=== PATIENT | male | born 1950 | race Caucasian/White ===

== ENCOUNTER 2020-05-24 22:20 | Emergency (ER) | payer MEDICARE, SELFPAY ==
[2020-05-24] VITALS (9 sets, daily range): BP systolic 105–135; BP diastolic 50–65; PULSE 64–72; RESP 15–22; TEMP 36.8; O2SAT 97–100
--- NOTE | ~2020-05-24 | XR_ITS ---
EXAMINATION: XR chest 2V DATE: 05/25/2020 00:08 INDICATION: Shortness of breath TECHNIQUE: frontal and lateral views of the chest were obtained. COMPARISON: Chest radiograph dated 02/18/19 FINDINGS: Mild dependent atelectasis at the posterior sulci on the lateral projection. Remainder of the lungs a re clear. No pulmonary edema or pneumothorax. The cardiomediastinal silhouette is normal. There are b ridging osteophytes at multiple levels in the spine, consistent with diffuse idiopathic skeletal hype rostosis (DISH). IMPRESSION: 1. Mild bibasilar atelectasis. Reviewed, dictated and finalized at location A.
[2020-05-24 23:59] LABS: Basophils Absolute Auto 0.1 K/mm3 (0.0-0.1); Basophils Percent Auto 0.5 % (0.2-1.2); Eosinophils Absolute Auto 0.6 K/mm3 (0-0.3); Eosinophils Percent Auto 6.5 % (0-4.4); Hematocrit 33.3 % (42.0-52.0); Hemoglobin 10.2 g/dL (14.0-18.0); Immature Granulocyte Absolute 0.04 K/mm3 (0.00-0.031); Immature Granulocyte Percent A 0.4 % (0-0.5); Lymphocytes Absolute Auto 1.52 K/mm3 (0.9-3.2); Lymphocytes Percent Auto 16.4 % (18.3-44.2); Mean Corpuscular HGB Conc 30.6 g/dl (32-36); Mean Corpuscular Hemoglobin 30.3 pg (26-34); Mean Corpuscular Volume 98.8 fl (80-100); Mean Platelet Volume 10.4 fl (7.4-10.4); Monocytes Absolute Auto 0.9 K/mm3 (0.1-0.6); Neutrophils Absolute Auto 6.1 K/mm3 (1.3-6.7); Neutrophils Percent Auto 66.2 % (45.5-73.1); Platelet Count Result 244 k/mm3 (150-375); Red Blood Count 3.37 M/mm3 (4.6-6.20); White Blood Count 9.3 K/mm3 (4.5-10.0)
[2020-05-25] VITALS (7 sets, daily range): PULSE 62–70; RESP 12–18; O2SAT 93
[2020-05-25 00:14] LABS: Blood Urea Nitrogen 69 mg/dL (9-20); Calcium 8.8 mg/dL (8.4-10.2); Carbon Dioxide 28 mmol/L (22-30); Chloride 102 mmol/L (98-107); Estimated Glomerular Filt Rate 27; Glucose 187 mg/dL (75-110); Potassium 4.3 mmol/L (3.4-5.0); Sodium 137 mmol/L (137-145)
[2020-05-25 00:23] LABS: NT Pro B Type Natriuretic Pept 3210 PG/ML (5-100)
--- NOTE | 2020-05-25 01:46 | ED.EXTPRO ---
HPI - Extremity Problem General Chief complaint: Extremity Problem,Nontraumatic Stated complaint: full of fluid Time Seen by Provider: 05/24/20 23:32 History of Present Illness HPI Narrative: Patient is a 69-year-old male with multiple chronic medical issues who presents the ER with lower extremity swelling. Patient has history of chronic lower edema and has been hospitalized at [facility] and other hospitals for diuresis. Most recently couple weeks ago. Reports despite taking Lasix to continue weep. He also reports that he has chronic pain to his left hip over the last year. Patient reports dyspnea is also chronic as well. Related Data Home Medications Medication Instructions Recorded Confirmed allopurinol 200 mg PO DAILY 05/24/20 amiodarone 200 mg PO DAILY 05/24/20 apixaban [Eliquis] 5 mg PO BID 05/24/20 baclofen 10 mg PO TID PRN 05/24/20 calcitriol 0.25 mcg PO DAILY 05/24/20 ergocalciferol (vitamin D2) 50,000 unit PO WEEKLY 05/24/20 folic acid 1 mg PO DAILY 05/24/20 furosemide [Lasix] 80 mg PO BID 05/24/20 gabapentin 300 mg PO TID 05/24/20 hydrocodone-acetaminophen 1 tablet PO TID PRN 05/24/20 insulin detemir U-100 [Levemir 22 unit SUBCUT HS 05/24/20 FlexTouch U-100 Insuln] insulin lispro [Humalog KwikPen 10 unit SUBCUT TID 05/24/20 Insulin] levothyroxine 100 mcg PO QAM 05/24/20 lisinopril 5 mg PO DAILY 05/24/20 metoprolol succinate 50 mg PO DAILY 05/24/20 pantoprazole 40 mg PO TID 05/24/20 ropinirole 0.75 mg PO HS 05/24/20 spironolactone 12.5 mg PO DAILY 05/24/20 Allergies Allergy/AdvReac Type Severity Reaction Status Date / Time No Known Allergies Allergy Unverified 02/18/19 18:55 Review of Systems Review of Systems: All systems reviewed & are unremarkable except as noted in HPI and below Constitutional: Constitutional: Denies fatigue, Denies fever(s) and Denies weakness ENT: Denies nasal congestion and Denies sore throat Cardiovascular: Cardiovascular: Denies chest pain, Denies rapid heart rate and Denies radiating jaw, neck or arm pain Respiratory: Respiratory: Denies cough, Reports dyspnea and Denies wheezing Gastrointestinal: Gastrointestinal: Denies abdominal pain, Denies nausea and Denies vomiting Musculoskeletal: Comments: lower extremity edema Integumentary/Breasts: Comments: redness to BLE with weeping. [facility] Past Medical History Medical History (Updated 05/25/20 @ 02:52 by Damian Lechuga MD) Asbestosis Atrial fibrillation Carpal tunnel syndrome Chronic kidney disease COPD (chronic obstructive pulmonary disease) Surgical History Surgical History (Updated 05/25/20 @ 02:23 by Damian Lechuga MD) History of carpal tunnel release Social History Social History (Updated 05/25/20 @ 02:23 by Damian Lechuga MD) Smoking status: Never smoker Gender identity (if verbalized by the patient): Male Exam Narrative: Exam Narrative: GENERAL: Chronically ill-appearing and morbidly obese, and in no acute distress. HEAD: Normocephalic, atraumatic. ENT: Mucous membranes moist. CHEST: Clear to auscultation. No respiratory distress. HEART: Irregular regular rate and rhythm. Normal peripheral pulses. ABDOMEN: Soft, nontender, nondistended. EXTREMITIES: 4+ edema bilateral lower extremities with weeping. Patient able to ambulate with walker. SKIN: Warm, dry. Chronic skin changes bilateral lower extremities include redness with weeping blisters due to edema. NEURO:No focal deficits. Alert and oriented x3. PSYCH: Normal mood and affect. Course Course Emergency Course: Patient is up and ambulatory with a walker. Pain in the extremities as well as his edema all appear to be chronic. Renal issues also chronic. Previous chart reviewed. Patient wants referral to wound clinic. Discussed he should speak to his PCP about referral. Vital Signs Vital signs: Vital Signs Temperature 98.3 F 05/24/20 22:23 Pulse Rate 72 05/24/20 22:23 Respiratory Rate 19 0
--- NOTE | 2020-05-25 01:54 | PC.NURSE ---
Patient ambulated with walker, ambulated well with no assistance from staff. notified.
--- NOTE | 2020-05-25 02:41 | PC.NURSE ---
Patient frequently yelling out, nurse! and stating I need a pain pill, they haven't done anything for me, my legs are still weeping and I still hurt! this nurse informed patient that I understand your concerns, but this is an ER and we have one physician right now and he is seeing another patient right now. Patient then states well I have been here for so long, I cant just keep like this. This nurse informs patient that the physician is aware of his concerns but, you will need to follow up with your PCP, unfortunately the issues or concerns you came with today are chronic issues and aren't able to be resolved overnight. Patient then states I need a pain pill, I'm in pain! . This nurse informs patient that as soon as the physician is out of the other patient's room, I will let him know. Patient then states I'm about to walk out of here, hurry up! This nurse informs patient again that this is an ER and we only have one physician and he is busy at the moment but ensures patient that I will let the physician know of your pain as soon as I can.
== END 2020-05-25 03:05 | disposition home or self-care (01) ==
PROVIDERS: Emergency Provider Emergency Medicine; PCP Physician Assistant
DX: R60.0 Localized edema (principal); N18.9 Chronic kidney disease, unspecified; I48.91 Unspecified atrial fibrillation; J61 Pneumoconiosis due to asbestos and other mineral fibers; J44.9 Chronic obstructive pulmonary disease, unspecified; Z79.01 Long term (current) use of anticoagulants; Z79.4 Long term (current) use of insulin; R06.00 Dyspnea, unspecified
CPT/HCPCS: 36415; 71046; 80048; 83880; 85025; 99283

== ENCOUNTER 2025-10-16 23:02 | Inpatient (IN) | payer MEDICARE, SELFPAY ==
[2025-10-16] VITALS (9 sets, daily range): BP systolic 71–98; BP diastolic 35–73; PULSE 82–93; RESP 12–982; TEMP 36.8; O2SAT 89–100
--- NOTE | ~2025-10-16 | US_ITS ---
EXAMINATION: US arterial ankle brachial ind DATE: 10/18/2025 08:49 INDICATION: Cold toes with discoloration. Diabetes. TECHNIQUE: Segmental pressures and plethysmographic and Doppler waveforms of the brachial and lower extremity arteries were obtained. COMPARISON: None. FINDINGS: Right and left brachial artery pressures of 121 mm Hg and 119 mm Hg, respectively, are concordant (normal difference <= 30 mmHg). The right ankle-brachial index (ARNALDO) is at least 1.54 (normal >= 0.9-1.0) based solely upon pressures in the right posterior tibial artery with the right dorsalis pedis artery unable to be occluded which is likely related to arterial vessel wall calcification which can be seen in the arteries of both calves on prior CT dated 10/17/2025. The right great toe-brachial index (TBI) is 0.64 (normal >= 0.65). Arterial Doppler waveforms demonstrate brisk systolic upstrokes at both right posterior tibial and dorsalis pedis arteries. The left ARNALDO is unable to be obtained due to inability to occlude the vessels at the left ankle. The left TBI is 0.71. Arterial Doppler waveforms demonstrate brisk systolic upstrokes at both left posterior tibial and dorsalis pedis arteries. IMPRESSION: 1. Mild arterial occlusive disease to the right lower limb with minimally decreased right TBI. 2. No significant arterial occlusive disease in the left lower limb with normal left TBI. Reviewed, dictated and finalized at location A. PENDENT CONTRACTOR IMPRESSION: 1. Mild arterial occlusive disease to the right lower limb with minimally decre ased right TBI. 2. No significant arterial occlusive disease in the left lower limb with normal left TBI.
--- NOTE | ~2025-10-16 | XR_ITS ---
EXAMINATION: XR chest 1V portable DATE: 10/17/2025 00:12 INDICATION: Weakness TECHNIQUE: A single frontal view of the chest was obtained. COMPARISON: May 25, 2020 FINDINGS: The lungs are marginally inflated and exam somewhat limited by portable technique and patient body habitus. No large consolidative process, fabrice pulmonary edema or large effusion. Heart shadow appears borderline enlarged. Interstitial bronchovascular markings somewhat prominent. IMPRESSION: 1. Portable chest x-ray with no focal acute process; heart shadow is borderline enlarged and mild vascular congestion may be present. Reviewed, dictated and finalized at location A. ING DIRECTOR
--- NOTE | ~2025-10-16 | CT_ITS ---
EXAM/PROCEDURE: CT chest abdomen pelvis wo con HISTORY: sepsis COMPARISON: None available. TECHNIQUE: Noncontrast CT of the chest abdomen and pelvis performed FINDINGS: CHEST: Scattered fibrotic and atelectatic changes but the lungs are otherwise clear. Borderline cardiomegaly. No significant pericardial effusion or bulky lymphadenopathy. No suspicious lung nodules or masses. In the abdomen and pelvis, the bowel gas pattern is nonobstructive with no free air free fluid or pneumatosis seen. No gross inflamed appendix or AAA. No hydroureteronephrosis. A 3.3 cm mid pole right renal cysts and cholelithiasis. No gross CT evidence of acute cholecystitis or pancreatitis. Possible mild urinary bladder wall thickening. No bulky lymphadenopathy or masses seen. Diffuse degenerative changes throughout the bones. IMPRESSION: Directed noncontrast exam demonstratin. No gross acute intrathoracic process. Borderline cardiomegaly and coronary artery calcifications. 2. Cholelithiasis with no gross CT evidence of acute cholecystitis. Possible mild urinary bladder wall thickening which could be associated with developing cystitis or UTI. NOTE: Preliminary radiologist report provided by [facility] radiologist/physician. Reviewed, dictated and finalized at location A. L CLERK IMPRESSION: Directed noncontrast exam demonstratin. No gross acute intrathoracic process. Borderline cardiomegaly and coronary a rtery calcifications. 2. Cholelithiasis with no gross CT evidence of acute cholecystitis. Possible mi ld urinary bladder wall thickening which could be associated with developing cy stitis or UTI. NOTE: Preliminary radiologist report provided by [facility] radiologist/physician.
--- NOTE | ~2025-10-16 | US_ITS ---
EXAMINATION: US venous doppler [facility] DATE: 10/17/2025 12:31 INDICATION: Lower limb cellulitis with discoloration and coolness to the toes. TECHNIQUE: Grayscale ultrasound images without and with compression and Doppler ultrasound images of the bilateral lower extremity veins were obtained. COMPARISON: None. FINDINGS: The visualized portions of right common femoral vein, profunda (deep) femoral vein, femoral vein, popliteal vein, posterior tibial veins, peroneal veins, gastrocnemius vein and greater saphenous vein outflow are patent. Venous catheter is seen in the right common femoral vein. The visualized portions of left common femoral vein, profunda femoral vein, femoral vein, popliteal vein, posterior tibial veins, peroneal veins, gastrocnemius vein and greater saphenous vein outflow are patent. IMPRESSION: 1. No deep venous thrombosis in either lower limb. Reviewed, dictated and finalized at location A. ENT INTAKE REPRESENTATIVE
--- NOTE | ~2025-10-16 | CT_ITS ---
EXAM/PROCEDURE: CT LE LT wo con HISTORY: Cellulitis, rule out necrotizing fasciitis COMPARISON: None available. TECHNIQUE: CT of the left leg foot and ankle with the upper portion of the field of view just above the level of the knee performed with no contrast. FINDINGS: Moderately severe edematous/infiltrative changes present circumferentially in the subcutaneous soft tissues at the superior margin of the field of view, and extending caudally and increasing in consolidation through the calf/leg region and into the foot. No discretely defined drainable fluid collection. The deep compartments appear uninvolved with no evidence of compartment syndrome or deep infection. No gaseous accumulation within the field of view. Extensive vascular calcification. The bones appear intact with no clear evidence of osteomyelitis. IMPRESSION: 1. Extensive edematous/infiltrative changes in the subcutaneous soft tissues throughout the field of view of the left lower extremity with no clearly defined abscess or gross evidence of necrotizing fasciitis, or osteomyelitis. If osteomyelitis is a clinical concern, correlation with MRI suggested; if there concern for abscess, repeat examination with CT or MRI with contrast suggested. 2. Other findings as above. Reviewed, dictated and finalized at location A. YING MACHINE OPERATOR IMPRESSION: 1. Extensive edematous/infiltrative changes in the subcutaneous soft tissues th roughout the field of view of the left lower extremity with no clearly defined abscess or gross evidence of necrotizing fasciitis, or osteomyelitis. If osteom yelitis is a clinical concern, correlation with MRI suggested; if there concern for abscess, repeat examination with CT or MRI with contrast suggested. 2. Other findings as above.
--- NOTE | 2025-10-16 23:13 | ECG_ITS ---
Test Date: 2025-10-16 23:32:30 Measurements Intervals [place] Rate: 90 P: 0 MO: 0 QRS: 201 QRSD: 130 T: 60 QT: 353 QTc: 432 Interpretive Statements ATRIAL FIBRILLATION LOW VOLTAGE ANTEROLATERAL MYOCARDIAL INFARCTION , OF INDETERMINATE AGE [40+ ms Q WAVE IN I/aVL/V3-V6] ABNORMAL ECG No previous ECG available for comparison Electronically Signed On 10-17-2025 09:02:30 PARTS DATA WRITER by Benji Moeller M.D.
[2025-10-16] MEDS: DEXTROSE 50% 25 GM/50 ML SYRINGE ×2 (23:14→23:20)
[2025-10-16] MEDS: SODIUM CHLORIDE 0.9% IV 1,000 ML 999 ML IV CONT (23:36)
[2025-10-16 23:40] LABS: Hematocrit 39.1 % (42.0-52.0); Hemoglobin 12.4 g/dL (14.0-18.0); Immature Granulocyte Percent A 1.5 % (0-0.5); Lymphocytes Absolute Auto 1.38 K/mm3 (0.9-3.2); Mean Corpuscular HGB Conc 31.7 g/dl (32-36); Mean Corpuscular Hemoglobin 30.8 pg (26-34); Mean Corpuscular Volume 97.0 fl (80-100); Nucleated Red Blood Cells Absolute Auto 0.000 K/mm3 (0.0-0.012); Nucleated Red Blood Cells Perc 0.0 % (0.0-0.2); Platelet Count Result 227 k/mm3 (150-375); Red Blood Count 4.03 M/mm3 (4.6-6.20); White Blood Count 18.2 K/mm3 (4.5-10.0)
[2025-10-16 23:54] LABS: INR 1.4; Prothrombin Time 16.9 Seconds (11.1-14.7)
[2025-10-17] VITALS (98 sets, daily range): BP systolic 61–177; BP diastolic 30–122; PULSE 66–100; RESP 13–30; TEMP 37.2–38.6; O2SAT 84–100; BMI 54.0
--- NOTE | 2025-10-17 | ECHO_ITS ---
Patient Info Name: Chaz Caballero Age: 75 years : 1950 Gender: Male Ht: 63 in Wt: 305 lbs BSA: 2.57 m2 HR: 76 bpm BP: 113 / 92 mmHg Heart Rhythm: Atrial Fibrillation Technical Quality: Fair Exam Date: 10/17/2025 1:50 PM Patient Status: I Admit Date: 10/17/2025 Exam Type: CA echo dop color flow w con Complete two-dimensional, color flow and Doppler transthoracic echocardiogram is performed with contrast to opacify the left ventricle and to improve the deliniation of the left ventricle endocardial borders. Staff Referring Physician: Tatum Rose MD Belt And Link Assembly Supervisor: Bhargav Soler III Attending Provider: Salma Bowling Contrast/Agitated Saline Contrast/Ag. Saline: Definity Amount: 2.00 ml Administered By: Bhargav Soler III Existing IV Access: Yes IV Access Condition: patent with no signs of infiltration Summary 1. Left ventricular chamber dimension is mildly enlarged. 2. Left ventricular systolic function is severely reduced, estimated at 30-35. 3. There is mildly increased left ventricular wall thickness. 4. The left ventricular diastolic function is abnormal. 5. Right ventricular chamber dimension is severely enlarged. 6. Right ventricular systolic function is reduced. 7. There is mild mitral valve regurgitation. 8. There is moderate to severe tricuspid valve regurgitation. 9. Severe pulmonary hypertension, estimated pulmonary arterial systolic pressure is 62 mmHg. 10. There is mild pulmonic regurgitation. Left Ventricle Left ventricular chamber dimension is mildly enlarged. Left ventricular systolic function is severely reduced, estimated at 30-35. There is mildly increased left ventricular wall thickness. The left ventricular diastolic function is abnormal. Right Ventricle Right ventricular chamber dimension is severely enlarged. Right ventricular systolic function is reduced. Left Atria Left atrial chamber dimension is moderately enlarged. Right Atria Right atrial chamber dimension is moderately enlarged. Atrial Septum Intact interatrial septum visualized by color flow imaging. Aortic Valve The aortic valve is trileaflet. There is mild aortic valve sclerosis. There is no aortic valve stenosis. There is trace aortic valve regurgitation. Pulmonic Valve The pulmonic valve is normal. There is no pulmonic valve stenosis. There is mild pulmonic regurgitation. Mitral Valve The mitral valve has a calcified annulus. There is no mitral valve stenosis. There is mild mitral valve regurgitation. Tricuspid Valve The tricuspid valve leaflets are normal. There is no significant tricuspid valve stenosis. There is moderate to severe tricuspid valve regurgitation. Severe pulmonary hypertension, estimated pulmonary arterial systolic pressure is 62 mmHg. Pericardium/Pleural The pericardium appears normal. There is trivial pericardial effusion. Inferior Vena Cava Normal inferior vena cava with <50% collapse upon inspiration consistent with elevated right atrial pressure, 10 mmHg. Aorta The aortic root size at the sinus of Valsalva is normal. Left Ventricular Outflow Tract Name Value Normal LVOT 2D LVOT Diameter 2.6 cm LVOT Doppler LVOT Peak Velocity 96 cm/s LVOT Peak Gradient 4 mmHg LVOT Mean Gradient 2 mmHg LVOT VTI 17 cm LVOT VTI/AV VTI Ratio 0.8 LVOT Stroke Volume 92 ml LVOT CO 6.4 l/min LVOT CI 2.5 l/min/m2 Pulmonic Valve Name Value Normal PV Doppler PV Peak Velocity 121 cm/s PV Peak Gradient 6 mmHg PV Mean Gradient 2 mmHg Mitral Valve Name Value Normal MV Doppler MV Peak Gradient 6 mmHg MV Mean Gradient 2 mmHg MV Area (Cont Eq VTI) 3.1 cm2 MV Diastolic Function MV E Peak Velocity 103 cm/s MV A Peak Velocity 1 cm/s MV E/A 158.7 MV Decel Time (PW) 211 ms MV Annular TDI MV E/e' (Septal) 14.8 MV E/e' (Lateral) 16.4 MV E/e' (Average) 15.6 Tricuspid Valve Name Value Normal TV Regurgitation Doppler TR Peak Velocity 361 cm/s TR Peak Gradient 52 mmHg Estimated PAP/RSVP RA Pressure 10 mmHg <=5 PA Systolic Pressure 62 mmHg <36 RV Systolic Pressure 62 mmHg <36 TV Annular TDI TV Lateral Elvira s' Velocity 6.8 cm/s >=9.5 Aortic Valve Name Value Normal AV Doppler AV Peak Velocity 151 cm/s AV Peak Gradient 9 mmHg AV Mean Gradient 4 mmHg AV VTI 23 cm AV Area (Cont Eq VTI) 4.0 cm2 >=3.0 AV Area (Cont Eq Jevon) 3.4 cm2 AV DI (Jevon) 0.64 AV Regurgitation 2D LVOT Area 5.3 cm2 Ventricles Name Value Normal LV Dimensions 2D/MM IVS Diastolic Thickness (2D) 0.9 cm 0.6-1.0 LVID Diastole (2D) 5.6 cm 4.2-5.8 LVIW Diastolic Thickness (2D) 0.8 cm 0.6-1.0 LVID Systole (2D) 4.7 cm 2.5-4.0 LVOT Diameter 2.6 cm LV Mass (2D Cubed) 172.43 g 88.00-224.00 LV Mass Index (2D Cubed) 67 g/m2 49-115 Relative Wall Thickness (2D) 0.27 <=0.42 LV Fractional Shortening/Ejection Fraction 2D/MM LV Fractional Shortening (2D) 16 % 25-43 LV EF (2D Teichholz) 34 % LV Diastolic Volume (4C MOD) 109 ml LV EF (4C MOD) 36 % LV Diastolic Volume (2C MOD) 101 ml LV EF (2C MOD) 35 % LV Diastolic Volume (BP MOD) 110 ml 62-150 LV Diastolic Volume Index (BP MOD) 43 ml/m2 34-74 LV Systolic Volume (BP MOD) 69 ml 21-61 LV Systolic Volume Index (BP MOD) 27 ml/m2 11-31 LV EF (BP MOD) 38 % 52-72 LV Diastolic Length (4C) 7.3 cm LV Systolic Length (4C) 6.1 cm LV Stroke Volume (4C MOD) 39 ml Atria Name Value Normal RA Dimensions RA Systolic Major [place] Length (4C) 6.7 cm 2.1-2.7 RA Area (4C) 30.0 cm2 <=18.0 Report Signatures
[2025-10-17 00:03] LABS: Partial Thromboplastin Time 33.3 Seconds (22.3-36.8)
[2025-10-17 00:12] LABS: Alanine Aminotransferase 27 U/L (6-50); Albumin Level 3.9 g/dL (3.5-5.1); Alkaline Phosphatase 94 U/L (38-126); Anion Gap 13 mmol/L (4-12); Aspartate Amino Transferase 32 U/L (17-59); Bilirubin,Total 1.2 mg/dL (0.2-1.3); Blood Urea Nitrogen 35 mg/dL (9-20); Calcium 9.2 mg/dL (8.4-10.2); Carbon Dioxide 23 mmol/L (22-30); Chloride 100 mmol/L (98-107); Estimated Glomerular Filt Rate 33; Glucose 45 mg/dL (65-110); Lipase 33 U/L (23-300); Magnesium 0.8 mg/dL (1.6-2.3); Potassium 4.0 mmol/L (3.4-5.0); Procalcitonin 18.4 ng/mL; Sodium 136 mmol/L (137-145); Total Protein 7.4 g/dL (6.3-8.2)
[2025-10-17 00:22] LABS: NT Pro B Type Natriuretic Pept 19400 pg/mL (19.9-100); Troponin I 0.064 ng/mL (0.000-0.034)
[2025-10-17] MEDS: DEXTROSE 5%/0.9% SOD CHL 1,000 ML 100 ML IV CONT ×2 (00:45→10:26)
[2025-10-17 00:52] LABS: Influenza A QL RT-PCR Negative (Negative); Influenza B QL RT-PCR Negative (Negative); RSV RNA, RT-PCR Negative (Negative); SARS-CoV-2 RNA PCR Negative (Negative)
[2025-10-17 01:43] LABS: Alveolar/Arterial O2 Gradient 133.8 mmHg; Fractional Inspired Oxygen 44 %; HCO3 ABG 19.1 mEq/l (22.0-26.0); Oxygen Content ABG 17.3 %vol (16.0-22.0); Oxygen Saturation ABG 98.6 % (95.0-100.0); PCO2 ABG 37.7 mmHg (35.0-45.0); PO2 ABG 136.9 mmHg (80.0-100.0); PO2 FiO2 Ratio Arterial Blood 3.11 %
[2025-10-17 01:51] LABS: Liters per Minute 6.0 LPM; Modified Allen's Test Pass; Site Drawn LEFT RADIAL
--- NOTE | 2025-10-17 01:54 | PCRCNOTE ---
Slow draw time due to unpalpable pulsation in extremities bilaterally; blue, cold fingers; consistently trending lower BP; Doppler used to target at Left radial artery
[2025-10-17] MEDS: NOREPINEPHRINE 8 MG/D5W 250 ML 8 MG/250 ML BAG 9.38 MG IV CONT (02:10)
[2025-10-17] MEDS: CEFEPIME 2 GM in SODIUM CHLORIDE 0.9% IV 50 ML 100 ML IVPB ×3 (02:11→23:35)
[2025-10-17 02:13] LABS: Add Urine Microscopic? YES; Appearance Urine Turbid (Clear); Glucose Urine UA Negative (Negative); Leukocyte Esterase Ur 1+ LEU/UL (Negative); Need Manual Microscopic Reviewed; Nitrate Urine Negative (Negative); Non Pathogenic Casts >20; Specific Grav Ur 1.018 (1.001-1.035)
--- NOTE | 2025-10-17 02:32 | ED.GENADULT ---
HPI - General Adult General Chief complaint: Weakness Stated complaint: HYPOGLYCEMIA, WEAKNESS, BLURRED VISION Time Seen by Provider: 10/16/25 23:16 History of Present Illness HPI narrative: patient 75-year-old gentleman presents emergency department with chief complaint of not feeling well patient has history of diabetes reports that throughout the day he has been feeling unwell reports he has history of chronic kidney disease atrial fibrillation COPD and today did not eat well but took his normal doses of insulin the patient was found to be hypoglycemic by EMS was given oral glucose and a dose of glucagon prior to arrival upon arrival the emergency department patient was still hypoglycemic and was given IV glucose upon arrival the patient was hypotensive Related Data Home Medications ?Medication ?Instructions ?Recorded ?Confirmed ?Last Taken ?Type allopurinol 100 mg tablet 200 mg PO DAILY 05/24/20 10/17/25 10/16/25 History amiodarone 200 mg tablet 200 mg PO DAILY 05/24/20 10/17/25 10/16/25 History apixaban 5 mg tablet (Eliquis) 5 mg PO BID 05/24/20 10/17/25 10/16/25 History baclofen 10 mg tablet 10 mg PO TID PRN other 05/24/20 10/17/25 10/16/25 History calcitriol 0.25 mcg capsule 0.25 mcg PO DAILY 05/24/20 10/17/25 10/16/25 History ergocalciferol (vitamin D2) 1,250 50,000 unit PO WEEKLY 05/24/20 10/17/25 10/16/25 History mcg (50,000 unit) capsule folic acid 1 mg tablet 1 mg PO DAILY 05/24/20 10/17/25 10/16/25 History furosemide 80 mg tablet (Lasix) 80 mg PO BID 05/24/20 10/17/25 10/16/25 History gabapentin 300 mg capsule 300 mg PO TID 05/24/20 10/17/25 10/16/25 History hydrocodone 5 mg-acetaminophen 325 1 tablet PO TID PRN Pain 05/24/20 10/17/25 10/16/25 History mg tablet insulin detemir U-100 100 unit/mL 22 unit subcut HS 05/24/20 10/17/25 10/16/25 History (3 mL) subcutaneous pen (Levemir FlexTouch U-100 Insulin) insulin lispro 100 unit/mL 10 unit subcut TID 05/24/20 10/17/25 10/16/25 History subcutaneous pen (Humalog KwikPen (U-100) Insulin) levothyroxine 100 mcg tablet 100 mcg PO QAM 05/24/20 10/17/25 10/16/25 History lisinopril 5 mg tablet 5 mg PO DAILY 05/24/20 10/17/25 10/16/25 History metoprolol succinate 50 mg 50 mg PO DAILY 05/24/20 10/17/25 10/16/25 History tablet,extended release 24 hr pantoprazole 40 mg tablet,delayed 40 mg PO TID 05/24/20 10/17/25 10/16/25 History release ropinirole 0.25 mg tablet 0.75 mg PO HS 05/24/20 10/17/25 10/16/25 History spironolactone 25 mg tablet 12.5 mg PO DAILY 05/24/20 10/17/25 10/16/25 History Allergies Allergy/AdvReac Type Severity Reaction Status Date / Time No Known Allergies Allergy Unverified 02/18/19 18:55 Review of Systems Review of Systems: A 10 system review of systems was completed on the patient and is negative except for what is stated in the HPI. Nursing and ancillary documentation was reviewed. [facility] Past Medical History Medical History Carpal tunnel syndrome Chronic kidney disease Asbestosis COPD (chronic obstructive pulmonary disease) Atrial fibrillation Surgical History Surgical History History of carpal tunnel release Social History Social History Smoking status: Never smoker Gender identity (if verbalized by the patient): Male Exam Narrative: GENERAL: illl-appearing, morbidly obese, and in no acute distress. HEAD: Normocephalic, atraumatic. EYES: PERRLA and EOMI. ENT: Nares clear, no rhinorrhea or epistaxis. Mucous membranes moist. NECK: Supple. CHEST: Clear to auscultation. No respiratory distress. HEART: Regular rate and rhythm. No murmur heard. Normal peripheral pulses. ABDOMEN: Soft, nontender, nondistended, normal active bowel sounds. there is erythema of the skin folds under the pannus there is open wound to the scrotum tissue was pink colored there is no necrotic tissue there is no crepitance there is no purulent drainage EXTREMITIES: Normal range of motion. No edema. SKIN: Warm, dry, no rash. NEURO: No focal deficits. Alert and oriented x3. PSYCH: Normal mood and affect. Course Vital Signs Vital signs: Vital Signs Temperature 36.8 C 10/16/25 22:57 Pulse Rate 93 10/16/25 22:57 Respiratory Rate 12 10/16/25 22:57 Blood Pressure 92/59 L 10/16/25 22:57 Pulse Oximetry 96 10/16/25 22:57 Oxygen Delivery Nasal Cannula 10/16/25 22:57 Oxygen Flow Rate 3 10/16/25 22:57 Temperature 37.2 C 10/17/25 03:58 Pulse Rate 66 10/17/25 04:00 Respiratory Rate 28 H 10/17/25 04:00 Blood Pressure 99/68 L 10/17/25 03:58 Pulse Oximetry 96 10/17/25 04:00 Oxygen Delivery Nasal Cannula 10/17/25 04:00 Oxygen Flow Rate 2 10/17/25 04:00 Fraction of Inspired Oxygen 50 10/17/25 03:00 Procedures Central Line Placement Right Femoral: Central Line Date: 10/17/25 Central Line Time: 02:33 Discussed w/ the patient/family/POA,the placement of a central venous catheter, including its clinical necessity/indication & associated potential risks, benifits and alternatives.: Yes The patient/family/POA understand(s) and acknowledge(s) the need to proceed with central venous catheter insertion as an important element of the patient's clinical management.: Yes Time Out Performed: Yes Patient Placed on Monitor/Pulse Ox: Yes Max. Sterile Barrier Technique: Caps, large sterile sheet and hand hygiene Central Line Prep: 2% chlorhexidine scrub and sterile drapes applied Technique: [email or web address] Local Anesthetic: lidocaine 1% Amount of anesthesia used (mL): 5 Ultrasound Used for Placement: Yes Central Line Lumen Inserted: triple Post Procedure: sutured in place, good blood return, all ports aspirated, flushed, capped and sterile dressing applied Patient Tolerated Procedure: well and no complications Medical Decision Making MDM Narrative Medical decision making narrative: differential diagnosis includes sepsis, hypoglycemia, noncompliance, pneumonia, cellulitis patient initially had a lactate of 5.3 white count was 18 initial blood sugars were extremely low at 45 the patient was treated with IV dextrose and also is on D5 drip creatinine was 1.97 this is actually improved from the patient's baseline troponin was slightly elevated at 0.085 CRP and procalcitonin [place] [address] urinalysis showed 1+ leukocyte esterase but no white blood cells and no bacteria and negative nitrate COVID flu RSV were negative blood cultures were obtained. The patient was empirically started on cefepime and vancomycin due to hypotension a central line was placed due to the patient being on Eliquis a right femoral central line was placed even though due to the patient's body habitus it was somewhat suboptimal and location the patient is currently on 10 mcg of Levophed patient was treated with less than 30 per kilos of normal saline boluses due to CHF concerns after fluid resuscitation the lactic acid did come down from 5.3 to 3.0 Vital Signs Vital Signs: Vital Signs Temperature 36.8 C 10/16/25 22:57 Pulse Rate 93 10/16/25 22:57 Respiratory Rate 12 10/16/25 22:57 Blood Pressure 92/59 L 10/16/25 22:57 Pulse Oximetry 96 10/16/25 22:57 Oxygen Delivery Nasal Cannula 10/16/25 22:57 Oxygen Flow Rate 3 10/16/25 22:57 Temperature 37.2 C 10/17/25 03:58 Pulse Rate 66 10/17/25 04:00 Respiratory Rate 28 H 10/17/25 04:00 Blood Pressure 99/68 L 10/17/25 03:58 Pulse Oximetry 96 10/17/25 04:00 Oxygen Delivery Nasal Cannula 10/17/25 04:00 Oxygen Flow Rate 2 10/17/25 04:00 Fraction of Inspired Oxygen 50 10/17/25 03:00 Lab Data 10/16/25 23:07 10/16/25 23:07 Labs: Lab Results 10/16/25 10/16/25 10/16/25 Range/Units 23:07 23:36 23:41 WBC 18.2 H (4.5-10.0) K/mm3 RBC 4.03 L (4.6-6.20) M/mm3 Hgb 12.4 L (14.0-18.0) g/dL Hct 39.1 L (42.0-52.0) % MCV 97.0 (80-100) fl MCH 30.8 (26-34) pg MCHC 31.7 L (32-36) g/dl RDW 14.4 (11.5-14.5) % Plt Count 227 (150-375) k/mm3 MPV 9.8 (7.4-10.4) fl Immature Gran % (Auto) 1.5 H (0-0.5) % Neut % (Auto) 86.0 H (45.5-73.1) % Lymph % (Auto) 7.6 L (18.3-44.2) % Potter % (Auto) 4.4 (2.6-8.5) % Eos % (Auto) 0.0 (0-4.4) % Baso % (Auto) 0.5 (0.2-1.2) % Lymph # (Auto) 1.38 (0.9-3.2) K/mm3 Potter # (Auto) 0.8 H (0.1-0.6) K/mm3 Eos # (Auto) 0.0 (0-0.3) K/mm3 Baso # (Auto) 0.1 (0.0-0.1) K/mm3 Abs Immat Gran (auto) 0.27 H (0.00-0.031) K/mm3 Absolute Neuts (auto) 15.7 H (1.3-6.7) K/mm3 Absolute Nucleated RBC 0.000 (0.0-0.012) K/mm3 Nucleated RBC % 0.0 (0.0-0.2) % PT 16.9 H (11.1-14.7) Seconds INR 1.4 APTT 33.3 (22.3-36.8) Seconds Sodium 136 L (137-145) mmol/L Potassium 4.0 (3.4-5.0) mmol/L Chloride 100 (98-107) mmol/L Carbon Dioxide 23 (22-30) mmol/L Anion Gap 13 H (4-12) mmol/L BUN 35 H D (9-20) mg/dL Creatinine 1.97 H (0.7-1.3) mg/dL Estim Creat Clear Calc Not Reportable Estimated GFR 33 L (59 - ) Glucose 45 L* (65-110) mg/dL POC Capillary Glucose 108 H (65-105) mg/dl Lactic Acid 5.3 H* (0.7-2.0) mmol/L Calcium 9.2 (8.4-10.2) mg/dL Magnesium 0.8 L (1.6-2.3) mg/dL Total Bilirubin 1.2 (0.2-1.3) mg/dL AST 32 (17-59) U/L ALT 27 (6-50) U/L Alkaline Phosphatase 94 (38-126) U/L Troponin I 0.064 H* (0.000-0.034) ng/mL C-Reactive Protein (<1.0) mg/dL NT-Pro-B Natriuret Pep 49157 H (19.9-100) pg/mL Total Protein 7.4 (6.3-8.2) g/dL Albumin 3.9 (3.5-5.1) g/dL Lipase 33 (23-300) U/L Procalcitonin 18.4 ng/mL Urine Color (Yellow) Urine Appearance (Clear) Urine pH (5.0-9.0) Ur Specific [place] (1.001-1.035) Urine Protein (Negative) mg/dL Urine Glucose (UA) (Negative) mg/dL Urine Ketones (Negative) mg/dL Ur Blood (Man) (Negative) Urine Nitrate (Negative) Urine Bilirubin (Negative) Urine Urobilinogen (<2.0) mg/dL Add Ur Microanalysis Leukocyte Esterase Rfl (Negative) KELIN/UL Urine RBC (0-2) /hpf Urine WBC (0-3) /hpf Ur Squamous Epith Cells (Few) /hpf Urine Bacteria /hpf Urine Casts Nasal MRSA (PCR) Influenza A (RT-PCR) (Negative) Influenza B (RT-PCR) (Negative) RSV (RT-PCR) (Negative) SARS-CoV-2 RNA (RT-PCR) (Negative) 10/16/25 10/17/25 10/17/25 Range/Units 23:56 00:02 00:14 WBC (4.5-10.0) K/mm3 RBC (4.6-6.20) M/mm3 Hgb (14.0-18.0) g/dL Hct (42.0-52.0) % MCV (80-100) fl MCH (26-34) pg MCHC (32-36) g/dl RDW (11.5-14.5) % Plt Count (150-375) k/mm3 MPV (7.4-10.4) fl Immature Gran % (Auto) (0-0.5) % Neut % (Auto) (45.5-73.1) % Lymph % (Auto) (18.3-44.2) % Potter % (Auto) (2.6-8.5) % Eos % (Auto) (0-4.4) % Baso % (Auto) (0.2-1.2) % Lymph # (Auto) (0.9-3.2) K/mm3 Potter # (Auto) (0.1-0.6) K/mm3 Eos # (Auto) (0-0.3) K/mm3 Baso # (Auto) (0.0-0.1) K/mm3 Abs Immat Gran (auto) (0.00-0.031) K/mm3 Absolute Neuts (auto) (1.3-6.7) K/mm3 Absolute Nucleated RBC (0.0-0.012) K/mm3 Nucleated RBC % (0.0-0.2) % PT (11.1-14.7) Seconds INR APTT (22.3-36.8) Seconds Sodium (137-145) mmol/L Potassium (3.4-5.0) mmol/L Chloride (98-107) mmol/L Carbon Dioxide (22-30) mmol/L Anion Gap (4-12) mmol/L BUN (9-20) mg/dL Creatinine (0.7-1.3) mg/dL Estim Creat Clear Calc Estimated GFR (59 - ) Glucose (65-110) mg/dL POC Capillary Glucose 98 (65-105) mg/dl Lactic Acid (0.7-2.0) mmol/L Calcium (8.4-10.2) mg/dL Magnesium (1.6-2.3) mg/dL Total Bilirubin (0.2-1.3) mg/dL AST (17-59) U/L ALT (6-50) U/L Alkaline Phosphatase (38-126) U/L Troponin I (0.000-0.034) ng/mL C-Reactive Protein (<1.0) mg/dL NT-Pro-B Natriuret Pep (19.9-100) pg/mL Total Protein (6.3-8.2) g/dL Albumin (3.5-5.1) g/dL Lipase (23-300) U/L Procalcitonin ng/mL Urine Color Dark yellow (Yellow) Urine Appearance Turbid H (Clear) Urine pH 5.0 (5.0-9.0) Ur Specific [place] 1.018 (1.001-1.035) Urine Protein 2+ H (Negative) mg/dL Urine Glucose (UA) Negative (Negative) mg/dL Urine Ketones Trace H (Negative) mg/dL Ur Blood (Man) 2+ H (Negative) Urine Nitrate Negative (Negative) Urine Bilirubin 1+ H (Negative) Urine Urobilinogen 1.0 (<2.0) mg/dL Add Ur Microanalysis Reviewed Leukocyte Esterase Rfl 1+ H (Negative) EKLIN/UL Urine RBC 3-5 H (0-2) /hpf Urine WBC 0-5 (0-3) /hpf Ur Squamous Epith Cells Many H (Few) /hpf Urine Bacteria None seen /hpf Urine Casts >20 Nasal MRSA (PCR) Influenza A (RT-PCR) Negative (Negative) Influenza B (RT-PCR) Negative (Negative) RSV (RT-PCR) Negative (Negative) SARS-CoV-2 RNA (RT-PCR) Negative (Negative) 10/17/25 10/17/25 10/17/25 Range/Units 01:34 02:39 03:59 WBC (4.5-10.0) K/mm3 RBC (4.6-6.20) M/mm3 Hgb (14.0-18.0) g/dL Hct (42.0-52.0) % MCV (80-100) fl MCH (26-34) pg MCHC (32-36) g/dl RDW (11.5-14.5) % Plt Count (150-375) k/mm3 MPV (7.4-10.4) fl Immature Gran % (Auto) (0-0.5) % Neut % (Auto) (45.5-73.1) % Lymph % (Auto) (18.3-44.2) % Potter % (Auto) (2.6-8.5) % Eos % (Auto) (0-4.4) % Baso % (Auto) (0.2-1.2) % Lymph # (Auto) (0.9-3.2) K/mm3 Potter # (Auto) (0.1-0.6) K/mm3 Eos # (Auto) (0-0.3) K/mm3 Baso # (Auto) (0.0-0.1) K/mm3 Abs Immat Gran (auto) (0.00-0.031) K/mm3 Absolute Neuts (auto) (1.3-6.7) K/mm3 Absolute Nucleated RBC (0.0-0.012) K/mm3 Nucleated RBC % (0.0-0.2) % PT (11.1-14.7) Seconds INR APTT (22.3-36.8) Seconds Sodium (137-145) mmol/L Potassium (3.4-5.0) mmol/L Chloride (98-107) mmol/L Carbon Dioxide (22-30) mmol/L Anion Gap (4-12) mmol/L BUN (9-20) mg/dL Creatinine (0.7-1.3) mg/dL Estim Creat Clear Calc Estimated GFR (59 - ) Glucose (65-110) mg/dL POC Capillary Glucose 100 (65-105) mg/dl Lactic Acid 3.0 H (0.7-2.0) mmol/L Calcium (8.4-10.2) mg/dL Magnesium (1.6-2.3) mg/dL Total Bilirubin (0.2-1.3) mg/dL AST (17-59) U/L ALT (6-50) U/L Alkaline Phosphatase (38-126) U/L Troponin I 0.085 H* D (0.000-0.034) ng/mL C-Reactive Protein 6.2 H (<1.0) mg/dL NT-Pro-B Natriuret Pep (19.9-100) pg/mL Total Protein (6.3-8.2) g/dL Albumin (3.5-5.1) g/dL Lipase (23-300) U/L Procalcitonin ng/mL Urine Color (Yellow) Urine Appearance (Clear) Urine pH (5.0-9.0) Ur Specific [place] (1.001-1.035) Urine Protein (Negative) mg/dL Urine Glucose (UA) (Negative) mg/dL Urine Ketones (Negative) mg/dL Ur Blood (Man) (Negative) Urine Nitrate (Negative) Urine Bilirubin (Negative) Urine Urobilinogen (<2.0) mg/dL Add Ur Microanalysis Leukocyte Esterase Rfl (Negative) KELIN/UL Urine RBC (0-2) /hpf Urine WBC (0-3) /hpf Ur Squamous Epith Cells (Few) /hpf Urine Bacteria /hpf Urine Casts Nasal MRSA (PCR) Pending Influenza A (RT-PCR) (Negative) Influenza B (RT-PCR) (Negative) RSV (RT-PCR) (Negative) SARS-CoV-2 RNA (RT-PCR) (Negative) ABG Data ABG results: 10/17/25 01:15 Puncture Site Left radial ABG pH 7.323 L ABG pCO2 37.7 ABG pO2 136.9 H ABG PO2/FiO2 Ratio 3.11 ABG HCO3 19.1 L ABG O2 Saturation 98.6 ABG O2 Content 17.3 ABG Base Excess -6.3 A-a Gradient 133.8 Oxyhemoglobin 97.6 Total Hemoglobin 12.4 O2 Delivery Device Nasal cannula O2 Liters/Min 6.0 FiO2 44 Critical Care Time Critical Care Time Critical Care Time: Yes Total Critical Care Time: 75 Discharge Plan Discharge Clinical Impression: Sepsis, Leukocytosis, Elevated troponin Patient Disposition: Still a Patient Condition: Stable Patient Language: Surinamese Prescriptions: No Action amiodarone 200 mg tablet 200 mg PO DAILY metoprolol succinate 50 mg tablet extended release 24 hr 50 mg PO DAILY hydrocodone-acetaminophen 5-325 mg tablet 1 tablet PO TID PRN (Reason: Pain) allopurinol 100 mg tablet 200 mg PO DAILY spironolactone 25 mg tablet 12.5 mg PO DAILY levothyroxine 100 mcg tablet 100 mcg PO QAM furosemide [Lasix] 80 mg tablet 80 mg PO BID ropinirole 0.25 mg tablet 0.75 mg PO HS baclofen 10 mg tablet 10 mg PO TID PRN (Reason: other) Patient Comments: mg pantoprazole 40 mg tablet,delayed release (DR/EC) 40 mg PO TID gabapentin 300 mg capsule 300 mg PO TID folic acid 1 mg tablet 1 mg PO DAILY lisinopril 5 mg tablet 5 mg PO DAILY ergocalciferol (vitamin D2) 1,250 mcg (50,000 unit) capsule 50,000 unit PO WEEKLY calcitriol 0.25 mcg capsule 0.25 mcg PO DAILY insulin lispro [Humalog KwikPen Insulin] 100 unit/mL insulin pen 10 unit SUBCUT TID Rx Instructions: before meals Levemir FlexTouch U100 Insulin 100 unit/mL (3 mL) insulin pen 22 unit SUBCUT HS Eliquis 5 mg tablet 5 mg PO BID Follow-up/Referrals: Rayray,ROSANA Hernandez [Primary Care Provider, Family Practice] Time of Disposition: 04:28
[2025-10-17] MEDS: MAGNESIUM SULF 2 GM/WATER 50ML 2 GM/50 ML BAG IVPB ×2 (02:57→10:42)
[2025-10-17 03:03] LABS: CRP 6.2 mg/dL (<1.0)
[2025-10-17 03:12] LABS: Troponin I 0.085 ng/mL (0.000-0.034)
[2025-10-17] MEDS: VANCOMYCIN 1,250 MG/NS 250 ML 1,250 MG/250 ML BAG 166.67 MG IVPB ×2 (03:53→06:27)
[2025-10-17] MEDS: ACETAMINOPHEN 500 MG TABLET 1000 MG PO (04:11)
[2025-10-17] MEDS: ASPIRIN 81 MG CHEWABLE TABLET 324 MG PO (04:49)
--- NOTE | 2025-10-17 05:04 | WPCEDHO ---
ED Hand Off Checklist All vitals saved:Y IV Site documented:Y All med administrations documented:Y Triage Note Triage Note Pt BIBDEEP from home, at 0900 pt 10/16/25 22:57 started feeling weak after having breakfast. Pt was unable to eat lunch or dinner. Pt was able to call his daughter and she called EMS. On arrival blood glucose was 43 1 oral glucose and 1 mg glucagon IM at 2250. Pt states he feels better. Second blood glucose was 40, EMS stated he probably didn't give the medication long enough before rechecking. Allergies No Known Allergies Allergy (Unverified 02/18/19 18:55) Active Medications including assessments/comments Dextrose/Sodium Chloride (Dextrose 5% Sodium Chloride 0.9%) 1,000 mls @ 100 mls/hr IV CONT .Q10H SANDRA Last Admin: 10/17/25 00:45 Dose: 100 mls/hr Documented By: [facility] Infusion/Titration Document 10/17/25 00:45 [facility] (Rec: 10/17/25 00:46 [facility] [id number]) Intake IV Site Peripheral Access Right Antecubital Container Volume 1,000 Waste Amount 0 Dosing Infusion Rate 100 Cumulative Dose Not Applicable Increase/Decrease Started Elapsed Time Elapsed Time ( 0m minutes) Norepinephrine Bitartrate (Levophed 8 Mg/D5w 250 Ml) 8 mg in 250 mls @ 18.75 mls/hr IV CONT .[id number] STA; Protocol Stop: 10/17/25 15:22 Last Titration: 10/17/25 03:05 Dose: 10 mcg/min, 18.75 mls/hr Documented By: [facility] Infusion/Titration Document 10/17/25 03:05 [facility] (Rec: 10/17/25 03:44 [facility] [id number]) Intake Intake 23 Cumulative Intake ( 24.2 bag) Cumulative Intake ( 24.2 Rx) Container Volume 225.8 Waste Amount 0 Dosing Dose Rate 10 Infusion Rate 18.75 Cumulative Dose 0.7744 Increase/Decrease Decreased Elapsed Time Elapsed Time ( 55m minutes) Norepinephrine Infusion Assess Document 10/17/25 03:05 [facility] (Rec: 10/17/25 03:44 [facility] [id number]) Infusion Action Norepinephrine Titrated/Rate Changed Infusion Action Pulse Pulse Rate (60-100) 76 Blood Pressure Blood Pressure (100/ 177/95 H 60-140/90) Blood Pressure Mean 122 Titration: 10/17/25 02:16 Dose: 15 mcg/min, 28.13 mls/hr Documented By: [facility] Infusion/Titration Document 10/17/25 02:16 [facility] (Rec: 10/17/25 02:16 [facility] [id number]) Intake Intake 0.6 Cumulative Intake ( 1.2 bag) Cumulative Intake ( 1.2 Rx) Container Volume 248.8 Waste Amount 0 Dosing Dose Rate 15 Infusion Rate 28.13 Cumulative Dose 0.0384 Increase/Decrease Increased Elapsed Time Elapsed Time ( 6m minutes) Norepinephrine Infusion Assess Document 10/17/25 02:16 [facility] (Rec: 10/17/25 02:16 [facility] [id number]) Infusion Action Norepinephrine Titrated/Rate Changed Infusion Action Pulse Pulse Rate (60-100) 82 Blood Pressure Blood Pressure (100/ 85/54 L 60-140/90) Blood Pressure Mean 64 Titration: 10/17/25 02:14 Dose: 10 mcg/min, 18.75 mls/hr Documented By: [facility] Infusion/Titration Document 10/17/25 02:14 [facility] (Rec: 10/17/25 02:15 [facility] [id number]) Intake Intake 0.6 Cumulative Intake ( 0.6 bag) Cumulative Intake ( 0.6 Rx) Container Volume 249.4 Waste Amount 0 Dosing Dose Rate 10 Infusion Rate 18.75 Cumulative Dose 0.0192 Increase/Decrease Increased Elapsed Time Elapsed Time ( 4m minutes) Norepinephrine Infusion Assess Document 10/17/25 02:14 [facility] (Rec: 10/17/25 02:15 [facility] [id number]) Infusion Action Norepinephrine Titrated/Rate Changed Infusion Action Pulse Pulse Rate (60-100) 82 Blood Pressure Blood Pressure (100/ 89/47 L 60-140/90) Blood Pressure Mean 61 Admin: 10/17/25 02:10 Dose: 5 mcg/min, 9.38 mls/hr Documented By: [facility] Infusion/Titration Document 10/17/25 02:10 [facility] (Rec: 10/17/25 02:11 [facility] [id number]) Intake IV Site Peripheral Access Right Antecubital Container Volume 250 Waste Amount 0 Dosing Dose Rate 5 Infusion Rate 9.38 Increase/Decrease Started Elapsed Time Elapsed Time ( 0m minutes) Norepinephrine Infusion Assess Document 10/17/25 02:10 [facility] (Rec: 10/17/25 02:11 [facility] [id number]) Infusion Action Norepinephrine Initiated Infusion Action Pulse Pulse Rate (60-100) 77 Blood Pressure Blood Pressure (100/ 77/49 L 60-140/90) Blood Pressure Mean 58 Vancomycin HCl (Vancomycin 1,250 Mg/Ns 250 Ml) 1,250 mg in 250 mls @ 166.667 mls/hr IVPB ONCE ONE Stop: 10/17/25 05:29 Last Admin: 10/17/25 03:53 Dose: 166.67 mls/hr Documented By: RANDOLPH Infusion/Titration Document 10/17/25 03:53 [facility] (Rec: 10/17/25 03:53 [facility] [id number]) Intake IV Site Central Catheter, Triple Lumen Right Femoral, Groin Container Volume 250 Waste Amount 0 Dosing Infusion Rate 166.67 Increase/Decrease Started Elapsed Time Elapsed Time ( 0m minutes) Administered/Completed Medications Discontinued Medications Acetaminophen (Acetaminophen 500 Mg Tablet) 1,000 mg PO ONCE STA Stop: 10/17/25 04:09 Last Admin: 10/17/25 04:11 Dose: 1,000 mg Documented By: RANDOLPH Aspirin (Aspirin 81 Mg Chewable Tablet) 324 mg PO ONCE STA Stop: 10/17/25 04:09 Last Admin: 10/17/25 04:49 Dose: 324 mg Documented By: RANDOLPH Dextrose (Dextrose 50% 25 Gm/50 Ml Syringe) Confirm Administered Dose 25 gm .ROUTE .STK-MED ONE Stop: 10/16/25 23:07 Last Admin: 10/16/25 23:14 Dose: 25 gm Documented By: RANDOLPH Dextrose (Dextrose 50% 25 Gm/50 Ml Syringe) Confirm Administered Dose 25 gm .ROUTE .STK-MED ONE Stop: 10/16/25 23:17 Last Admin: 10/16/25 23:20 Dose: 25 gm Documented By: RANDOLPH Dextrose (Dextrose 50% 25 Gm/50 Ml Syringe) 25 gm IV PUSH ONCE ONE Stop: 10/16/25 23:21 Last Admin: 10/16/25 23:22 Dose: Not Given Documented By: [facility] Non-Admin Reason: Duplicate Dose Dextrose (Dextrose 50% 25 Gm/50 Ml Syringe) 25 gm IV PUSH ONCE ONE Stop: 10/16/25 23:25 Last Admin: 10/16/25 23:24 Dose: Not Given Documented By: [facility] Non-Admin Reason: Duplicate Dose Glucagon (Glucagon For Inj 1 Mg Vial) Confirm Administered Dose 1 mg .ROUTE .STK-MED ONE Stop: 10/16/25 23:07 Last Admin: 10/17/25 00:07 Dose: Not Given Documented By: RANDOLPH Non-Admin Reason: Order Discontinued Sodium Chloride (Normal Saline Iv) 1,000 mls @ 999 mls/hr IV CONT .Q1H1M STA Stop: 10/17/25 00:31 Last Infusion: 10/17/25 00:07 Dose: Infused Documented By: Admin: 10/16/25 23:36 Dose: 999 mls/hr Documented By: RANDOLPH Magnesium Sulfate (Magnesium Sulf 2 Gm/Water 50ml) 2 gm in 50 mls @ 25 mls/hr IVPB ONCE ONE Stop: 10/17/25 02:10 Last Infusion: 10/17/25 04:47 Dose: Infused Documented By: Admin: 10/17/25 02:57 Dose: 25 mls/hr Documented By: RANDOLPH Co-signed By: ZACK Cefepime HCl 2 gm/ Sodium (Chloride) 50 mls @ 100 mls/hr IVPB ONCE STA Stop: 10/17/25 01:56 Last Infusion: 10/17/25 02:43 Dose: Infused Documented By: Admin: 10/17/25 02:11 Dose: 100 mls/hr Documented By: RANDOLPH Miscellaneous Information (Please Enter Patient Weight For Medication Dosing.) 1 each XX CLARIFY SANDRA Stop: 11/16/25 00:00 Last Admin: 10/17/25 01:52 Dose: 1 each Documented By: RANDOLPH Comments: Done Notes 10/17/25 01:54 Respiratory Therapy Note by Ed Adams Slow draw time due to unpalpable pulsation in extremities bilaterally; blue, cold fingers; consistently trending lower BP; Doppler used to target at Left radial artery Initialized on 10/17/25 01:54 - END OF NOTE Interventions/Assessments IV / Saline Lock, Insert Start: 10/16/25 22:51 Freq: Status: Active Protocol: Document 10/17/25 02:45 RANDOLPH (Rec: 10/17/25 02:46 RANDOLPH [id number]) IV Assessment Central Catheter, Triple Lumen Right Femoral, Groin IV Catheter Access Initiated IV Insertion Date 10/17/25 IV Insertion Time 02:30 IV Insertion 1 Attempts Ultrasound Used for Yes Placement IV Site Assessment WNL IV Care and WNL Maintenance PA: Cardiovascular Assessment Start: 10/16/25 22:51 Freq: Status: Active Protocol: Document 10/16/25 23:21 [facility] (Rec: 10/16/25 23:22 [facility] [id number]) Cardiovascular Assessment Cardiovascular None Symptoms Skin Description Cyanosis Heart Sounds Normal Jugular Vein None Distention Capillary Refill Bilateral Upper Extremity Capillary Refill Greater than or Equal to 2 Seconds PA: Neurological Assessment Start: 10/16/25 22:51 Freq: Status: Active Protocol: Document 10/16/25 23:21 [facility] (Rec: 10/16/25 23:22 [facility] [id number]) Neurological Assessment Level of Alert,Awake Consciousness Arousable to Verbal Orientation Oriented to Person,Oriented to Place,Oriented to Time Neurological None Symptoms Last Vital Signs Temperature 101.0 F H 10/17/25 04:56 Pulse Rate 81 10/17/25 04:56 Respiratory Rate 29 H 10/17/25 04:56 Pulse Oximetry 95 10/17/25 04:56 Blood Pressure 115/57 L 10/17/25 04:56 Blood Pressure Mean 73 10/17/25 04:56 Oxygen Delivery Nasal Cannula 10/17/25 04:00 Oxygen Flow Rate 2 10/17/25 04:00 Fraction of Inspired Oxygen 50 10/17/25 03:00 Weight 136.9 kg 10/17/25 01:52 Last Result - Abnormals Only WBC 18.2 K/mm3 (4.5-10.0) H 10/16/25 23:07 RBC 4.03 M/mm3 (4.6-6.20) L 10/16/25 23:07 Hgb 12.4 g/dL (14.0-18.0) L 10/16/25 23:07 Hct 39.1 % (42.0-52.0) L 10/16/25 23:07 MCHC 31.7 g/dl (32-36) L 10/16/25 23:07 Immature Gran % (Auto) 1.5 % (0-0.5) H 10/16/25 23:07 Neut % (Auto) 86.0 % (45.5-73.1) H 10/16/25 23:07 Lymph % (Auto) 7.6 % (18.3-44.2) L 10/16/25 23:07 [place] # (Auto) 0.8 K/mm3 (0.1-0.6) H 10/16/25 23:07 Abs Immat Gran (auto) 0.27 K/mm3 (0.00-0.031) H 10/16/25 23:07 Absolute Neuts (auto) 15.7 K/mm3 (1.3-6.7) H 10/16/25 23:07 PT 16.9 Seconds (11.1-14.7) H 10/16/25 23:07 ABG pH 7.323 (7.350-7.450) L 10/17/25 01:15 ABG pO2 136.9 mmHg (80.0-100.0) H 10/17/25 01:15 ABG HCO3 19.1 mEq/l (22.0-26.0) L 10/17/25 01:15 Sodium 136 mmol/L (137-145) L 10/16/25 23:07 Anion Gap 13 mmol/L (4-12) H 10/16/25 23:07 BUN 35 mg/dL (9-20) H D 10/16/25 23:07 Creatinine 1.97 mg/dL (0.7-1.3) H 10/16/25 23:07 Estimated GFR 33 (59-) L 10/16/25 23:07 Glucose 45 mg/dL (65-110) L* 10/16/25 23:07 POC Capillary Glucose 108 mg/dl (65-105) H 10/16/25 23:36 Lactic Acid 3.0 mmol/L (0.7-2.0) H 10/17/25 02:39 Magnesium 0.8 mg/dL (1.6-2.3) L 10/16/25 23:07 Troponin I 0.085 ng/mL (0.000-0.034) H* D 10/17/25 02:39 C-Reactive Protein 6.2 mg/dL (<1.0) H 10/17/25 02:39 NT-Pro-B Natriuret Pep 01658 pg/mL (19.9-100) H 10/16/25 23:07 Urine Appearance Turbid (Clear) H 10/17/25 00:02 Urine Protein 2+ mg/dL (Negative) H 10/17/25 00:02 Urine Ketones Trace mg/dL (Negative) H 10/17/25 00:02 Ur Blood (Man) 2+ (Negative) H 10/17/25 00:02 Urine Bilirubin 1+ (Negative) H 10/17/25 00:02 Leukocyte Esterase Rfl 1+ KELIN/UL (Negative) H 10/17/25 00:02 Urine RBC 3-5 /hpf (0-2) H 10/17/25 00:02 Ur Squamous Epith Cells Many /hpf (Few) H 10/17/25 00:02 Most Recent Suicide Severity Rating Suicide Severity Rating NO RISK INDICATED 10/16/25 22:57
[2025-10-17 06:26] LABS: MRSA (PCR) NOT DETECTED (NOT DETECTE)
[2025-10-17] MEDS: SODIUM CHLORIDE 0.9% IV 1,000 ML 125 ML IV CONT (06:27)
--- NOTE | 2025-10-17 06:27 | PM.IMHP ---
H&P: HPI History of Present Illness Date/Time: 10/17/25 06:27 Chief Complaint: Weakness Narrative: This is a 75-year-old male patient who is diabetic and has a history of falling. The patient also has asbestosis, chronic kidney disease, atrial fibrillation, and COPD. The patient stated that he did not eat well prior to coming to the emergency room any took his normal dose of insulin. The patient was found to be hypoglycemic per EMS. The patient was given oral glucose and a dose of glucagon prior to arrival to the emergency room. The patient remained hypotensive and hypoglycemic. The patient is a very poor historian. His white count was noted to be 18.2. His H&H is 12.4 in 39.1 which appears to be higher than his normal. However the patient appears to be dehydrated. Patient ABGs pH 7.3-3, PO2 136.9, bicarb 19.1. His blood sugars 136. BUN 35 creatinine 1.97 which is improved from previous levels. His estimated GFR 33. His blood sugars were noted to be 108, 98, and 100 respectively. Initial lactic acid 5.3 with a repeat lactic of 3.0. First troponin 0.64 and 2nd troponin was 0.085. C reactive protein 6.2. BNP 63712. Urine is turbid with trace ketones and 1+ leukocyte esterase. There is many squamous epithelial cells. The patient does have a Hubbard catheter in, unsure if placed in route to the hospital are in the emergency room.. MRSA of the nares was not detected. Viral serology was negative. CT of chest abdomen and pelvis was read per radiology as Cardiomegaly coronary artery disease with calcified plaque, gallstone, 3.5 cm right renal cyst, questionable mild cystitis. A central line was placed per ED provider to the right femoral vein. The patient was started on D5 normal saline, Levophed, vancomycin, normal saline, and cefepime. The child care associate teacher has been consulted and agreed to ICU admission. The patient is being admitted to ICU observation status. Review of Systems Review of Systems: The patient is a poor historian but is able to answer some questions. Constitutional: Constitutional: Reports as per HPI and Reports no additional constitutional complaints Eyes: Eyes: Reports as per HPI and Reports no additional eye complaints ENT: Reports system reviewed and no additional complaints, except as documented and Reports Normal hearing present Cardiovascular: Cardiovascular: Reports no additional cardiovascular complaints Respiratory: Respiratory: Reports as per HPI and Reports no additional respiratory complaints Gastrointestinal: Gastrointestinal: Reports as per HPI and Reports no additional gastrointestinal complaints Musculoskeletal: Musculoskeletal: Reports no additional musculoskeletal complaints Integumentary/Breasts: Skin/Breast: Reports system reviewed and no additional complaints, except as docu Neurologic: Reports system reviewed and no additional complaints, except as documented and Reports Normal hearing present Psychiatric: Psychiatric: Reports no additional psychiatric complaints and Reports as per HPI Hematologic/Lymphatic: Hematologic/Lymphatic: Reports no additional hematologic/lymphatic complaints Allergic/Immunologic: Allergic/Immunologic: Reports no additional allergic/immunologic complaints ON LICENSE OF [facility] Past Medical History Medical History Anemia, chronic disease Chronic pain Osteoarthritis Congestive heart failure Chronic back pain Gout DM2 (diabetes mellitus, type 2) Carpal tunnel syndrome Chronic kidney disease Asbestosis COPD (chronic obstructive pulmonary disease) Atrial fibrillation Surgical History Surgical History History of carpal tunnel release Family History Family History Father Colon cancer Mother Lung cancer Other Acute myocardial infarction History of blood clots Social History Social History Social History: The patient stated that he lives home alone. He stated that he had 2 sons and 2 daughters but 1 daughter has . He is . He is retired. We discussed code status in the patient stated that he does not want to be resuscitated. However at this time he is a poor historian and is difficult for me to determine if he is mentally at his baseline to make that decision. Code status: Full code Smoking status: Never smoker Alcohol intake: former Substance use: never Lack of Transportation: No Lack of Food: Never True Current Housing: I Have Housing Concerned About Future Housing: No Difficulty Paying Gas/Electric Bills: No Difficulty Paying for Meds: No Currently Unemployed: No Education: Grade School Difficulty w/ Childcare or Family Care: No Gender identity (if verbalized by the patient): Male Spiritual care concerns: No Meds Home Medications and Allergies Home Medications ?Medication ?Instructions ?Recorded ?Confirmed ?Type allopurinol 100 mg tablet 200 mg PO DAILY 05/24/20 10/17/25 History amiodarone 200 mg tablet 200 mg PO DAILY 05/24/20 10/17/25 History apixaban 5 mg tablet (Eliquis) 5 mg PO BID 05/24/20 10/17/25 History baclofen 10 mg tablet 10 mg PO TID PRN other 05/24/20 10/17/25 History calcitriol 0.25 mcg capsule 0.25 mcg PO DAILY 05/24/20 10/17/25 History ergocalciferol (vitamin D2) 1,250 50,000 unit PO WEEKLY 05/24/20 10/17/25 History mcg (50,000 unit) capsule folic acid 1 mg tablet 1 mg PO DAILY 05/24/20 10/17/25 History furosemide 80 mg tablet (Lasix) 80 mg PO BID 05/24/20 10/17/25 History gabapentin 300 mg capsule 300 mg PO TID 05/24/20 10/17/25 History hydrocodone 5 mg-acetaminophen 325 1 tablet PO TID PRN Pain 05/24/20 10/17/25 History mg tablet insulin detemir U-100 100 unit/mL 22 unit subcut HS 05/24/20 10/17/25 History (3 mL) subcutaneous pen (Levemir FlexTouch U-100 Insulin) insulin lispro 100 unit/mL 10 unit subcut TID 05/24/20 10/17/25 History subcutaneous pen (Humalog KwikPen (U-100) Insulin) levothyroxine 100 mcg tablet 100 mcg PO QAM 05/24/20 10/17/25 History lisinopril 5 mg tablet 5 mg PO DAILY 05/24/20 10/17/25 History metoprolol succinate 50 mg 50 mg PO DAILY 05/24/20 10/17/25 History tablet,extended release 24 hr pantoprazole 40 mg tablet,delayed 40 mg PO TID 05/24/20 10/17/25 History release ropinirole 0.25 mg tablet 0.75 mg PO HS 05/24/20 10/17/25 History spironolactone 25 mg tablet 12.5 mg PO DAILY 05/24/20 10/17/25 History Allergies Allergy/AdvReac Type Severity Reaction Status Date / Time No Known Allergies Allergy Verified 10/17/25 06:05 Vital Signs Vital Signs - 24 hr 10/16/25 22:57 10/16/25 23:12 10/16/25 23:15 Temperature 98.3 F Pulse Rate 93 86 86 Respiratory Rate 12 24 H 25 H Blood Pressure 92/59 L 92/59 L 88/69 L Pulse Oximetry 96 100 100 Oxygen Delivery Nasal Cannula Oxygen Flow Rate 3 Fraction of Inspired Oxygen 10/16/25 23:20 10/16/25 23:25 10/16/25 23:30 Temperature Pulse Rate 88 87 87 Respiratory Rate 27 H 21 H 26 H Blood Pressure 93/73 L 87/54 L 71/35 L Pulse Oximetry 100 99 91 Oxygen Delivery Oxygen Flow Rate Fraction of Inspired Oxygen 10/16/25 23:38 10/16/25 23:47 10/16/25 23:57 Temperature Pulse Rate 88 84 82 Respiratory Rate 28 H 26 H 982 H Blood Pressure 98/43 L 76/46 L 75/54 L Pulse Oximetry 89 L 99 98 Oxygen Delivery Oxygen Flow Rate Fraction of Inspired Oxygen 10/17/25 00:00 10/17/25 00:04 10/17/25 00:07 Temperature Pulse Rate 81 82 81 Respiratory Rate 19 26 H 26 H Blood Pressure 71/54 L 70/39 L 81/47 L Pulse Oximetry 99 99 100 Oxygen Delivery Oxygen Flow Rate Fraction of Inspired Oxygen 10/17/25 00:12 10/17/25 00:15 10/17/25 00:17 Temperature Pulse Rate 81 80 80 Respiratory Rate 22 H 28 H 24 H Blood Pressure 81/54 L 73/60 L 81/48 L Pulse Oximetry 100 95 94 Oxygen Delivery Oxygen Flow Rate Fraction of Inspired Oxygen 10/17/25 00:31 10/17/25 00:47 10/17/25 00:47 Temperature Pulse Rate 81 80 Respiratory Rate 24 H 27 H Blood Pressure 94/59 L Pulse Oximetry 88 L 86 L 86 L Oxygen Delivery Nasal Cannula Oxygen Flow Rate 6 Fraction of Inspired Oxygen 10/17/25 00:49 10/17/25 01:01 10/17/25 01:04 Temperature Pulse Rate 80 80 81 Respiratory Rate 29 H 25 H 24 H Blood Pressure 89/52 L 70/58 L 98/45 L Pulse Oximetry 89 L 89 L 89 L Oxygen Delivery Oxygen Flow Rate Fraction of Inspired Oxygen 10/17/25 01:15 10/17/25 01:29 10/17/25 01:31 Temperature Pulse Rate 79 79 Respiratory Rate 28 H 28 H Blood Pressure 74/30 L Pulse Oximetry 89 L 90 90 Oxygen Delivery Nasal Cannula Oxygen Flow Rate 6 Fraction of Inspired Oxygen 10/17/25 01:37 10/17/25 01:56 10/17/25 01:59 Temperature Pulse Rate 76 80 75 Respiratory Rate 25 H 26 H 24 H Blood Pressure 68/54 L 77/37 L 61/39 L Pulse Oximetry 91 90 91 Oxygen Delivery Oxygen Flow Rate Fraction of Inspired Oxygen 10/17/25 02:00 10/17/25 02:01 10/17/25 02:03 Temperature Pulse Rate 75 80 79 Respiratory Rate 21 H 27 H 26 H Blood Pressure 65/45 L 68/51 L Pulse Oximetry 91 91 90 Oxygen Delivery Oxygen Flow Rate Fraction of Inspired Oxygen 10/17/25 02:06 10/17/25 02:10 10/17/25 02:14 Temperature Pulse Rate 81 77 82 Respiratory Rate 24 H Blood Pressure 77/49 L 77/49 L 89/47 L Pulse Oximetry 90 Oxygen Delivery Oxygen Flow Rate Fraction of Inspired Oxygen 10/17/25 02:16 10/17/25 02:24 10/17/25 02:26 Temperature Pulse Rate 82 82 81 Respiratory Rate 23 H 25 H Blood Pressure 85/54 L 100/57 L 85/59 L Pulse Oximetry 85 L 84 L Oxygen Delivery Oxygen Flow Rate Fraction of Inspired Oxygen 10/17/25 02:30 10/17/25 02:31 10/17/25 02:36 Temperature Pulse Rate 78 74 Respiratory Rate 24 H 13 Blood Pressure 96/75 L 99/86 L Pulse Oximetry 90 88 L 87 L Oxygen Delivery Nasal Cannula Oxygen Flow Rate 6 Fraction of Inspired Oxygen 10/17/25 03:00 10/17/25 03:00 10/17/25 03:04 Temperature Pulse Rate 70 70 88 Respiratory Rate 23 H 23 H 17 Blood Pressure 170/122 H Pulse Oximetry 100 100 98 Oxygen Delivery BiPAP BiPAP Oxygen Flow Rate Fraction of Inspired Oxygen 50 10/17/25 03:05 10/17/25 03:05 10/17/25 03:06 Temperature Pulse Rate 76 83 86 Respiratory Rate 16 15 Blood Pressure 177/95 H 170/107 H 177/92 H Pulse Oximetry 98 98 Oxygen Delivery Oxygen Flow Rate Fraction of Inspired Oxygen 10/17/25 03:10 10/17/25 03:11 10/17/25 03:16 Temperature Pulse Rate 72 92 86 Respiratory Rate 23 H 24 H 24 H Blood Pressure 147/76 H 115/67 Pulse Oximetry 98 98 97 Oxygen Delivery BiPAP Oxygen Flow Rate Fraction of Inspired Oxygen 10/17/25 03:17 10/17/25 03:45 10/17/25 03:58 Temperature 98.9 F Pulse Rate 81 77 Respiratory Rate 24 H 24 H Blood Pressure 99/68 L Pulse Oximetry 98 98 99 Oxygen Delivery Nasal Cannula Oxygen Flow Rate 6 Fraction of Inspired Oxygen 10/17/25 03:59 10/17/25 04:00 10/17/25 04:01 Temperature 99.4 F Pulse Rate 66 78 Respiratory Rate 28 H 28 H Blood Pressure 102/65 Pulse Oximetry 96 96 96 Oxygen Delivery Nasal Cannula Nasal Cannula Oxygen Flow Rate 3 2 Fraction of Inspired Oxygen 10/17/25 04:06 10/17/25 04:11 10/17/25 04:16 Temperature 100.0 F H 100.4 F H 100.6 F H Pulse Rate 79 79 81 Respiratory Rate 28 H 28 H 26 H Blood Pressure 102/62 108/72 107/60 Pulse Oximetry 95 95 94 Oxygen Delivery Oxygen Flow Rate Fraction of Inspired Oxygen 10/17/25 04:26 10/17/25 04:31 10/17/25 04:36 Temperature 100.9 F H 101.0 F H 101.0 F H Pulse Rate 80 79 81 Respiratory Rate 27 H 30 H 25 H Blood Pressure 110/74 114/69 108/79 Pulse Oximetry 94 94 95 Oxygen Delivery Oxygen Flow Rate Fraction of Inspired Oxygen 10/17/25 04:41 10/17/25 04:46 10/17/25 04:51 Temperature 101.0 F H 101.0 F H 101.0 F H Pulse Rate 81 77 79 Respiratory Rate 28 H 27 H 25 H Blood Pressure 113/69 109/73 100/71 Pulse Oximetry 95 95 94 Oxygen Delivery Oxygen Flow Rate Fraction of Inspired Oxygen 10/17/25 04:56 10/17/25 06:23 10/17/25 06:23 Temperature 101.0 F H 101.0 F H Pulse Rate 81 69 69 Respiratory Rate 29 H 26 H Blood Pressure 115/57 L 77/55 L Pulse Oximetry 95 96 Oxygen Delivery Oxygen Flow Rate Fraction of Inspired Oxygen 11/18/25 06:25 Temperature 101.0 F H Pulse Rate 69 Respiratory Rate 26 H Blood Pressure 77/47 L Pulse Oximetry 96 Oxygen Delivery Oxygen Flow Rate Fraction of Inspired Oxygen Exam Const: General: cooperative, healthy appearing, comfortable, no acute distress, well developed, awake, Physically active, average body habitus and well nourished Nutritional Appearance: average body habitus and well nourished Orientation/consciousness: oriented to person, oriented to place, oriented to time and patient oriented x3 Limitations: no limitations HENMT: Head: normal to inspection, No palpable skull fracture present, normocephalic, atraumatic and abrasion Ears: hearing grossly normal bilaterally Eyes: General: appearance normal, both eyes and all related structures Alignment and Position: alignment normal Periorbital: periorbital findings normal Eyelids: eyelids normal EOM: EOMs intact bilaterally Neck: Neck: normal visual inspection, full ROM, no lymphadenopathy, trachea midline and supple Thyroid: thyroid normal Carotids: normal carotid upstroke Lymphatic: no lymphadenopathy noted Chest: Chest palpation & inspection: normal inspection of the chest Resp: Effort & Inspection: normal respiratory effort Auscultation: clear to auscultation bilaterally Cardio: Palpation: normal PMI Rhythm: abnormal rhythm irregularly irregular Heart sounds: S1 normal heart sound present and S2 normal heart sound present Peripheral pulses: Peripheral pulses 2+ throughout Other: EKG was read as AFib GI: Inspection: normal to inspection Percussion: Yes normal to percussion Auscultation: normal bowel sounds Rectal Exam: deferred Back/Spine/Pelvis: Pelvis: no pain with anterior-posterior compression Skin: General skin exam: normal color Lesions: no lesions Rashes: no rashes Trauma: no lacerations or abrasions Nails: normal Other: he has multiple scabbed areas to bilateral knees and lower extremities Neuro: General: oriented to person and oriented to place Cranial nerves: Yes Normal hearing present Motor exam (neuro): 5/5 motor strength present throughout Sensory Exam: normal sensation Extrem: General: normal to inspection Right upper extremity: normal to inspection and shoulder/upper arm Left upper extremity: normal to inspection and shoulder/upper arm Right lower extremity: normal to inspection Left lower extremity: normal to inspection Psych: Appearance: grossly normal Speech and movement: Normal speech and movement present Affect: normal affect Attitude: cooperative Thought process: Normal thought process present Thought content: Yes Normal thought content present H&P: Results Labs Labs: Short CBC 10/16/25 Range/Units 23:07 WBC 18.2 H (4.5-10.0) K/mm3 Hgb 12.4 L (14.0-18.0) g/dL Hct 39.1 L (42.0-52.0) % Plt Count 227 (150-375) k/mm3 BMP 10/16/25 23:07 Sodium 136 L Potassium 4.0 Chloride 100 Carbon Dioxide 23 BUN 35 H D Creatinine 1.97 H Glucose 45 L* Calcium 9.2 Cardiac Enzymes 10/16/25 10/17/25 Range/Units 23:07 02:39 Troponin I 0.064 H* 0.085 H* D (0.000-0.034) ng/mL Liver Function 10/16/25 Range/Units 23:07 Total Bilirubin 1.2 (0.2-1.3) mg/dL AST 32 (17-59) U/L ALT 27 (6-50) U/L Alkaline Phosphatase 94 (38-126) U/L Albumin 3.9 (3.5-5.1) g/dL Urine 10/17/25 Range/Units 00:02 Urine Color Dark yellow (Yellow) Urine Appearance Turbid H (Clear) Urine pH 5.0 (5.0-9.0) Ur Specific [place] 1.018 (1.001-1.035) Urine Protein 2+ H (Negative) mg/dL Urine Glucose (UA) Negative (Negative) mg/dL Assessment and Plan Assessment and plan (1) Sepsis: Code(s): A41.9 - Sepsis, unspecified organism Status: Acute Assessment and Plan: - source is unknown. -may consider mri of spine when stable related to -ct IMPRESSION: Directed noncontrast exam demonstratin. No gross acute intrathoracic process. Borderline cardiomegaly and coronary artery calcifications.2. Cholelithiasis with no gross CT evidence of acute cholecystitis. Possible mild urinary bladder wall thickening which could be associated with developing cystitis or UTI -wbc 18.5 -blood pressure supported with levophed. central line placed per ed provider in the er . please titrate to keep MAP greater than 60 -child care associate teacher was consulted and notified by er provider. Further recommendations would be greatly appreciated . - blood and urine cultures pending -The patient stated that he wanted to be a DNR however he is a poor historian at this point and he may not be providing adequate informtion at this time. He has hypoglycemia and hypotension . - continue to monitor lactic -empirically started on vanco and cefipime (please renally adjust per pharmacy ) -left lower extremity warm to touch. Possible cellulitis. (2) Chronic kidney disease: Code(s): N18.9 - Chronic kidney disease, unspecified Status: Acute Assessment and Plan: -appears to be chronic - monitor electrolytes and ekg changes -if worsens may consider renal ultrasound and Nephrology consult. -continue with maintenance IV fluids. -avoid nephrotoxic medication. -patient's creatinine is 1.97 with baseline around 2.4-2.9. GFR is 33 with a baseline of 22-27. BUN is 35 with a baseline somewhere between 66 and 69. -lisinopril is on hold. (3) DM2 (diabetes mellitus, type 2): Code(s): E11.9 - Type 2 diabetes mellitus without complications Status: Acute Assessment and Plan: - The patient ate poorly yesterday and took his long acting insulin .He now has hypoglycemia . He is on d5ns . He was also given glucagon in route to the hospital - insulin is on hold at this time monitor blood sugars every 1 hour until blood glucose level improves -check a1c -may consider giving steroids if blood sugar does not improve. (4) Atrial fibrillation: Code(s): I48.91 - Unspecified atrial fibrillation Status: Acute Assessment and Plan: - He is currently in afib on his ekg and is hypotensive - amiodorone is on hold -Eliquis has been continued - rate controlled -cardiology consulted. (5) Congestive heart failure: Code(s): I50.9 - Heart failure, unspecified Status: Acute Assessment and Plan: -lisinopril is currently on hold as well as lasix due to the hyptension (6) Elevated troponin: Code(s): R79.89 - Other specified abnormal findings of blood chemistry Status: Acute Assessment and Plan: -pTest Date: 2025-10-16 23:32:30 Measurements Intervals [place] Rate: 90 P: 0 MD: 0 QRS: 201 QRSD: 130 T: 60 QT: 353 QTc: 432 Interpretive Statements ATRIAL FIBRILLATION LOW VOLTAGE ANTEROLATERAL MYOCARDIAL INFARCTION , OF INDETERMINATE AGE [40+ ms Q WAVE IN I/aVL/V3-V6] ABNORMAL ECG No previous ECG available for comparison Electronically Signed On 10-17-2025 09:02:30 DELIVERY STOCK CLERK by Benji Moeller M.D.ossible demand ischemia from sepsis - troponin elevated -cardiology consult would be appreciated for further evaluation, recommendations, and or treatments (7) Hypoxia: Code(s): R09.02 - Hypoxemia Status: Acute Assessment and Plan: - he was initially on bipap and thentitrated down to 2 liters per nasal cannula - repeat abgs - may consider steroids for copd (8) Chronic pain: Code(s): G89.29 - Other chronic pain Status: Acute Assessment and Plan: - he statd that he has chronic back pain . - pain medication/ muscle relaxers on hold due to hypotension -continue with gabapentin (9) Anemia, chronic disease: Code(s): D63.8 - Anemia in other chronic diseases classified elsewhere Status: Acute Assessment and Plan: -chronic most likely due to chronic kidney disease Quality VTE Prophylaxis VTE prophylaxis: pharmacologic ordered
--- NOTE | 2025-10-17 06:45 | ADMIMU ---
This patient, Chaz Caballero, was admitted to IMU status, and placed in Intensive Care Unit-4. Patient/family oriented to hospital policies and general routines including ID bracelet, bed and alarms, visiting hours, pain management, procedures, bathroom and other care routines, personal items, smoking policy, room service/diet, and visiting hours. Valuables list has been completed. Information on how to activate the Rapid Response Team has been discussed. Patient/Family are encouraged to report perceived risks to care and to ask questions if they do not understand what they are told or what they should do.
[2025-10-17 07:21] LABS: Alveolar/Arterial O2 Gradient 70.3 mmHg; Fractional Inspired Oxygen 28 %; HCO3 ABG 20.8 mEq/l (22.0-26.0); Oxygen Content ABG 16.5 %vol (16.0-22.0); Oxygen Saturation ABG 95.4 % (95.0-100.0); PCO2 ABG 40.2 mmHg (35.0-45.0); PO2 ABG 81.9 mmHg (80.0-100.0); PO2 FiO2 Ratio Arterial Blood 2.92 %
[2025-10-17 07:22] LABS: Liters per Minute 2.0 LPM; Modified Allen's Test Pass; Site Drawn LEFT RADIAL
[2025-10-17 07:33] LABS: Hemoglobin A1C 6.0 % (<5.7)
[2025-10-17] MEDS: APIXABAN 5 MG TABLET PO ×2 (08:08→20:28)
[2025-10-17] MEDS: LEVOTHYROXINE SODIUM 100 MCG TABLET PO (08:08)
[2025-10-17] MEDS: GABAPENTIN 300 MG CAPSULE PO ×3 (08:08→16:02)
[2025-10-17 08:17] LABS: Hematocrit 37.1 % (42.0-52.0); Hemoglobin 11.8 g/dL (14.0-18.0); Mean Corpuscular HGB Conc 31.8 g/dl (32-36); Mean Corpuscular Hemoglobin 31.0 pg (26-34); Mean Corpuscular Volume 97.4 fl (80-100); Platelet Count Result 184 k/mm3 (150-375); Red Blood Count 3.81 M/mm3 (4.6-6.20); White Blood Count 18.5 K/mm3 (4.5-10.0)
[2025-10-17] MEDS: LACTATED RINGERS 500 ML IV CONT (08:18)
[2025-10-17 08:30] LABS: Alanine Aminotransferase 21 U/L (6-50); Albumin Level 3.5 g/dL (3.5-5.1); Alkaline Phosphatase 84 U/L (38-126); Anion Gap 7 mmol/L (4-12); Aspartate Amino Transferase 44 U/L (17-59); Bilirubin,Total 1.3 mg/dL (0.2-1.3); Blood Urea Nitrogen 38 mg/dL (9-20); Calcium 7.9 mg/dL (8.4-10.2); Carbon Dioxide 23 mmol/L (22-30); Chloride 104 mmol/L (98-107); Estimated CRCL calculation 36 ml/min; Estimated Glomerular Filt Rate 31; Glucose 136 mg/dL (65-110); Potassium 4.7 mmol/L (3.4-5.0); Sodium 134 mmol/L (137-145); Total Protein 6.8 g/dL (6.3-8.2)
[2025-10-17 08:31] LABS: Magnesium 1.3 mg/dL (1.6-2.3)
[2025-10-17 08:38] LABS: Band Neutrophils Percent 13 % (0-6); Lymphocytes Absolute Manual 0.74 K/mm3 (1.1-4.5); Lymphocytes Percent Manual 4 % (18-44); Monocytes Absolute Manual 1.11 K/mm3 (0.1-0.90); Monocytes Percent Manual 6 % (3-9); Neutrophils Absolute Manual 16.65 K/mm3 (1.3-6.7); Neutrophils Percent Manual 77 % (46-73); Schistocytes None Seen; Total Cells Counted 100
[2025-10-17 08:47] LABS: Troponin I 0.238 ng/mL (0.000-0.034)
--- NOTE | 2025-10-17 08:47 | ECG_ITS ---
Test Date: 2025-10-17 09:40:05 Measurements Intervals [place] Rate: 67 P: 0 NM: 0 QRS: 238 QRSD: 114 T: 74 QT: 375 QTc: 397 Interpretive Statements ATRIAL FIBRILLATION LOW QRS VOLTAGE [QRS DEFLECTION < 0.5/1.0 mV IN LIMB/CHEST LEADS] INFERIOR MYOCARDIAL INFARCTION [40+ ms Q WAVE AND/OR ST/T ABNORMALITY IN II/aVF], PROBABLY OLD ANTEROLATERAL MYOCARDIAL INFARCTION [40+ ms Q WAVE IN I/aVL/V3-V6], OF INDETERMINATE AGE ABNORMAL ECG Compared to ECG 10/16/2025 23:32:30 No significant changes Electronically Signed On 10-17-2025 15:51:36 FIELD HOCKEY COACH by Benji Moeller M.D.
--- NOTE | 2025-10-17 08:48 | WPDCNINT ---
Assessment and Plan Assessment and plan (1) Septic shock: Code(s): A41.9 - Sepsis, unspecified organism; R65.21 - Severe sepsis with septic shock Status: Acute Assessment and Plan: 10/17: Patient presented with generalized weakness, was found to be hypoglycemic, hypotensive -was given 1 L IV fluid bolus in the ER, his femoral central line was inserted and patient was started on Levophed -chest x-ray was clear, patient was given 500 cc IV fluid this morning in the ICU -remains on D5 normal saline at 75 mL/hour for hypoglycemia -likely source UTI, cellulitis of the left lower extremity -10/17: Blood cultures have been obtained -10/17: Urine cultures have been obtained -started on cefepime and vancomycin (10/17) -will order CT scan of the left lower extremity rule out necrotizing fasciitis (2) Cellulitis: Code(s): L03.90 - Cellulitis, unspecified Status: Acute Assessment and Plan: Treatment as above, if any signs of neck face, will have surgery evaluate the patient along with addition of clindamycin (3) UTI (urinary tract infection): Code(s): N39.0 - Urinary tract infection, site not specified Status: Acute Assessment and Plan: CT scan of the abdomen and pelvis reflective of possible cystitis, -continue antibiotics as above -urine cultures have been obtained (4) DM2 (diabetes mellitus, type 2): Code(s): E11.9 - Type 2 diabetes mellitus without complications Status: Acute Assessment and Plan: Patient has history of diabetes, has been having poor oral intake, has been taking his insulin regularly -he was found to be hypoglycemic when EMS arrived, -remains on D5 normal saline infusion -will continue Accu-Cheks (5) Chronic kidney disease: Code(s): N18.9 - Chronic kidney disease, unspecified Status: Acute Assessment and Plan: Patient has a history of chronic kidney disease (baseline creatinine 2.40 - 2.90) -presented with creatinine of 1.97 -received 1 L IV fluid bolus in the ER, given additional 500 mL IV LR bolus in the ICU since patient has a history of CHF and [place] [address] -remains on maintenance IV fluid -continue to monitor urine output, electrolytes, renal function (6) Elevated troponin: Code(s): R79.89 - Other specified abnormal findings of blood chemistry Status: Acute Assessment and Plan: Elevated Troponins 0.064, 0.085, 0.238 -EKG has been ordered -echocardiogram has been ordered -will consult Cardiology -could be related to type 2 infarct due to septic shock -patient denies any chest pain (7) Chronic back pain: Code(s): M54.9 - Dorsalgia, unspecified; G89.29 - Other chronic pain Status: Acute Assessment and Plan: Continue gabapentin (8) Congestive heart failure: Code(s): I50.9 - Heart failure, unspecified Status: Acute Assessment [place]: [place] [address] -history of CHF -no echocardiogram on chart -cardiology will be evaluating the pain -prior to arrival medications Lasix, lisinopril, metoprolol, spironolactone, currently on hold due to septic shock and vasopressor requirement (9) Discoloration of skin of foot: Code(s): L81.9 - Disorder of pigmentation, unspecified Status: Acute Assessment and Plan: Discoloration of feet bilaterally which are cold,. Pulses are intact -will obtain ankle brachial index (10) Atrial fibrillation: Code(s): I48.91 - Unspecified atrial fibrillation Status: Acute Assessment and Plan: History of atrial fibrillation, currently in his sinus rhythm, rate controlled -patient is on apixaban and amiodarone at home Plan DVT prophylaxis: Apixaban Stress ulcer prophylaxis: Protonix Nutrition: Diabetic diet Code Status: Full code Critical Care Time Spent: 54 minutes Due to a high probability of clinically significant, life threatening deterioration, the patient required my highest level of preparedness to intervene emergently and I personally spent this critical care time directly and personally managing the patient. This critical care time included obtaining a history; examining the patient; pulse oximetry; ordering and review of studies; arranging urgent treatment with development of a management plan; evaluation of patient's response to treatment; frequent reassessment; and discussions with other providers. It was exclusive of separately billable procedures and treating other patients and teaching time. Please see Assessment and Plan section and the rest of the note for further information on patient assessment and treatment This dictation may have been done utilizing a voice recognition system. Attempts have been made to correct errors. However, there may be uncorrected grammatical, spelling, and recognitions errors present. Director Inpatient Headache Program Consult Note Consult date: 10/18/25 Reason for consult: Septic shock, possible UTI, left lower extremity cellulitis, hypotension, hypoglycemia HPI: Chaz Caballero is a 75 year old male with past medical history of chronic kidney disease, asbestosis, COPD, atrial fibrillation on apixaban, diabetes with peripheral neuropathy presented the ED on 10/17/2025 with complains of generalized weakness since 10/16. He had decreased oral intake but did take his normal dose of insulin and was found to be hypoglycemic by EMS when they arrive. Patient was given oral glucose and glucagon and brought to the ED at [facility]. He was still hypoglycemic and also was found to be hypotensive with systolic in the 90s. Patient was given 1 L IV fluid bolus despite which his blood pressures remained low, central line was placed in the right femoral vein and patient was started on Levophed. Pertinent labs showed a WBC count of 18.2, hemoglobin 12.4, platelets 227. Sodium 136, potassium 4.0, chloride 100, CO2 23, BUN 35, creatinine 1.97, blood sugars 45. INR was 1.4. LFTs were within normal limits, total bilirubin was 1.2. Troponin was 0.064, 0.085, 0.238. ProBNP [place] [address]40, procalcitonin 18.4, lactic acid 5.3, repeat lactic acid was 3.0. UA was turbid with positive leukocyte esterase. RSV, influenza, SARS-CoV-[address] scan of the chest abdomen pelvis showed no gross acute intrathoracic process, borderline cardiomegaly and coronary artery calcifications. Colace lithiasis with no gross CT evidence of acute cholecystitis. Possible mild urinary bladder wall thickening which could be associated with developing cystitis or UTI. Patient was started on cefepime and vancomycin and transferred to the ICU for further management Patient seen and examined the ICU, is awake, alert, oriented x3, able to answer questions appropriately and follows simple commands. States he feels much better this morning as compared to when he came to the hospital. He remains on Levophed at 10 mcg/min. Denies any chest pain, shortness of breath, abdominal pain, nausea, vomiting at this time. His feet bilaterally and discolored and cold which he states his chronic due to his diabetes. Patient states he is hungry Review of Systems Review of Systems: All systems reviewed & are unremarkable except as noted in HPI and below PMFSH Past Medical History Medical History Anemia, chronic disease Chronic pain Osteoarthritis Congestive heart failure Chronic back pain Gout DM2 (diabetes mellitus, type 2) Carpal tunnel syndrome Chronic kidney disease Asbestosis COPD (chronic obstructive pulmonary disease) Atrial fibrillation Surgical History Surgical History History of carpal tunnel release Family History Family History Father Colon cancer Mother Lung cancer Other Acute myocardial infarction History of blood clots Social History Social History Social History: The patient stated that he lives home alone. He stated that he had 2 sons and 2 daughters but 1 daughter has . He is . He is retired. We discussed code status in the patient stated that he does not want to be resuscitated. However at this time he is a poor historian and is difficult for me to determine if he is mentally at his baseline to make that decision. Code status: Full code Smoking status: Never smoker Alcohol intake: former Substance use: never Lack of Transportation: No Lack of Food: Never True Current Housing: I Have Housing Concerned About Future Housing: No Difficulty Paying Gas/Electric Bills: No Difficulty Paying for Meds: No Currently Unemployed: No Education: Grade School Difficulty w/ Childcare or Family Care: No Gender identity (if verbalized by the patient): Male Spiritual care concerns: No Meds Home Medications and Allergies Home Medications ?Medication ?Instructions ?Recorded ?Confirmed ?Type allopurinol 100 mg tablet 200 mg PO DAILY 05/24/20 10/17/25 History amiodarone 200 mg tablet 200 mg PO DAILY 05/24/20 10/17/25 History apixaban 5 mg tablet (Eliquis) 5 mg PO BID 05/24/20 10/17/25 History baclofen 10 mg tablet 10 mg PO TID PRN other 05/24/20 10/17/25 History calcitriol 0.25 mcg capsule 0.25 mcg PO DAILY 05/24/20 10/17/25 History ergocalciferol (vitamin D2) 1,250 50,000 unit PO WEEKLY 05/24/20 10/17/25 History mcg (50,000 unit) capsule folic acid 1 mg tablet 1 mg PO DAILY 05/24/20 10/17/25 History furosemide 80 mg tablet (Lasix) 80 mg PO BID 05/24/20 10/17/25 History gabapentin 300 mg capsule 300 mg PO TID 05/24/20 10/17/25 History hydrocodone 5 mg-acetaminophen 325 1 tablet PO TID PRN Pain 05/24/20 10/17/25 History mg tablet insulin detemir U-100 100 unit/mL 22 unit subcut HS 05/24/20 10/17/25 History (3 mL) subcutaneous pen (Levemir FlexTouch U-100 Insulin) insulin lispro 100 unit/mL 10 unit subcut TID 05/24/20 10/17/25 History subcutaneous pen (Humalog KwikPen (U-100) Insulin) levothyroxine 100 mcg tablet 100 mcg PO QAM 05/24/20 10/17/25 History lisinopril 5 mg tablet 5 mg PO DAILY 05/24/20 10/17/25 History metoprolol succinate 50 mg 50 mg PO DAILY 05/24/20 10/17/25 History tablet,extended release 24 hr pantoprazole 40 mg tablet,delayed 40 mg PO TID 05/24/20 10/17/25 History release ropinirole 0.25 mg tablet 0.75 mg PO HS 05/24/20 10/17/25 History spironolactone 25 mg tablet 12.5 mg PO DAILY 05/24/20 10/17/25 History Allergies Allergy/AdvReac Type Severity Reaction Status Date / Time No Known Allergies Allergy Verified 10/17/25 06:05 Vital Signs Vital Signs - 24 hr 10/16/25 22:57 10/16/25 23:12 10/16/25 23:15 Temperature 98.3 F Pulse Rate 93 86 86 Respiratory Rate 12 24 H 25 H Blood Pressure 92/59 L 92/59 L 88/69 L Pulse Oximetry 96 100 100 Oxygen Delivery Nasal Cannula Oxygen Flow Rate 3 Fraction of Inspired Oxygen 10/16/25 23:20 10/16/25 23:25 10/16/25 23:30 Temperature Pulse Rate 88 87 87 Respiratory Rate 27 H 21 H 26 H Blood Pressure 93/73 L 87/54 L 71/35 L Pulse Oximetry 100 99 91 Oxygen Delivery Oxygen Flow Rate Fraction of Inspired Oxygen 10/16/25 23:38 10/16/25 23:47 10/16/25 23:57 Temperature Pulse Rate 88 84 82 Respiratory Rate 28 H 26 H 982 H Blood Pressure 98/43 L 76/46 L 75/54 L Pulse Oximetry 89 L 99 98 Oxygen Delivery Oxygen Flow Rate Fraction of Inspired Oxygen 10/17/25 00:00 10/17/25 00:04 10/17/25 00:07 Temperature Pulse Rate 81 82 81 Respiratory Rate 19 26 H 26 H Blood Pressure 71/54 L 70/39 L 81/47 L Pulse Oximetry 99 99 100 Oxygen Delivery Oxygen Flow Rate Fraction of Inspired Oxygen 10/17/25 00:12 10/17/25 00:15 10/17/25 00:17 Temperature Pulse Rate 81 80 80 Respiratory Rate 22 H 28 H 24 H Blood Pressure 81/54 L 73/60 L 81/48 L Pulse Oximetry 100 95 94 Oxygen Delivery Oxygen Flow Rate Fraction of Inspired Oxygen 10/17/25 00:31 10/17/25 00:47 10/17/25 00:47 Temperature Pulse Rate 81 80 Respiratory Rate 24 H 27 H Blood Pressure 94/59 L Pulse Oximetry 88 L 86 L 86 L Oxygen Delivery Nasal Cannula Oxygen Flow Rate 6 Fraction of Inspired Oxygen 10/17/25 00:49 10/17/25 01:01 10/17/25 01:04 Temperature Pulse Rate 80 80 81 Respiratory Rate 29 H 25 H 24 H Blood Pressure 89/52 L 70/58 L 98/45 L Pulse Oximetry 89 L 89 L 89 L Oxygen Delivery Oxygen Flow Rate Fraction of Inspired Oxygen 10/17/25 01:15 10/17/25 01:29 10/17/25 01:31 Temperature Pulse Rate 79 79 Respiratory Rate 28 H 28 H Blood Pressure 74/30 L Pulse Oximetry 89 L 90 90 Oxygen Delivery Nasal Cannula Oxygen Flow Rate 6 Fraction of Inspired Oxygen 10/17/25 01:37 10/17/25 01:56 10/17/25 01:59 Temperature Pulse Rate 76 80 75 Respiratory Rate 25 H 26 H 24 H Blood Pressure 68/54 L 77/37 L 61/39 L Pulse Oximetry 91 90 91 Oxygen Delivery Oxygen Flow Rate Fraction of Inspired Oxygen 10/17/25 02:00 10/17/25 02:01 10/17/25 02:03 Temperature Pulse Rate 75 80 79 Respiratory Rate 21 H 27 H 26 H Blood Pressure 65/45 L 68/51 L Pulse Oximetry 91 91 90 Oxygen Delivery Oxygen Flow Rate Fraction of Inspired Oxygen 10/17/25 02:06 10/17/25 02:10 10/17/25 02:14 Temperature Pulse Rate 81 77 82 Respiratory Rate 24 H Blood Pressure 77/49 L 77/49 L 89/47 L Pulse Oximetry 90 Oxygen Delivery Oxygen Flow Rate Fraction of Inspired Oxygen 10/17/25 02:16 10/17/25 02:24 10/17/25 02:26 Temperature Pulse Rate 82 82 81 Respiratory Rate 23 H 25 H Blood Pressure 85/54 L 100/57 L 85/59 L Pulse Oximetry 85 L 84 L Oxygen Delivery Oxygen Flow Rate Fraction of Inspired Oxygen 10/17/25 02:30 10/17/25 02:31 10/17/25 02:36 Temperature Pulse Rate 78 74 Respiratory Rate 24 H 13 Blood Pressure 96/75 L 99/86 L Pulse Oximetry 90 88 L 87 L Oxygen Delivery Nasal Cannula Oxygen Flow Rate 6 Fraction of Inspired Oxygen 10/17/25 03:00 10/17/25 03:00 10/17/25 03:04 Temperature Pulse Rate 70 70 88 Respiratory Rate 23 H 23 H 17 Blood Pressure 170/122 H Pulse Oximetry 100 100 98 Oxygen Delivery BiPAP BiPAP Oxygen Flow Rate Fraction of Inspired Oxygen 50 10/17/25 03:05 10/17/25 03:05 10/17/25 03:06 Temperature Pulse Rate 76 83 86 Respiratory Rate 16 15 Blood Pressure 177/95 H 170/107 H 177/92 H Pulse Oximetry 98 98 Oxygen Delivery Oxygen Flow Rate Fraction of Inspired Oxygen 10/17/25 03:10 10/17/25 03:11 10/17/25 03:16 Temperature Pulse Rate 72 92 86 Respiratory Rate 23 H 24 H 24 H Blood Pressure 147/76 H 115/67 Pulse Oximetry 98 98 97 Oxygen Delivery BiPAP Oxygen Flow Rate Fraction of Inspired Oxygen 10/17/25 03:17 10/17/25 03:45 10/17/25 03:58 Temperature 98.9 F Pulse Rate 81 77 Respiratory Rate 24 H 24 H Blood Pressure 99/68 L Pulse Oximetry 98 98 99 Oxygen Delivery Nasal Cannula Oxygen Flow Rate 6 Fraction of Inspired Oxygen 10/17/25 03:59 10/17/25 04:00 10/17/25 04:01 Temperature 99.4 F Pulse Rate 66 78 Respiratory Rate 28 H 28 H Blood Pressure 102/65 Pulse Oximetry 96 96 96 Oxygen Delivery Nasal Cannula Nasal Cannula Oxygen Flow Rate 3 2 Fraction of Inspired Oxygen 10/17/25 04:06 10/17/25 04:11 10/17/25 04:16 Temperature 100.0 F H 100.4 F H 100.6 F H Pulse Rate 79 79 81 Respiratory Rate 28 H 28 H 26 H Blood Pressure 102/62 108/72 107/60 Pulse Oximetry 95 95 94 Oxygen Delivery Oxygen Flow Rate Fraction of Inspired Oxygen 10/17/25 04:26 10/17/25 04:31 10/17/25 04:36 Temperature 100.9 F H 101.0 F H 101.0 F H Pulse Rate 80 79 81 Respiratory Rate 27 H 30 H 25 H Blood Pressure 110/74 114/69 108/79 Pulse Oximetry 94 94 95 Oxygen Delivery Oxygen Flow Rate Fraction of Inspired Oxygen 10/17/25 04:41 10/17/25 04:46 10/17/25 04:51 Temperature 101.0 F H 101.0 F H 101.0 F H Pulse Rate 81 77 79 Respiratory Rate 28 H 27 H 25 H Blood Pressure 113/69 109/73 100/71 Pulse Oximetry 95 95 94 Oxygen Delivery Oxygen Flow Rate Fraction of Inspired Oxygen 10/17/25 04:56 10/17/25 06:00 10/17/25 06:23 Temperature 101.0 F H Pulse Rate 81 76 69 Respiratory Rate 29 H Blood Pressure 115/57 L 77/47 L Pulse Oximetry 95 Oxygen Delivery Oxygen Flow Rate Fraction of Inspired Oxygen 10/17/25 06:23 10/17/25 06:25 10/17/25 07:00 Temperature 101.0 F H 101.0 F H 100.1 F H Pulse Rate 69 69 70 Respiratory Rate 26 H 26 H 20 Blood Pressure 77/55 L 77/47 L 114/57 L Pulse Oximetry 96 96 94 Oxygen Delivery Oxygen Flow Rate Fraction of Inspired Oxygen 10/17/25 07:26 10/17/25 08:00 10/17/25 08:00 Temperature 100.1 F H Pulse Rate 72 76 Respiratory Rate 20 26 H Blood Pressure 113/92 H Pulse Oximetry 92 96 95 Oxygen Delivery Nasal Cannula Nasal Cannula Oxygen Flow Rate 2 2 Fraction of Inspired Oxygen Exam Narrative: General: Pleasant gentleman currently in no acute distress HEENT:? Pupils equal and reactive, sclerae is clear, moist oral mucosa with thrush Neck:? Thick neck, supple Respiratory:? Coarse breath sounds at bases bilaterally, otherwise clear to auscultation, adequate air entry Cardiac:? S1-S2 is normal, regular rate and rhythm Abdomen:? Soft, nontender, obese, hypoactive bowel sounds Extremities:? Bilateral feet and discolored, cool to time, patient states that this is chronic due to his diabetes. Left lower extremity is erythematous on the medial aspect of the thigh and leg, warm, tender and swollen. Erythema on the left medial thigh is indurated Neuro:? Patient is awake, alert, oriented x3, nonfocal, answers to questions appropriately and follows simple commands in all extremities Skin:? Multiple excoriations and healing scab noted on the abdomen, and bilateral upper and lower extremities Psych:? Normal mentation and affect Results Labs 10/18/25 05:18 10/18/25 05:18 Labs: Short CBC 10/16/25 10/17/25 Range/Units 23:07 08:06 WBC 18.2 H 18.5 H (4.5-10.0) K/mm3 Hgb 12.4 L 11.8 L (14.0-18.0) g/dL Hct 39.1 L 37.1 L (42.0-52.0) % Plt Count 227 184 (150-375) k/mm3 BMP 10/16/25 10/17/25 23:07 08:06 Sodium 136 L 134 L Potassium 4.0 4.7 Chloride 100 104 Carbon Dioxide 23 23 BUN 35 H D 38 H Creatinine 1.97 H 2.08 H Glucose 45 L* 136 H Calcium 9.2 7.9 L Cardiac Enzymes 10/16/25 10/17/25 10/17/25 Range/Units 23:07 02:39 08:06 Troponin I 0.064 H* 0.085 H* D 0.238 H* D (0.000-0.034) ng/mL Liver Function 10/16/25 10/17/25 Range/Units 23:07 08:06 Total Bilirubin 1.2 1.3 (0.2-1.3) mg/dL AST 32 44 (17-59) U/L ALT 27 21 (6-50) U/L Alkaline Phosphatase 94 84 (38-126) U/L Albumin 3.9 3.5 (3.5-5.1) g/dL Urine 10/17/25 Range/Units 00:02 Urine Color Dark yellow (Yellow) Urine Appearance Turbid H (Clear) Urine pH 5.0 (5.0-9.0) Ur Specific [place] 1.018 (1.001-1.035) Urine Protein 2+ H (Negative) mg/dL Urine Glucose (UA) Negative (Negative) mg/dL Quality VTE Prophylaxis VTE prophylaxis: pharmacologic ordered Hospitalist MIPS Advance Care Plan I have confirmed that the patient's Advanced Care Plan is present, code status is documented, or surrogate decision maker is listed in patient medical record.: Yes Medication Reconciliation I have utilized all available resources to obtain, update and review the patients current medications (includes all prescriptions, OTC, herbals, cannabis, and nutritional supplements).: Yes
--- NOTE | 2025-10-17 08:56 | PM.CNCAR ---
Assessment and Plan Assessment and plan (1) Atrial fibrillation: Code(s): I48.91 - Unspecified atrial fibrillation Status: Acute Assessment and Plan: Rate controlled. Continue amiodarone and apixaban. (2) Elevated troponin: Code(s): R79.89 - Other specified abnormal findings of blood chemistry Status: Acute Assessment and Plan: Troponin levels are 0.064, 0.085, and 0.238. He denies chest pain. Doubt this troponin spill represents ACS, rather, it is secondary to sepsis, hypotension, TRACIE. Will check an echo - if he has LV dysfunction or RWMA, will consider ischemic evaluation when he has recovered from his acute illness. (3) Congestive heart failure: Code(s): I50.9 - Heart failure, unspecified Status: Acute Assessment and Plan: Hold off on diuretics, lisinopril, and spironolactone for now. Echo pending. (4) Chronic kidney disease: Code(s): N18.9 - Chronic kidney disease, unspecified Status: Acute Assessment and Plan: Baseline kidney function unknown. Avoid nephrotoxic agents. (5) Septic shock: Code(s): A41.9 - Sepsis, unspecified organism; R65.21 - Severe sepsis with septic shock Status: Acute Assessment and Plan: Management per primary team (6) Cellulitis: Code(s): L03.90 - Cellulitis, unspecified Status: Acute Assessment and Plan: Management per primary team History of Present Illness History of Present Illness Consult date/time: 10/17/25 08:56 Requesting physician: Tatum Rose MD Consult reason: Other (elevated troponin) Reason For Visit: HYPOGLYCEMIA, WEAKNESS, BLURRED VISION Narrative: Chaz Caballero is a 75 year old male with HFpEF, atrial fibrillation, CKD, and type 2 diabetes mellitus. He presented to the emergency department with a chief complaint of weakness. He has been admitted and being treated for septic shock perhaps related to cellulitis. He was also hypoglycemic at presentation. Cardiology is consulted because of elevated troponin. He denies having any chest pain or palpitations but does endorse shortness of breath. He states he is chronically short of breath because of asbestosis. He does state that he is feeling better this morning but remains short of breath. He has chronic lower extremity swelling which he tells me he takes lasix for whenever I need to. At the time of my evaluation he is resting comfortably in bed and has no specific complaints. [facility] Past Medical History Medical History Anemia, chronic disease Chronic pain Osteoarthritis Congestive heart failure Chronic back pain Gout DM2 (diabetes mellitus, type 2) Carpal tunnel syndrome Chronic kidney disease Asbestosis COPD (chronic obstructive pulmonary disease) Atrial fibrillation Surgical History Surgical History History of carpal tunnel release Family History Family History Father Colon cancer Mother Lung cancer Other Acute myocardial infarction History of blood clots Social History Social History Social History: The patient stated that he lives home alone. He stated that he had 2 sons and 2 daughters but 1 daughter has . He is . He is retired. We discussed code status in the patient stated that he does not want to be resuscitated. However at this time he is a poor historian and is difficult for me to determine if he is mentally at his baseline to make that decision. Code status: Full code Smoking status: Never smoker Alcohol intake: former Substance use: never Lack of Transportation: No Lack of Food: Never True Current Housing: I Have Housing Concerned About Future Housing: No Difficulty Paying Gas/Electric Bills: No Difficulty Paying for Meds: No Currently Unemployed: No Education: Grade School Difficulty w/ Childcare or Family Care: No Gender identity (if verbalized by the patient): Male Spiritual care concerns: No Meds Home Medications and Allergies Home Medications ?Medication ?Instructions ?Recorded ?Confirmed ?Type allopurinol 100 mg tablet 200 mg PO DAILY 05/24/20 10/17/25 History amiodarone 200 mg tablet 200 mg PO DAILY 05/24/20 10/17/25 History apixaban 5 mg tablet (Eliquis) 5 mg PO BID 05/24/20 10/17/25 History baclofen 10 mg tablet 10 mg PO TID PRN other 05/24/20 10/17/25 History calcitriol 0.25 mcg capsule 0.25 mcg PO DAILY 05/24/20 10/17/25 History ergocalciferol (vitamin D2) 1,250 50,000 unit PO WEEKLY 05/24/20 10/17/25 History mcg (50,000 unit) capsule folic acid 1 mg tablet 1 mg PO DAILY 05/24/20 10/17/25 History furosemide 80 mg tablet (Lasix) 80 mg PO BID 05/24/20 10/17/25 History gabapentin 300 mg capsule 300 mg PO TID 05/24/20 10/17/25 History hydrocodone 5 mg-acetaminophen 325 1 tablet PO TID PRN Pain 05/24/20 10/17/25 History mg tablet insulin detemir U-100 100 unit/mL 22 unit subcut HS 05/24/20 10/17/25 History (3 mL) subcutaneous pen (Levemir FlexTouch U-100 Insulin) insulin lispro 100 unit/mL 10 unit subcut TID 05/24/20 10/17/25 History subcutaneous pen (Humalog KwikPen (U-100) Insulin) levothyroxine 100 mcg tablet 100 mcg PO QAM 05/24/20 10/17/25 History lisinopril 5 mg tablet 5 mg PO DAILY 05/24/20 10/17/25 History metoprolol succinate 50 mg 50 mg PO DAILY 05/24/20 10/17/25 History tablet,extended release 24 hr pantoprazole 40 mg tablet,delayed 40 mg PO TID 05/24/20 10/17/25 History release ropinirole 0.25 mg tablet 0.75 mg PO HS 05/24/20 10/17/25 History spironolactone 25 mg tablet 12.5 mg PO DAILY 05/24/20 10/17/25 History Allergies Allergy/AdvReac Type Severity Reaction Status Date / Time No Known Allergies Allergy Verified 10/17/25 06:05 Vital Signs Vital Signs - 24 hr 10/16/25 22:57 10/16/25 23:12 10/16/25 23:15 Temperature 36.8 C Pulse Rate 93 86 86 Respiratory Rate 12 24 H 25 H Blood Pressure 92/59 L 92/59 L 88/69 L Pulse Oximetry 96 100 100 Oxygen Delivery Nasal Cannula Oxygen Flow Rate 3 Fraction of Inspired Oxygen 10/16/25 23:20 10/16/25 23:25 10/16/25 23:30 Temperature Pulse Rate 88 87 87 Respiratory Rate 27 H 21 H 26 H Blood Pressure 93/73 L 87/54 L 71/35 L Pulse Oximetry 100 99 91 Oxygen Delivery Oxygen Flow Rate Fraction of Inspired Oxygen 10/16/25 23:38 10/16/25 23:47 10/16/25 23:57 Temperature Pulse Rate 88 84 82 Respiratory Rate 28 H 26 H 982 H Blood Pressure 98/43 L 76/46 L 75/54 L Pulse Oximetry 89 L 99 98 Oxygen Delivery Oxygen Flow Rate Fraction of Inspired Oxygen 10/17/25 00:00 10/17/25 00:04 10/17/25 00:07 Temperature Pulse Rate 81 82 81 Respiratory Rate 19 26 H 26 H Blood Pressure 71/54 L 70/39 L 81/47 L Pulse Oximetry 99 99 100 Oxygen Delivery Oxygen Flow Rate Fraction of Inspired Oxygen 10/17/25 00:12 10/17/25 00:15 10/17/25 00:17 Temperature Pulse Rate 81 80 80 Respiratory Rate 22 H 28 H 24 H Blood Pressure 81/54 L 73/60 L 81/48 L Pulse Oximetry 100 95 94 Oxygen Delivery Oxygen Flow Rate Fraction of Inspired Oxygen 10/17/25 00:31 10/17/25 00:47 10/17/25 00:47 Temperature Pulse Rate 81 80 Respiratory Rate 24 H 27 H Blood Pressure 94/59 L Pulse Oximetry 88 L 86 L 86 L Oxygen Delivery Nasal Cannula Oxygen Flow Rate 6 Fraction of Inspired Oxygen 10/17/25 00:49 10/17/25 01:01 10/17/25 01:04 Temperature Pulse Rate 80 80 81 Respiratory Rate 29 H 25 H 24 H Blood Pressure 89/52 L 70/58 L 98/45 L Pulse Oximetry 89 L 89 L 89 L Oxygen Delivery Oxygen Flow Rate Fraction of Inspired Oxygen 10/17/25 01:15 10/17/25 01:29 10/17/25 01:31 Temperature Pulse Rate 79 79 Respiratory Rate 28 H 28 H Blood Pressure 74/30 L Pulse Oximetry 89 L 90 90 Oxygen Delivery Nasal Cannula Oxygen Flow Rate 6 Fraction of Inspired Oxygen 10/17/25 01:37 10/17/25 01:56 10/17/25 01:59 Temperature Pulse Rate 76 80 75 Respiratory Rate 25 H 26 H 24 H Blood Pressure 68/54 L 77/37 L 61/39 L Pulse Oximetry 91 90 91 Oxygen Delivery Oxygen Flow Rate Fraction of Inspired Oxygen 10/17/25 02:00 10/17/25 02:01 10/17/25 02:03 Temperature Pulse Rate 75 80 79 Respiratory Rate 21 H 27 H 26 H Blood Pressure 65/45 L 68/51 L Pulse Oximetry 91 91 90 Oxygen Delivery Oxygen Flow Rate Fraction of Inspired Oxygen 10/17/25 02:06 10/17/25 02:10 10/17/25 02:14 Temperature Pulse Rate 81 77 82 Respiratory Rate 24 H Blood Pressure 77/49 L 77/49 L 89/47 L Pulse Oximetry 90 Oxygen Delivery Oxygen Flow Rate Fraction of Inspired Oxygen 10/17/25 02:16 10/17/25 02:24 10/17/25 02:26 Temperature Pulse Rate 82 82 81 Respiratory Rate 23 H 25 H Blood Pressure 85/54 L 100/57 L 85/59 L Pulse Oximetry 85 L 84 L Oxygen Delivery Oxygen Flow Rate Fraction of Inspired Oxygen 10/17/25 02:30 10/17/25 02:31 10/17/25 02:36 Temperature Pulse Rate 78 74 Respiratory Rate 24 H 13 Blood Pressure 96/75 L 99/86 L Pulse Oximetry 90 88 L 87 L Oxygen Delivery Nasal Cannula Oxygen Flow Rate 6 Fraction of Inspired Oxygen 10/17/25 03:00 10/17/25 03:00 10/17/25 03:04 Temperature Pulse Rate 70 70 88 Respiratory Rate 23 H 23 H 17 Blood Pressure 170/122 H Pulse Oximetry 100 100 98 Oxygen Delivery BiPAP BiPAP Oxygen Flow Rate Fraction of Inspired Oxygen 50 10/17/25 03:05 10/17/25 03:05 10/17/25 03:06 Temperature Pulse Rate 76 83 86 Respiratory Rate 16 15 Blood Pressure 177/95 H 170/107 H 177/92 H Pulse Oximetry 98 98 Oxygen Delivery Oxygen Flow Rate Fraction of Inspired Oxygen 10/17/25 03:10 10/17/25 03:11 10/17/25 03:16 Temperature Pulse Rate 72 92 86 Respiratory Rate 23 H 24 H 24 H Blood Pressure 147/76 H 115/67 Pulse Oximetry 98 98 97 Oxygen Delivery BiPAP Oxygen Flow Rate Fraction of Inspired Oxygen 10/17/25 03:17 10/17/25 03:45 10/17/25 03:58 Temperature 37.2 C Pulse Rate 81 77 Respiratory Rate 24 H 24 H Blood Pressure 99/68 L Pulse Oximetry 98 98 99 Oxygen Delivery Nasal Cannula Oxygen Flow Rate 6 Fraction of Inspired Oxygen 10/17/25 03:59 10/17/25 04:00 10/17/25 04:01 Temperature 37.4 C Pulse Rate 66 78 Respiratory Rate 28 H 28 H Blood Pressure 102/65 Pulse Oximetry 96 96 96 Oxygen Delivery Nasal Cannula Nasal Cannula Oxygen Flow Rate 3 2 Fraction of Inspired Oxygen 10/17/25 04:06 10/17/25 04:11 10/17/25 04:16 Temperature 37.8 C H 38.0 C H 38.1 C H Pulse Rate 79 79 81 Respiratory Rate 28 H 28 H 26 H Blood Pressure 102/62 108/72 107/60 Pulse Oximetry 95 95 94 Oxygen Delivery Oxygen Flow Rate Fraction of Inspired Oxygen 10/17/25 04:26 10/17/25 04:31 10/17/25 04:36 Temperature 38.3 C H 38.3 C H 38.3 C H Pulse Rate 80 79 81 Respiratory Rate 27 H 30 H 25 H Blood Pressure 110/74 114/69 108/79 Pulse Oximetry 94 94 95 Oxygen Delivery Oxygen Flow Rate Fraction of Inspired Oxygen 10/17/25 04:41 10/17/25 04:46 10/17/25 04:51 Temperature 38.3 C H 38.3 C H 38.3 C H Pulse Rate 81 77 79 Respiratory Rate 28 H 27 H 25 H Blood Pressure 113/69 109/73 100/71 Pulse Oximetry 95 95 94 Oxygen Delivery Oxygen Flow Rate Fraction of Inspired Oxygen 10/17/25 04:56 10/17/25 06:00 10/17/25 06:23 Temperature 38.3 C H Pulse Rate 81 76 69 Respiratory Rate 29 H Blood Pressure 115/57 L 77/47 L Pulse Oximetry 95 Oxygen Delivery Oxygen Flow Rate Fraction of Inspired Oxygen 10/17/25 06:23 10/17/25 06:25 10/17/25 07:00 Temperature 38.3 C H 38.3 C H 37.8 C H Pulse Rate 69 69 70 Respiratory Rate 26 H 26 H 20 Blood Pressure 77/55 L 77/47 L 114/57 L Pulse Oximetry 96 96 94 Oxygen Delivery Oxygen Flow Rate Fraction of Inspired Oxygen 10/17/25 07:26 10/17/25 08:00 10/17/25 08:00 Temperature 37.8 C H Pulse Rate 72 76 Respiratory Rate 20 26 H Blood Pressure 113/92 H Pulse Oximetry 92 96 95 Oxygen Delivery Nasal Cannula Nasal Cannula Oxygen Flow Rate 2 2 Fraction of Inspired Oxygen Exam Const: General: comfortable, no acute distress, alert and awake Orientation/consciousness: patient oriented x3 Other: morbidly obese HENMT: Head: normal to inspection Eyes: General: appearance normal, both eyes and all related structures Pupils: Equal, round and reactive pupils present Neck: Neck: normal visual inspection and supple Carotids: normal carotid upstroke Resp: Effort & Inspection: normal respiratory effort Auscultation: rales Cardio: Rate: regular rate Rhythm: abnormal rhythm Heart sounds: S1 normal heart sound present, S2 normal heart sound present and no murmurs GI: Auscultation: normal bowel sounds Skin: General skin exam: erythema Other: pretibial erythema and wounds bilaterally. Lower extremity skin appearance consistent with PAD Neuro: General: patient oriented x3 Cranial nerves: Yes Equal, round and reactive pupils present Extrem: General: normal exam except as noted Psych: Appearance: grossly normal Mental Status: mental status grossly normal Results Labs and Meds 10/17/25 08:06 10/17/25 08:06 Lab results: Cardiac Enzymes 10/16/25 10/17/25 10/17/25 Range/Units 23:07 02:39 08:06 AST 32 44 (17-59) U/L Troponin I 0.064 H* 0.085 H* D 0.238 H* D (0.000-0.034) ng/mL Coagulation 10/16/25 Range/Units 23:07 PT 16.9 H (11.1-14.7) Seconds APTT 33.3 (22.3-36.8) Seconds CBC 10/16/25 10/17/25 Range/Units 23:07 08:06 WBC 18.2 H 18.5 H (4.5-10.0) K/mm3 RBC 4.03 L 3.81 L (4.6-6.20) M/mm3 Hgb 12.4 L 11.8 L (14.0-18.0) g/dL Hct 39.1 L 37.1 L (42.0-52.0) % Plt Count 227 184 (150-375) k/mm3 Lymph # (Auto) 1.38 Not Reportable (0.9-3.2) K/mm3 [place] # (Auto) 0.8 H Not Reportable (0.1-0.6) K/mm3 Eos # (Auto) 0.0 Not Reportable (0-0.3) K/mm3 Baso # (Auto) 0.1 Not Reportable (0.0-0.1) K/mm3 Comprehensive Metabolic Panel 10/16/25 10/17/25 Range/Units 23:07 08:06 Sodium 136 L 134 L (137-145) mmol/L Potassium 4.0 4.7 (3.4-5.0) mmol/L Chloride 100 104 (98-107) mmol/L Carbon Dioxide 23 23 (22-30) mmol/L BUN 35 H D 38 H (9-20) mg/dL Creatinine 1.97 H 2.08 H (0.7-1.3) mg/dL Glucose 45 L* 136 H (65-110) mg/dL Calcium 9.2 7.9 L (8.4-10.2) mg/dL AST 32 44 (17-59) U/L ALT 27 21 (6-50) U/L Alkaline Phosphatase 94 84 (38-126) U/L Total Protein 7.4 6.8 (6.3-8.2) g/dL Albumin 3.9 3.5 (3.5-5.1) g/dL Intake and Output 10/16/25 10/17/25 10/17/25 23:59 07:59 15:59 Intake Total 1428.9 Balance 1428.9 Intake: IV 1428.9 Norepinephrine 8 mg/D5w 250 ml 78.9 8 mg In 250 ml @ 5 MCG/MIN 9. 375 mls/hr IV CONT .Q24H STA Rx #:[id number] Sodium Chloride 0.9% IV 1,000 1000 ml @ 999 mls/hr IV CONT .Q1H1M STA Rx#:[id number] Cefepime 2 gm In Sodium 50 Chloride 0.9% IV 50 ml @ 100 mls/hr IVPB ONCE STA Rx#: [id number] Magnesium Sulf 2 gm/Water 50Ml 50 2 gm In 50 ml @ 25 mls/hr IVPB ONCE ONE Rx#:[id number] Vancomycin 1,250 mg/Ns 250 ml 1 250 ,250 mg In 250 ml @ 166.667 mls /hr IVPB ONCE ONE Rx#:[id number] Patient Weight 10/17/25 23:59 Weight 138.4 kg
[2025-10-17] MEDS: PANTOPRAZOLE SODIUM IV 40 MG VIAL IV PUSH ×2 (10:26→20:28)
--- NOTE | 2025-10-17 10:59 | PCFNICU ---
ICU Rounding Note: Pt current nutrition is [facility] Last recorded weight is 138.4 kg Labs Reviewed: Mg 1.3, HbA1c 6.0%, NA 134, Cr 2.08, BUN 38, Glu 136 Meds Noted: Vancomycin, Cefepime, Levophed, D5 Skin: WNL Additional Notes: MST for unsure of weight loss. Patient has advanced to [facility] diet for lunch. Will monitor intake and make further recommendations as needed. Following daily in ICU rounds.
[2025-10-17] MEDS: NOREPINEPHRINE 8 MG/D5W 250 ML 8 MG/250 ML BAG 7.5 MG IV CONT (13:49)
[2025-10-17] MEDS: PERFLUTREN LIPID MICROSPHERES 1.5 ML VIAL DILUTED TO 10 ML TOTAL VOLUME IV PUSH (15:41)
--- NOTE | 2025-10-17 15:41 | IVDEFINITY ---
Prior to administration of IV Definity the patient was educated on the risks and benefits of the imaging enhancing agent including potential adverse side effects. The patient verbalized understanding. Allergies were verified. No exclusion criteria were identified and at least one of the following inclusion criteria were met: 1) physician request, 2) patient technically difficult to image (per the [place] [employer] guidelines of two or more segments not discernable within the apical view), or 3) questionable left ventricular function. ?
[2025-10-17] MEDS: ACETAMINOPHEN 325 MG TABLET 650 MG PO (16:02)
[2025-10-17] MEDS: CENTRAL LINE FLUSH 10 ML IV PUSH (20:28)
[2025-10-17] MEDS: DEXTROSE 5%/0.9% SOD CHL 1,000 ML 75 ML IV CONT (20:32)
[2025-10-18] VITALS (33 sets, daily range): BP systolic 93–127; BP diastolic 49–99; PULSE 86–105; RESP 16–22; TEMP 36.6–37.6; O2SAT 96–100
[2025-10-18] MEDS: LEVOTHYROXINE SODIUM 100 MCG TABLET PO (05:13)
[2025-10-18] MEDS: CENTRAL LINE FLUSH 10 ML IV PUSH ×3 (05:13→20:20)
[2025-10-18 05:22] LABS: Hematocrit 33.9 % (42.0-52.0); Hemoglobin 10.9 g/dL (14.0-18.0); Mean Corpuscular HGB Conc 32.2 g/dl (32-36); Mean Corpuscular Hemoglobin 31.5 pg (26-34); Mean Corpuscular Volume 98.0 fl (80-100); Platelet Count Result 124 k/mm3 (150-375); Red Blood Count 3.46 M/mm3 (4.6-6.20); White Blood Count 10.1 K/mm3 (4.5-10.0)
[2025-10-18] MEDS: IPRATROPIUM 0.5 MG/ALBUTEROL SULFATE 2.5 MG (BASE) AMPUL.NEB 3 ML INHALATION ×4 (05:25→20:35)
[2025-10-18 05:49] LABS: Anion Gap 4 mmol/L (4-12); Blood Urea Nitrogen 35 mg/dL (9-20); Calcium 7.6 mg/dL (8.4-10.2); Carbon Dioxide 24 mmol/L (22-30); Chloride 107 mmol/L (98-107); Estimated CRCL calculation 46 ml/min; Estimated Glomerular Filt Rate 42; Glucose 184 mg/dL (65-110); Magnesium 1.8 mg/dL (1.6-2.3); Potassium 4.2 mmol/L (3.4-5.0); Sodium 135 mmol/L (137-145)
[2025-10-18 05:56] LABS: Band Neutrophils Percent 9 % (0-6); Lymphocytes Absolute Manual 0.80 K/mm3 (1.1-4.5); Lymphocytes Percent Manual 8 % (18-44); Monocytes Absolute Manual 0.40 K/mm3 (0.1-0.90); Monocytes Percent Manual 4 % (3-9); Neutrophils Absolute Manual 8.88 K/mm3 (1.3-6.7); Neutrophils Percent Manual 79 % (46-73); Total Cells Counted 100
[2025-10-18 05:57] LABS: Schistocytes None Seen
[2025-10-18] MEDS: APIXABAN 5 MG TABLET PO ×2 (08:06→20:20)
[2025-10-18] MEDS: GABAPENTIN 300 MG CAPSULE PO ×3 (08:06→18:18)
[2025-10-18] MEDS: PANTOPRAZOLE SODIUM IV 40 MG VIAL IV PUSH ×2 (08:07→20:20)
[2025-10-18] MEDS: VANCOMYCIN 1,500 MG/NS 500 ML 1,500 MG/500 ML BAG 250 MG IVPB (08:07)
[2025-10-18] MEDS: ACETAMINOPHEN 325 MG TABLET 650 MG PO (09:43)
--- NOTE | 2025-10-18 10:29 | P.PNCA_ITS ---
Progress Note: A&P Assessment and Plan (1) Atrial fibrillation: Code(s): I48.91 - Unspecified atrial fibrillation Status: Acute Assessment and Plan: * Rate controlled and regular this am-repeat EKG. Continue amiodarone and apixaban. * followed with [facility] in the past and has history of ablation in 2013 and multiple subsequent cardioversion * monitor electrolytes * tsh was elevated at 11.5, would check T4, management per primary team as on replacement therapy * goal is rate control at this time (2) Elevated troponin: Code(s): R79.89 - Other specified abnormal findings of blood chemistry Status: Acute Assessment and Plan: Troponin levels are 0.064, 0.085, and 0.238. He denies chest pain. Doubt this troponin spill represents ACS, rather, it is secondary to sepsis, hypotension, TRACIE. repeat echo demonstrates severe systolic dysfunction with EF of 30%, with mild MR, mild to severe TR and severe pulmonary HTN. Per discussion with his outside cardiology team patient has a history of cardiomyopathy with EF as low as 45% in the past, on stress test in 2019 however, EF had normalized. It is unclear if this reduction in EF represents ischemia vs demand ischemia in the setting of sepsis, hypotension and TRACIE . At this time would manage medically and can plan for OP evaluation with repeat echo and possible nuclear stress test. No aspirin as on Eliquis. Would resume his home BB if BP remains stable. (3) Congestive heart failure: Code(s): I50.9 - Heart failure, unspecified Status: Acute Assessment and Plan: * chronic combined systolic and diastolic heart failure * EF of 30% per echo this admission * diuretics and GDMT are on hold at this time in setting of TRACIE and sepsis * Will gradually resume meds as BP and renal function tolerate * he is off pressors this am (4) Chronic kidney disease: Code(s): N18.9 - Chronic kidney disease, unspecified Status: Acute Assessment and Plan: Baseline kidney function unknown. Avoid nephrotoxic agents. (5) Septic shock: Code(s): A41.9 - Sepsis, unspecified organism; R65.21 - Severe sepsis with septic shock Status: Acute Assessment and Plan: Management per primary team (6) Cellulitis: Code(s): L03.90 - Cellulitis, unspecified Status: Acute Assessment and Plan: Management per primary team Subjective Date/time seen: 10/18/25 10:29 Interval history: Date of Service 10/18/25: Patient is lying in bed, family at bedside. He reports he is feeling better this am. No chest pain or pressure. No palpitations. His breathing has improved. Review of Systems Review of Systems: All systems reviewed & are unremarkable except as noted in HPI and below Objective Data Vital Signs Vital Signs: Vital Signs - 24 hr 10/17/25 10:46 10/17/25 11:00 10/17/25 11:10 Temperature Pulse Rate 74 72 69 Respiratory Rate 26 H Blood Pressure 133/77 128/62 128/62 Pulse Oximetry 97 Oxygen Delivery Oxygen Flow Rate Fraction of Inspired Oxygen 10/17/25 11:15 10/17/25 11:18 10/17/25 11:31 Temperature Pulse Rate Respiratory Rate Blood Pressure 93/57 L 102/58 L Pulse Oximetry 97 Oxygen Delivery Nasal Cannula Oxygen Flow Rate 2 Fraction of Inspired Oxygen 10/17/25 12:00 10/17/25 12:00 10/17/25 12:00 Temperature 37.6 C Pulse Rate 69 68 73 Respiratory Rate 22 H Blood Pressure 103/52 L 103/52 L Pulse Oximetry 96 Oxygen Delivery Oxygen Flow Rate Fraction of Inspired Oxygen 10/17/25 12:40 10/17/25 13:00 10/17/25 13:43 Temperature 37.5 C Pulse Rate 69 69 Respiratory Rate 25 H Blood Pressure 101/53 L 96/50 L Pulse Oximetry 98 Oxygen Delivery Oxygen Flow Rate Fraction of Inspired Oxygen 10/17/25 13:49 10/17/25 13:50 10/17/25 13:50 Temperature 37.6 C Pulse Rate 73 68 73 Respiratory Rate 23 H Blood Pressure 78/67 L 95/52 L 78/67 L Pulse Oximetry 97 Oxygen Delivery Oxygen Flow Rate Fraction of Inspired Oxygen 10/17/25 14:00 10/17/25 14:05 10/17/25 15:00 Temperature 37.9 C H Pulse Rate 74 86 Respiratory Rate 27 H Blood Pressure 104/54 L 104/54 L 120/102 H Pulse Oximetry 96 Oxygen Delivery Oxygen Flow Rate Fraction of Inspired Oxygen 10/17/25 15:27 10/17/25 15:33 10/17/25 15:35 Temperature Pulse Rate 84 Respiratory Rate Blood Pressure 124/65 Pulse Oximetry 98 98 Oxygen Delivery Nasal Cannula Nasal Cannula Oxygen Flow Rate 2 1 Fraction of Inspired Oxygen 10/17/25 16:00 10/17/25 16:00 10/17/25 16:00 Temperature 38.4 C H Pulse Rate 88 90 Respiratory Rate 25 H Blood Pressure 99/67 L 99/67 L 103/60 Pulse Oximetry 97 Oxygen Delivery Oxygen Flow Rate Fraction of Inspired Oxygen 10/17/25 16:00 10/17/25 16:02 10/17/25 16:52 Temperature 38.4 C H Pulse Rate 88 100 Respiratory Rate Blood Pressure 113/73 Pulse Oximetry Oxygen Delivery Oxygen Flow Rate Fraction of Inspired Oxygen 10/17/25 16:53 10/17/25 16:54 10/17/25 17:00 Temperature 38.6 C H 38.6 C H Pulse Rate 99 Respiratory Rate 21 H Blood Pressure 125/94 H Pulse Oximetry 93 92 Oxygen Delivery Room Air Oxygen Flow Rate Fraction of Inspired Oxygen 10/17/25 17:02 10/17/25 17:51 10/17/25 18:00 Temperature 38.3 C H Pulse Rate 91 88 Respiratory Rate Blood Pressure 99/76 L Pulse Oximetry Oxygen Delivery Oxygen Flow Rate Fraction of Inspired Oxygen 10/17/25 18:00 10/17/25 18:19 10/17/25 19:00 Temperature 38.3 C H Pulse Rate 90 99 Respiratory Rate 23 H 24 H Blood Pressure 94/47 L 106/50 L 104/51 L Pulse Oximetry 90 92 Oxygen Delivery Oxygen Flow Rate Fraction of Inspired Oxygen 10/17/25 19:15 10/17/25 19:15 10/17/25 20:00 Temperature 38.2 C H Pulse Rate 92 94 92 Respiratory Rate 18 23 H Blood Pressure 111/46 L Pulse Oximetry 94 92 91 Oxygen Delivery Room Air Room Air Oxygen Flow Rate Fraction of Inspired Oxygen 21 10/17/25 20:00 10/17/25 20:00 10/17/25 20:00 Temperature Pulse Rate 92 92 99 Respiratory Rate 23 H Blood Pressure 111/46 L Pulse Oximetry 86 L Oxygen Delivery Nasal Cannula Oxygen Flow Rate 3 Fraction of Inspired Oxygen 10/17/25 20:30 10/17/25 20:30 10/17/25 20:50 Temperature 37.9 C H 38.1 C H Pulse Rate 94 92 74 Respiratory Rate 21 H 16 Blood Pressure 87/41 L 87/41 L 133/51 L Pulse Oximetry 98 98 Oxygen Delivery Oxygen Flow Rate Fraction of Inspired Oxygen 10/17/25 20:50 10/17/25 21:00 10/17/25 22:00 Temperature 38.2 C H Pulse Rate 87 100 95 Respiratory Rate 22 H Blood Pressure 133/51 L 139/56 L Pulse Oximetry 98 Oxygen Delivery Oxygen Flow Rate Fraction of Inspired Oxygen 10/17/25 22:00 10/17/25 22:00 10/17/25 23:00 Temperature 37.8 C H 37.7 C H Pulse Rate 91 98 97 Respiratory Rate 18 22 H Blood Pressure 108/49 L 108/49 L 110/49 L Pulse Oximetry 98 98 Oxygen Delivery Oxygen Flow Rate Fraction of Inspired Oxygen 10/17/25 23:38 10/18/25 00:00 10/18/25 00:00 Temperature 37.6 C H Pulse Rate 97 86 86 Respiratory Rate 20 16 Blood Pressure 118/99 H Pulse Oximetry 98 98 Oxygen Delivery Nasal Cannula Oxygen Flow Rate 3 Fraction of Inspired Oxygen 10/18/25 00:00 10/18/25 00:34 10/18/25 00:45 Temperature Pulse Rate 86 97 97 Respiratory Rate 21 H Blood Pressure 118/99 H 123/55 L 102/53 L Pulse Oximetry 98 Oxygen Delivery Oxygen Flow Rate Fraction of Inspired Oxygen 10/18/25 01:00 10/18/25 02:00 10/18/25 02:00 Temperature 37.4 C 37.6 C H Pulse Rate 98 96 96 Respiratory Rate 20 17 Blood Pressure 100/55 L 127/49 L Pulse Oximetry 98 98 Oxygen Delivery Oxygen Flow Rate Fraction of Inspired Oxygen 10/18/25 02:00 10/18/25 02:15 10/18/25 03:00 Temperature 37.6 C H 37.6 C Pulse Rate 99 97 94 Respiratory Rate 22 H 22 H Blood Pressure 127/49 L 122/62 103/54 L Pulse Oximetry 98 98 Oxygen Delivery Oxygen Flow Rate Fraction of Inspired Oxygen 10/18/25 03:53 10/18/25 04:00 10/18/25 04:00 Temperature 37.4 C Pulse Rate 97 105 H 98 Respiratory Rate 20 19 Blood Pressure 115/49 L 115/49 L Pulse Oximetry 98 98 Oxygen Delivery Nasal Cannula Oxygen Flow Rate 3 Fraction of Inspired Oxygen 10/18/25 04:00 10/18/25 05:00 10/18/25 05:25 Temperature 37.4 C Pulse Rate 95 98 94 Respiratory Rate 18 20 Blood Pressure 122/62 Pulse Oximetry 98 99 Oxygen Delivery BiPAP Oxygen Flow Rate Fraction of Inspired Oxygen 10/18/25 05:25 10/18/25 05:35 10/18/25 06:00 Temperature Pulse Rate 94 96 100 Respiratory Rate 20 20 Blood Pressure Pulse Oximetry Oxygen Delivery Oxygen Flow Rate Fraction of Inspired Oxygen 10/18/25 06:00 10/18/25 06:04 10/18/25 07:00 Temperature 37.3 C 37.1 C Pulse Rate 96 98 90 Respiratory Rate 20 20 Blood Pressure 125/63 117/57 L 124/58 L Pulse Oximetry 100 99 Oxygen Delivery Oxygen Flow Rate Fraction of Inspired Oxygen 10/18/25 07:52 10/18/25 08:00 10/18/25 08:06 Temperature 36.9 C Pulse Rate 100 95 95 Respiratory Rate 18 19 Blood Pressure 124/58 L 114/55 L Pulse Oximetry 99 Oxygen Delivery Oxygen Flow Rate Fraction of Inspired Oxygen 10/18/25 08:09 10/18/25 08:14 10/18/25 08:14 Temperature Pulse Rate 99 94 92 Respiratory Rate 21 H Blood Pressure Pulse Oximetry 96 99 Oxygen Delivery Nasal Cannula Nasal Cannula Oxygen Flow Rate 3 1 Fraction of Inspired Oxygen 32 24 10/18/25 09:00 10/18/25 09:59 10/18/25 10:00 Temperature 36.7 C 36.7 C Pulse Rate 96 98 98 Respiratory Rate 18 21 H Blood Pressure 120/61 111/58 L 111/58 L Pulse Oximetry 98 98 Oxygen Delivery Oxygen Flow Rate Fraction of Inspired Oxygen Intake/Output Intake/Output: Intake & Output 10/15/25 10/16/25 10/17/25 10/18/25 23:59 23:59 23:59 23:59 Intake Total 4107.0 1322.3 Output Total 1500 700 Balance 2607.0 622.3 Meds/Results Medications: Active Medications Generic Name Dose Route Start Last Admin Trade Name Freq PRN Reason Stop Dose Admin Acetaminophen 650 mg 10/17/25 04:38 10/18/25 09:43 Acetaminophen 325 Mg Tablet PO 650 mg Q4H PRN Administration Mild Pain (1-3) or Fever Albuterol/Ipratropium 3 ml 10/18/25 05:22 10/18/25 08:03 Ipratropium 0.5 Mg/Albuterol Sulfate 2.5 Mg (Base) Ampul.Neb 3 Ml INHALATION 3 ml Q6HRT SANDRA Administration Apixaban 5 mg 10/17/25 09:00 10/18/25 08:06 Apixaban 5 Mg Tablet PO 5 mg Q12HR SANDRA Administration Calcitriol 0.25 mcg 10/17/25 09:00 10/18/25 08:06 Calcitriol 0.25 Mcg Capsule PO 0.25 mcg DAILY SANDRA Administration Dextrose 12.5 gm 10/17/25 04:38 Dextrose 50% 25 Gm/50 Ml Syringe IV PUSH PRN PRN Hypoglycemia Protocol Gabapentin 300 mg 10/17/25 09:00 10/18/25 08:06 Gabapentin 300 Mg Capsule PO 300 mg TID SANDRA Administration Glucagon 1 mg 10/17/25 04:38 Glucagon For Inj 1 Mg Vial IM PRN PRN Hypoglycemia Protocol Glucose 15 gm 10/17/25 04:38 Glucose Oral Gel 15 Gm Of Glucse In 37.5 Gm Tube PO PRN PRN Hypoglycemia Protocol Cefepime HCl 2 gm/ Sodium 50 mls @ 100 mls/hr 10/17/25 12:00 10/18/25 00:05 Chloride IVPB Infused Q12H SANDRA Infusion Dextrose 1,000 mls @ 100 mls/hr 10/17/25 04:38 Dextrose 5% 1,000 Ml IVPB PRN PRN Hypoglycemia Protocol Norepinephrine Bitartrate 8 mg in 250 mls @ 0 mls/hr 10/17/25 13:40 10/18/25 10:00 Levophed 8 Mg/D5w 250 Ml IV CONT 0 mcg/min .Q0M SANDRA 0 mls/hr Protocol Titration Vancomycin HCl 1,500 mg in 500 mls @ 250 mls/hr 10/18/25 09:00 10/18/25 08:07 Vancomycin 1,500 Mg/Ns 500 Ml IVPB 250 mls/hr Q24H SANDRA Administration Levothyroxine Sodium 100 mcg 10/17/25 06:30 10/18/25 05:13 Levothyroxine Sodium 100 Mcg Tablet PO 100 mcg DAILY@0630 SANDRA Administration Ondansetron HCl 4 mg 10/17/25 04:38 Ondansetron Inj 4 Mg/2 Ml Vial IV PUSH Q4H PRN Nausea Pantoprazole Sodium 40 mg 10/17/25 09:10 10/18/25 08:07 Pantoprazole Sodium Iv 40 Mg Vial IV PUSH 40 mg Q12HR SANDRA Administration Sodium Chloride 10 ml 10/17/25 14:00 10/18/25 05:13 Central Line Flush IV PUSH 10 ml Q8HR SANDRA Administration Sodium Chloride 20 ml 10/17/25 06:28 Central Line Flush IV PUSH PRN PRN after blood draws Radiology Results: ITS Impressions Chest X-Ray 10/17/25 07:59 IMPRESSION: 1. Portable chest x-ray with no focal acute process; heart shadow is borderline enlarged and mild vascular congestion may be present. Chest/Abdomen/Pelvis CT 10/17/25 08:08 IMPRESSION: Directed noncontrast exam demonstratin. No gross acute intrathoracic process. Borderline cardiomegaly and coronary artery calcifications. 2. Cholelithiasis with no gross CT evidence of acute cholecystitis. Possible mild urinary bladder wall thickening which could be associated with developing cystitis or UTI. NOTE: Preliminary radiologist report provided by [facility] radiologist/physician. Lower Extremity CT 10/17/25 09:31 IMPRESSION: 1. Extensive edematous/infiltrative changes in the subcutaneous soft tissues throughout the field of view of the left lower extremity with no clearly defined abscess or gross evidence of necrotizing fasciitis, or osteomyelitis. If osteomyelitis is a clinical concern, correlation with MRI suggested; if there concern for abscess, repeat examination with CT or MRI with contrast suggested. 2. Other findings as above. Venous Doppler Study 10/17/25 12:32 IMPRESSION: 1. No deep venous thrombosis in either lower limb. Ankle Brachial Index 10/18/25 08:55 IMPRESSION: 1. Mild arterial occlusive disease to the right lower limb with minimally decreased right TBI. 2. No significant arterial occlusive disease in the left lower limb with normal left TBI. Labs Labs: Laboratory Results - last 24 hr 10/17/25 10/17/25 10/17/25 11:08 12:04 12:59 WBC RBC Hgb Hct MCV MCH MCHC RDW Plt Count MPV Immature Gran % (Auto) Neut % (Auto) Lymph % (Auto) [place] % (Auto) Eos % (Auto) Baso % (Auto) Lymph # (Auto) [place] # (Auto) Eos # (Auto) Baso # (Auto) Abs Immat Gran (auto) Absolute Neuts (auto) Absolute Nucleated RBC Total Counted Neutrophils % (Manual) Band Neutrophils % Lymphocytes % (Manual) Monocytes % (Manual) Nucleated RBC % Abs Neuts (Manual) Abs Lymphs (Manual) Abs Monocytes (Manual) Platelet Estimate Schistocytes Sodium Potassium Chloride Carbon Dioxide Anion Gap BUN Creatinine Estim Creat Clear Calc Estimated GFR Glucose POC Capillary Glucose 122 H 121 H 124 H Lactic Acid Calcium Phosphorus Magnesium 10/17/25 10/17/25 10/17/25 16:24 20:28 23:43 WBC RBC Hgb Hct MCV MCH MCHC RDW Plt Count MPV Immature Gran % (Auto) Neut % (Auto) Lymph % (Auto) [place] % (Auto) Eos % (Auto) Baso % (Auto) Lymph # (Auto) [place] # (Auto) Eos # (Auto) Baso # (Auto) Abs Immat Gran (auto) Absolute Neuts (auto) Absolute Nucleated RBC Total Counted Neutrophils % (Manual) Band Neutrophils % Lymphocytes % (Manual) Monocytes % (Manual) Nucleated RBC % Abs Neuts (Manual) Abs Lymphs (Manual) Abs Monocytes (Manual) Platelet Estimate Schistocytes Sodium Potassium Chloride Carbon Dioxide Anion Gap BUN Creatinine Estim Creat Clear Calc Estimated GFR Glucose POC Capillary Glucose 140 H 210 H 180 H Lactic Acid Calcium Phosphorus Magnesium 10/18/25 10/18/25 10/18/25 05:17 05:18 07:25 WBC 10.1 H RBC 3.46 L Hgb 10.9 L Hct 33.9 L MCV 98.0 MCH 31.5 MCHC 32.2 RDW 14.7 H Plt Count 124 L MPV 9.1 Immature Gran % (Auto) Not Reportable Neut % (Auto) Not Reportable Lymph % (Auto) Not Reportable [place] % (Auto) Not Reportable Eos % (Auto) Not Reportable Baso % (Auto) Not Reportable Lymph # (Auto) Not Reportable [place] # (Auto) Not Reportable Eos # (Auto) Not Reportable Baso # (Auto) Not Reportable Abs Immat Gran (auto) Not Reportable Absolute Neuts (auto) Not Reportable Absolute Nucleated RBC Not Reportable Total Counted 100 Neutrophils % (Manual) 79 H Band Neutrophils % 9 H Lymphocytes % (Manual) 8 L Monocytes % (Manual) 4 Nucleated RBC % Not Reportable Abs Neuts (Manual) 8.88 H Abs Lymphs (Manual) 0.80 L Abs Monocytes (Manual) 0.40 Platelet Estimate Slightly decreased Schistocytes None seen Sodium 135 L Potassium 4.2 Chloride 107 Carbon Dioxide 24 Anion Gap 4 BUN 35 H Creatinine 1.63 H Estim Creat Clear Calc 46 Estimated GFR 42 L Glucose 184 H POC Capillary Glucose 181 H Lactic Acid 1.3 Calcium 7.6 L Phosphorus 2.9 Magnesium 1.8
--- NOTE | 2025-10-18 10:44 | PCFNICU ---
ICU Rounding Note: Pt current nutrition is DBCC diet with Glucerna shakes BID. Last recorded weight is 136.8 kg, down from 138.4 kg on admit. Bowel Motility: No BM reported. Labs Reviewed: Cr 1.63, BUN 35, Na 135, Hct 33.9, Hgb 10.9 Meds Noted: Cefepime, Vancomycin Skin:WNL Additional Notes: Patient has advanced to a DBCC diet. Tolerating 50-100% of meals. Diet supplements added BID for additional 240 kcal and 10 gm protein. Agree with diet orders. Following daily in ICU rounds and assessing for LOS weekly.
--- NOTE | 2025-10-18 12:30 | WPDINTPN ---
Progress Note: A&P Assessment and Plan (1) Septic shock: Code(s): A41.9 - Sepsis, unspecified organism; R65.21 - Severe sepsis with septic shock Status: Acute Assessment and Plan: 10/17: Patient presented with generalized weakness, was found to be hypoglycemic, hypotensive -was given 1 L IV fluid bolus in the ER, his femoral central line was inserted and patient was started on Levophed -chest x-ray was clear, patient was given 500 cc IV fluid this morning in the ICU -will discontinue D5 normal saline at 75 mL/hour, blood sugars are much improved -likely source UTI, cellulitis of the left lower extremity -10/17: Blood cultures pending -10/17: Urine cultures pending -continue cefepime and vancomycin (10/17) -OFF LEVOPHED 10/17: CT SCAN OF THE LEFT LOWER EXTREMITY 1. Extensive edematous/infiltrative changes in the subcutaneous soft tissues throughout the field of view of the left lower extremity with no clearly defined abscess or gross evidence of necrotizing fasciitis, or osteomyelitis. If osteomyelitis is a clinical concern, correlation with MRI suggested; if there concern for abscess, repeat examination with CT or MRI with contrast suggested. (2) Cellulitis: Code(s): L03.90 - Cellulitis, unspecified Status: Acute Assessment and Plan: Treatment as above, no signs of necrotizing fasciitis on CT scan of the lower extremities above -continue antibiotics (3) UTI (urinary tract infection): Code(s): N39.0 - Urinary tract infection, site not specified Status: Acute Assessment and Plan: CT scan of the abdomen and pelvis reflective of possible cystitis, -continue antibiotics as above -urine cultures have been obtained (4) DM2 (diabetes mellitus, type 2): Code(s): E11.9 - Type 2 diabetes mellitus without complications Status: Acute Assessment and Plan: Patient has history of diabetes, has been having poor oral intake, has been taking his insulin regularly -he was found to be hypoglycemic when EMS arrived, -will discontinue D5 normal saline infusion as blood sugars have been adequate and patient tolerating p.o. diet -will continue Accu-Cheks (5) Chronic kidney disease: Code(s): N18.9 - Chronic kidney disease, unspecified Status: Acute Assessment and Plan: Patient has a history of chronic kidney disease (baseline creatinine 2.40 - 2.90) -presented with creatinine of 1.97 -received 1 L IV fluid bolus in the ER, given additional 500 mL IV LR bolus in the ICU since patient has a history of CHF [place] [address] -remains on maintenance IV fluid -continue to monitor urine output, electrolytes, renal function -urine output has been adequate, creatinine improving (6) Elevated troponin: Code(s): R79.89 - Other specified abnormal findings of blood chemistry Status: Acute Assessment and Plan: Elevated Troponins 0.064, 0.085, 0.238 -EKG has been ordered -could be related to type 2 infarct due to septic shock -patient denies any chest pain -appreciate Cardiology evaluation recommendation 10/17/2025: Echocardiogram: Summary 1. Left ventricular chamber dimension is mildly enlarged. 2. Left ventricular systolic function is severely reduced, estimated at 30-35. 3. There is mildly increased left ventricular wall thickness. 4. The left ventricular diastolic function is abnormal. 5. Right ventricular chamber dimension is severely enlarged. 6. Right ventricular systolic function is reduced. 7. There is mild mitral valve regurgitation. 8. There is moderate to severe tricuspid valve regurgitation. 9. Severe pulmonary hypertension, estimated pulmonary arterial systolic pressure is 62 mmHg. 10. There is mild pulmonic regurgitation. (7) Chronic back pain: Code(s): M54.9 - Dorsalgia, unspecified; G89.29 - Other chronic pain Status: Acute Assessment and Plan: Continue gabapentin (8) Congestive heart failure: Code(s): I50.9 - Heart failure, unspecified Status: Acute Assessment [place]: [place] [address] -history of CHF -no echocardiogram on chart -cardiology will be evaluating the pain -prior to arrival medications Lasix, lisinopril, metoprolol, spironolactone, currently on hold due to septic shock and vasopressor requirement -will defer management to Cardiology (9) Discoloration of skin of foot: Code(s): L81.9 - Disorder of pigmentation, unspecified Status: Acute Assessment and Plan: Discoloration of feet bilaterally which are cold,. Pulses are intact -ankle brachial index: Showed mild arterial occlusive disease of the right lower limb, no significant arterial occlusive disease in the left lower limb (10) Atrial fibrillation: Code(s): I48.91 - Unspecified atrial fibrillation Status: Acute Assessment and Plan: History of atrial fibrillation, currently in his sinus rhythm, rate controlled -restarted apixaban and amiodarone Plan DVT prophylaxis: Apixaban Stress ulcer prophylaxis: Protonix Nutrition: Diabetic diet Code Status: Full code Critical Care Time Spent: 31 minutes Patient may transfer out of the ICU Due to a high probability of clinically significant, life threatening deterioration, the patient required my highest level of preparedness to intervene emergently and I personally spent this critical care time directly and personally managing the patient. This critical care time included obtaining a history; examining the patient; pulse oximetry; ordering and review of studies; arranging urgent treatment with development of a management plan; evaluation of patient's response to treatment; frequent reassessment; and discussions with other providers. It was exclusive of separately billable procedures and treating other patients and teaching time. Please see Assessment and Plan section and the rest of the note for further information on patient assessment and treatment This dictation may have been done utilizing a voice recognition system. Attempts have been made to correct errors. However, there may be uncorrected grammatical, spelling, and recognitions errors present. Subjective Date/time seen: 10/18/25 12:30 Interval history: Reason for consult: Septic shock, probable UTI, left lower extremity cellulitis, hypotension, hypoglycemia 10/18/2025: Patient seen examined the ICU, is awake, alert, oriented, denies any shortness of breath, chest pain, abdominal pain, nausea vomiting at this time. Hemodynamically stable, afebrile, adequate urine output, creatinine improving. Patient is off Levophed, Review of Systems Review of Systems: All systems reviewed & are unremarkable except as noted in HPI and below Exam Narrative: General: Pleasant gentleman currently in no acute distress HEENT:? Pupils equal and reactive, sclerae is clear, moist oral mucosa with thrush Neck:? Thick neck, supple Respiratory:? Coarse breath sounds at bases bilaterally, otherwise clear to auscultation, adequate air entry Cardiac:? S1-S2 is normal, regular rate and rhythm Abdomen:? Soft, nontender, obese, hypoactive bowel sounds Extremities:? Bilateral feet are more pink in color warm to touch with much improvement since yesterday. Left lower extremity is erythematous on the medial aspect of the thigh and leg, warm, tender and swollen. Erythema on the left medial thigh is indurated Neuro:? Patient is awake, alert, oriented x3, nonfocal, answers to questions appropriately and follows simple commands in all extremities Skin:? Multiple excoriations and healing scab noted on the abdomen, and bilateral upper and lower extremities Psych:? Normal mentation and affect Objective Data Vital Signs Vital Signs: Vital Signs - 24 hr 10/17/25 12:40 10/17/25 13:00 10/17/25 13:43 Temperature 99.5 F Pulse Rate 69 69 Respiratory Rate 25 H Blood Pressure 101/53 L 96/50 L Pulse Oximetry 98 Oxygen Delivery Oxygen Flow Rate Fraction of Inspired Oxygen 10/17/25 13:49 10/17/25 13:50 10/17/25 13:50 Temperature 99.6 F Pulse Rate 73 68 73 Respiratory Rate 23 H Blood Pressure 78/67 L 95/52 L 78/67 L Pulse Oximetry 97 Oxygen Delivery Oxygen Flow Rate Fraction of Inspired Oxygen 10/17/25 14:00 10/17/25 14:05 10/17/25 15:00 Temperature 100.2 F H Pulse Rate 74 86 Respiratory Rate 27 H Blood Pressure 104/54 L 104/54 L 120/102 H Pulse Oximetry 96 Oxygen Delivery Oxygen Flow Rate Fraction of Inspired Oxygen 10/17/25 15:27 10/17/25 15:33 10/17/25 15:35 Temperature Pulse Rate 84 Respiratory Rate Blood Pressure 124/65 Pulse Oximetry 98 98 Oxygen Delivery Nasal Cannula Nasal Cannula Oxygen Flow Rate 2 1 Fraction of Inspired Oxygen 10/17/25 16:00 10/17/25 16:00 10/17/25 16:00 Temperature 101.1 F H Pulse Rate 88 90 Respiratory Rate 25 H Blood Pressure 99/67 L 99/67 L 103/60 Pulse Oximetry 97 Oxygen Delivery Oxygen Flow Rate Fraction of Inspired Oxygen 10/17/25 16:00 10/17/25 16:02 10/17/25 16:52 Temperature 101.1 F H Pulse Rate 88 100 Respiratory Rate Blood Pressure 113/73 Pulse Oximetry Oxygen Delivery Oxygen Flow Rate Fraction of Inspired Oxygen 10/17/25 16:53 10/17/25 16:54 10/17/25 17:00 Temperature 101.4 F H 101.4 F H Pulse Rate 99 Respiratory Rate 21 H Blood Pressure 125/94 H Pulse Oximetry 93 92 Oxygen Delivery Room Air Oxygen Flow Rate Fraction of Inspired Oxygen 10/17/25 17:02 10/17/25 17:51 10/17/25 18:00 Temperature 101 F H Pulse Rate 91 88 Respiratory Rate Blood Pressure 99/76 L Pulse Oximetry Oxygen Delivery Oxygen Flow Rate Fraction of Inspired Oxygen 10/17/25 18:00 10/17/25 18:19 10/17/25 19:00 Temperature 100.9 F H Pulse Rate 90 99 Respiratory Rate 23 H 24 H Blood Pressure 94/47 L 106/50 L 104/51 L Pulse Oximetry 90 92 Oxygen Delivery Oxygen Flow Rate Fraction of Inspired Oxygen 10/17/25 19:15 10/17/25 19:15 10/17/25 20:00 Temperature 100.7 F H Pulse Rate 92 94 92 Respiratory Rate 18 23 H Blood Pressure 111/46 L Pulse Oximetry 94 92 91 Oxygen Delivery Room Air Room Air Oxygen Flow Rate Fraction of Inspired Oxygen 21 10/17/25 20:00 10/17/25 20:00 10/17/25 20:00 Temperature Pulse Rate 92 92 99 Respiratory Rate 23 H Blood Pressure 111/46 L Pulse Oximetry 86 L Oxygen Delivery Nasal Cannula Oxygen Flow Rate 3 Fraction of Inspired Oxygen 10/17/25 20:30 10/17/25 20:30 10/17/25 20:50 Temperature 100.2 F H 100.6 F H Pulse Rate 94 92 74 Respiratory Rate 21 H 16 Blood Pressure 87/41 L 87/41 L 133/51 L Pulse Oximetry 98 98 Oxygen Delivery Oxygen Flow Rate Fraction of Inspired Oxygen 10/17/25 20:50 10/17/25 21:00 10/17/25 22:00 Temperature 100.7 F H Pulse Rate 87 100 95 Respiratory Rate 22 H Blood Pressure 133/51 L 139/56 L Pulse Oximetry 98 Oxygen Delivery Oxygen Flow Rate Fraction of Inspired Oxygen 10/17/25 22:00 10/17/25 22:00 10/17/25 23:00 Temperature 100.1 F H 99.9 F H Pulse Rate 91 98 97 Respiratory Rate 18 22 H Blood Pressure 108/49 L 108/49 L 110/49 L Pulse Oximetry 98 98 Oxygen Delivery Oxygen Flow Rate Fraction of Inspired Oxygen 10/17/25 23:38 10/18/25 00:00 10/18/25 00:00 Temperature 99.7 F H Pulse Rate 97 86 86 Respiratory Rate 20 16 Blood Pressure 118/99 H Pulse Oximetry 98 98 Oxygen Delivery Nasal Cannula Oxygen Flow Rate 3 Fraction of Inspired Oxygen 10/18/25 00:00 10/18/25 00:34 10/18/25 00:45 Temperature Pulse Rate 86 97 97 Respiratory Rate 21 H Blood Pressure 118/99 H 123/55 L 102/53 L Pulse Oximetry 98 Oxygen Delivery Oxygen Flow Rate Fraction of Inspired Oxygen 10/18/25 01:00 10/18/25 02:00 10/18/25 02:00 Temperature 99.4 F 99.7 F H Pulse Rate 98 96 96 Respiratory Rate 20 17 Blood Pressure 100/55 L 127/49 L Pulse Oximetry 98 98 Oxygen Delivery Oxygen Flow Rate Fraction of Inspired Oxygen 10/18/25 02:00 10/18/25 02:15 10/18/25 03:00 Temperature 99.7 F H 99.6 F Pulse Rate 99 97 94 Respiratory Rate 22 H 22 H Blood Pressure 127/49 L 122/62 103/54 L Pulse Oximetry 98 98 Oxygen Delivery Oxygen Flow Rate Fraction of Inspired Oxygen 10/18/25 03:53 10/18/25 04:00 10/18/25 04:00 Temperature 99.4 F Pulse Rate 97 105 H 98 Respiratory Rate 20 19 Blood Pressure 115/49 L 115/49 L Pulse Oximetry 98 98 Oxygen Delivery Nasal Cannula Oxygen Flow Rate 3 Fraction of Inspired Oxygen 10/18/25 04:00 10/18/25 05:00 10/18/25 05:25 Temperature 99.3 F Pulse Rate 95 98 94 Respiratory Rate 18 20 Blood Pressure 122/62 Pulse Oximetry 98 99 Oxygen Delivery BiPAP Oxygen Flow Rate Fraction of Inspired Oxygen 10/18/25 05:25 10/18/25 05:35 10/18/25 06:00 Temperature Pulse Rate 94 96 100 Respiratory Rate 20 20 Blood Pressure Pulse Oximetry Oxygen Delivery Oxygen Flow Rate Fraction of Inspired Oxygen 10/18/25 06:00 10/18/25 06:04 10/18/25 07:00 Temperature 99.1 F 98.7 F Pulse Rate 96 98 90 Respiratory Rate 20 20 Blood Pressure 125/63 117/57 L 124/58 L Pulse Oximetry 100 99 Oxygen Delivery Oxygen Flow Rate Fraction of Inspired Oxygen 10/18/25 07:52 10/18/25 08:00 10/18/25 08:00 Temperature 98.4 F Pulse Rate 100 95 95 Respiratory Rate 18 Blood Pressure 124/58 L 114/55 L Pulse Oximetry 99 Oxygen Delivery Oxygen Flow Rate Fraction of Inspired Oxygen 10/18/25 08:06 10/18/25 08:09 10/18/25 08:14 Temperature Pulse Rate 95 99 94 Respiratory Rate 19 21 H Blood Pressure Pulse Oximetry 96 Oxygen Delivery Nasal Cannula Oxygen Flow Rate 3 Fraction of Inspired Oxygen 32 10/18/25 08:14 10/18/25 09:00 10/18/25 09:59 Temperature 98.0 F 98.0 F Pulse Rate 92 96 98 Respiratory Rate 18 21 H Blood Pressure 120/61 111/58 L Pulse Oximetry 99 98 98 Oxygen Delivery Nasal Cannula Oxygen Flow Rate 1 Fraction of Inspired Oxygen 24 10/18/25 10:00 10/18/25 10:00 10/18/25 11:00 Temperature 98.0 F Pulse Rate 98 98 99 Respiratory Rate 19 Blood Pressure 111/58 L 93/80 L Pulse Oximetry 96 Oxygen Delivery Oxygen Flow Rate Fraction of Inspired Oxygen Intake/Output Intake/Output: Intake & Output 10/15/25 10/16/25 10/17/25 10/18/25 23:59 23:59 23:59 23:59 Intake Total 4107.0 1842.3 Output Total 1500 700 Balance 2607.0 1142.3 Meds/Results Medications: Active Medications Generic Name Dose Route Start Last Admin Trade Name Freq PRN Reason Stop Dose Admin Acetaminophen 650 mg 10/17/25 04:38 10/18/25 09:43 Acetaminophen 325 Mg Tablet PO 650 mg Q4H PRN Administration Mild Pain (1-3) or Fever Albuterol/Ipratropium 3 ml 10/18/25 05:22 10/18/25 08:03 Ipratropium 0.5 Mg/Albuterol Sulfate 2.5 Mg (Base) Ampul.Neb 3 Ml INHALATION 3 ml Q6HRT SANDRA Administration Apixaban 5 mg 10/17/25 09:00 10/18/25 08:06 Apixaban 5 Mg Tablet PO 5 mg Q12HR SANDRA Administration Calcitriol 0.25 mcg 10/17/25 09:00 10/18/25 08:06 Calcitriol 0.25 Mcg Capsule PO 0.25 mcg DAILY SANDRA Administration Dextrose 12.5 gm 10/17/25 04:38 Dextrose 50% 25 Gm/50 Ml Syringe IV PUSH PRN PRN Hypoglycemia Protocol Gabapentin 300 mg 10/17/25 09:00 10/18/25 08:06 Gabapentin 300 Mg Capsule PO 300 mg TID SANDRA Administration Glucagon 1 mg 10/17/25 04:38 Glucagon For Inj 1 Mg Vial IM PRN PRN Hypoglycemia Protocol Glucose 15 gm 10/17/25 04:38 Glucose Oral Gel 15 Gm Of Glucse In 37.5 Gm Tube PO PRN PRN Hypoglycemia Protocol Cefepime HCl 2 gm/ Sodium 50 mls @ 100 mls/hr 10/17/25 12:00 10/18/25 00:05 Chloride IVPB Infused Q12H SANDRA Infusion Dextrose 1,000 mls @ 100 mls/hr 10/17/25 04:38 Dextrose 5% 1,000 Ml IVPB PRN PRN Hypoglycemia Protocol Vancomycin HCl 1,500 mg in 500 mls @ 250 mls/hr 10/18/25 09:00 10/18/25 10:15 Vancomycin 1,500 Mg/Ns 500 Ml IVPB Infused Q24H SANDRA Infusion Levothyroxine Sodium 100 mcg 10/17/25 06:30 10/18/25 05:13 Levothyroxine Sodium 100 Mcg Tablet PO 100 mcg DAILY@0630 SANDRA Administration Ondansetron HCl 4 mg 10/17/25 04:38 Ondansetron Inj 4 Mg/2 Ml Vial IV PUSH Q4H PRN Nausea Pantoprazole Sodium 40 mg 10/17/25 09:10 10/18/25 08:07 Pantoprazole Sodium Iv 40 Mg Vial IV PUSH 40 mg Q12HR SANDRA Administration Sodium Chloride 10 ml 10/17/25 14:00 10/18/25 05:13 Central Line Flush IV PUSH 10 ml Q8HR SANDRA Administration Sodium Chloride 20 ml 10/17/25 06:28 Central Line Flush IV PUSH PRN PRN after blood draws Radiology Results: ITS Impressions Chest X-Ray 10/17/25 07:59 IMPRESSION: 1. Portable chest x-ray with no focal acute process; heart shadow is borderline enlarged and mild vascular congestion may be present. Chest/Abdomen/Pelvis CT 10/17/25 08:08 IMPRESSION: Directed noncontrast exam demonstratin. No gross acute intrathoracic process. Borderline cardiomegaly and coronary artery calcifications. 2. Cholelithiasis with no gross CT evidence of acute cholecystitis. Possible mild urinary bladder wall thickening which could be associated with developing cystitis or UTI. NOTE: Preliminary radiologist report provided by [facility] radiologist/physician. Lower Extremity CT 10/17/25 09:31 IMPRESSION: 1. Extensive edematous/infiltrative changes in the subcutaneous soft tissues throughout the field of view of the left lower extremity with no clearly defined abscess or gross evidence of necrotizing fasciitis, or osteomyelitis. If osteomyelitis is a clinical concern, correlation with MRI suggested; if there concern for abscess, repeat examination with CT or MRI with contrast suggested. 2. Other findings as above. Venous Doppler Study 10/17/25 12:32 IMPRESSION: 1. No deep venous thrombosis in either lower limb. Ankle Brachial Index 10/18/25 08:55 IMPRESSION: 1. Mild arterial occlusive disease to the right lower limb with minimally decreased right TBI. 2. No significant arterial occlusive disease in the left lower limb with normal left TBI. Labs Labs: Laboratory Results - last 24 hr 10/17/25 10/17/25 10/17/25 12:59 16:24 20:28 WBC RBC Hgb Hct MCV MCH MCHC RDW Plt Count MPV Immature Gran % (Auto) Neut % (Auto) Lymph % (Auto) [place] % (Auto) Eos % (Auto) Baso % (Auto) Lymph # (Auto) [place] # (Auto) Eos # (Auto) Baso # (Auto) Abs Immat Gran (auto) Absolute Neuts (auto) Absolute Nucleated RBC Total Counted Neutrophils % (Manual) Band Neutrophils % Lymphocytes % (Manual) Monocytes % (Manual) Nucleated RBC % Abs Neuts (Manual) Abs Lymphs (Manual) Abs Monocytes (Manual) Platelet Estimate Schistocytes Sodium Potassium Chloride Carbon Dioxide Anion Gap BUN Creatinine Estim Creat Clear Calc Estimated GFR Glucose POC Capillary Glucose 124 H 140 H 210 H Lactic Acid Calcium Phosphorus Magnesium 10/17/25 10/18/25 10/18/25 23:43 05:17 05:18 WBC 10.1 H RBC 3.46 L Hgb 10.9 L Hct 33.9 L MCV 98.0 MCH 31.5 MCHC 32.2 RDW 14.7 H Plt Count 124 L MPV 9.1 Immature Gran % (Auto) Not Reportable Neut % (Auto) Not Reportable Lymph % (Auto) Not Reportable [place] % (Auto) Not Reportable Eos % (Auto) Not Reportable Baso % (Auto) Not Reportable Lymph # (Auto) Not Reportable [place] # (Auto) Not Reportable Eos # (Auto) Not Reportable Baso # (Auto) Not Reportable Abs Immat Gran (auto) Not Reportable Absolute Neuts (auto) Not Reportable Absolute Nucleated RBC Not Reportable Total Counted 100 Neutrophils % (Manual) 79 H Band Neutrophils % 9 H Lymphocytes % (Manual) 8 L Monocytes % (Manual) 4 Nucleated RBC % Not Reportable Abs Neuts (Manual) 8.88 H Abs Lymphs (Manual) 0.80 L Abs Monocytes (Manual) 0.40 Platelet Estimate Slightly decreased Schistocytes None seen Sodium 135 L Potassium 4.2 Chloride 107 Carbon Dioxide 24 Anion Gap 4 BUN 35 H Creatinine 1.63 H Estim Creat Clear Calc 46 Estimated GFR 42 L Glucose 184 H POC Capillary Glucose 180 H Lactic Acid 1.3 Calcium 7.6 L Phosphorus 2.9 Magnesium 1.8 10/18/25 10/18/25 07:25 11:19 WBC RBC Hgb Hct MCV MCH MCHC RDW Plt Count MPV Immature Gran % (Auto) Neut % (Auto) Lymph % (Auto) [place] % (Auto) Eos % (Auto) Baso % (Auto) Lymph # (Auto) [place] # (Auto) Eos # (Auto) Baso # (Auto) Abs Immat Gran (auto) Absolute Neuts (auto) Absolute Nucleated RBC Total Counted Neutrophils % (Manual) Band Neutrophils % Lymphocytes % (Manual) Monocytes % (Manual) Nucleated RBC % Abs Neuts (Manual) Abs Lymphs (Manual) Abs Monocytes (Manual) Platelet Estimate Schistocytes Sodium Potassium Chloride Carbon Dioxide Anion Gap BUN Creatinine Estim Creat Clear Calc Estimated GFR Glucose POC Capillary Glucose 181 H 203 H Lactic Acid Calcium Phosphorus Magnesium Quality VTE Prophylaxis VTE prophylaxis: pharmacologic ordered
[2025-10-18] MEDS: AMIODARONE HCL 200 MG TABLET PO (12:53)
[2025-10-18] MEDS: CEFEPIME 2 GM in SODIUM CHLORIDE 0.9% IV 50 ML 100 ML IVPB ×2 (12:53→23:38)
[2025-10-18 17:08] LABS: Free T4 Free Thyroxine 1.15 ng/dL (0.78-2.19)
--- NOTE | 2025-10-18 21:18 | PC.NURSE ---
Report given to LILIANA Gerber on med/surg. Pt transported to 310, with no difficulties noted.
--- NOTE | 2025-10-18 21:19 | PC.NURSE ---
This patient, Chaz Caballero, was transferred to [ 310] on 10/18/25 at 2119. Personal belongings sent with patient. Report given to [ February]. Appropriate documentation sent with patient.
--- NOTE | 2025-10-18 21:21 | PC.NURSE ---
This patient, Chaz Caballero, was received from IMU on 10/18/25 at 2110. Patient/family oriented to unit policies and routines
[2025-10-19] VITALS (13 sets, daily range): BP systolic 104–109; BP diastolic 67–68; PULSE 53–103; RESP 15–22; TEMP 36.6; O2SAT 96–100
[2025-10-19] MEDS: IPRATROPIUM 0.5 MG/ALBUTEROL SULFATE 2.5 MG (BASE) AMPUL.NEB 3 ML INHALATION ×4 (02:54→20:23)
[2025-10-19] MEDS: CENTRAL LINE FLUSH 20 ML IV PUSH (05:51)
[2025-10-19] MEDS: CENTRAL LINE FLUSH 10 ML IV PUSH ×2 (05:51→12:41)
[2025-10-19] MEDS: LEVOTHYROXINE SODIUM 100 MCG TABLET PO (05:52)
[2025-10-19 06:14] LABS: Hematocrit 32.4 % (42.0-52.0); Hemoglobin 10.3 g/dL (14.0-18.0); Immature Granulocyte Percent A 0.5 % (0-0.5); Immature Platelet Fraction Pct 3.5 % (0.9-11.2); Lymphocytes Absolute Auto 0.89 K/mm3 (0.9-3.2); Mean Corpuscular HGB Conc 31.8 g/dl (32-36); Mean Corpuscular Hemoglobin 30.7 pg (26-34); Mean Corpuscular Volume 96.7 fl (80-100); Nucleated Red Blood Cells Absolute Auto 0.000 K/mm3 (0.0-0.012); Nucleated Red Blood Cells Perc 0.0 % (0.0-0.2); Platelet Count Result 130 k/mm3 (150-375); Red Blood Count 3.35 M/mm3 (4.6-6.20); White Blood Count 7.3 K/mm3 (4.5-10.0)
[2025-10-19 06:24] LABS: Alanine Aminotransferase 20 U/L (6-50); Albumin Level 2.9 g/dL (3.5-5.1); Alkaline Phosphatase 122 U/L (38-126); Anion Gap 5 mmol/L (4-12); Aspartate Amino Transferase 34 U/L (17-59); Bilirubin,Total 1.2 mg/dL (0.2-1.3); Blood Urea Nitrogen 27 mg/dL (9-20); Calcium 8.4 mg/dL (8.4-10.2); Carbon Dioxide 24 mmol/L (22-30); Chloride 106 mmol/L (98-107); Estimated CRCL calculation 66 ml/min; Estimated Glomerular Filt Rate > 60; Glucose 179 mg/dL (65-110); Magnesium 1.6 mg/dL (1.6-2.3); Potassium 4.0 mmol/L (3.4-5.0); Sodium 135 mmol/L (137-145); Total Protein 6.3 g/dL (6.3-8.2)
[2025-10-19] MEDS: APIXABAN 5 MG TABLET PO ×2 (10:17→21:00)
[2025-10-19] MEDS: AMIODARONE HCL 200 MG TABLET PO (10:17)
[2025-10-19] MEDS: GABAPENTIN 300 MG CAPSULE PO ×2 (10:17→12:40)
[2025-10-19] MEDS: VANCOMYCIN 1,500 MG/NS 500 ML 1,500 MG/500 ML BAG 250 MG IVPB (10:18)
[2025-10-19] MEDS: PANTOPRAZOLE SODIUM IV 40 MG VIAL IV PUSH ×2 (10:18→21:00)
--- NOTE | 2025-10-19 11:14 | P.PNCA_ITS ---
Progress Note: A&P Assessment and Plan (1) Atrial fibrillation: Code(s): I48.91 - Unspecified atrial fibrillation Status: Acute Assessment and Plan: * Rate controlled and regular this am-repeat EKG. Continue amiodarone and apixaban. * followed with [facility] in the past and has history of ablation in 2013 and multiple subsequent cardioversion * monitor electrolytes * tsh was elevated at 11.5, would check T4, management per primary team as on replacement therapy * goal is rate control at this time (2) Elevated troponin: Code(s): R79.89 - Other specified abnormal findings of blood chemistry Status: Acute Assessment and Plan: Troponin levels are 0.064, 0.085, and 0.238. He denies chest pain. Doubt this troponin spill represents ACS, rather, it is secondary to sepsis, hypotension, TRACIE. repeat echo demonstrates severe systolic dysfunction with EF of 30%, with mild MR, mild to severe TR and severe pulmonary HTN. Patient has a history of cardiomyopathy with EF as low as 45% in the past, on stress test in 2019 however, EF had normalized. It is unclear if this reduction in EF represents ischemia vs demand ischemia in the setting of sepsis, hypotension and TRACIE . At this time would manage medically and can plan for OP evaluation with repeat echo and possible nuclear stress test. No aspirin as on Eliquis. (3) Congestive heart failure: Code(s): I50.9 - Heart failure, unspecified Status: Acute Assessment and Plan: * chronic combined systolic and diastolic heart failure * EF of 30% per echo this admission * Resume home furosemide dose * BP stable and renal function improved. Instead of restarting lisinopril will initiate Entresto 24-26mg b.i.d. * Addition of GDMT as BP allows (4) Chronic kidney disease: Code(s): N18.9 - Chronic kidney disease, unspecified Status: Acute Assessment and Plan: Baseline kidney function unknown. Avoid nephrotoxic agents. (5) Septic shock: Code(s): A41.9 - Sepsis, unspecified organism; R65.21 - Severe sepsis with septic shock Status: Acute Assessment and Plan: Management per primary team (6) Cellulitis: Code(s): L03.90 - Cellulitis, unspecified Status: Acute Assessment and Plan: Management per primary team Subjective Date/time seen: 10/19/25 11:14 Interval history: Cardiology follow-up for elevated troponin, cardiomyopathy, atrial fibrillation Date of Service 10/18/25: Patient is lying in bed, family at bedside. He reports he is feeling better this am. No chest pain or pressure. No palpitations. His breathing has improved. Date of service 10/19/2025: Feels good today. No complaints. Review of Systems Review of Systems: All systems reviewed & are unremarkable except as noted in HPI and below Exam Const: General: comfortable, no acute distress, alert and awake Orientation/consciousness: patient oriented x3 Other: morbidly obese HENMT: Head: normal to inspection Eyes: General: appearance normal, both eyes and all related structures Pupils: Equal, round and reactive pupils present Neck: Neck: normal visual inspection and supple Carotids: normal carotid upstroke Resp: Effort & Inspection: normal respiratory effort Auscultation: rales Cardio: Rate: regular rate Rhythm: abnormal rhythm Heart sounds: S1 normal heart sound present, S2 normal heart sound present and no murmurs GI: Auscultation: normal bowel sounds Skin: General skin exam: erythema Other: pretibial erythema and wounds bilaterally. Lower extremity skin appearance consistent with PAD Neuro: General: patient oriented x3 Cranial nerves: Yes Equal, round and reactive pupils present Extrem: General: normal exam except as noted Psych: Appearance: grossly normal Mental Status: mental status grossly normal Objective Data Vital Signs Vital Signs: Vital Signs - 24 hr 10/18/25 12:00 10/18/25 12:53 10/18/25 13:34 Temperature Pulse Rate 99 93 Respiratory Rate 19 Blood Pressure Pulse Oximetry 97 Oxygen Delivery Room Air Fraction of Inspired Oxygen 10/18/25 13:41 10/18/25 16:00 10/18/25 20:00 Temperature 36.8 C Pulse Rate 90 96 102 H Respiratory Rate 19 20 20 Blood Pressure 113/62 Pulse Oximetry 97 97 Oxygen Delivery Room Air Fraction of Inspired Oxygen 24 10/18/25 20:37 10/18/25 20:37 10/18/25 20:42 Temperature Pulse Rate 102 H 103 H Respiratory Rate 20 20 Blood Pressure Pulse Oximetry 97 Oxygen Delivery Room Air Fraction of Inspired Oxygen 10/18/25 23:16 10/19/25 02:05 10/19/25 02:10 Temperature 36.6 C Pulse Rate 96 99 100 Respiratory Rate 20 18 18 Blood Pressure 127/69 Pulse Oximetry 100 Oxygen Delivery Fraction of Inspired Oxygen 10/19/25 05:21 10/19/25 08:08 10/19/25 08:16 Temperature 36.6 C Pulse Rate 99 53 L 90 Respiratory Rate 22 H 19 18 Blood Pressure 109/67 Pulse Oximetry 100 Oxygen Delivery Fraction of Inspired Oxygen 10/19/25 10:17 Temperature Pulse Rate 97 Respiratory Rate Blood Pressure Pulse Oximetry Oxygen Delivery Fraction of Inspired Oxygen Intake/Output Intake/Output: Intake & Output 10/16/25 10/17/25 10/18/25 10/19/25 23:59 23:59 23:59 23:59 Intake Total 4107.0 2726.3 687 Output Total 1500 1950 1000 Balance 2607.0 776.3 -313 Meds/Results Medications: Active Medications Generic Name Dose Route Start Last Admin Trade Name Freq PRN Reason Stop Dose Admin Acetaminophen 650 mg 10/17/25 04:38 10/18/25 09:43 Acetaminophen 325 Mg Tablet PO 650 mg Q4H PRN Administration Mild Pain (1-3) or Fever Albuterol/Ipratropium 3 ml 10/18/25 05:22 10/19/25 02:54 Ipratropium 0.5 Mg/Albuterol Sulfate 2.5 Mg (Base) Ampul.Neb 3 Ml INHALATION 3 ml Q6HRT SANDRA Administration Amiodarone HCl 200 mg 10/18/25 13:00 10/19/25 10:17 Amiodarone Hcl 200 Mg Tablet PO 200 mg DAILY SANDRA Administration Apixaban 5 mg 10/17/25 09:00 10/19/25 10:17 Apixaban 5 Mg Tablet PO 5 mg Q12HR SANDRA Administration Calcitriol 0.25 mcg 10/17/25 09:00 10/19/25 10:17 Calcitriol 0.25 Mcg Capsule PO 0.25 mcg DAILY SANDRA Administration Dextrose 12.5 gm 10/17/25 04:38 Dextrose 50% 25 Gm/50 Ml Syringe IV PUSH PRN PRN Hypoglycemia Protocol Gabapentin 300 mg 10/17/25 09:00 10/19/25 10:17 Gabapentin 300 Mg Capsule PO 300 mg TID SANDRA Administration Glucagon 1 mg 10/17/25 04:38 Glucagon For Inj 1 Mg Vial IM PRN PRN Hypoglycemia Protocol Glucose 15 gm 10/17/25 04:38 Glucose Oral Gel 15 Gm Of Glucse In 37.5 Gm Tube PO PRN PRN Hypoglycemia Protocol Cefepime HCl 2 gm/ Sodium 50 mls @ 100 mls/hr 10/17/25 12:00 10/19/25 00:08 Chloride IVPB Infused Q12H SANDRA Infusion Dextrose 1,000 mls @ 100 mls/hr 10/17/25 04:38 Dextrose 5% 1,000 Ml IVPB PRN PRN Hypoglycemia Protocol Vancomycin HCl 1,500 mg in 500 mls @ 250 mls/hr 10/19/25 09:00 10/19/25 10:18 Vancomycin 1,500 Mg/Ns 500 Ml IVPB 250 mls/hr Q18H SANDRA Administration Levothyroxine Sodium 100 mcg 10/17/25 06:30 10/19/25 05:52 Levothyroxine Sodium 100 Mcg Tablet PO 100 mcg DAILY@0630 SANDRA Administration Ondansetron HCl 4 mg 10/17/25 04:38 Ondansetron Inj 4 Mg/2 Ml Vial IV PUSH Q4H PRN Nausea Pantoprazole Sodium 40 mg 10/17/25 09:10 10/19/25 10:18 Pantoprazole Sodium Iv 40 Mg Vial IV PUSH 40 mg Q12HR SANDRA Administration Sodium Chloride 10 ml 10/17/25 14:00 10/19/25 05:51 Central Line Flush IV PUSH 10 ml Q8HR SANDRA Administration Sodium Chloride 20 ml 10/17/25 06:28 10/19/25 05:51 Central Line Flush IV PUSH 20 ml PRN PRN Administration after blood draws Radiology Results: ITS Impressions Chest X-Ray 10/17/25 07:59 IMPRESSION: 1. Portable chest x-ray with no focal acute process; heart shadow is borderline enlarged and mild vascular congestion may be present. Chest/Abdomen/Pelvis CT 10/17/25 08:08 IMPRESSION: Directed noncontrast exam demonstratin. No gross acute intrathoracic process. Borderline cardiomegaly and coronary artery calcifications. 2. Cholelithiasis with no gross CT evidence of acute cholecystitis. Possible mild urinary bladder wall thickening which could be associated with developing cystitis or UTI. NOTE: Preliminary radiologist report provided by [facility] radiologist/physician. Lower Extremity CT 10/17/25 09:31 IMPRESSION: 1. Extensive edematous/infiltrative changes in the subcutaneous soft tissues throughout the field of view of the left lower extremity with no clearly defined abscess or gross evidence of necrotizing fasciitis, or osteomyelitis. If osteomyelitis is a clinical concern, correlation with MRI suggested; if there concern for abscess, repeat examination with CT or MRI with contrast suggested. 2. Other findings as above. Venous Doppler Study 10/17/25 12:32 IMPRESSION: 1. No deep venous thrombosis in either lower limb. Ankle Brachial Index 10/18/25 08:55 IMPRESSION: 1. Mild arterial occlusive disease to the right lower limb with minimally dec reased right TBI. 2. No significant arterial occlusive disease in the left lower limb with normal left TBI. Labs Labs: Laboratory Results - last 24 hr 10/18/25 10/18/25 10/18/25 11:19 14:08 16:39 WBC RBC Hgb Hct MCV MCH MCHC RDW Plt Count MPV Immature Gran % (Auto) Neut % (Auto) Lymph % (Auto) [place] % (Auto) Eos % (Auto) Baso % (Auto) Lymph # (Auto) [place] # (Auto) Eos # (Auto) Baso # (Auto) Abs Immat Gran (auto) Absolute Neuts (auto) Absolute Nucleated RBC Nucleated RBC % % Immature Plt Fraction Sodium Potassium Chloride Carbon Dioxide Anion Gap BUN Creatinine Estim Creat Clear Calc Estimated GFR Glucose POC Capillary Glucose 203 H 176 H Lactic Acid Calcium Phosphorus Magnesium Total Bilirubin AST ALT Alkaline Phosphatase Total Protein Albumin Free T4 1.15 Vancomycin Trough 10/18/25 10/19/25 10/19/25 23:25 05:52 07:52 WBC 7.3 RBC 3.35 L Hgb 10.3 L Hct 32.4 L MCV 96.7 MCH 30.7 MCHC 31.8 L RDW 14.9 H Plt Count 130 L MPV 9.9 Immature Gran % (Auto) 0.5 Neut % (Auto) 78.1 H Lymph % (Auto) 12.2 L [place] % (Auto) 6.6 Eos % (Auto) 2.2 Baso % (Auto) 0.4 Lymph # (Auto) 0.89 L [place] # (Auto) 0.5 Eos # (Auto) 0.2 Baso # (Auto) 0.0 Abs Immat Gran (auto) 0.04 H Absolute Neuts (auto) 5.7 Absolute Nucleated RBC 0.000 Nucleated RBC % 0.0 % Immature Plt Fraction 3.5 Sodium 135 L Potassium 4.0 Chloride 106 Carbon Dioxide 24 Anion Gap 5 BUN 27 H Creatinine 1.16 Estim Creat Clear Calc 66 Estimated GFR > 60 Glucose 179 H POC Capillary Glucose 236 H 193 H Lactic Acid 1.5 Calcium 8.4 Phosphorus 2.9 Magnesium 1.6 Total Bilirubin 1.2 AST 34 ALT 20 Alkaline Phosphatase 122 Total Protein 6.3 Albumin 2.9 L Free T4 Vancomycin Trough 12.0 Quality VTE Prophylaxis VTE prophylaxis: pharmacologic ordered
--- NOTE | 2025-10-19 11:35 | PCPTNOTE ---
HOLD PT evaluation due to femoral line still in place. Discussed pt with LILIANA Menendez.
[2025-10-19] MEDS: CEFEPIME 2 GM in SODIUM CHLORIDE 0.9% IV 50 ML 100 ML IVPB ×2 (12:40→23:37)
--- NOTE | 2025-10-19 14:46 | PM.IMPN ---
Progress Note: A&P Assessment and Plan (1) Septic shock: Code(s): A41.9 - Sepsis, unspecified organism; R65.21 - Severe sepsis with septic shock Status: Acute Assessment and Plan: Patient presented with generalized weakness and was found to be hypoglycemic and hypotensive. He was given 1 L IV fluid bolus in the ER and a femoral central line was inserted. Levophed started CXR was clear. CT LLE showing extensive edematous/infiltrative changes in the subcutaneous soft tissues throughout the field of view of the left lower extremity with no clearly defined abscess or gross evidence of necrotizing fasciitis, or osteomyelitis. Started on cefepime and vancomycin (10/17) UCx negative. BCx positive for Group G Strept in both sets. Source of septic shock is cellulitis of the left lower extremity with bacteremia. Weaned off Levophed 10/18 Continue IV abx. Remove central line (2) Cellulitis: Code(s): L03.90 - Cellulitis, unspecified Status: Acute Assessment and Plan: No signs of necrotizing fasciitis on CT scan of the lower extremities Treatment as above Continue antibiotics (3) DM2 (diabetes mellitus, type 2): Code(s): E11.9 - Type 2 diabetes mellitus without complications Status: Acute Assessment and Plan: Patient has history of diabetes and was found to be hypoglycemic when EMS arrived A1c 6.0%. The patient's blood glucose was reviewed on 10/19 Glucose remains mild elevated Start AccuCheks covering with sliding scale. Hypoglycemia protocol available as needed. Continue to follow (4) Chronic kidney disease: Code(s): N18.9 - Chronic kidney disease, unspecified Status: Acute Assessment and Plan: Patient has a history of chronic kidney disease (baseline creatinine 2.40 - 2.90) -presented with creatinine of 1.97 -received 1 L IV fluid bolus in the ER, given additional 500 mL IV LR bolus in the ICU since patient has a history of CHF and [place] [address]88 -remains on maintenance IV fluid; Cr normal at 1.16 Probably becoming fluid resuscitated. -continue to monitor urine output, electrolytes, renal function -urine output has been adequate, creatinine improving (5) Elevated troponin: Code(s): R79.89 - Other specified abnormal findings of blood chemistry Status: Acute Assessment and Plan: Elevated Troponins 0.064, 0.085, 0.238 -EKG showing AFin with anterolateral SC of indterminate age. No old EKGs to compare -could be related to type 2 infarct due to septic shock -patient denies any chest pain Echo showin. Left ventricular chamber dimension is mildly enlarged. 2. Left ventricular systolic function is severely reduced, estimated at 30-35. 3. There is mildly increased left ventricular wall thickness. 4. The left ventricular diastolic function is abnormal. 5. Right ventricular chamber dimension is severely enlarged. 6. Right ventricular systolic function is reduced. 7. There is mild mitral valve regurgitation. 8. There is moderate to severe tricuspid valve regurgitation. 9. Severe pulmonary hypertension, estimated pulmonary arterial systolic pressure is 62 mmHg. 10. There is mild pulmonic regurgitation. Cardiology consulted and appreciate their evaluation and recommendation (6) Congestive heart failure: Code(s): I50.9 - Heart failure, unspecified Status: Acute Assessment [place]: [place] [address]. Echo as above. Hx of CHF Cardiology following Prior to arrival medications: Lasix, lisinopril, metoprolol, spironolactone (held due to septic shock) Resume meds as toelrated (7) Discoloration of skin of foot: Code(s): L81.9 - Disorder of pigmentation, unspecified Status: Acute Assessment and Plan: Discoloration of feet bilaterally which are cold,. Pulses are intact -ankle brachial index: Showed mild arterial occlusive disease of the right lower limb, no significant arterial occlusive disease in the left lower limb Follow (8) Atrial fibrillation: Code(s): I48.91 - Unspecified atrial fibrillation Status: Acute Assessment and Plan: History of atrial fibrillation. EKG showing AFib Rate controlled Restarted apixaban and amiodarone (9) Chronic back pain: Code(s): M54.9 - Dorsalgia, unspecified; G89.29 - Other chronic pain Status: Acute Assessment and Plan: Continue gabapentin. Increase activity PT/OT (10) UTI (urinary tract infection): Code(s): N39.0 - Urinary tract infection, site not specified Status: Acute Assessment and Plan: CT scan of the abdomen and pelvis reflective of possible cystitis, UCx negative UTI ruled out Plan DVT prophylaxis: Apixaban Code Status: Full code Subjective Date/time seen: 10/19/25 14:46 Interval history: 75yo male with DM, CKD, COPD, CHF and AFib here for falls. Patient moved out of ICU yesterday. He has LBP but this is chronic and related to the bed. Slept off and on last night. Hx of SAROJ. Not on O2 or bipap at home. He did not wear the bipap last night. No SOB or CP but does have MEZA. Exam Narrative: AF 97.8 109/67 101 18 99% ra Gen - NARD Chest - scattered wheezes. CV - RRR S1/S2 Abd - soft, obese, NT - Hubbard secured draining clear yellow urine Ext - right femoral TLC in place. trace edema. 2+ DP Neuro - alert and appropriate Pscyh - pleasant and cooperative Skin - multiple dried excoriations RLE. Left forearm dresing clean and dry. LLE erythema that tracks medially. RLE chronic venous stasis skin changes. Objective Data Vital Signs Vital Signs: Vital Signs - 24 hr 10/18/25 16:00 10/18/25 20:00 10/18/25 20:37 Temperature 98.2 F Pulse Rate 96 102 H 102 H Respiratory Rate 20 20 20 Blood Pressure 113/62 Pulse Oximetry 97 97 Oxygen Delivery Room Air Fraction of Inspired Oxygen 24 10/18/25 20:37 10/18/25 20:42 10/18/25 23:16 Temperature 98 F Pulse Rate 103 H 96 Respiratory Rate 20 20 Blood Pressure 127/69 Pulse Oximetry 97 100 Oxygen Delivery Room Air Fraction of Inspired Oxygen 10/19/25 02:05 10/19/25 02:10 10/19/25 05:21 Temperature 97.8 F Pulse Rate 99 100 99 Respiratory Rate 18 18 22 H Blood Pressure 109/67 Pulse Oximetry 100 Oxygen Delivery Fraction of Inspired Oxygen 10/19/25 08:08 10/19/25 08:16 10/19/25 10:15 Temperature Pulse Rate 53 L 90 Respiratory Rate 19 18 Blood Pressure Pulse Oximetry 99 Oxygen Delivery Room Air Fraction of Inspired Oxygen 10/19/25 10:17 10/19/25 14:34 10/19/25 14:38 Temperature Pulse Rate 97 97 101 H Respiratory Rate 18 18 Blood Pressure Pulse Oximetry Oxygen Delivery Fraction of Inspired Oxygen Intake/Output Intake/Output: Intake & Output 10/16/25 10/17/25 10/18/25 10/19/25 23:59 23:59 23:59 23:59 Intake Total 4107.0 2726.3 1287 Output Total 1500 1950 1000 Balance 2607.0 776.3 287 Meds/Results Medications: Active Medications Generic Name Dose Route Start Last Admin Trade Name Freq PRN Reason Stop Dose Admin Acetaminophen 650 mg 10/17/25 04:38 10/18/25 09:43 Acetaminophen 325 Mg Tablet PO 650 mg Q4H PRN Administration Mild Pain (1-3) or Fever Albuterol/Ipratropium 3 ml 10/18/25 05:22 10/19/25 14:33 Ipratropium 0.5 Mg/Albuterol Sulfate 2.5 Mg (Base) Ampul.Neb 3 Ml INHALATION 3 ml Q6HRT SANDRA Administration Amiodarone HCl 200 mg 10/18/25 13:00 10/19/25 10:17 Amiodarone Hcl 200 Mg Tablet PO 200 mg DAILY SANDRA Administration Apixaban 5 mg 10/17/25 09:00 10/19/25 10:17 Apixaban 5 Mg Tablet PO 5 mg Q12HR SANDRA Administration Calcitriol 0.25 mcg 10/17/25 09:00 10/19/25 10:17 Calcitriol 0.25 Mcg Capsule PO 0.25 mcg DAILY SANDRA Administration Dextrose 12.5 gm 10/17/25 04:38 Dextrose 50% 25 Gm/50 Ml Syringe IV PUSH PRN PRN Hypoglycemia Protocol Furosemide 80 mg 10/19/25 17:00 Furosemide 80 Mg Tablet PO BID SANDRA Gabapentin 300 mg 10/17/25 09:00 10/19/25 12:40 Gabapentin 300 Mg Capsule PO 300 mg TID SANDRA Administration Glucagon 1 mg 10/17/25 04:38 Glucagon For Inj 1 Mg Vial IM PRN PRN Hypoglycemia Protocol Glucose 15 gm 10/17/25 04:38 Glucose Oral Gel 15 Gm Of Glucse In 37.5 Gm Tube PO PRN PRN Hypoglycemia Protocol Cefepime HCl 2 gm/ Sodium 50 mls @ 100 mls/hr 10/17/25 12:00 10/19/25 12:40 Chloride IVPB 100 mls/hr Q12H SANDRA Administration Dextrose 1,000 mls @ 100 mls/hr 10/17/25 04:38 Dextrose 5% 1,000 Ml IVPB PRN PRN Hypoglycemia Protocol Vancomycin HCl 1,500 mg in 500 mls @ 250 mls/hr 10/19/25 09:00 10/19/25 12:18 Vancomycin 1,500 Mg/Ns 500 Ml IVPB Infused Q18H SANDRA Infusion Levothyroxine Sodium 100 mcg 10/17/25 06:30 10/19/25 05:52 Levothyroxine Sodium 100 Mcg Tablet PO 100 mcg DAILY@0630 SANDRA Administration Ondansetron HCl 4 mg 10/17/25 04:38 Ondansetron Inj 4 Mg/2 Ml Vial IV PUSH Q4H PRN Nausea Pantoprazole Sodium 40 mg 10/17/25 09:10 10/19/25 10:18 Pantoprazole Sodium Iv 40 Mg Vial IV PUSH 40 mg Q12HR SANDRA Administration Sacubitril/Valsartan 1 tab 10/19/25 21:00 Sacubitril/Valsartan 24-26 Mg Tablet PO Q12HR SANDRA Sodium Chloride 10 ml 10/17/25 14:00 10/19/25 12:41 Central Line Flush IV PUSH 10 ml Q8HR SANDRA Administration Sodium Chloride 20 ml 10/17/25 06:28 10/19/25 05:51 Central Line Flush IV PUSH 20 ml PRN PRN Administration after blood draws Radiology Results: ITS Impressions Chest X-Ray 10/17/25 07:59 IMPRESSION: 1. Portable chest x-ray with no focal acute process; heart shadow is borderline enlarged and mild vascular congestion may be present. Chest/Abdomen/Pelvis CT 10/17/25 08:08 IMPRESSION: Directed noncontrast exam demonstratin. No gross acute intrathoracic process. Borderline cardiomegaly and coronary artery calcifications. 2. Cholelithiasis with no gross CT evidence of acute cholecystitis. Possible mild urinary bladder wall thickening which could be associated with developing cystitis or UTI. NOTE: Preliminary radiologist report provided by [facility] radiologist/physician. Lower Extremity CT 10/17/25 09:31 IMPRESSION: 1. Extensive edematous/infiltrative changes in the subcutaneous soft tissues throughout the field of view of the left lower extremity with no clearly defined abscess or gross evidence of necrotizing fasciitis, or osteomyelitis. If osteomyelitis is a clinical concern, correlation with MRI suggested; if there concern for abscess, repeat examination with CT or MRI with contrast suggested. 2. Other findings as above. Venous Doppler Study 10/17/25 12:32 IMPRESSION: 1. No deep venous thrombosis in either lower limb. Ankle Brachial Index 10/18/25 08:55 IMPRESSION: 1. Mild arterial occlusive disease to the right lower limb with minimally decreased right TBI. 2. No significant arterial occlusive disease in the left lower limb with normal left TBI. Labs Labs: Laboratory Results - last 24 hr 10/18/25 10/18/25 10/18/25 14:08 16:39 23:25 WBC RBC Hgb Hct MCV MCH MCHC RDW Plt Count MPV Immature Gran % (Auto) Neut % (Auto) Lymph % (Auto) [place] % (Auto) Eos % (Auto) Baso % (Auto) Lymph # (Auto) [place] # (Auto) Eos # (Auto) Baso # (Auto) Abs Immat Gran (auto) Absolute Neuts (auto) Absolute Nucleated RBC Nucleated RBC % % Immature Plt Fraction Sodium Potassium Chloride Carbon Dioxide Anion Gap BUN Creatinine Estim Creat Clear Calc Estimated GFR Glucose POC Capillary Glucose 176 H 236 H Lactic Acid Calcium Phosphorus Magnesium Total Bilirubin AST ALT Alkaline Phosphatase Total Protein Albumin Free T4 1.15 Vancomycin Trough 10/19/25 10/19/25 10/19/25 05:52 07:52 11:54 WBC 7.3 RBC 3.35 L Hgb 10.3 L Hct 32.4 L MCV 96.7 MCH 30.7 MCHC 31.8 L RDW 14.9 H Plt Count 130 L MPV 9.9 Immature Gran % (Auto) 0.5 Neut % (Auto) 78.1 H Lymph % (Auto) 12.2 L [place] % (Auto) 6.6 Eos % (Auto) 2.2 Baso % (Auto) 0.4 Lymph # (Auto) 0.89 L [place] # (Auto) 0.5 Eos # (Auto) 0.2 Baso # (Auto) 0.0 Abs Immat Gran (auto) 0.04 H Absolute Neuts (auto) 5.7 Absolute Nucleated RBC 0.000 Nucleated RBC % 0.0 % Immature Plt Fraction 3.5 Sodium 135 L Potassium 4.0 Chloride 106 Carbon Dioxide 24 Anion Gap 5 BUN 27 H Creatinine 1.16 Estim Creat Clear Calc 66 Estimated GFR > 60 Glucose 179 H POC Capillary Glucose 193 H 208 H Lactic Acid 1.5 Calcium 8.4 Phosphorus 2.9 Magnesium 1.6 Total Bilirubin 1.2 AST 34 ALT 20 Alkaline Phosphatase 122 Total Protein 6.3 Albumin 2.9 L Free T4 Vancomycin Trough 12.0
[2025-10-19] MEDS: NEOMYCIN/POLYMYXIN/BACITRACIN OINTMENT PACKET 1 PACKET (17:51)
[2025-10-19] MEDS: FUROSEMIDE 80 MG TABLET PO (17:51)
[2025-10-19] MEDS: SACUBITRIL/VALSARTAN 24-26 MG TABLET 1 TAB PO (21:00)
[2025-10-20] VITALS (15 sets, daily range): BP systolic 90–110; BP diastolic 51–65; PULSE 82–113; RESP 15–24; TEMP 36.1–36.5; O2SAT 95–99
[2025-10-20] MEDS: IPRATROPIUM 0.5 MG/ALBUTEROL SULFATE 2.5 MG (BASE) AMPUL.NEB 3 ML INHALATION ×4 (01:28→19:49)
[2025-10-20] MEDS: VANCOMYCIN 1,500 MG/NS 500 ML 1,500 MG/500 ML BAG 125 MG IVPB (03:30)
[2025-10-20] MEDS: ACETAMINOPHEN 325 MG TABLET 650 MG PO ×2 (05:48→13:35)
[2025-10-20] MEDS: LEVOTHYROXINE SODIUM 100 MCG TABLET PO (05:48)
[2025-10-20] MEDS: CEFEPIME 2 GM in SODIUM CHLORIDE 0.9% IV 50 ML 100 ML IVPB ×3 (06:39→21:33)
[2025-10-20 06:44] LABS: Hematocrit 32.9 % (42.0-52.0); Hemoglobin 10.5 g/dL (14.0-18.0); Immature Granulocyte Percent A 0.5 % (0-0.5); Lymphocytes Absolute Auto 1.31 K/mm3 (0.9-3.2); Mean Corpuscular HGB Conc 31.9 g/dl (32-36); Mean Corpuscular Hemoglobin 29.9 pg (26-34); Mean Corpuscular Volume 93.7 fl (80-100); Nucleated Red Blood Cells Absolute Auto 0.000 K/mm3 (0.0-0.012); Nucleated Red Blood Cells Perc 0.0 % (0.0-0.2); Platelet Count Result 126 k/mm3 (150-375); Red Blood Count 3.51 M/mm3 (4.6-6.20); White Blood Count 7.7 K/mm3 (4.5-10.0)
[2025-10-20 07:14] LABS: Alanine Aminotransferase 18 U/L (6-50); Albumin Level 2.9 g/dL (3.5-5.1); Alkaline Phosphatase 147 U/L (38-126); Anion Gap 7 mmol/L (4-12); Aspartate Amino Transferase 30 U/L (17-59); Bilirubin,Total 1.6 mg/dL (0.2-1.3); Blood Urea Nitrogen 24 mg/dL (9-20); Calcium 8.5 mg/dL (8.4-10.2); Carbon Dioxide 24 mmol/L (22-30); Chloride 102 mmol/L (98-107); Estimated CRCL calculation 62 ml/min; Estimated Glomerular Filt Rate 58; Glucose 168 mg/dL (65-110); Magnesium 1.2 mg/dL (1.6-2.3); Potassium 3.8 mmol/L (3.4-5.0); Sodium 133 mmol/L (137-145); Total Protein 6.2 g/dL (6.3-8.2)
[2025-10-20] MEDS: PANTOPRAZOLE SODIUM IV 40 MG VIAL IV PUSH (08:46)
[2025-10-20] MEDS: GABAPENTIN 300 MG CAPSULE PO ×3 (08:46→17:25)
[2025-10-20] MEDS: FUROSEMIDE 80 MG TABLET PO ×2 (08:46→17:25)
[2025-10-20] MEDS: APIXABAN 5 MG TABLET PO ×2 (08:46→21:24)
[2025-10-20] MEDS: EUCERIN CREAM 120 GM JAR 1 APPLIC TOPICAL (08:47)
[2025-10-20] MEDS: SACUBITRIL/VALSARTAN 24-26 MG TABLET 1 TAB PO ×2 (08:47→21:24)
[2025-10-20] MEDS: AMIODARONE HCL 200 MG TABLET PO (08:47)
[2025-10-20] MEDS: POTASSIUM/PHOSPHORUS/SODIUM 1.5 GM PACKET 1 PACKET PO ×2 (10:10→14:04)
[2025-10-20] MEDS: MAGNESIUM SULFATE 3GM/D5W100ML 3 GM/100 ML BAG IVPB (10:10)
[2025-10-20] MEDS: INSULIN ASPART (*BKC) 100 UNITS/ML SUB-Q ×2 (12:19→17:25)
--- NOTE | 2025-10-20 12:50 | P.PNIM_ITS ---
Progress Note: A&P Assessment and Plan (1) Septic shock: Code(s): A41.9 - Sepsis, unspecified organism; R65.21 - Severe sepsis with septic shock Status: Acute Assessment and Plan: Patient presented with generalized weakness and was found to be hypoglycemic and hypotensive. He was given 1 L IV fluid bolus in the ER and a femoral central line was inserted. Levophed started. CXR was clear. CT LLE showing extensive edematous/infiltrative changes in the subcutaneous soft tissues throughout the field of view of the left lower extremity with no clearly defined abscess or gross evidence of necrotizing fasciitis, or osteomyelitis. Started on cefepime and vancomycin (10/17) UCx negative. BCx (10/16) positive for Group G Strept in both sets. BCx (10/18) pending Source of septic shock is cellulitis of the left lower extremity with bacteremia. Weaned off Levophed 10/18 Continue IV abx. Central line removed. Narrow abx to Rocephin monotherapy. ID consult (2) Cellulitis: Code(s): L03.90 - Cellulitis, unspecified Status: Acute Assessment and Plan: No signs of necrotizing fasciitis on CT scan of the lower extremities Treatment as above Continue antibiotics as above (3) DM2 (diabetes mellitus, type 2): Code(s): E11.9 - Type 2 diabetes mellitus without complications Status: Acute Assessment and Plan: Patient has history of diabetes and was found to be hypoglycemic when EMS arrived A1c 6.0%. The patient's blood glucose was reviewed on 10/20 Glucose remains elevated. Continue AccuCheks covering with sliding scale. Hypoglycemia protocol available as needed. Add Lantus tonight. Continue to follow (4) Chronic kidney disease: Code(s): N18.9 - Chronic kidney disease, unspecified Status: Acute Assessment and Plan: Patient has a history of CKD with baseline Cr 2.4 - 2.9 Creatinine of 1.97 on admission He received 1 L IV fluid bolus in the ER, given additional 500 mL IV LR bolus in the ICU proBNP [place] [id number] He remained on maintenance IV fluid and Cr improved to 1.16 Adequaely fluid resuscitated and IV fluids stopped. Continue to monitor urine output, electrolytes, renal function (5) Elevated troponin: Code(s): R79.89 - Other specified abnormal findings of blood chemistry Status: Acute Assessment and Plan: Elevated Troponins to 0.238 EKG showing AFib with anterolateral CO of indeterminate age. No old EKGs to compare Echo with EF 30-35%, diastolic dysfxn, severely enlarged RV with reduced fxn, mild MR, mod-severe TR and severe pulm HTN Elevated Trop could be related to type 2 infarct due to septic shock Patient denies any chest pain Cardiology consulted and appreciate their evaluation and recommendation (6) Congestive heart failure: Code(s): I50.9 - Heart failure, unspecified Status: Acute Assessment [place]: [place] [address]. Echo as above. Hx of chronic s/d CHF and Cor Pulmonale. Home medications: Lasix, lisinopril, metoprolol, spironolactone (held due to septic shock) Lasix resumed. Lisinopril changed to Entresto. Cardiology following (7) Discoloration of skin of foot: Code(s): L81.9 - Disorder of pigmentation, unspecified Status: Acute Assessment and Plan: Discoloration of feet bilaterally which are cold. Pulses are intact LE ARNALDO showed mild arterial occlusive disease of the right lower limb, no significant arterial occlusive disease in the left leg Follow (8) Atrial fibrillation: Code(s): I48.91 - Unspecified atrial fibrillation Status: Acute Assessment and Plan: History of atrial fibrillation. EKG showing AFib Rate controlled Continue apixaban and amiodarone (9) Chronic back pain: Code(s): M54.9 - Dorsalgia, unspecified; G89.29 - Other chronic pain Status: Acute Assessment and Plan: Continue gabapentin. Increase activity PT/OT (10) UTI (urinary tract infection): Code(s): N39.0 - Urinary tract infection, site not specified Status: Acute Assessment and Plan: CT scan of the abdomen and pelvis reflective of possible cystitis, UCx negative UTI ruled out (11) SAROJ (obstructive sleep apnea): Code(s): G47.33 - Obstructive sleep apnea (adult) (pediatric) Status: Acute Assessment and Plan: Patient has a hx of SAROJ. Not on O2 or CPAP/BiPAP at home. He is intolerant to CPAP/BiPAP. Echo as above. Patient with Cor Pulmonale. Feeling better and refusing CPAP/BiPAP now. ABG on admission: 7.32/38/137 on 6L Okay to remove BiPAP from room. Apnea link to evaluate for nocturnal hypoxia. Plan DVT prophylaxis: Apixaban Code Status: Full code Subjective Date/time seen: 10/20/25 12:50 Interval history: 75yo male with DM, CKD, COPD, CHF and AFib here for falls. No CP or SOB. +MEZA. Did not wear his CPAP last night. SLept poorly. Eating okay. Central line is out and patient able to be up to the chair. Family in the room and they were updated with patietn permission Exam Narrative: AF 97.4 105/51 100 16 95% ra Gen - NARD sititng up in chair feeding himself lunch Chest - scattered expiratory rhonchi, nml RR CV - RRR S1/S2. Abd - soft, obese, NT - Hubbard secured draining clear yellow urine Ext - 1++ pitting pedal edema Neuro - alert and appropriate Pscyh - pleasant and cooperative Skin - multiple dried excoriations RLE. Left forearm dressing clean and dry. LLE erythema more pronounced and involving the joseph, calf and tracks medially to medially lower thigh. RLE chronic venous stasis skin changes. Objective Data Vital Signs Vital Signs: Vital Signs - 24 hr 10/19/25 14:34 10/19/25 14:38 10/19/25 16:00 Temperature 97.9 F Pulse Rate 97 101 H 103 H Respiratory Rate 18 18 18 Blood Pressure 104/68 Pulse Oximetry 99 Oxygen Delivery Fraction of Inspired Oxygen 10/19/25 20:00 10/19/25 20:23 10/19/25 20:23 Temperature Pulse Rate 94 100 Respiratory Rate 15 15 Blood Pressure Pulse Oximetry 96 96 Oxygen Delivery Room Air Room Air Fraction of Inspired Oxygen 24 10/19/25 20:28 10/20/25 00:00 10/20/25 01:29 Temperature 97.4 F L Pulse Rate 94 113 H 104 H Respiratory Rate 15 22 H 15 Blood Pressure 97/57 L Pulse Oximetry 96 Oxygen Delivery Fraction of Inspired Oxygen 10/20/25 01:41 10/20/25 06:00 10/20/25 08:30 Temperature 97.4 F L Pulse Rate 112 H 98 96 Respiratory Rate 15 20 Blood Pressure 90/59 L 105/51 L Pulse Oximetry 95 Oxygen Delivery Fraction of Inspired Oxygen 10/20/25 09:18 10/20/25 09:23 10/20/25 10:28 Temperature Pulse Rate 97 100 Respiratory Rate 16 16 Blood Pressure Pulse Oximetry Oxygen Delivery Room Air Fraction of Inspired Oxygen 10/20/25 10:29 Temperature Pulse Rate Respiratory Rate Blood Pressure Pulse Oximetry Oxygen Delivery Room Air Fraction of Inspired Oxygen Intake/Output Intake/Output: Intake & Output 10/17/25 10/18/25 10/19/25 10/20/25 23:59 23:59 23:59 23:59 Intake Total 4107.0 2726.3 2397 1350.0 Output Total 1500 1950 1950 2725 Balance 2607.0 776.3 447 -1375.0 Meds/Results Medications: Active Medications Generic Name Dose Route Start Last Admin Trade Name Freq PRN Reason Stop Dose Admin Acetaminophen 650 mg 10/17/25 04:38 10/20/25 05:48 Acetaminophen 325 Mg Tablet PO 650 mg Q4H PRN Administration Mild Pain (1-3) or Fever Albuterol/Ipratropium 3 ml 10/18/25 05:22 10/20/25 09:16 Ipratropium 0.5 Mg/Albuterol Sulfate 2.5 Mg (Base) Ampul.Neb 3 Ml INHALATION 3 ml Q6HRT SANDRA Administration Amiodarone HCl 200 mg 10/18/25 13:00 10/20/25 08:47 Amiodarone Hcl 200 Mg Tablet PO 200 mg DAILY SANDRA Administration Apixaban 5 mg 10/17/25 09:00 10/20/25 08:46 Apixaban 5 Mg Tablet PO 5 mg Q12HR SANDRA Administration Calcitriol 0.25 mcg 10/17/25 09:00 10/20/25 08:46 Calcitriol 0.25 Mcg Capsule PO 0.25 mcg DAILY SANDRA Administration Dextrose 12.5 gm 10/19/25 21:17 Dextrose 50% 25 Gm/50 Ml Syringe IV PUSH PRN PRN Hypoglycemia Protocol Furosemide 80 mg 10/19/25 17:00 10/20/25 08:46 Furosemide 80 Mg Tablet PO 80 mg BID SANDRA Administration Gabapentin 300 mg 10/17/25 09:00 10/20/25 12:19 Gabapentin 300 Mg Capsule PO 300 mg TID SANDRA Administration Glucagon 1 mg 10/19/25 21:17 Glucagon For Inj 1 Mg Vial IM PRN PRN Hypoglycemia Protocol Glucose 15 gm 10/19/25 21:17 Glucose Oral Gel 15 Gm Of Glucse In 37.5 Gm Tube PO PRN PRN Hypoglycemia Protocol Vancomycin HCl 1,500 mg in 500 mls @ 250 mls/hr 10/19/25 09:00 10/20/25 06:09 Vancomycin 1,500 Mg/Ns 500 Ml IVPB Infused Q18H SANDRA Infusion Dextrose 1,000 mls @ 100 mls/hr 10/19/25 21:17 Dextrose 5% 1,000 Ml IVPB PRN PRN Hypoglycemia Protocol Cefepime HCl 2 gm/ Sodium 50 mls @ 100 mls/hr 10/19/25 22:00 10/20/25 07:09 Chloride IVPB Infused Q8H SANDRA Infusion Insulin Aspart 3 - 6 units 10/20/25 08:00 10/20/25 12:19 Insulin Aspart (*Bkc) 100 Units/Ml SUB-Q 3 units TIDWM SANDRA Administration Protocol Levothyroxine Sodium 100 mcg 10/17/25 06:30 10/20/25 05:48 Levothyroxine Sodium 100 Mcg Tablet PO 100 mcg DAILY@0630 SANDRA Administration Multi-Ingred Cream/Lotion/Oil/Oint 1 applic 10/20/25 09:00 10/20/25 08:47 Eucerin Cream 120 Gm Jar TOPICAL 1 applic DAILY SANDRA Administration Ondansetron HCl 4 mg 10/17/25 04:38 Ondansetron Inj 4 Mg/2 Ml Vial IV PUSH Q4H PRN Nausea Pantoprazole Sodium 40 mg 10/17/25 09:10 10/20/25 08:46 Pantoprazole Sodium Iv 40 Mg Vial IV PUSH 40 mg Q12HR SANDRA Administration Potassium Phos/Sodium Phos 1 packet 10/20/25 08:55 10/20/25 10:10 Potassium/Phosphorus/Sodium 1.5 Gm Packet PO 10/20/25 14:56 1 packet Q6H SANDRA Administration Sacubitril/Valsartan 1 tab 10/19/25 21:00 10/20/25 08:47 Sacubitril/Valsartan 24-26 Mg Tablet PO 1 tab Q12HR SANDRA Administration Radiology Results: ITS Impressions Chest X-Ray 10/17/25 07:59 IMPRESSION: 1. Portable chest x-ray with no focal acute process; heart shadow is borderline enlarged and mild vascular congestion may be present. Chest/Abdomen/Pelvis CT 10/17/25 08:08 IMPRESSION: Directed noncontrast exam demonstratin. No gross acute intrathoracic process. Borderline cardiomegaly and coronary artery calcifications. 2. Cholelithiasis with no gross CT evidence of acute cholecystitis. Possible mild urinary bladder wall thickening which could be associated with developing cystitis or UTI. NOTE: Preliminary radiologist report provided by [facility] radiologist/physician. Lower Extremity CT 10/17/25 09:31 IMPRESSION: 1. Extensive edematous/infiltrative changes in the subcutaneous soft tissues throughout the field of view of the left lower extremity with no clearly defined abscess or gross evidence of necrotizing fasciitis, or osteomyelitis. If osteomyelitis is a clinical concern, correlation with MRI suggested; if there concern for abscess, repeat examination with CT or MRI with contrast suggested. 2. Other findings as above. Venous Doppler Study 10/17/25 12:32 IMPRESSION: 1. No deep venous thrombosis in either lower limb. Ankle Brachial Index 10/18/25 08:55 IMPRESSION: 1. Mild arterial occlusive disease to the right lower limb with minimally decreased right TBI. 2. No significant arterial occlusive disease in the left lower limb with normal left TBI. Labs Labs: Laboratory Results - last 24 hr 10/16/25 10/19/25 10/19/25 23:01 16:46 21:33 WBC RBC Hgb Hct MCV MCH MCHC RDW Plt Count MPV Immature Gran % (Auto) Neut % (Auto) Lymph % (Auto) [place] % (Auto) Eos % (Auto) Baso % (Auto) Lymph # (Auto) [place] # (Auto) Eos # (Auto) Baso # (Auto) Abs Immat Gran (auto) Absolute Neuts (auto) Absolute Nucleated RBC Nucleated RBC % Sodium Potassium Chloride Carbon Dioxide Anion Gap BUN Creatinine Estim Creat Clear Calc Estimated GFR Glucose POC Capillary Glucose < 20 L* 205 H 224 H Calcium Phosphorus Magnesium Total Bilirubin AST ALT Alkaline Phosphatase Total Protein Albumin 10/20/25 10/20/25 10/20/25 05:56 08:02 11:31 WBC 7.7 RBC 3.51 L Hgb 10.5 L Hct 32.9 L MCV 93.7 MCH 29.9 MCHC 31.9 L RDW 14.7 H Plt Count 126 L MPV 10.4 Immature Gran % (Auto) 0.5 Neut % (Auto) 70.7 Lymph % (Auto) 17.1 L [place] % (Auto) 9.4 H Eos % (Auto) 2.0 Baso % (Auto) 0.3 Lymph # (Auto) 1.31 [place] # (Auto) 0.7 H Eos # (Auto) 0.2 Baso # (Auto) 0.0 Abs Immat Gran (auto) 0.04 H Absolute Neuts (auto) 5.4 Absolute Nucleated RBC 0.000 Nucleated RBC % 0.0 Sodium 133 L Potassium 3.8 Chloride 102 Carbon Dioxide 24 Anion Gap 7 BUN 24 H Creatinine 1.22 Estim Creat Clear Calc 62 Estimated GFR 58 L Glucose 168 H POC Capillary Glucose 182 H 202 H Calcium 8.5 Phosphorus 2.1 L Magnesium 1.2 L Total Bilirubin 1.6 H AST 30 ALT 18 Alkaline Phosphatase 147 H Total Protein 6.2 L Albumin 2.9 L
[2025-10-20] MEDS: INSULIN GLARGINE (*BKC) 100 UNITS/ML 10 UNITS SUB-Q (21:52)
[2025-10-21] VITALS (10 sets, daily range): BP systolic 108–125; BP diastolic 48–72; PULSE 86–102; RESP 16–20; TEMP 36.4–36.6; O2SAT 92–100
[2025-10-21] MEDS: LEVOTHYROXINE SODIUM 100 MCG TABLET PO (05:36)
[2025-10-21 05:46] LABS: Hematocrit 37.7 % (42.0-52.0); Hemoglobin 12.3 g/dL (14.0-18.0); Immature Granulocyte Percent A 1.1 % (0-0.5); Lymphocytes Absolute Auto 1.48 K/mm3 (0.9-3.2); Mean Corpuscular HGB Conc 32.6 g/dl (32-36); Mean Corpuscular Hemoglobin 30.9 pg (26-34); Mean Corpuscular Volume 94.7 fl (80-100); Nucleated Red Blood Cells Absolute Auto 0.000 K/mm3 (0.0-0.012); Nucleated Red Blood Cells Perc 0.0 % (0.0-0.2); Platelet Count Result 136 k/mm3 (150-375); Red Blood Count 3.98 M/mm3 (4.6-6.20); White Blood Count 10.5 K/mm3 (4.5-10.0)
[2025-10-21 06:06] LABS: Albumin Level 3.3 g/dL (3.5-5.1); Anion Gap 8 mmol/L (4-12); Blood Urea Nitrogen 26 mg/dL (9-20); Calcium 8.9 mg/dL (8.4-10.2); Carbon Dioxide 30 mmol/L (22-30); Chloride 98 mmol/L (98-107); Estimated CRCL calculation 54 ml/min; Estimated Glomerular Filt Rate 49; Glucose 206 mg/dL (65-110); Magnesium 1.6 mg/dL (1.6-2.3); Potassium 4.1 mmol/L (3.4-5.0); Sodium 136 mmol/L (137-145)
[2025-10-21] MEDS: IPRATROPIUM 0.5 MG/ALBUTEROL SULFATE 2.5 MG (BASE) AMPUL.NEB 3 ML INHALATION ×3 (08:40→20:19)
[2025-10-21] MEDS: INSULIN ASPART (*BKC) 100 UNITS/ML SUB-Q ×3 (09:02→17:01)
[2025-10-21] MEDS: SACUBITRIL/VALSARTAN 24-26 MG TABLET 1 TAB PO ×2 (09:10→21:41)
[2025-10-21] MEDS: AMIODARONE HCL 200 MG TABLET PO (09:10)
[2025-10-21] MEDS: FOLIC ACID 1 MG TABLET PO (09:11)
[2025-10-21] MEDS: APIXABAN 5 MG TABLET PO ×2 (09:11→21:41)
[2025-10-21] MEDS: ACETAMINOPHEN 325 MG TABLET 650 MG PO ×2 (09:11→21:40)
[2025-10-21] MEDS: FUROSEMIDE 80 MG TABLET PO ×2 (09:11→17:01)
[2025-10-21] MEDS: GABAPENTIN 300 MG CAPSULE PO ×3 (09:11→17:01)
[2025-10-21] MEDS: cefTRIAXone 2 GM in SODIUM CHLORIDE 0.9% IV 100 ML 200 ML IVPB (09:12)
[2025-10-21] MEDS: EUCERIN CREAM 120 GM JAR 1 APPLIC TOPICAL (09:13)
--- NOTE | 2025-10-21 12:04 | PM.IMPN ---
Progress Note: A&P Assessment and Plan (1) Septic shock: Code(s): A41.9 - Sepsis, unspecified organism; R65.21 - Severe sepsis with septic shock Status: Acute Assessment and Plan: Patient presented with generalized weakness and was found to be hypoglycemic and hypotensive. He was given 1 L IV fluid bolus in the ER and a femoral central line was inserted. Levophed started. CXR was clear. CT LLE showing extensive edematous/infiltrative changes in the subcutaneous soft tissues throughout the field of view of the left lower extremity with no clearly defined abscess or gross evidence of necrotizing fasciitis, or osteomyelitis. UCx negative. MRSA nasal PCR negative. BCx (10/16) positive for Group G Strept in both sets. BCx (10/18) NGTD Started on cefepime and vancomycin (10/17 - 10/20). Rocephin started 10/21 Source of septic shock is cellulitis of the left lower extremity with bacteremia. Weaned off Levophed 10/18. Central line removed. Abx narrowed to Rocephin monotherapy 10/21. Continue IV abx. ID consult (2) Cellulitis: Code(s): L03.90 - Cellulitis, unspecified Status: Acute Assessment and Plan: No signs of necrotizing fasciitis on CT scan of the lower extremities Continue antibiotics as above (3) DM2 (diabetes mellitus, type 2): Code(s): E11.9 - Type 2 diabetes mellitus without complications Status: Acute Assessment and Plan: Patient has history of diabetes and was found to be hypoglycemic when EMS arrived A1c 6.0%. The patient's blood glucose was reviewed on 10/21 Glucose better controlled. Continue AccuCheks covering with sliding scale. Hypoglycemia protocol available as needed. Advance Lantus tonight. Continue to follow (4) Chronic kidney disease: Code(s): N18.9 - Chronic kidney disease, unspecified Status: Acute Assessment and Plan: Patient has a history of CKD with baseline Cr 2.4 - 2.9 Creatinine of 1.97 on admission He received 1 L IV fluid bolus in the ER, given additional 500 mL IV LR bolus in the ICU proBNP was 57311 He remained on maintenance IV fluid and Cr improved to 1.16 Adequaely fluid resuscitated and IV fluids stopped. Lasix resumed (10/19). Cr has climbed to 1.42 as he returns to euvolemic state Continue to monitor urine output, electrolytes, renal function (5) Elevated troponin: Code(s): R79.89 - Other specified abnormal findings of blood chemistry Status: Acute Assessment and Plan: Elevated Troponins to 0.238 EKG showing AFib with anterolateral PR of indeterminate age. No old EKGs to compare Echo with EF 30-35%, diastolic dysfxn, severely enlarged RV with reduced fxn, mild MR, mod-severe TR and severe pulm HTN Elevated Trop could be related to type 2 infarct due to septic shock Patient denies any chest pain Cardiology consulted and appreciate their evaluation and recommendation (6) Congestive heart failure: Code(s): I50.9 - Heart failure, unspecified Status: Acute Assessment [place]: [place] [address]. Echo as above. Hx of chronic s/d CHF and Cor Pulmonale. Home medications: Lasix, lisinopril, metoprolol, spironolactone (held due to septic shock) Lasix resumed. Lisinopril changed to Entresto. Cardiology following (7) Discoloration of skin of foot: Code(s): L81.9 - Disorder of pigmentation, unspecified Status: Acute Assessment and Plan: Discoloration of feet bilaterally which are cold. Pulses are intact LE ARNALDO showed mild arterial occlusive disease of the right lower limb, no significant arterial occlusive disease in the left leg Follow (8) Atrial fibrillation: Code(s): I48.91 - Unspecified atrial fibrillation Status: Acute Assessment and Plan: History of atrial fibrillation. EKG showing AFib Rate controlled Continue apixaban and amiodarone (9) Chronic back pain: Code(s): M54.9 - Dorsalgia, unspecified; G89.29 - Other chronic pain Status: Acute Assessment and Plan: Continue gabapentin. Increase activity PT/OT (10) SAROJ (obstructive sleep apnea): Code(s): G47.33 - Obstructive sleep apnea (adult) (pediatric) Status: Acute Assessment and Plan: Patient has a hx of SAROJ. Not on O2 or CPAP/BiPAP at home. He is intolerant to CPAP/BiPAP. Echo as above. Patient with Cor Pulmonale. ABG on admission: 7.32/38/137 on 6L Feeling better and refusing CPAP/BiPAP now. Okay to remove BiPAP from room. Apnea link to evaluate for nocturnal hypoxia showing only 11 min with SpO2<88% Follow. (11) UTI (urinary tract infection): Code(s): N39.0 - Urinary tract infection, site not specified Status: Acute Assessment and Plan: CT scan of the abdomen and pelvis reflective of possible cystitis, UCx negative UTI ruled out Plan DVT prophylaxis: Apixaban Code Status: Full code Subjective Date/time seen: 10/21/25 12:04 Interval history: 75yo male with DM, CKD, COPD, CHF and AFib here for falls. Feels well today. Slept okay last night. No chest pain shortness of breath. No nausea or vomiting. Eating normally. Exam Narrative: AF 97.9 108/48 92 16 95% ra Gen - NARD Chest -few basilar rhonchi otherwise clear. CV - RRR S1/S2. Abd - soft, obese, NT - Hubbard secured draining clear yellow urine Ext - 1+ pitting left pedal edema Neuro - alert and appropriate Pscyh - pleasant and cooperative Skin - multiple dried excoriations RLE. LLE with dull erythema involving the joseph, calf and tracks medially to medially lower thigh. RLE chronic venous stasis skin changes. Left lower extremity yellowish scale that is improving. Objective Data Vital Signs Vital Signs: Vital Signs - 24 hr 10/20/25 14:26 10/20/25 14:34 10/20/25 16:00 Temperature 97 F L Pulse Rate 90 92 94 Respiratory Rate 16 16 24 H Blood Pressure 110/60 Pulse Oximetry 99 Oxygen Delivery Fraction of Inspired Oxygen 10/20/25 19:50 10/20/25 20:00 10/20/25 20:00 Temperature Pulse Rate 96 96 Respiratory Rate 16 16 Blood Pressure Pulse Oximetry Oxygen Delivery Room Air Fraction of Inspired Oxygen 10/20/25 20:35 10/20/25 21:50 10/20/25 22:35 Temperature 97.7 F Pulse Rate 82 Respiratory Rate 20 Blood Pressure 98/65 L Pulse Oximetry 95 96 95 Oxygen Delivery Room Air Room Air Fraction of Inspired Oxygen 10/21/25 06:12 10/21/25 08:35 10/21/25 08:35 Temperature 97.9 F Pulse Rate 102 H 88 Respiratory Rate 20 16 Blood Pressure 108/48 L Pulse Oximetry 99 95 Oxygen Delivery Room Air Fraction of Inspired Oxygen 10/21/25 08:42 Temperature Pulse Rate 92 Respiratory Rate 16 Blood Pressure Pulse Oximetry Oxygen Delivery Fraction of Inspired Oxygen Intake/Output Intake/Output: Intake & Output 10/18/25 10/19/25 10/20/25 10/21/25 23:59 23:59 23:59 23:59 Intake Total 2726.3 2397 1758.0 440 Output Total 1950 1950 2725 Balance 776.3 447 -967.0 440 Meds/Results Medications: Active Medications Generic Name Dose Route Start Last Admin Trade Name Freq PRN Reason Stop Dose Admin Acetaminophen 650 mg 10/17/25 04:38 10/21/25 09:11 Acetaminophen 325 Mg Tablet PO 650 mg Q4H PRN Administration Mild Pain (1-3) or Fever Albuterol/Ipratropium 3 ml 10/20/25 20:00 10/21/25 08:40 Ipratropium 0.5 Mg/Albuterol Sulfate 2.5 Mg (Base) Ampul.Neb 3 Ml INHALATION 3 ml [id number] SANDRA Administration Allopurinol 200 mg 10/21/25 09:00 10/21/25 09:11 Allopurinol 100 Mg Tablet PO 200 mg DAILY SANDRA Administration Amiodarone HCl 200 mg 10/18/25 13:00 10/21/25 09:10 Amiodarone Hcl 200 Mg Tablet PO 200 mg DAILY SANDRA Administration Apixaban 5 mg 10/17/25 09:00 10/21/25 09:11 Apixaban 5 Mg Tablet PO 5 mg Q12HR SANDRA Administration Calcitriol 0.25 mcg 10/17/25 09:00 10/21/25 09:11 Calcitriol 0.25 Mcg Capsule PO 0.25 mcg DAILY SANDRA Administration Dextrose 12.5 gm 10/19/25 21:17 Dextrose 50% 25 Gm/50 Ml Syringe IV PUSH PRN PRN Hypoglycemia Protocol Folic Acid 1 mg 10/21/25 09:00 10/21/25 09:11 Folic Acid 1 Mg Tablet PO 1 mg DAILY SANDRA Administration Furosemide 80 mg 10/19/25 17:00 10/21/25 09:11 Furosemide 80 Mg Tablet PO 80 mg BID SANDRA Administration Gabapentin 300 mg 10/17/25 09:00 10/21/25 12:01 Gabapentin 300 Mg Capsule PO 300 mg TID SANDRA Administration Glucagon 1 mg 10/19/25 21:17 Glucagon For Inj 1 Mg Vial IM PRN PRN Hypoglycemia Protocol Glucose 15 gm 10/19/25 21:17 Glucose Oral Gel 15 Gm Of Glucse In 37.5 Gm Tube PO PRN PRN Hypoglycemia Protocol Dextrose 1,000 mls @ 100 mls/hr 10/19/25 21:17 Dextrose 5% 1,000 Ml IVPB PRN PRN Hypoglycemia Protocol Ceftriaxone Sodium 2 gm/ 100 mls @ 200 mls/hr 10/21/25 09:00 10/21/25 09:12 Sodium Chloride IVPB 200 mls/hr Q24H SANDRA Administration Insulin Aspart 3 - 6 units 10/20/25 08:00 10/21/25 12:02 Insulin Aspart (*Bkc) 100 Units/Ml SUB-Q Not Given TIDWM SANDRA Protocol Insulin Aspart 5 units 10/21/25 08:00 10/21/25 12:01 Insulin Aspart (*Bkc) 100 Units/Ml SUB-Q 5 units TIDWM SANDRA Administration Insulin Glargine 10 units 10/20/25 21:00 10/20/25 21:52 Insulin Glargine (*Bkc) 100 Units/Ml SUB-Q 10 units HS SANDRA Administration Levothyroxine Sodium 100 mcg 10/17/25 06:30 10/21/25 05:36 Levothyroxine Sodium 100 Mcg Tablet PO 100 mcg DAILY@0630 SANDRA Administration Multi-Ingred Cream/Lotion/Oil/Oint 1 applic 10/20/25 09:00 10/21/25 09:13 Eucerin Cream 120 Gm Jar TOPICAL 1 applic DAILY SANDRA Administration Ondansetron HCl 4 mg 10/17/25 04:38 Ondansetron Inj 4 Mg/2 Ml Vial IV PUSH Q4H PRN Nausea Sacubitril/Valsartan 1 tab 10/19/25 21:00 10/21/25 09:10 Sacubitril/Valsartan 24-26 Mg Tablet PO 1 tab Q12HR SANDRA Administration Radiology Results: ITS Impressions Chest X-Ray 10/17/25 07:59 IMPRESSION: 1. Portable chest x-ray with no focal acute process; heart shadow is borderline enlarged and mild vascular congestion may be present. Chest/Abdomen/Pelvis CT 10/17/25 08:08 IMPRESSION: Directed noncontrast exam demonstratin. No gross acute intrathoracic process. Borderline cardiomegaly and coronary artery calcifications. 2. Cholelithiasis with no gross CT evidence of acute cholecystitis. Possible mild urinary bladder wall thickening which could be associated with developing cystitis or UTI. NOTE: Preliminary radiologist report provided by [facility] radiologist/physician. Lower Extremity CT 10/17/25 09:31 IMPRESSION: 1. Extensive edematous/infiltrative changes in the subcutaneous soft tissues throughout the field of view of the left lower extremity with no clearly defined abscess or gross evidence of necrotizing fasciitis, or osteomyelitis. If osteomyelitis is a clinical concern, correlation with MRI suggested; if there concern for abscess, repeat examination with CT or MRI with contrast suggested. 2. Other findings as above. Venous Doppler Study 10/17/25 12:32 IMPRESSION: 1. No deep venous thrombosis in either lower limb. Ankle Brachial Index 10/18/25 08:55 IMPRESSION: 1. Mild arterial occlusive disease to the right lower limb with minimally decreased right TBI. 2. No significant arterial occlusive disease in the left lower limb with normal left TBI. Labs Labs: Laboratory Results - last 24 hr 10/20/25 10/20/25 10/21/25 17:16 21:10 05:17 WBC 10.5 H RBC 3.98 L Hgb 12.3 L Hct 37.7 L MCV 94.7 MCH 30.9 MCHC 32.6 RDW 14.7 H Plt Count 136 L MPV 10.3 Immature Gran % (Auto) 1.1 H Neut % (Auto) 71.8 Lymph % (Auto) 14.1 L [place]ill % (Auto) 10.3 H Eos % (Auto) 2.2 Baso % (Auto) 0.5 Lymph # (Auto) 1.48 [place]ill # (Auto) 1.1 H Eos # (Auto) 0.2 Baso # (Auto) 0.1 Abs Immat Gran (auto) 0.12 H Absolute Neuts (auto) 7.5 H Absolute Nucleated RBC 0.000 Nucleated RBC % 0.0 Sodium 136 L Potassium 4.1 Chloride 98 Carbon Dioxide 30 Anion Gap 8 BUN 26 H Creatinine 1.42 H Estim Creat Clear Calc 54 Estimated GFR 49 L Glucose 206 H POC Capillary Glucose 203 H 188 H Calcium 8.9 Phosphorus 3.1 Magnesium 1.6 Albumin 3.3 L 10/21/25 10/21/25 07:59 11:39 WBC RBC Hgb Hct MCV MCH MCHC RDW Plt Count MPV Immature Gran % (Auto) Neut % (Auto) Lymph % (Auto) [place]ill % (Auto) Eos % (Auto) Baso % (Auto) Lymph # (Auto) [place] # (Auto) Eos # (Auto) Baso # (Auto) Abs Immat Gran (auto) Absolute Neuts (auto) Absolute Nucleated RBC Nucleated RBC % Sodium Potassium Chloride Carbon Dioxide Anion Gap BUN Creatinine Estim Creat Clear Calc Estimated GFR Glucose POC Capillary Glucose 196 H 163 H Calcium Phosphorus Magnesium Albumin
[2025-10-21] MEDS: INSULIN GLARGINE (*BKC) 100 UNITS/ML 15 UNITS SUB-Q (21:42)
[2025-10-21] MEDS: ONDANSETRON INJ 4 MG/2 ML VIAL IV PUSH (22:43)
[2025-10-22] VITALS (12 sets, daily range): BP systolic 101–121; BP diastolic 61–78; PULSE 80–104; RESP 14–20; TEMP 36.1–37; O2SAT 94–97
[2025-10-22 05:48] LABS: Hematocrit 36.5 % (42.0-52.0); Hemoglobin 11.5 g/dL (14.0-18.0); Immature Granulocyte Percent A 5.5 % (0-0.5); Lymphocytes Absolute Auto 1.48 K/mm3 (0.9-3.2); Mean Corpuscular HGB Conc 31.5 g/dl (32-36); Mean Corpuscular Hemoglobin 29.9 pg (26-34); Mean Corpuscular Volume 95.1 fl (80-100); Nucleated Red Blood Cells Absolute Auto 0.000 K/mm3 (0.0-0.012); Nucleated Red Blood Cells Perc 0.0 % (0.0-0.2); Platelet Count Result 182 k/mm3 (150-375); Red Blood Count 3.84 M/mm3 (4.6-6.20); White Blood Count 8.3 K/mm3 (4.5-10.0)
[2025-10-22 06:08] LABS: Anion Gap 8 mmol/L (4-12); Blood Urea Nitrogen 33 mg/dL (9-20); Calcium 8.7 mg/dL (8.4-10.2); Carbon Dioxide 26 mmol/L (22-30); Chloride 100 mmol/L (98-107); Estimated CRCL calculation 47 ml/min; Estimated Glomerular Filt Rate 41; Glucose 224 mg/dL (65-110); Magnesium 1.5 mg/dL (1.6-2.3); Potassium 3.6 mmol/L (3.4-5.0); Sodium 134 mmol/L (137-145)
[2025-10-22] MEDS: LEVOTHYROXINE SODIUM 100 MCG TABLET PO (06:16)
[2025-10-22] MEDS: IPRATROPIUM 0.5 MG/ALBUTEROL SULFATE 2.5 MG (BASE) AMPUL.NEB 3 ML INHALATION ×3 (07:07→20:05)
[2025-10-22] MEDS: cefTRIAXone 2 GM in SODIUM CHLORIDE 0.9% IV 100 ML 200 ML IVPB (08:37)
[2025-10-22] MEDS: INSULIN ASPART (*BKC) 100 UNITS/ML SUB-Q ×3 (08:44→17:08)
[2025-10-22] MEDS: MAGNESIUM SULF 2 GM/WATER 50ML 2 GM/50 ML BAG IVPB (09:17)
[2025-10-22] MEDS: AMIODARONE HCL 200 MG TABLET PO (11:05)
[2025-10-22] MEDS: FUROSEMIDE 80 MG TABLET PO ×2 (11:05→17:08)
[2025-10-22] MEDS: SACUBITRIL/VALSARTAN 24-26 MG TABLET 1 TAB PO ×2 (11:05→21:40)
[2025-10-22] MEDS: FOLIC ACID 1 MG TABLET PO (11:06)
[2025-10-22] MEDS: GABAPENTIN 300 MG CAPSULE PO ×3 (11:06→17:08)
[2025-10-22] MEDS: APIXABAN 5 MG TABLET PO ×2 (11:06→21:40)
[2025-10-22] MEDS: EUCERIN CREAM 120 GM JAR 1 APPLIC TOPICAL (12:56)
--- NOTE | 2025-10-22 13:32 | PM.IMPN ---
Progress Note: A&P Assessment and Plan (1) Septic shock: Code(s): A41.9 - Sepsis, unspecified organism; R65.21 - Severe sepsis with septic shock Status: Acute Assessment and Plan: Patient presented with generalized weakness and was found to be hypoglycemic and hypotensive. He was given 1 L IV fluid bolus in the ER and a femoral central line was inserted. Levophed started. CXR was clear. CT LLE showing extensive edematous/infiltrative changes in the subcutaneous soft tissues throughout the field of view of the left lower extremity with no clearly defined abscess or gross evidence of necrotizing fasciitis, or osteomyelitis. UCx negative. MRSA nasal PCR negative. BCx (10/16) positive for Group G Strept in both sets. BCx (10/18) NGTD Started on cefepime and vancomycin (10/17 - 10/20). Rocephin started 10/21 Source of septic shock is cellulitis of the left lower extremity with bacteremia. Weaned off Levophed 10/18. Central line removed. Abx narrowed to Rocephin monotherapy 10/21. Continue IV abx. ID consult (2) Cellulitis: Code(s): L03.90 - Cellulitis, unspecified Status: Acute Assessment and Plan: No signs of necrotizing fasciitis on CT scan of the lower extremities Continue antibiotics as above (3) DM2 (diabetes mellitus, type 2): Code(s): E11.9 - Type 2 diabetes mellitus without complications Status: Acute Assessment and Plan: Patient has history of diabetes and was found to be hypoglycemic when EMS arrived A1c 6.0%. The patient's blood glucose was reviewed on 10/22 Glucose better controlled. Continue AccuCheks covering with sliding scale. Hypoglycemia protocol available as needed. Continue to follow (4) Chronic kidney disease: Code(s): N18.9 - Chronic kidney disease, unspecified Status: Acute Assessment and Plan: Patient has a history of CKD with baseline Cr 2.4 - 2.9 Creatinine of 1.97 on admission He received 1 L IV fluid bolus in the ER, given additional 500 mL IV LR bolus in the ICU proBNP was 63119 He remained on maintenance IV fluid and Cr improved to 1.16 Adequaely fluid resuscitated and IV fluids stopped. Lasix resumed (10/19). Cr has climbed to 1.65 as he returns to euvolemic state Continue to monitor urine output, electrolytes, renal function (5) Elevated troponin: Code(s): R79.89 - Other specified abnormal findings of blood chemistry Status: Acute Assessment and Plan: Elevated Troponins to 0.238 EKG showing AFib with anterolateral TX of indeterminate age. No old EKGs to compare Echo with EF 30-35%, diastolic dysfxn, severely enlarged RV with reduced fxn, mild MR, mod-severe TR and severe pulm HTN Elevated Trop could be related to type 2 infarct due to septic shock Patient denies any chest pain Cardiology consulted and appreciate their evaluation and recommendation (6) Congestive heart failure: Code(s): I50.9 - Heart failure, unspecified Status: Acute Assessment [place]: [place] [address]. Echo as above. Hx of chronic s/d CHF and Cor Pulmonale. Home medications: Lasix, lisinopril, metoprolol, spironolactone (held due to septic shock) Lasix resumed. Lisinopril changed to Entresto. Cardiology following. Add back low dose Metoprolol XL (7) Discoloration of skin of foot: Code(s): L81.9 - Disorder of pigmentation, unspecified Status: Acute Assessment and Plan: Discoloration of feet bilaterally which are cold. Pulses are intact LE ARNALDO showed mild arterial occlusive disease of the right lower limb, no significant arterial occlusive disease in the left leg Follow (8) Atrial fibrillation: Code(s): I48.91 - Unspecified atrial fibrillation Status: Acute Assessment and Plan: History of atrial fibrillation. EKG showing AFib Rate controlled Continue apixaban and amiodarone. Low dose metoprolol XL to be added back (9) Chronic back pain: Code(s): M54.9 - Dorsalgia, unspecified; G89.29 - Other chronic pain Status: Acute Assessment and Plan: Continue gabapentin. Increase activity PT/OT (10) SAROJ (obstructive sleep apnea): Code(s): G47.33 - Obstructive sleep apnea (adult) (pediatric) Status: Acute Assessment and Plan: Patient has a hx of SAROJ. Not on O2 or CPAP/BiPAP at home. He is intolerant to CPAP/BiPAP. Echo as above. Patient with Cor Pulmonale. ABG on admission: 7.32/38/137 on 6L Feeling better and refusing CPAP/BiPAP now. Okay to remove BiPAP from room. Apnea link to evaluate for nocturnal hypoxia showing only 11 min with SpO2<88% Follow. (11) UTI (urinary tract infection): Code(s): N39.0 - Urinary tract infection, site not specified Status: Acute Assessment and Plan: CT scan of the abdomen and pelvis reflective of possible cystitis, UCx negative UTI ruled out Plan DVT prophylaxis: Apixaban Code Status: Full code Subjective Date/time seen: 10/22/25 13:32 Interval history: 75yo male with DM, CKD, COPD, CHF and AFib here for falls. No problems overnight. No chest pain or shortness of breath. Eating okay. Normal bowel movements. Hubbard catheter is out and he is voiding well. He did eat late last night which could explain the elevated glucose this morning. Exam Narrative: AF 97.0 121/61 88 16 95% ra Gen - NARD Chest -clear to auscultation bilaterally. Normal respiratory rate. CV - RRR S1/S2. Abd - soft, obese, NT Ext - 2+ pitting left pedal edema Pscyh - pleasant and cooperative Skin - multiple dried excoriations RLE. LLE with dull erythema involving the joseph, calf and medially lower thigh. RLE chronic venous stasis skin changes. Left lower extremity yellowish scale that is improving. Objective Data Vital Signs Vital Signs: Vital Signs - 24 hr 10/21/25 15:12 10/21/25 19:53 10/21/25 20:19 Temperature 97.6 F 97.6 F Pulse Rate 94 94 86 Respiratory Rate 20 20 16 Blood Pressure 125/72 115/49 L Pulse Oximetry 100 92 Oxygen Delivery Fraction of Inspired Oxygen 10/21/25 20:23 10/21/25 20:25 10/21/25 22:43 Temperature Pulse Rate 86 88 Respiratory Rate 16 Blood Pressure Pulse Oximetry 96 Oxygen Delivery Room Air Room Air Fraction of Inspired Oxygen 10/22/25 04:30 10/22/25 07:05 10/22/25 07:05 Temperature 97 F L Pulse Rate 92 85 Respiratory Rate 20 16 Blood Pressure 121/61 Pulse Oximetry 97 95 Oxygen Delivery Room Air Fraction of Inspired Oxygen 10/22/25 07:15 10/22/25 08:00 10/22/25 11:05 Temperature Pulse Rate 88 88 Respiratory Rate 16 Blood Pressure Pulse Oximetry Oxygen Delivery Room Air Fraction of Inspired Oxygen Intake/Output Intake/Output: Intake & Output 10/19/25 10/20/25 10/21/25 10/22/25 23:59 23:59 23:59 23:59 Intake Total 2397 1758.0 1070 570 Output Total 1950 2725 Balance 447 -967.0 1070 570 Meds/Results Medications: Active Medications Generic Name Dose Route Start Last Admin Trade Name Freq PRN Reason Stop Dose Admin Acetaminophen 650 mg 10/17/25 04:38 10/21/25 21:40 Acetaminophen 325 Mg Tablet PO 650 mg Q4H PRN Administration Mild Pain (1-3) or Fever Albuterol/Ipratropium 3 ml 10/20/25 20:00 10/22/25 07:07 Ipratropium 0.5 Mg/Albuterol Sulfate 2.5 Mg (Base) Ampul.Neb 3 Ml INHALATION 3 ml [id number] SANDRA Administration Allopurinol 200 mg 10/21/25 09:00 10/22/25 11:06 Allopurinol 100 Mg Tablet PO 200 mg DAILY SANDRA Administration Amiodarone HCl 200 mg 10/18/25 13:00 10/22/25 11:05 Amiodarone Hcl 200 Mg Tablet PO 200 mg DAILY SANDRA Administration Apixaban 5 mg 10/17/25 09:00 10/22/25 11:06 Apixaban 5 Mg Tablet PO 5 mg Q12HR SANDRA Administration Calcitriol 0.25 mcg 10/17/25 09:00 10/22/25 11:05 Calcitriol 0.25 Mcg Capsule PO 0.25 mcg DAILY SANDRA Administration Dextrose 12.5 gm 10/19/25 21:17 Dextrose 50% 25 Gm/50 Ml Syringe IV PUSH PRN PRN Hypoglycemia Protocol Folic Acid 1 mg 10/21/25 09:00 10/22/25 11:06 Folic Acid 1 Mg Tablet PO 1 mg DAILY SANDRA Administration Furosemide 80 mg 10/19/25 17:00 10/22/25 11:05 Furosemide 80 Mg Tablet PO 80 mg BID SANDRA Administration Gabapentin 300 mg 10/17/25 09:00 10/22/25 11:06 Gabapentin 300 Mg Capsule PO 300 mg TID SANDRA Administration Glucagon 1 mg 10/19/25 21:17 Glucagon For Inj 1 Mg Vial IM PRN PRN Hypoglycemia Protocol Glucose 15 gm 10/19/25 21:17 Glucose Oral Gel 15 Gm Of Glucse In 37.5 Gm Tube PO PRN PRN Hypoglycemia Protocol Dextrose 1,000 mls @ 100 mls/hr 10/19/25 21:17 Dextrose 5% 1,000 Ml IVPB PRN PRN Hypoglycemia Protocol Ceftriaxone Sodium 2 gm/ 100 mls @ 200 mls/hr 10/21/25 09:00 10/22/25 09:12 Sodium Chloride IVPB Infused Q24H SANDRA Infusion Insulin Aspart 3 - 6 units 10/20/25 08:00 10/22/25 12:25 Insulin Aspart (*Bkc) 100 Units/Ml SUB-Q Not Given TIDWM SANDRA Protocol Insulin Aspart 5 units 10/21/25 08:00 10/22/25 12:56 Insulin Aspart (*Bkc) 100 Units/Ml SUB-Q 5 units TIDWM SANDRA Administration Insulin Glargine 15 units 10/21/25 21:00 10/21/25 21:42 Insulin Glargine (*Bkc) 100 Units/Ml SUB-Q 15 units HS SANDRA Administration Levothyroxine Sodium 100 mcg 10/17/25 06:30 10/22/25 06:16 Levothyroxine Sodium 100 Mcg Tablet PO 100 mcg DAILY@0630 SANDRA Administration Multi-Ingred Cream/Lotion/Oil/Oint 1 applic 10/20/25 09:00 10/22/25 12:56 Eucerin Cream 120 Gm Jar TOPICAL 1 applic DAILY SANDRA Administration Ondansetron HCl 4 mg 10/17/25 04:38 10/21/25 22:43 Ondansetron Inj 4 Mg/2 Ml Vial IV PUSH 4 mg Q4H PRN Administration Nausea Sacubitril/Valsartan 1 tab 10/19/25 21:00 10/22/25 11:05 Sacubitril/Valsartan 24-26 Mg Tablet PO 1 tab Q12HR SANDRA Administration Radiology Results: ITS Impressions Chest X-Ray 10/17/25 07:59 IMPRESSION: 1. Portable chest x-ray with no focal acute process; heart shadow is borderline enlarged and mild vascular congestion may be present. Chest/Abdomen/Pelvis CT 10/17/25 08:08 IMPRESSION: Directed noncontrast exam demonstratin. No gross acute intrathoracic process. Borderline cardiomegaly and coronary artery calcifications. 2. Cholelithiasis with no gross CT evidence of acute cholecystitis. Possible mild urinary bladder wall thickening which could be associated with developing cystitis or UTI. NOTE: Preliminary radiologist report provided by [facility] radiologist/physician. Lower Extremity CT 10/17/25 09:31 IMPRESSION: 1. Extensive edematous/infiltrative changes in the subcutaneous soft tissues throughout the field of view of the left lower extremity with no clearly defined abscess or gross evidence of necrotizing fasciitis, or osteomyelitis. If osteomyelitis is a clinical concern, correlation with MRI suggested; if there concern for abscess, repeat examination with CT or MRI with contrast suggested. 2. Other findings as above. Venous Doppler Study 10/17/25 12:32 IMPRESSION: 1. No deep venous thrombosis in either lower limb. Ankle Brachial Index 10/18/25 08:55 IMPRESSION: 1. Mild arterial occlusive disease to the right lower limb with minimally decreased right TBI. 2. No significant arterial occlusive disease in the left lower limb with normal left TBI. Labs Labs: Laboratory Results - last 24 hr 10/21/25 10/21/25 10/22/25 16:48 20:03 04:50 WBC 8.3 RBC 3.84 L Hgb 11.5 L Hct 36.5 L MCV 95.1 MCH 29.9 MCHC 31.5 L RDW 14.7 H Plt Count 182 MPV 10.9 H Immature Gran % (Auto) 5.5 H Neut % (Auto) 62.8 Lymph % (Auto) 17.8 L [place]der % (Auto) 10.8 H Eos % (Auto) 2.5 Baso % (Auto) 0.6 Lymph # (Auto) 1.48 [place]der # (Auto) 0.9 H Eos # (Auto) 0.2 Baso # (Auto) 0.1 Abs Immat Gran (auto) 0.46 H Absolute Neuts (auto) 5.2 Absolute Nucleated RBC 0.000 Nucleated RBC % 0.0 Sodium 134 L Potassium 3.6 Chloride 100 Carbon Dioxide 26 Anion Gap 8 BUN 33 H Creatinine 1.65 H Estim Creat Clear Calc 47 Estimated GFR 41 L Glucose 224 H POC Capillary Glucose 191 H 152 H Calcium 8.7 Magnesium 1.5 L 10/22/25 10/22/25 07:43 11:38 WBC RBC Hgb Hct MCV MCH MCHC RDW Plt Count MPV Immature Gran % (Auto) Neut % (Auto) Lymph % (Auto) [place]der % (Auto) Eos % (Auto) Baso % (Auto) Lymph # (Auto) [place]der # (Auto) Eos # (Auto) Baso # (Auto) Abs Immat Gran (auto) Absolute Neuts (auto) Absolute Nucleated RBC Nucleated RBC % Sodium Potassium Chloride Carbon Dioxide Anion Gap BUN Creatinine Estim Creat Clear Calc Estimated GFR Glucose POC Capillary Glucose 189 H 177 H Calcium Magnesium
[2025-10-22] MEDS: METOPROLOL SUCCINATE EXT REL 12.5 MG TABCR PO (14:27)
[2025-10-22] MEDS: ACETAMINOPHEN 325 MG TABLET 650 MG PO (21:40)
[2025-10-22] MEDS: PANTOPRAZOLE 40 MG TABLET PO (21:40)
[2025-10-22] MEDS: INSULIN GLARGINE (*BKC) 100 UNITS/ML 15 UNITS SUB-Q (21:43)
[2025-10-23] VITALS (13 sets, daily range): BP systolic 100–117; BP diastolic 55–94; PULSE 67–79; RESP 16–22; TEMP 35.8–36.4; O2SAT 85–100
[2025-10-23] MEDS: LEVOTHYROXINE SODIUM 100 MCG TABLET PO (05:47)
[2025-10-23 06:00] LABS: Hematocrit 35.5 % (42.0-52.0); Hemoglobin 11.1 g/dL (14.0-18.0); Mean Corpuscular HGB Conc 31.3 g/dl (32-36); Mean Corpuscular Hemoglobin 30.2 pg (26-34); Mean Corpuscular Volume 96.7 fl (80-100); Platelet Count Result 222 k/mm3 (150-375); Red Blood Count 3.67 M/mm3 (4.6-6.20); White Blood Count 7.4 K/mm3 (4.5-10.0)
[2025-10-23 06:41] LABS: Albumin Level 3.0 g/dL (3.5-5.1); Anion Gap 8 mmol/L (4-12); Blood Urea Nitrogen 39 mg/dL (9-20); Calcium 8.4 mg/dL (8.4-10.2); Carbon Dioxide 29 mmol/L (22-30); Chloride 100 mmol/L (98-107); Estimated CRCL calculation 50 ml/min; Estimated Glomerular Filt Rate 46; Glucose 237 mg/dL (65-110); Magnesium 1.8 mg/dL (1.6-2.3); Potassium 3.8 mmol/L (3.4-5.0); Sodium 137 mmol/L (137-145)
[2025-10-23] MEDS: IPRATROPIUM 0.5 MG/ALBUTEROL SULFATE 2.5 MG (BASE) AMPUL.NEB 3 ML INHALATION ×2 (07:44→14:03)
[2025-10-23] MEDS: cefTRIAXone 2 GM in SODIUM CHLORIDE 0.9% IV 100 ML 200 ML IVPB (08:57)
[2025-10-23] MEDS: PANTOPRAZOLE 40 MG TABLET PO ×2 (09:00→20:39)
[2025-10-23] MEDS: AMIODARONE HCL 200 MG TABLET PO (09:00)
[2025-10-23] MEDS: GABAPENTIN 300 MG CAPSULE PO ×3 (09:00→16:56)
[2025-10-23] MEDS: SACUBITRIL/VALSARTAN 24-26 MG TABLET 1 TAB PO ×2 (09:00→20:39)
[2025-10-23] MEDS: FOLIC ACID 1 MG TABLET PO (09:00)
[2025-10-23] MEDS: METOPROLOL SUCCINATE EXT REL 12.5 MG TABCR PO (09:01)
[2025-10-23] MEDS: INSULIN ASPART (*BKC) 100 UNITS/ML SUB-Q ×4 (09:02→16:57)
[2025-10-23] MEDS: FUROSEMIDE 80 MG TABLET PO ×2 (09:02→16:56)
[2025-10-23] MEDS: APIXABAN 5 MG TABLET PO ×2 (09:02→20:39)
[2025-10-23] MEDS: EUCERIN CREAM 120 GM JAR 1 APPLIC TOPICAL (09:04)
--- NOTE | 2025-10-23 09:05 | PCNWS ---
Weekly nutritional screen. Patient is tolerating current Diabetic diet with adequate intake 75-100%. No nutritional recommendations at this time.
--- NOTE | 2025-10-23 10:47 | WPDIDCN ---
Assessment and Plan Assessment and plan (1) Cellulitis: Code(s): L03.90 - Cellulitis, unspecified Status: Acute (2) Chronic kidney disease: Code(s): N18.9 - Chronic kidney disease, unspecified Status: Acute (3) DM2 (diabetes mellitus, type 2): Code(s): E11.9 - Type 2 diabetes mellitus without complications Status: Acute Plan ASSESSMENT: 1. group G strep bacteremia 2nd LLE cellulitis; Repeat blood cxs 10/18 NGTD 2. heart failure 3. Afib on amiodarone-->avoid quinolone abx due to interaction 4. DM 5. CKD 6, COPD RECOMMENDATIONS: -today is day 7 of total abx (currently on ceftriaxone)--change abx to linezolid Pt was seen via video telehealth consultation with the assistance of staff. Chart, data and patient info reviewed. Patient was located at [facility] while I was in my [place] office. Pt gave consent. HPI Data of Consult Date/Time: 10/23/25 10:47 Requesting Physician: Bacilio Bowling DO Primary Care Provider: Duc Seo, PA Consult Narrative Reason for consult: bacteremia 2nd cellulitis Narrative: Chaz Caballero is a 75 year old male with pmhx/o DM, asbestosis, CKD, Afib, COPD, presented to hospital with fatigue. Work up with hypotension, leukocytosis, hypoglycemia. Blood cxs were positive for Group G strep. Noted to have LLE cellulitis. Currently on day 7 of abx. On ceftriaxone currently. No current fever. No current leukocytosis. [facility] Past Medical History Medical History Anemia, chronic disease Chronic pain Osteoarthritis Congestive heart failure Chronic back pain Gout DM2 (diabetes mellitus, type 2) Carpal tunnel syndrome Chronic kidney disease Asbestosis COPD (chronic obstructive pulmonary disease) Atrial fibrillation Surgical History Surgical History History of carpal tunnel release Family History Family History Father Colon cancer Mother Lung cancer Other Acute myocardial infarction History of blood clots Social History Social History Social History: The patient stated that he lives home alone. He stated that he had 2 sons and 2 daughters but 1 daughter has . He is . He is retired. We discussed code status in the patient stated that he does not want to be resuscitated. However at this time he is a poor historian and is difficult for me to determine if he is mentally at his baseline to make that decision. Code status: Full code Smoking status: Never smoker Alcohol intake: former Substance use: never Lack of Transportation: No Lack of Food: Never True Current Housing: I Have Housing Concerned About Future Housing: No Difficulty Paying Gas/Electric Bills: No Difficulty Paying for Meds: No Currently Unemployed: No Education: Grade School Difficulty w/ Childcare or Family Care: No Gender identity (if verbalized by the patient): Male Spiritual care concerns: No Meds Home Medications and Allergies Home Medications ?Medication ?Instructions ?Recorded ?Confirmed ?Type allopurinol 100 mg tablet 200 mg PO DAILY 05/24/20 10/17/25 History amiodarone 200 mg tablet 200 mg PO DAILY 05/24/20 10/17/25 History apixaban 5 mg tablet (Eliquis) 5 mg PO BID 05/24/20 10/17/25 History baclofen 10 mg tablet 10 mg PO TID PRN other 05/24/20 10/17/25 History calcitriol 0.25 mcg capsule 0.25 mcg PO DAILY 05/24/20 10/17/25 History ergocalciferol (vitamin D2) 1,250 50,000 unit PO WEEKLY 05/24/20 10/17/25 History mcg (50,000 unit) capsule folic acid 1 mg tablet 1 mg PO DAILY 05/24/20 10/17/25 History furosemide 80 mg tablet (Lasix) 80 mg PO BID 05/24/20 10/17/25 History gabapentin 300 mg capsule 300 mg PO TID 05/24/20 10/17/25 History hydrocodone 5 mg-acetaminophen 325 1 tablet PO TID PRN Pain 05/24/20 10/17/25 History mg tablet insulin detemir U-100 100 unit/mL 22 unit subcut HS 05/24/20 10/17/25 History (3 mL) subcutaneous pen (Levemir FlexTouch U-100 Insulin) insulin lispro 100 unit/mL 10 unit subcut TID 05/24/20 10/17/25 History subcutaneous pen (Humalog KwikPen (U-100) Insulin) levothyroxine 100 mcg tablet 100 mcg PO QAM 05/24/20 10/17/25 History lisinopril 5 mg tablet 5 mg PO DAILY 05/24/20 10/17/25 History metoprolol succinate 50 mg 50 mg PO DAILY 05/24/20 10/17/25 History tablet,extended release 24 hr pantoprazole 40 mg tablet,delayed 40 mg PO TID 05/24/20 10/17/25 History release ropinirole 0.25 mg tablet 0.75 mg PO HS 05/24/20 10/17/25 History spironolactone 25 mg tablet 12.5 mg PO DAILY 05/24/20 10/17/25 History Allergies Allergy/AdvReac Type Severity Reaction Status Date / Time No Known Allergies Allergy Verified 10/17/25 06:05 Vital Signs Vital Signs - 24 hr 10/22/25 11:05 10/22/25 13:54 10/22/25 14:02 Temperature Pulse Rate 88 86 88 Respiratory Rate 16 16 Blood Pressure Pulse Oximetry Oxygen Delivery Oxygen Flow Rate Fraction of Inspired Oxygen 10/22/25 14:27 10/22/25 15:46 10/22/25 20:06 Temperature 97.0 F L Pulse Rate 104 H 80 86 Respiratory Rate 14 18 Blood Pressure 120/70 Pulse Oximetry 94 94 Oxygen Delivery Room Air Oxygen Flow Rate Fraction of Inspired Oxygen 21 10/22/25 20:06 10/22/25 20:13 10/22/25 21:45 Temperature Pulse Rate 86 88 Respiratory Rate 18 18 Blood Pressure Pulse Oximetry 97 Oxygen Delivery Nasal Cannula Oxygen Flow Rate 3 Fraction of Inspired Oxygen 10/22/25 22:00 10/23/25 05:41 10/23/25 07:45 Temperature 98.6 F 97.4 F L Pulse Rate 95 78 72 Respiratory Rate 20 16 20 Blood Pressure 101/78 100/72 Pulse Oximetry 97 100 100 Oxygen Delivery Nasal Cannula Oxygen Flow Rate 4 Fraction of Inspired Oxygen 10/23/25 07:45 10/23/25 07:56 10/23/25 08:00 Temperature 96.4 F L Pulse Rate 72 78 74 Respiratory Rate 20 20 22 H Blood Pressure 117/94 H Pulse Oximetry 100 Oxygen Delivery Oxygen Flow Rate Fraction of Inspired Oxygen 10/23/25 08:25 10/23/25 09:00 10/23/25 09:00 Temperature Pulse Rate 75 77 Respiratory Rate 20 Blood Pressure Pulse Oximetry 85 L 99 Oxygen Delivery Room Air Room Air Oxygen Flow Rate Fraction of Inspired Oxygen 10/23/25 09:01 Temperature Pulse Rate 77 Respiratory Rate Blood Pressure Pulse Oximetry Oxygen Delivery Oxygen Flow Rate Fraction of Inspired Oxygen Exam Narrative: On room air, non-toxic, NAD LLE with angry erythema, edema, warm Results Labs 10/23/25 05:33 10/23/25 05:33 Labs: Short CBC 10/23/25 Range/Units 05:33 WBC 7.4 (4.5-10.0) K/mm3 Hgb 11.1 L (14.0-18.0) g/dL Hct 35.5 L (42.0-52.0) % Plt Count 222 (150-375) k/mm3 BMP 10/23/25 05:33 Sodium 137 Potassium 3.8 Chloride 100 Carbon Dioxide 29 BUN 39 H Creatinine 1.49 H Glucose 237 H Calcium 8.4 Liver Function 10/23/25 Range/Units 05:33 Albumin 3.0 L (3.5-5.1) g/dL
--- NOTE | 2025-10-23 13:24 | P.CDI_ITS ---
CDI Query Clarification Request 1) Please review the clinical information below and clarify the respiratory diagnosis the patient is being treated for: * Hypoxia or hypoxemia without respiratory failure * Respiratory distress without respiratory failure * Acute respiratory failure with hypoxia * Acute respiratory failure with hypercapnia * Acute respiratory failure with hypoxia and hypercapnia * Acute on chronic respiratory failure with hypoxia * Acute on chronic respiratory failure with hypercapnia * Acute on chronic respiratory failure with hypoxia and hypercapnia * Acute respiratory distress syndrome (ARDS) * Chronic respiratory failure with hypoxia * Chronic respiratory failure with hypercapnia * Chronic respiratory failure with hypoxia and hypercapnia * Other explanation clinical findings, please specify * Unable to determine 2) Patient with a BMI of 54.2 please provide a diagnosis to accompany this finding: * Overweight * Obesity * Morbid Obesity * Other/Unknown H&P: (7) Hypoxia: Code(s): R09.02 - Hypoxemia Status: Acute Assessment and Plan: - he was initially on bipap and thentitrated down to 2 liters per nasal cannula - repeat abgs - may consider steroids for copd Hospitalist: Assessment and Plan (1) Septic shock: Code(s): A41.9 - Sepsis, unspecified organism; R65.21 - Severe sepsis with septic shock Status: Acute Assessment and Plan: Patient presented with generalized weakness and was found to be hypoglycemic and hypotensive. He was given 1 L IV fluid bolus in the ER and a femoral central line was inserted. Levophed started. CXR was clear. CT LLE showing extensive edematous/infiltrative changes in the subcutaneous soft tissues throughout the field of view of the left lower extremity with no clearly defined abscess or gross evidence of necrotizing fasciitis, or osteomyelitis. UCx negative. MRSA nasal PCR negative. BCx (10/16) positive for Group G Strept in both sets. BCx (10/18) NGTD Started on cefepime and vancomycin (10/17 - 10/20). Rocephin started 10/21 Source of septic shock is cellulitis of the left lower extremity with bacteremia. Weaned off Levophed 10/18. Central line removed. Abx narrowed to Rocephin monotherapy 10/21. Continue IV abx. ID consult (2) Cellulitis: Code(s): L03.90 - Cellulitis, unspecified Status: Acute Assessment and Plan: No signs of necrotizing fasciitis on CT scan of the lower extremities Continue antibiotics as above (3) DM2 (diabetes mellitus, type 2): Code(s): E11.9 - Type 2 diabetes mellitus without complications Status: Acute Assessment and Plan: Patient has history of diabetes and was found to be hypoglycemic when EMS arrived A1c 6.0%. The patient's blood glucose was reviewed on 10/22 Glucose better controlled. Continue AccuCheks covering with sliding scale. Hypoglycemia protocol available as needed. Continue to follow (4) Chronic kidney disease: Code(s): N18.9 - Chronic kidney disease, unspecified Status: Acute Assessment and Plan: Patient has a history of CKD with baseline Cr 2.4 - 2.9 Creatinine of 1.97 on admission He received 1 L IV fluid bolus in the ER, given additional 500 mL IV LR bolus in the ICU proBNP [place] [id number] He remained on maintenance IV fluid and Cr improved to 1.16 Adequaely fluid resuscitated and IV fluids stopped. Lasix resumed (10/19). Cr has climbed to 1.65 as he returns to euvolemic state Continue to monitor urine output, electrolytes, renal function (5) Elevated troponin: Code(s): R79.89 - Other specified abnormal findings of blood chemistry Status: Acute Assessment and Plan: Elevated Troponins to 0.238 EKG showing AFib with anterolateral NH of indeterminate age. No old EKGs to compare Echo with EF 30-35%, diastolic dysfxn, severely enlarged RV with reduced fxn, mild MR, mod-severe TR and severe pulm HTN Elevated Trop could be related to type 2 infarct due to septic shock Patient denies any chest pain Cardiology consulted and appreciate their evaluation and recommendation (6) Congestive heart failure: Code(s): I50.9 - Heart failure, unspecified Status: Acute Assessment [place] Plan: [place] [address]. Echo as above. Hx of chronic s/d CHF and Cor Pulmonale. Home medications: Lasix, lisinopril, metoprolol, spironolactone (held due to septic shock) Lasix resumed. Lisinopril changed to Entresto. Cardiology following. Add back low dose Metoprolol XL (7) Discoloration of skin of foot: Code(s): L81.9 - Disorder of pigmentation, unspecified Status: Acute Assessment and Plan: Discoloration of feet bilaterally which are cold. Pulses are intact LE ARNALDO showed mild arterial occlusive disease of the right lower limb, no significant arterial occlusive disease in the left leg Follow (8) Atrial fibrillation: Code(s): I48.91 - Unspecified atrial fibrillation Status: Acute Assessment and Plan: History of atrial fibrillation. EKG showing AFib Rate controlled Continue apixaban and amiodarone. Low dose metoprolol XL to be added back (9) Chronic back pain: Code(s): M54.9 - Dorsalgia, unspecified; G89.29 - Other chronic pain Status: Acute Assessment and Plan: Continue gabapentin. Increase activity PT/OT (10) SAROJ (obstructive sleep apnea): Code(s): G47.33 - Obstructive sleep apnea (adult) (pediatric) Status: Acute Assessment and Plan: Patient has a hx of SAROJ. Not on O2 or CPAP/BiPAP at home. He is intolerant to CPAP/BiPAP. Echo as above. Patient with Cor Pulmonale. ABG on admission: 7.32/38/137 on 6L Feeling better and refusing CPAP/BiPAP now. Okay to remove BiPAP from room. Apnea link to evaluate for nocturnal hypoxia showing only 11 min with SpO2<88% Follow. pt on oxygen since 10/17, on room air on 10/23
--- NOTE | 2025-10-23 15:32 | PM.IMPN ---
Progress Note: A&P Assessment and Plan (1) Septic shock: Code(s): A41.9 - Sepsis, unspecified organism; R65.21 - Severe sepsis with septic shock Status: Acute Assessment and Plan: Patient presented with generalized weakness and was found to be hypoglycemic and hypotensive. He was given 1 L IV fluid bolus in the ER and a femoral central line was inserted. Levophed started. CXR was clear. CT LLE showing extensive edematous/infiltrative changes in the subcutaneous soft tissues throughout the field of view of the left lower extremity with no clearly defined abscess or gross evidence of necrotizing fasciitis, or osteomyelitis. UCx negative. MRSA nasal PCR negative. BCx (10/16) positive for Group G Strept in both sets. BCx (10/18) NGTD Started on cefepime and vancomycin (10/17 - 10/20). Rocephin started 10/21 Source of septic shock is cellulitis of the left lower extremity with bacteremia. Weaned off Levophed 10/18. Central line removed. Abx narrowed to Rocephin monotherapy 10/21. Continue IV abx. ID consulted and apprecaite their input (2) Cellulitis: Code(s): L03.90 - Cellulitis, unspecified Status: Acute Assessment and Plan: No signs of necrotizing fasciitis on CT scan of the lower extremities Continue antibiotics as above (3) DM2 (diabetes mellitus, type 2): Code(s): E11.9 - Type 2 diabetes mellitus without complications Status: Acute Assessment and Plan: Patient has history of diabetes and was found to be hypoglycemic when EMS arrived A1c 6.0%. The patient's blood glucose was reviewed on 10/23 Glucose higher overnight. Continue AccuCheks covering with sliding scale. Hypoglycemia protocol available as needed. Advance Lantus. Continue to follow (4) Chronic kidney disease: Code(s): N18.9 - Chronic kidney disease, unspecified Status: Acute Assessment and Plan: Patient has a history of CKD with baseline Cr 2.4 - 2.9 Creatinine of 1.97 on admission He received 1 L IV fluid bolus in the ER, given additional 500 mL IV LR [place]us in the [place] [id number] He remained on maintenance IV fluid and Cr improved to 1.16 Adequaely fluid resuscitated and IV fluids stopped. Lasix resumed (11/20). Cr has climbed to 1.5-1.6 range as he returns to euvolemic state Continue to monitor urine output, electrolytes, renal function (5) Elevated troponin: Code(s): R79.89 - Other specified abnormal findings of blood chemistry Status: Acute Assessment and Plan: Elevated Troponins to 0.238 EKG showing AFib with anterolateral TN of indeterminate age. No old EKGs to compare Echo with EF 30-35%, diastolic dysfxn, severely enlarged RV with reduced fxn, mild MR, mod-severe TR and severe pulm HTN Elevated Trop could be related to type 2 infarct due to septic shock Patient denies any chest pain Cardiology consulted and appreciate their evaluation and recommendation (6) Congestive heart failure: Code(s): I50.9 - Heart failure, unspecified Status: Acute Assessment [place] Plan: [place] [address]. Echo as above. Hx of chronic s/d CHF and Cor Pulmonale. Home medications: Lasix, lisinopril, metoprolol, spironolactone (held due to septic shock) Lasix resumed. Lisinopril changed to Entresto. Low dose Metoprolol XL added back Cardiology following. (7) Discoloration of skin of foot: Code(s): L81.9 - Disorder of pigmentation, unspecified Status: Acute Assessment and Plan: Discoloration of feet bilaterally which are cold. Pulses are intact LE ARNALDO showed mild arterial occlusive disease of the right lower limb, no significant arterial occlusive disease in the left leg Follow (8) Atrial fibrillation: Code(s): I48.91 - Unspecified atrial fibrillation Status: Acute Assessment and Plan: History of atrial fibrillation. EKG showing AFib Rate controlled Check TSH Continue apixaban and amiodarone. Low dose metoprolol XL added back (9) Chronic back pain: Code(s): M54.9 - Dorsalgia, unspecified; G89.29 - Other chronic pain Status: Acute Assessment and Plan: Continue gabapentin. Increase activity PT/OT (10) SAROJ (obstructive sleep apnea): Code(s): G47.33 - Obstructive sleep apnea (adult) (pediatric) Status: Acute Assessment and Plan: Patient has a hx of SAROJ. Not on O2 or CPAP/BiPAP at home. He is intolerant to CPAP/BiPAP. Echo as above. Patient with Cor Pulmonale. ABG on admission: 7.32/38/137 on 6L Feeling better and refusing CPAP/BiPAP now. Apnea link to evaluate for nocturnal hypoxia showing only 11 min with SpO2<88% Follow. (11) UTI (urinary tract infection): Code(s): N39.0 - Urinary tract infection, site not specified Status: Acute Assessment and Plan: CT scan of the abdomen and pelvis reflective of possible cystitis, UCx negative UTI ruled out Plan DVT prophylaxis: Apixaban Code Status: Full code Subjective Date/time seen: 10/23/25 15:32 Interval history: 75yo male with DM, CKD, COPD, CHF and AFib here for falls. Placed on 3L last night but easily weaned off this morning. No CP or SOB. No pleuritic chest pain. No n/v. His left leg pain better overall. Eating okay. Voiding normally. Exam Narrative: AF 96.4 117/94 71 20 94% ra Gen - NARD Chest -clear to auscultation bilaterally. Normal respiratory rate. CV - RRR S1/S2. Abd - soft, obese, NT Ext - 1-2+ pitting left pedal edema Pscyh - pleasant and cooperative Skin - multiple dried excoriations RLE. LLE erythema more dull today except medial lower thigh. RLE chronic venous stasis skin changes. Left lower extremity yellowish scale that is resolving Objective Data Vital Signs Vital Signs: Vital Signs - 24 hr 10/22/25 15:46 10/22/25 20:06 10/22/25 20:06 Temperature 97.0 F L Pulse Rate 80 86 86 Respiratory Rate 14 18 18 Blood Pressure 120/70 Pulse Oximetry 94 94 Oxygen Delivery Room Air Oxygen Flow Rate Fraction of Inspired Oxygen 21 10/22/25 20:13 10/22/25 21:45 10/22/25 22:00 Temperature 98.6 F Pulse Rate 88 95 Respiratory Rate 18 20 Blood Pressure 101/78 Pulse Oximetry 97 97 Oxygen Delivery Nasal Cannula Oxygen Flow Rate 3 Fraction of Inspired Oxygen 10/23/25 05:41 10/23/25 07:45 10/23/25 07:45 Temperature 97.4 F L Pulse Rate 78 72 72 Respiratory Rate 16 20 20 Blood Pressure 100/72 Pulse Oximetry 100 100 Oxygen Delivery Nasal Cannula Oxygen Flow Rate 4 Fraction of Inspired Oxygen 10/23/25 07:56 10/23/25 08:00 10/23/25 08:25 Temperature 96.4 F L Pulse Rate 78 74 75 Respiratory Rate 20 22 H 20 Blood Pressure 117/94 H Pulse Oximetry 100 85 L Oxygen Delivery Room Air Oxygen Flow Rate Fraction of Inspired Oxygen 10/23/25 09:00 10/23/25 09:00 10/23/25 09:01 Temperature Pulse Rate 77 77 Respiratory Rate Blood Pressure Pulse Oximetry 99 Oxygen Delivery Room Air Oxygen Flow Rate Fraction of Inspired Oxygen 10/23/25 14:04 10/23/25 14:04 10/23/25 14:17 Temperature Pulse Rate 76 75 71 Respiratory Rate 20 20 20 Blood Pressure Pulse Oximetry 94 Oxygen Delivery Room Air Oxygen Flow Rate Fraction of Inspired Oxygen Intake/Output Intake/Output: Intake & Output 10/20/25 10/21/25 10/22/25 10/23/25 23:59 23:59 23:59 23:59 Intake Total 1758.0 1070 1370 1354 Output Total 2725 Balance -967.0 1070 1370 1354 Meds/Results Medications: Active Medications Generic Name Dose Route Start Last Admin Trade Name Freq PRN Reason Stop Dose Admin Acetaminophen 650 mg 10/17/25 04:38 10/22/25 21:40 Acetaminophen 325 Mg Tablet PO 650 mg Q4H PRN Administration Mild Pain (1-3) or Fever Albuterol/Ipratropium 3 ml 10/20/25 20:00 10/23/25 14:03 Ipratropium 0.5 Mg/Albuterol Sulfate 2.5 Mg (Base) Ampul.Neb 3 Ml INHALATION 3 ml [id number] SANDRA Administration Allopurinol 200 mg 10/21/25 09:00 10/23/25 09:00 Allopurinol 100 Mg Tablet PO 200 mg DAILY SANDRA Administration Amiodarone HCl 200 mg 10/18/25 13:00 10/23/25 09:00 Amiodarone Hcl 200 Mg Tablet PO 200 mg DAILY SANDRA Administration Apixaban 5 mg 10/17/25 09:00 10/23/25 09:02 Apixaban 5 Mg Tablet PO 5 mg Q12HR SANDRA Administration Calcitriol 0.25 mcg 10/17/25 09:00 10/23/25 09:02 Calcitriol 0.25 Mcg Capsule PO 0.25 mcg DAILY SANDRA Administration Dextrose 12.5 gm 11/20/25 21:17 Dextrose 50% 25 Gm/50 Ml Syringe IV PUSH PRN PRN Hypoglycemia Protocol Folic Acid 1 mg 10/21/25 09:00 10/23/25 09:00 Folic Acid 1 Mg Tablet PO 1 mg DAILY SANDRA Administration Furosemide 80 mg 10/19/25 17:00 10/23/25 09:02 Furosemide 80 Mg Tablet PO 80 mg BID SANDRA Administration Gabapentin 300 mg 10/17/25 09:00 10/23/25 12:23 Gabapentin 300 Mg Capsule PO 300 mg TID SANDRA Administration Glucagon 1 mg 10/19/25 21:17 Glucagon For Inj 1 Mg Vial IM PRN PRN Hypoglycemia Protocol Glucose 15 gm 10/19/25 21:17 Glucose Oral Gel 15 Gm Of Glucse In 37.5 Gm Tube PO PRN PRN Hypoglycemia Protocol Dextrose 1,000 mls @ 100 mls/hr 10/19/25 21:17 Dextrose 5% 1,000 Ml IVPB PRN PRN Hypoglycemia Protocol Ceftriaxone Sodium 2 gm/ 100 mls @ 200 mls/hr 10/21/25 09:00 10/23/25 08:57 Sodium Chloride IVPB 200 mls/hr Q24H SANDRA Administration Insulin Aspart 3 - 6 units 10/20/25 08:00 10/23/25 12:24 Insulin Aspart (*Bkc) 100 Units/Ml SUB-Q Not Given TIDWM [facility] Protocol Insulin Aspart 5 units 10/21/25 08:00 10/23/25 12:23 Insulin Aspart (*Bkc) 100 Units/Ml SUB-Q 5 units TIDWM SANDRA Administration Insulin Glargine 18 units 10/23/25 21:00 Insulin Glargine (*Bkc) 100 Units/Ml SUB-Q HS [facility] Levothyroxine Sodium 100 mcg 10/17/25 06:30 10/23/25 05:47 Levothyroxine Sodium 100 Mcg Tablet PO 100 mcg DAILY@0630 SANDRA Administration Metoprolol Succinate 12.5 mg 10/22/25 13:40 10/23/25 09:01 Metoprolol Succinate Ext Rel 12.5 Mg Tabcr PO 12.5 mg DAILY SANDRA Administration Multi-Ingred Cream/Lotion/Oil/Oint 1 applic 10/20/25 09:00 10/23/25 09:04 Eucerin Cream 120 Gm Jar TOPICAL 1 applic DAILY SANDRA Administration Ondansetron HCl 4 mg 10/17/25 04:38 10/21/25 22:43 Ondansetron Inj 4 Mg/2 Ml Vial IV PUSH 4 mg Q4H PRN Administration Nausea Pantoprazole Sodium 40 mg 10/22/25 21:00 10/23/25 09:00 Pantoprazole 40 Mg Tablet PO 40 mg Q12HR SANDRA Administration Sacubitril/Valsartan 1 tab 10/19/25 21:00 10/23/25 09:00 Sacubitril/Valsartan 24-26 Mg Tablet PO 1 tab Q12HR SANDRA Administration Radiology Results: ITS Impressions Chest X-Ray 10/17/25 07:59 IMPRESSION: 1. Portable chest x-ray with no focal acute process; heart shadow is borderline enlarged and mild vascular congestion may be present. Chest/Abdomen/Pelvis CT 10/17/25 08:08 IMPRESSION: Directed noncontrast exam demonstratin. No gross acute intrathoracic process. Borderline cardiomegaly and coronary artery calcifications. 2. Cholelithiasis with no gross CT evidence of acute cholecystitis. Possible mild urinary bladder wall thickening which could be associated with developing cystitis or UTI. NOTE: Preliminary radiologist report provided by [facility] radiologist/physician. Lower Extremity CT 10/17/25 09:31 IMPRESSION: 1. Extensive edematous/infiltrative changes in the subcutaneous soft tissues throughout the field of view of the left lower extremity with no clearly defined abscess or gross evidence of necrotizing fasciitis, or osteomyelitis. If osteomyelitis is a clinical concern, correlation with MRI suggested; if there concern for abscess, repeat examination with CT or MRI with contrast suggested. 2. Other findings as above. Venous Doppler Study 10/17/25 12:32 IMPRESSION: 1. No deep venous thrombosis in either lower limb. Ankle Brachial Index 10/18/25 08:55 IMPRESSION: 1. Mild arterial occlusive disease to the right lower limb with minimally decreased right TBI. 2. No significant arterial occlusive disease in the left lower limb with normal left TBI. Labs Labs: Laboratory Results - last 24 hr 10/22/25 10/22/25 10/23/25 16:43 20:51 05:33 WBC 7.4 RBC 3.67 L Hgb 11.1 L Hct 35.5 L MCV 96.7 MCH 30.2 MCHC 31.3 L RDW 14.9 H Plt Count 222 MPV 10.4 Sodium 137 Potassium 3.8 Chloride 100 Carbon Dioxide 29 Anion Gap 8 BUN 39 H Creatinine 1.49 H Estim Creat Clear Calc 50 Estimated GFR 46 L Glucose 237 H POC Capillary Glucose 148 H 242 H Calcium 8.4 Phosphorus 5.6 H Magnesium 1.8 Albumin 3.0 L 10/23/25 10/23/25 07:13 11:19 WBC RBC Hgb Hct MCV MCH MCHC RDW Plt Count MPV Sodium Potassium Chloride Carbon Dioxide Anion Gap BUN Creatinine Estim Creat Clear Calc Estimated GFR Glucose POC Capillary Glucose 236 H 197 H Calcium Phosphorus Magnesium Albumin
[2025-10-23] MEDS: LINEZOLID 600 MG/300 ML 600 MG/300 ML SOLN 300 MG IVPB (20:40)
[2025-10-24] MEDS: LEVOTHYROXINE SODIUM 100 MCG TABLET PO (05:39)
[2025-10-24 06:20] VITALS: BP 108/60; PULSE 80; RESP 18; TEMP 36.9; O2SAT 98
[2025-10-24 06:34] LABS: Anion Gap 6 mmol/L (4-12); Blood Urea Nitrogen 38 mg/dL (9-20); Calcium 8.3 mg/dL (8.4-10.2); Carbon Dioxide 31 mmol/L (22-30); Chloride 98 mmol/L (98-107); Estimated CRCL calculation 54 ml/min; Estimated Glomerular Filt Rate 50; Glucose 249 mg/dL (65-110); Potassium 3.6 mmol/L (3.4-5.0); Sodium 135 mmol/L (137-145)
[2025-10-24 07:06] LABS: Thyroid Stimulating Hormone Reflex 5.370 uIU/mL (0.465-4.68)
[2025-10-24 08:19] VITALS: PULSE 88
[2025-10-24] MEDS: PANTOPRAZOLE 40 MG TABLET PO ×2 (08:19→20:58)
[2025-10-24] MEDS: SACUBITRIL/VALSARTAN 24-26 MG TABLET 1 TAB PO ×2 (08:19→20:57)
[2025-10-24] MEDS: GABAPENTIN 300 MG CAPSULE PO ×3 (08:19→16:56)
[2025-10-24] MEDS: FUROSEMIDE 80 MG TABLET PO ×2 (08:19→16:56)
[2025-10-24] MEDS: METOPROLOL SUCCINATE EXT REL 12.5 MG TABCR PO (08:19)
[2025-10-24] MEDS: AMIODARONE HCL 200 MG TABLET PO (08:19)
[2025-10-24] MEDS: APIXABAN 5 MG TABLET PO ×2 (08:20→20:58)
[2025-10-24] MEDS: LINEZOLID 600 MG/300 ML 600 MG/300 ML SOLN 300 MG IVPB ×2 (08:22→21:12)
[2025-10-24] MEDS: EUCERIN CREAM 120 GM JAR 1 APPLIC TOPICAL (08:24)
[2025-10-24] MEDS: FOLIC ACID 1 MG TABLET PO (08:27)
[2025-10-24] MEDS: INSULIN ASPART (*BKC) 100 UNITS/ML SUB-Q ×4 (08:52→17:27)
--- NOTE | 2025-10-24 08:52 | PCOTNOTE ---
Patient reports he just got breakfast tray and wants to eat first. Will continue to follow plan of care.
--- NOTE | 2025-10-24 09:43 | WPDINFPN2 ---
Progress Note: A&P Assessment and Plan (1) Cellulitis: Code(s): L03.90 - Cellulitis, unspecified Status: Acute (2) Chronic kidney disease: Code(s): N18.9 - Chronic kidney disease, unspecified Status: Acute (3) DM2 (diabetes mellitus, type 2): Code(s): E11.9 - Type 2 diabetes mellitus without complications Status: Acute Plan ASSESSMENT: 1. group G strep bacteremia 2nd LLE cellulitis; Repeat blood cxs 10/18 NGTD 2. heart failure 3. Afib on amiodarone-->avoid quinolone abx due to interaction 4. DM 5. CKD 6, COPD RECOMMENDATIONS: -linezolid (day2)--total abx day 8 d/w nursing staff Pt was seen via video telehealth consultation with the assistance of staff. Chart, data and patient info reviewed. Patient was located at [facility] while I was in my [place] office. Pt gave consent. Subjective Date/time seen: 10/24/25 09:43 Interval history: no fevers no leukocytosis no chills feels better Exam Narrative: LLE with edema, blistering. A little less red peripheral IV ok Objective Data Vital Signs Vital Signs: Vital Signs - 24 hr 10/23/25 14:04 10/23/25 14:04 10/23/25 14:17 Temperature Pulse Rate 76 75 71 Respiratory Rate 20 20 20 Blood Pressure Pulse Oximetry 94 Oxygen Delivery Room Air Oxygen Flow Rate 10/23/25 15:55 10/23/25 16:00 10/23/25 20:00 Temperature 97.6 F Pulse Rate 79 Respiratory Rate 20 Blood Pressure 107/55 L Pulse Oximetry 88 L 100 100 Oxygen Delivery Nasal Cannula Oxygen Flow Rate 2 10/23/25 22:08 10/24/25 06:20 10/24/25 08:19 Temperature 97.2 F L 98.5 F Pulse Rate 67 80 88 Respiratory Rate 18 18 Blood Pressure 112/58 L 108/60 Pulse Oximetry 100 98 Oxygen Delivery Oxygen Flow Rate 10/24/25 08:19 Temperature Pulse Rate 88 Respiratory Rate Blood Pressure Pulse Oximetry Oxygen Delivery Oxygen Flow Rate Intake/Output Intake/Output: Intake & Output 10/21/25 10/22/25 10/23/25 10/24/25 23:59 23:59 23:59 23:59 Intake Total 1070 1370 2304 750 Balance 1070 1370 2304 750 Meds/Results Medications: Active Medications Generic Name Dose Route Start Last Admin Trade Name Sonu PRN Reason Stop Dose Admin Acetaminophen 650 mg 10/17/25 04:38 10/22/25 21:40 Acetaminophen 325 Mg Tablet PO 650 mg Q4H PRN Administration Mild Pain (1-3) or Fever Albuterol/Ipratropium 3 ml 10/23/25 15:45 Ipratropium 0.5 Mg/Albuterol Sulfate 2.5 Mg (Base) Ampul.Neb 3 Ml INHALATION Q6HRT PRN Shortness Of Breath Or Wheezing Allopurinol 200 mg 10/21/25 09:00 10/24/25 08:20 Allopurinol 100 Mg Tablet PO 200 mg DAILY SANDRA Administration Amiodarone HCl 200 mg 10/18/25 13:00 10/24/25 08:19 Amiodarone Hcl 200 Mg Tablet PO 200 mg DAILY SANDRA Administration Apixaban 5 mg 10/17/25 09:00 10/24/25 08:20 Apixaban 5 Mg Tablet PO 5 mg Q12HR SANDRA Administration Calcitriol 0.25 mcg 10/17/25 09:00 10/24/25 08:21 Calcitriol 0.25 Mcg Capsule PO 0.25 mcg DAILY SANDRA Administration Dextrose 12.5 gm 10/19/25 21:17 Dextrose 50% 25 Gm/50 Ml Syringe IV PUSH PRN PRN Hypoglycemia Protocol Docosanol 1 applic 10/23/25 18:00 10/24/25 08:24 Docosanol 10% Cream 2 Gm TOPICAL 1 applic 5 TIMES DAILY SANDRA Administration Folic Acid 1 mg 10/21/25 09:00 10/24/25 08:27 Folic Acid 1 Mg Tablet PO 1 mg DAILY SANDRA Administration Furosemide 80 mg 10/19/25 17:00 10/24/25 08:19 Furosemide 80 Mg Tablet PO 80 mg BID SANDRA Administration Gabapentin 300 mg 10/17/25 09:00 10/24/25 08:19 Gabapentin 300 Mg Capsule PO 300 mg TID SANDRA Administration Glucagon 1 mg 10/19/25 21:17 Glucagon For Inj 1 Mg Vial IM PRN PRN Hypoglycemia Protocol Glucose 15 gm 10/19/25 21:17 Glucose Oral Gel 15 Gm Of Glucse In 37.5 Gm Tube PO PRN PRN Hypoglycemia Protocol Dextrose 1,000 mls @ 100 mls/hr 10/19/25 21:17 Dextrose 5% 1,000 Ml IVPB PRN PRN Hypoglycemia Protocol Linezolid 600 mg in 300 mls @ 300 mls/hr 10/23/25 21:00 10/24/25 08:22 Zyvox IVPB 300 mls/hr Q12HR SANDRA Administration Insulin Aspart 3 - 6 units 10/20/25 08:00 10/24/25 08:52 Insulin Aspart (*Bkc) 100 Units/Ml SUB-Q 3 units TIDWM SANDRA Administration Protocol Insulin Aspart 5 units 10/21/25 08:00 10/24/25 08:52 Insulin Aspart (*Bkc) 100 Units/Ml SUB-Q 5 units TIDWM SANDRA Administration Insulin Glargine 22 units 10/24/25 21:00 Insulin Glargine (*Bkc) 100 Units/Ml SUB-Q HS SANDRA Levothyroxine Sodium 100 mcg 10/17/25 06:30 10/24/25 05:39 Levothyroxine Sodium 100 Mcg Tablet PO 100 mcg DAILY@0630 SANDRA Administration Metoprolol Succinate 12.5 mg 10/22/25 13:40 10/24/25 08:19 Metoprolol Succinate Ext Rel 12.5 Mg Tabcr PO 12.5 mg DAILY SANDRA Administration Multi-Ingred Cream/Lotion/Oil/Oint 1 applic 10/20/25 09:00 10/24/25 08:24 Eucerin Cream 120 Gm Jar TOPICAL 1 applic DAILY SANDRA Administration Ondansetron HCl 4 mg 10/17/25 04:38 10/21/25 22:43 Ondansetron Inj 4 Mg/2 Ml Vial IV PUSH 4 mg Q4H PRN Administration Nausea Pantoprazole Sodium 40 mg 10/22/25 21:00 10/24/25 08:19 Pantoprazole 40 Mg Tablet PO 40 mg Q12HR SANDRA Administration Sacubitril/Valsartan 1 tab 10/19/25 21:00 10/24/25 08:19 Sacubitril/Valsartan 24-26 Mg Tablet PO 1 tab Q12HR SANDRA Administration Radiology Results: ITS Impressions Chest X-Ray 10/17/25 07:59 IMPRESSION: 1. Portable chest x-ray with no focal acute process; heart shadow is borderline enlarged and mild vascular congestion may be present. Chest/Abdomen/Pelvis CT 10/17/25 08:08 IMPRESSION: Directed noncontrast exam demonstratin. No gross acute intrathoracic process. Borderline cardiomegaly and coronary artery calcifications. 2. Cholelithiasis with no gross CT evidence of acute cholecystitis. Possible mild urinary bladder wall thickening which could be associated with developing cystitis or UTI. NOTE: Preliminary radiologist report provided by [facility] radiologist/physician. Lower Extremity CT 10/17/25 09:31 IMPRESSION: 1. Extensive edematous/infiltrative changes in the subcutaneous soft tissues throughout the field of view of the left lower extremity with no clearly defined abscess or gross evidence of necrotizing fasciitis, or osteomyelitis. If osteomyelitis is a clinical concern, correlation with MRI suggested; if there concern for abscess, repeat examination with CT or MRI with contrast suggested. 2. Other findings as above. Venous Doppler Study 10/17/25 12:32 IMPRESSION: 1. No deep venous thrombosis in either lower limb. Ankle Brachial Index 10/18/25 08:55 IMPRESSION: 1. Mild arterial occlusive disease to the right lower limb with minimally decreased right TBI. 2. No significant arterial occlusive disease in the left lower limb with normal left TBI. Labs Labs: Laboratory Results - last 24 hr 10/23/25 10/23/25 10/23/25 11:19 16:21 19:57 Sodium Potassium Chloride Carbon Dioxide Anion Gap BUN Creatinine Estim Creat Clear Calc Estimated GFR Glucose POC Capillary Glucose 197 H 170 H 148 H Calcium TSH (Reflex) 10/24/25 10/24/25 06:06 08:45 Sodium 135 L Potassium 3.6 Chloride 98 Carbon Dioxide 31 H Anion Gap 6 BUN 38 H Creatinine 1.40 H Estim Creat Clear Calc 54 Estimated GFR 50 L Glucose 249 H POC Capillary Glucose 237 H Calcium 8.3 L TSH (Reflex) 5.370 H
[2025-10-24 09:56] LABS: Free T4 Free Thyroxine Reflex 0.90 ng/dL (0.78-2.19)
[2025-10-24 10:41] LABS: Total Triiodothyronine (T3) 0.68 NG/ML (0.82-1.58)
--- NOTE | 2025-10-24 11:34 | P.PNIM_ITS ---
Progress Note: A&P Assessment and Plan (1) Septic shock: Code(s): A41.9 - Sepsis, unspecified organism; R65.21 - Severe sepsis with septic shock Status: Acute Assessment and Plan: Patient presented with generalized weakness and was found to be hypoglycemic and hypotensive. He was given 1 L IV fluid bolus in the ER and a femoral central line was inserted. Levophed started. CXR was clear. CT LLE showing extensive edematous/infiltrative changes in the subcutaneous soft tissues throughout the field of view of the left lower extremity with no clearly defined abscess or gross evidence of necrotizing fasciitis, or osteomyelitis. UCx negative. MRSA nasal PCR negative. BCx (10/16) positive for Group G Strept in both sets. BCx (10/18) NGTD Started on cefepime and vancomycin (10/17 - 10/20). Rocephin 10/21-10/23. Linezolid started 10/23 Source of septic shock is cellulitis of the left lower extremity with bacteremia. Weaned off Levophed 10/18. Central line removed. Abx now on Linezolid monotherapy 10/24. Continue IV abx. ID consulted and appreciate their input (2) Cellulitis: Code(s): L03.90 - Cellulitis, unspecified Status: Acute Assessment and Plan: No signs of necrotizing fasciitis on CT scan of the lower extremities Exam is improving Continue antibiotics as above (3) DM2 (diabetes mellitus, type 2): Code(s): E11.9 - Type 2 diabetes mellitus without complications Status: Acute Assessment and Plan: Patient has history of diabetes and was found to be hypoglycemic when EMS arrive d A1c 6.0%. The patient's blood glucose was reviewed on 10/24 Glucose reasonably well controlled Continue AccuCheks covering with sliding scale. Hypoglycemia protocol available as needed. Advance Lantus again. Continue to follow (4) Chronic kidney disease: Code(s): N18.9 - Chronic kidney disease, unspecified Status: Acute Assessment and Plan: Patient has a history of CKD with baseline Cr 2.4 - 2.9 Creatinine of 1.97 on admission He received 1 L IV fluid bolus in the ER, given additional 500 mL IV LR bolus in the ICU [place] [address]113 He remained on maintenance IV fluid and Cr improved to 1.16 Adequaely fluid resuscitated and IV fluids stopped. Lasix resumed (10/19). Cr has climbed to 1.4-1.6 range as he returns to euvolemic state Continue to monitor urine output, electrolytes, renal function (5) Elevated troponin: Code(s): R79.89 - Other specified abnormal findings of blood chemistry Status: Acute Assessment and Plan: Elevated Troponins to 0.238 EKG showing AFib with anterolateral ID of indeterminate age. No old EKGs to compare Echo with EF 30-35%, diastolic dysfxn, severely enlarged RV with reduced fxn, mild MR, mod-severe TR and severe pulm HTN Elevated Trop could be related to type 2 infarct due to septic shock Patient denies any chest pain Cardiology consulted and appreciate their evaluation and recommendation (6) Congestive heart failure: Code(s): I50.9 - Heart failure, unspecified Status: Acute Assessment [place]: [place] [address]. Echo as above. Hx of chronic s/d CHF and Cor Pulmonale. Home medications: Lasix, lisinopril, metoprolol, spironolactone (held due to septic shock) Lasix resumed. Lisinopril changed to Entresto. Low dose Metoprolol XL added back Cardiology following. Add Empagliflozin. Consider resuming Spironolactone (7) Discoloration of skin of foot: Code(s): L81.9 - Disorder of pigmentation, unspecified Status: Acute Assessment and Plan: Discoloration of feet bilaterally which are cold. Pulses are intact LE ARNALDO showed mild arterial occlusive disease of the right lower limb, no significant arterial occlusive disease in the left leg Follow (8) Atrial fibrillation: Code(s): I48.91 - Unspecified atrial fibrillation Status: Acute Assessment and Plan: History of atrial fibrillation. EKG showing AFib Rate controlled TSH 5.4 with normal FT4. Continue apixaban and amiodarone. Low dose metoprolol XL added back (9) Chronic back pain: Code(s): M54.9 - Dorsalgia, unspecified; G89.29 - Other chronic pain Status: Acute Assessment and Plan: Continue gabapentin. Increase activity PT/OT (10) SAROJ (obstructive sleep apnea): Code(s): G47.33 - Obstructive sleep apnea (adult) (pediatric) Status: Acute Assessment and Plan: Patient has a hx of SAROJ. Not on O2 or CPAP/BiPAP at home. He is intolerant to CPAP/BiPAP. Echo as above. Patient with Cor Pulmonale. ABG on admission: 7.32/38/137 on 6L. Patient with hypoxemia without respiratory failure Apnea link to evaluate for nocturnal hypoxia showing only 11 min with SpO2<88% Feeling better and refusing CPAP/BiPAP now. Follow. (11) UTI (urinary tract infection): Code(s): N39.0 - Urinary tract infection, site not specified Status: Acute Assessment and Plan: CT scan of the abdomen and pelvis reflective of possible cystitis, UCx negative UTI ruled out Plan Morbid Obesity - BMI 53. Encourage healthy lifestyle choices. DVT prophylaxis: Apixaban Code Status: Full code Subjective Date/time seen: 10/24/25 11:34 Interval history: 75yo male with DM, CKD, COPD, CHF and AFib here for falls. Walking in room with walker. No CP or SOB. No MEZA. Exam Narrative: AF98.5 108/60 88 18 98% ra Gen - NARD Chest - clear posteriorly with a few faint end expiratory wheezes anteriorly. nml RR CV - RRR S1/S2. Abd - soft, obese, NT Ext - 1-2+ pitting left pedal edema Pscyh - pleasant and cooperative Skin - multiple dried excoriations RLE. LLE erythema dull red. Chronic venous st asis skin changes. Left lower extremity yellowish scale almost completely resolved Objective Data Vital Signs Vital Signs: Vital Signs - 24 hr 10/23/25 14:04 10/23/25 14:04 10/23/25 14:17 Temperature Pulse Rate 76 75 71 Respiratory Rate 20 20 20 Blood Pressure Pulse Oximetry 94 Oxygen Delivery Room Air Oxygen Flow Rate 10/23/25 15:55 10/23/25 16:00 10/23/25 20:00 Temperature 97.6 F Pulse Rate 79 Respiratory Rate 20 Blood Pressure 107/55 L Pulse Oximetry 88 L 100 100 Oxygen Delivery Nasal Cannula Oxygen Flow Rate 2 10/23/25 22:08 10/24/25 06:20 10/24/25 08:19 Temperature 97.2 F L 98.5 F Pulse Rate 67 80 88 Respiratory Rate 18 18 Blood Pressure 112/58 L 108/60 Pulse Oximetry 100 98 Oxygen Delivery Oxygen Flow Rate 10/24/25 08:19 10/24/25 09:15 Temperature Pulse Rate 88 Respiratory Rate Blood Pressure Pulse Oximetry Oxygen Delivery Room Air Oxygen Flow Rate Intake/Output Intake/Output: Intake & Output 10/21/25 10/22/25 10/23/25 10/24/25 23:59 23:59 23:59 23:59 Intake Total 1070 1370 2304 750 Balance 1070 1370 2304 750 Meds/Results Medications: Active Medications Generic Name Dose Route Start Last Admin Trade Name Freq PRN Reason Stop Dose Admin Acetaminophen 650 mg 10/17/25 04:38 10/22/25 21:40 Acetaminophen 325 Mg Tablet PO 650 mg Q4H PRN Administration Mild Pain (1-3) or Fever Albuterol/Ipratropium 3 ml 10/23/25 15:45 Ipratropium 0.5 Mg/Albuterol Sulfate 2.5 Mg (Base) Ampul.Neb 3 Ml INHALATION Q6HRT PRN Shortness Of Breath Or Wheezing Allopurinol 200 mg 10/21/25 09:00 10/24/25 08:20 Allopurinol 100 Mg Tablet PO 200 mg DAILY SANDRA Administration Amiodarone HCl 200 mg 10/18/25 13:00 10/24/25 08:19 Amiodarone Hcl 200 Mg Tablet PO 200 mg DAILY SANDRA Administration Apixaban 5 mg 10/17/25 09:00 10/24/25 08:20 Apixaban 5 Mg Tablet PO 5 mg Q12HR SANDRA Administration Calcitriol 0.25 mcg 10/17/25 09:00 10/24/25 08:21 Calcitriol 0.25 Mcg Capsule PO 0.25 mcg DAILY SANDRA Administration Dextrose 12.5 gm 10/19/25 21:17 Dextrose 50% 25 Gm/50 Ml Syringe IV PUSH PRN PRN Hypoglycemia Protocol Docosanol 1 applic 10/23/25 18:00 10/24/25 08:24 Docosanol 10% Cream 2 Gm TOPICAL 1 applic 5 TIMES DAILY SANDRA Administration Folic Acid 1 mg 10/21/25 09:00 10/24/25 08:27 Folic Acid 1 Mg Tablet PO 1 mg DAILY SANDRA Administration Furosemide 80 mg 10/19/25 17:00 10/24/25 08:19 Furosemide 80 Mg Tablet PO 80 mg BID SANDRA Administration Gabapentin 300 mg 10/17/25 09:00 10/24/25 08:19 Gabapentin 300 Mg Capsule PO 300 mg TID SANDRA Administration Glucagon 1 mg 10/19/25 21:17 Glucagon For Inj 1 Mg Vial IM PRN PRN Hypoglycemia Protocol Glucose 15 gm 10/19/25 21:17 Glucose Oral Gel 15 Gm Of Glucse In 37.5 Gm Tube PO PRN PRN Hypoglycemia Protocol Dextrose 1,000 mls @ 100 mls/hr 10/19/25 21:17 Dextrose 5% 1,000 Ml IVPB PRN PRN Hypoglycemia Protocol Linezolid 600 mg in 300 mls @ 300 mls/hr 10/23/25 21:00 10/24/25 08:22 Zyvox IVPB 300 mls/hr Q12HR SANDRA Administration Insulin Aspart 3 - 6 units 10/20/25 08:00 10/24/25 08:52 Insulin Aspart (*Bkc) 100 Units/Ml SUB-Q 3 units TIDWM SANDRA Administration Protocol Insulin Aspart 5 units 10/21/25 08:00 10/24/25 08:52 Insulin Aspart (*Bkc) 100 Units/Ml SUB-Q 5 units TIDWM SANDRA Administration Insulin Glargine 22 units 10/24/25 21:00 Insulin Glargine (*Bkc) 100 Units/Ml SUB-Q HS SANDRA Levothyroxine Sodium 100 mcg 10/17/25 06:30 10/24/25 05:39 Levothyroxine Sodium 100 Mcg Tablet PO 100 mcg DAILY@0630 SANDRA Administration Metoprolol Succinate 12.5 mg 10/22/25 13:40 10/24/25 08:19 Metoprolol Succinate Ext Rel 12.5 Mg Tabcr PO 12.5 mg DAILY SANDRA Administration Multi-Ingred Cream/Lotion/Oil/Oint 1 applic 10/20/25 09:00 10/24/25 08:24 Eucerin Cream 120 Gm Jar TOPICAL 1 applic DAILY SANDRA Administration Ondansetron HCl 4 mg 10/17/25 04:38 10/21/25 22:43 Ondansetron Inj 4 Mg/2 Ml Vial IV PUSH 4 mg Q4H PRN Administration Nausea Pantoprazole Sodium 40 mg 10/22/25 21:00 10/24/25 08:19 Pantoprazole 40 Mg Tablet PO 40 mg Q12HR SANDRA Administration Sacubitril/Valsartan 1 tab 10/19/25 21:00 10/24/25 08:19 Sacubitril/Valsartan 24-26 Mg Tablet PO 1 tab Q12HR SANDRA Administration Radiology Results: ITS Impressions Chest X-Ray 10/17/25 07:59 IMPRESSION: 1. Portable chest x-ray with no focal acute process; heart shadow is borderline enlarged and mild vascular congestion may be present. Chest/Abdomen/Pelvis CT 10/17/25 08:08 IMPRESSION: Directed noncontrast exam demonstratin. No gross acute intrathoracic process. Borderline cardiomegaly and coronary artery calcifications. 2. Cholelithiasis with no gross CT evidence of acute cholecystitis. Possible mil d urinary bladder wall thickening which could be associated with developing cystitis or UTI. NOTE: Preliminary radiologist report provided by [facility] radiologist/physician. Lower Extremity CT 10/17/25 09:31 IMPRESSION: 1. Extensive edematous/infiltrative changes in the subcutaneous soft tissues throughout the field of view of the left lower extremity with no clearly defined abscess or gross evidence of necrotizing fasciitis, or osteomyelitis. If osteomyelitis is a clinical concern, correlation with MRI suggested; if there concern for abscess, repeat examination with CT or MRI with contrast suggested. 2. Other findings as above. Venous Doppler Study 10/17/25 12:32 IMPRESSION: 1. No deep venous thrombosis in either lower limb. Ankle Brachial Index 10/18/25 08:55 IMPRESSION: 1. Mild arterial occlusive disease to the right lower limb with minimally decreased right TBI. 2. No significant arterial occlusive disease in the left lower limb with normal left TBI. Labs Labs: Laboratory Results - last 24 hr 10/23/25 10/23/25 10/23/25 11:19 16:21 19:57 Sodium Potassium Chloride Carbon Dioxide Anion Gap BUN Creatinine Estim Creat Clear Calc Estimated GFR Glucose POC Capillary Glucose 197 H 170 H 148 H Calcium TSH (Reflex) Free T4 Total T3 10/24/25 10/24/25 06:06 08:45 Sodium 135 L Potassium 3.6 Chloride 98 Carbon Dioxide 31 H Anion Gap 6 BUN 38 H Creatinine 1.40 H Estim Creat Clear Calc 54 Estimated GFR 50 L Glucose 249 H POC Capillary Glucose 237 H Calcium 8.3 L TSH (Reflex) 5.370 H Free T4 0.90 Total T3 0.68 L
[2025-10-24 16:00] VITALS: BP 93/59; PULSE 86; RESP 18; TEMP 36.2; O2SAT 93
[2025-10-24] MEDS: ACETAMINOPHEN 325 MG TABLET 650 MG PO (20:57)
[2025-10-24] MEDS: INSULIN GLARGINE (*BKC) 100 UNITS/ML 22 UNITS SUB-Q (21:10)
[2025-10-24 21:44] VITALS: BP 115/47; PULSE 88; RESP 16; TEMP 36.9
[2025-10-25 05:50] LABS: Anion Gap 3 mmol/L (4-12); Blood Urea Nitrogen 36 mg/dL (9-20); Calcium 8.1 mg/dL (8.4-10.2); Carbon Dioxide 31 mmol/L (22-30); Chloride 99 mmol/L (98-107); Estimated CRCL calculation 55 ml/min; Estimated Glomerular Filt Rate 52; Glucose 203 mg/dL (65-110); Potassium 3.6 mmol/L (3.4-5.0); Sodium 133 mmol/L (137-145)
[2025-10-25] MEDS: LEVOTHYROXINE SODIUM 100 MCG TABLET PO (06:21)
[2025-10-25 06:42] VITALS: BP 98/52; PULSE 50; RESP 12; TEMP 36.8; O2SAT 93
[2025-10-25 08:00] VITALS: BP 94/48; PULSE 71; RESP 18; TEMP 36.5; O2SAT 97
[2025-10-25] MEDS: SACUBITRIL/VALSARTAN 24-26 MG TABLET 1 TAB PO ×2 (09:00→20:33)
[2025-10-25] MEDS: METOPROLOL SUCCINATE EXT REL 12.5 MG TABCR PO (09:00)
[2025-10-25] MEDS: FOLIC ACID 1 MG TABLET PO (09:00)
[2025-10-25] MEDS: FUROSEMIDE 80 MG TABLET PO ×2 (09:00→17:23)
[2025-10-25] MEDS: GABAPENTIN 300 MG CAPSULE PO ×3 (09:00→17:23)
[2025-10-25] MEDS: EMPAGLIFLOZIN 10 MG TABLET PO (09:00)
[2025-10-25] MEDS: AMIODARONE HCL 200 MG TABLET PO (09:00)
[2025-10-25] MEDS: APIXABAN 5 MG TABLET PO ×2 (09:00→20:33)
[2025-10-25] MEDS: PANTOPRAZOLE 40 MG TABLET PO ×2 (09:00→20:33)
[2025-10-25] MEDS: LINEZOLID 600 MG/300 ML 600 MG/300 ML SOLN 300 MG IVPB ×2 (09:01→20:32)
[2025-10-25] MEDS: EUCERIN CREAM 120 GM JAR 1 APPLIC TOPICAL (09:01)
[2025-10-25] MEDS: INSULIN ASPART (*BKC) 100 UNITS/ML SUB-Q ×4 (09:01→17:23)
[2025-10-25] MEDS: ACETAMINOPHEN 325 MG TABLET 650 MG PO ×2 (11:45→20:32)
--- NOTE | 2025-10-25 14:05 | PM.IMPN ---
Progress Note: A&P Assessment and Plan (1) Septic shock: Code(s): A41.9 - Sepsis, unspecified organism; R65.21 - Severe sepsis with septic shock Status: Acute Assessment and Plan: Patient presented with generalized weakness and was found to be hypoglycemic and hypotensive. He was given 1 L IV fluid bolus in the ER and a femoral central line was inserted. Levophed started. CXR was clear. CT LLE showing extensive edematous/infiltrative changes in the subcutaneous soft tissues throughout the field of view of the left lower extremity with no clearly defined abscess or gross evidence of necrotizing fasciitis, or osteomyelitis. UCx negative. MRSA nasal PCR negative. BCx (10/16) positive for Group G Strept in both sets. BCx (10/18) NGTD Started on cefepime and vancomycin (10/17 - 10/20). Rocephin 10/21-10/23. Linezolid started 10/23 Source of septic shock is cellulitis of the left lower extremity with bacteremia. Weaned off Levophed 10/18. Central line removed. Abx now on Linezolid monotherapy 10/24. Continue IV abx. ID consulted and appreciate their input (2) Cellulitis: Code(s): L03.90 - Cellulitis, unspecified Status: Acute Assessment and Plan: No signs of necrotizing fasciitis on CT scan of the lower extremities Exam is improving Continue antibiotics as above (3) DM2 (diabetes mellitus, type 2): Code(s): E11.9 - Type 2 diabetes mellitus without complications Status: Acute Assessment and Plan: Patient has history of diabetes and was found to be hypoglycemic when EMS arrived A1c 6.0%. The patient's blood glucose was reviewed on 10/24 Glucose reasonably well controlled Continue AccuCheks covering with sliding scale. Hypoglycemia protocol available as needed. Advance Lantus again. Continue to follow (4) Chronic kidney disease: Code(s): N18.9 - Chronic kidney disease, unspecified Status: Acute Assessment and Plan: Patient has a history of CKD with baseline Cr 2.4 - 2.9 Creatinine of 1.97 on admission He received 1 L IV fluid bolus in the ER, given additional 500 mL IV LR bolus in the [place] [id number] He remained on maintenance IV fluid and Cr improved to 1.16 Adequaely fluid resuscitated and IV fluids stopped. Lasix resumed (10/19). Cr has climbed to 1.4-1.6 range as he returns to euvolemic state Continue to monitor urine output, electrolytes, renal function (5) Elevated troponin: Code(s): R79.89 - Other specified abnormal findings of blood chemistry Status: Acute Assessment and Plan: Elevated Troponins to 0.238 EKG showing AFib with anterolateral IN of indeterminate age. No old EKGs to compare Echo with EF 30-35%, diastolic dysfxn, severely enlarged RV with reduced fxn, mild MR, mod-severe TR and severe pulm HTN Elevated Trop could be related to type 2 infarct due to septic shock Patient denies any chest pain Cardiology consulted: Continue conservative management. Plan for outpatient ischemic workup. (6) Congestive heart failure: Code(s): I50.9 - Heart failure, unspecified Status: Acute Assessment [place]: [place] [address]. Echo as above. Hx of chronic s/d CHF and Cor Pulmonale. Home medications: Lasix, lisinopril, metoprolol, spironolactone (held due to septic shock) Lasix resumed. Lisinopril changed to Entresto. Low dose Metoprolol XL added back Cardiology following. Add Empagliflozin. Consider resuming Spironolactone (7) Discoloration of skin of foot: Code(s): L81.9 - Disorder of pigmentation, unspecified Status: Acute Assessment and Plan: Discoloration of feet bilaterally which are cold. Pulses are intact LE ANRALDO showed mild arterial occlusive disease of the right lower limb, no significant arterial occlusive disease in the left leg Follow (8) Atrial fibrillation: Code(s): I48.91 - Unspecified atrial fibrillation Status: Acute Assessment and Plan: History of atrial fibrillation. EKG showing AFib Rate controlled TSH 5.4 with normal FT4. Continue apixaban and amiodarone. Low dose metoprolol XL added back (9) Chronic back pain: Code(s): M54.9 - Dorsalgia, unspecified; G89.29 - Other chronic pain Status: Acute Assessment and Plan: Continue gabapentin. Increase activity PT/OT (10) SAROJ (obstructive sleep apnea): Code(s): G47.33 - Obstructive sleep apnea (adult) (pediatric) Status: Acute Assessment and Plan: Patient has a hx of SARJO. Not on O2 or CPAP/BiPAP at home. He is intolerant to CPAP/BiPAP. Echo as above. Patient with Cor Pulmonale. ABG on admission: 7.32/38/137 on 6L. Patient with hypoxemia without respiratory failure Apnea link to evaluate for nocturnal hypoxia showing only 11 min with SpO2<88% Feeling better and refusing CPAP/BiPAP now. Follow. (11) UTI (urinary tract infection): Code(s): N39.0 - Urinary tract infection, site not specified Status: Acute Assessment and Plan: CT scan of the abdomen and pelvis reflective of possible cystitis, UCx negative UTI ruled out Plan Morbid Obesity - BMI 53. Encourage healthy lifestyle choices. DVT prophylaxis: Apixaban Code Status: Full code Subjective Date/time seen: 10/25/25 14:05 Interval history: Patient was seen examined at bedside. Patient is feeling fine. Denies any chest pain, shortness off.N, vomiting. Lower extremity cellulitis improving. blood culture positive for Gram-positive strep. Id team on board. Continue with IV linezolid Review of Systems Review of Systems: The patient is a poor historian but is able to answer some questions. All systems reviewed & are unremarkable except as noted in HPI and below Constitutional: Constitutional: Reports as per HPI and Reports no additional constitutional complaints Eyes: Eyes: Reports as per HPI and Reports no additional eye complaints ENT: Reports system reviewed and no additional complaints, except as documented and Reports Normal hearing present Cardiovascular: Cardiovascular: Reports no additional cardiovascular complaints Respiratory: Respiratory: Reports as per HPI and Reports no additional respiratory complaints Gastrointestinal: Gastrointestinal: Reports as per HPI and Reports no additional gastrointestinal complaints Musculoskeletal: Musculoskeletal: Reports no additional musculoskeletal complaints Integumentary/Breasts: Skin/Breast: Reports system reviewed and no additional complaints, except as docu Neurologic: Reports system reviewed and no additional complaints, except as documented and Reports Normal hearing present Psychiatric: Psychiatric: Reports no additional psychiatric complaints and Reports as per HPI Hematologic/Lymphatic: Hematologic/Lymphatic: Reports no additional hematologic/lymphatic complaints Allergic/Immunologic: Allergic/Immunologic: Reports no additional allergic/immunologic complaints Exam Narrative: AF98.5 108/60 88 18 98% ra Gen - NARD Chest - clear posteriorly with a few faint end expiratory wheezes anteriorly. nml RR CV - RRR S1/S2. Abd - soft, obese, NT Ext - 1-2+ pitting left pedal edema Pscyh - pleasant and cooperative Skin - multiple dried excoriations RLE. LLE erythema dull red. Chronic venous stasis skin changes. Left lower extremity yellowish scale almost completely resolved Const: General: cooperative, healthy appearing, comfortable, no acute distress, well developed, awake, Physically active, average body habitus and well nourished Nutritional Appearance: average body habitus and well nourished Orientation/consciousness: oriented to person, oriented to place, oriented to time and patient oriented x3 Limitations: no limitations HENMT: Head: normal to inspection, No palpable skull fracture present, normocephalic, atraumatic and abrasion Ears: hearing grossly normal bilaterally Eyes: General: appearance normal, both eyes and all related structures Alignment and Position: alignment normal Periorbital: periorbital findings normal Eyelids: eyelids normal EOM: EOMs intact bilaterally Neck: Neck: normal visual inspection, full ROM, no lymphadenopathy, trachea midline and supple Thyroid: thyroid normal Carotids: normal carotid upstroke Lymphatic: no lymphadenopathy noted Chest: Chest palpation & inspection: normal inspection of the chest Resp: Effort & Inspection: normal respiratory effort Auscultation: clear to auscultation bilaterally Cardio: Palpation: normal PMI Rhythm: regular rhythm and abnormal rhythm irregularly irregular Heart sounds: S1 normal heart sound present and S2 normal heart sound present Peripheral pulses: Peripheral pulses 2+ throughout Other: EKG was read as AFib GI: Inspection: normal to inspection Auscultation: normal bowel sounds Rectal Exam: deferred Back/Spine/Pelvis: Pelvis: no pain with anterior-posterior compression Skin: General skin exam: normal color Lesions: no lesions Rashes: no rashes Trauma: no lacerations or abrasions Nails: normal Other: he has multiple scabbed areas to bilateral knees and lower extremities Neuro: General: oriented to person, oriented to place, oriented to time and patient oriented x3 Cranial nerves: Yes Normal hearing present Motor exam (neuro): 5/5 motor strength present throughout Sensory Exam: normal sensation Extrem: General: normal to inspection Right upper extremity: normal to inspection and shoulder/upper arm Left upper extremity: normal to inspection and shoulder/upper arm Right lower extremity: normal to inspection Left lower extremity: normal to inspection Psych: Appearance: grossly normal Speech and movement: Normal speech and movement present Affect: normal affect Attitude: cooperative Thought process: Normal thought process present Objective Data Vital Signs Vital Signs: Vital Signs - 24 hr 10/24/25 16:00 10/24/25 20:00 10/24/25 21:44 Temperature 97.2 F L 98.5 F Pulse Rate 86 88 Respiratory Rate 18 16 Blood Pressure 93/59 L 115/47 L Pulse Oximetry 93 Oxygen Delivery Room Air 10/25/25 06:42 10/25/25 08:00 10/25/25 08:00 Temperature 98.3 F 97.7 F Pulse Rate 50 L 71 Respiratory Rate 12 18 Blood Pressure 98/52 L 94/48 L Pulse Oximetry 93 97 Oxygen Delivery Room Air Intake/Output Intake/Output: Intake & Output 10/22/25 10/23/25 10/24/25 10/25/25 23:59 23:59 23:59 23:59 Intake Total 1370 2304 1790 588 Output Total 300 Balance 1370 2304 1490 588 Meds/Results Medications: Active Medications Generic Name Dose Route Start Last Admin Trade Name Freq PRN Reason Stop Dose Admin Acetaminophen 650 mg 10/17/25 04:38 10/25/25 11:45 Acetaminophen 325 Mg Tablet PO 650 mg Q4H PRN Administration Mild Pain (1-3) or Fever Albuterol/Ipratropium 3 ml 10/23/25 15:45 Ipratropium 0.5 Mg/Albuterol Sulfate 2.5 Mg (Base) Ampul.Neb 3 Ml INHALATION Q6HRT PRN Shortness Of Breath Or Wheezing Allopurinol 200 mg 10/21/25 09:00 10/25/25 09:00 Allopurinol 100 Mg Tablet PO 200 mg DAILY SANDRA Administration Amiodarone HCl 200 mg 10/18/25 13:00 10/25/25 09:00 Amiodarone Hcl 200 Mg Tablet PO 200 mg DAILY SANDRA Administration Apixaban 5 mg 10/17/25 09:00 10/25/25 09:00 Apixaban 5 Mg Tablet PO 5 mg Q12HR SANDRA Administration Calcitriol 0.25 mcg 10/17/25 09:00 10/25/25 09:00 Calcitriol 0.25 Mcg Capsule PO 0.25 mcg DAILY SANDRA Administration Dextrose 12.5 gm 10/19/25 21:17 Dextrose 50% 25 Gm/50 Ml Syringe IV PUSH PRN PRN Hypoglycemia Protocol Docosanol 1 applic 10/23/25 18:00 10/25/25 12:52 Docosanol 10% Cream 2 Gm TOPICAL 1 applic 5 TIMES DAILY SANDRA Administration Empagliflozin 10 mg 10/25/25 09:00 10/25/25 09:00 Empagliflozin 10 Mg Tablet PO 10 mg DAILY SANDRA Administration Folic Acid 1 mg 10/21/25 09:00 10/25/25 09:00 Folic Acid 1 Mg Tablet PO 1 mg DAILY SANDRA Administration Furosemide 80 mg 10/19/25 17:00 10/25/25 09:00 Furosemide 80 Mg Tablet PO 80 mg BID SANDRA Administration Gabapentin 300 mg 10/17/25 09:00 10/25/25 12:51 Gabapentin 300 Mg Capsule PO 300 mg TID SANDRA Administration Glucagon 1 mg 10/19/25 21:17 Glucagon For Inj 1 Mg Vial IM PRN PRN Hypoglycemia Protocol Glucose 15 gm 10/19/25 21:17 Glucose Oral Gel 15 Gm Of Glucse In 37.5 Gm Tube PO PRN PRN Hypoglycemia Protocol Dextrose 1,000 mls @ 100 mls/hr 10/19/25 21:17 Dextrose 5% 1,000 Ml IVPB PRN PRN Hypoglycemia Protocol Linezolid 600 mg in 300 mls @ 300 mls/hr 10/23/25 21:00 10/25/25 09:01 Zyvox IVPB 300 mls/hr Q12HR SANDRA Administration Insulin Aspart 3 - 6 units 10/20/25 08:00 10/25/25 12:52 Insulin Aspart (*Bkc) 100 Units/Ml SUB-Q 5 units TIDWM SANDRA Administration Protocol Insulin Aspart 5 units 10/21/25 08:00 10/25/25 12:52 Insulin Aspart (*Bkc) 100 Units/Ml SUB-Q 5 units TIDWM SANDRA Administration Insulin Glargine 22 units 10/24/25 21:00 10/24/25 21:10 Insulin Glargine (*Bkc) 100 Units/Ml SUB-Q 22 units HS SANDRA Administration Levothyroxine Sodium 100 mcg 10/17/25 06:30 10/25/25 06:21 Levothyroxine Sodium 100 Mcg Tablet PO 100 mcg DAILY@0630 SANDRA Administration Metoprolol Succinate 12.5 mg 10/22/25 13:40 10/25/25 09:00 Metoprolol Succinate Ext Rel 12.5 Mg Tabcr PO 12.5 mg DAILY SANDRA Administration Multi-Ingred Cream/Lotion/Oil/Oint 1 applic 10/20/25 09:00 10/25/25 09:01 Eucerin Cream 120 Gm Jar TOPICAL 1 applic DAILY SANDRA Administration Ondansetron HCl 4 mg 10/17/25 04:38 10/21/25 22:43 Ondansetron Inj 4 Mg/2 Ml Vial IV PUSH 4 mg Q4H PRN Administration Nausea Pantoprazole Sodium 40 mg 10/22/25 21:00 10/25/25 09:00 Pantoprazole 40 Mg Tablet PO 40 mg Q12HR SANDRA Administration Sacubitril/Valsartan 1 tab 10/19/25 21:00 10/25/25 09:00 Sacubitril/Valsartan 24-26 Mg Tablet PO 1 tab Q12HR SANDRA Administration Radiology Results: ITS Impressions Chest X-Ray 10/17/25 07:59 IMPRESSION: 1. Portable chest x-ray with no focal acute process; heart shadow is borderline enlarged and mild vascular congestion may be present. Chest/Abdomen/Pelvis CT 10/17/25 08:08 IMPRESSION: Directed noncontrast exam demonstratin. No gross acute intrathoracic process. Borderline cardiomegaly and coronary artery calcifications. 2. Cholelithiasis with no gross CT evidence of acute cholecystitis. Possible mild urinary bladder wall thickening which could be associated with developing cystitis or UTI. NOTE: Preliminary radiologist report provided by [facility] radiologist/physician. Lower Extremity CT 10/17/25 09:31 IMPRESSION: 1. Extensive edematous/infiltrative changes in the subcutaneous soft tissues throughout the field of view of the left lower extremity with no clearly defined abscess or gross evidence of necrotizing fasciitis, or osteomyelitis. If osteomyelitis is a clinical concern, correlation with MRI suggested; if there concern for abscess, repeat examination with CT or MRI with contrast suggested. 2. Other findings as above. Venous Doppler Study 10/17/25 12:32 IMPRESSION: 1. No deep venous thrombosis in either lower limb. Ankle Brachial Index 10/18/25 08:55 IMPRESSION: 1. Mild arterial occlusive disease to the right lower limb with minimally decreased right TBI. 2. No significant arterial occlusive disease in the left lower limb with normal left TBI. Labs Labs: Laboratory Results - last 24 hr 11/10/24/25 10/25/25 16:51 20:41 05:05 Sodium 133 L Potassium 3.6 Chloride 99 Carbon Dioxide 31 H Anion Gap 3 L BUN 36 H Creatinine 1.35 H Estim Creat Clear Calc 55 Estimated GFR 52 L Glucose 203 H POC Capillary Glucose 172 H 195 H Calcium 8.1 L 10/25/25 10/25/25 07:44 11:17 Sodium Potassium Chloride Carbon Dioxide Anion Gap BUN Creatinine Estim Creat Clear Calc Estimated GFR Glucose POC Capillary Glucose 189 H 262 H Calcium Quality VTE Prophylaxis VTE prophylaxis: pharmacologic ordered
[2025-10-25 16:00] VITALS: BP 98/32; PULSE 64; RESP 17; TEMP 36.1; O2SAT 100
--- NOTE | 2025-10-25 16:45 | P.PNINF_ITS ---
Progress Note: A&P Assessment and Plan (1) Cellulitis: Code(s): L03.90 - Cellulitis, unspecified Status: Acute (2) Chronic kidney disease: Code(s): N18.9 - Chronic kidney disease, unspecified Status: Acute (3) DM2 (diabetes mellitus, type 2): Code(s): E11.9 - Type 2 diabetes mellitus without complications Status: Acute Plan ASSESSMENT: 1. group G strep bacteremia 2nd LLE cellulitis; Repeat blood cxs 10/18 neg and final; cellulitis better 2. heart failure 3. Afib on amiodarone-->avoid quinolone abx due to interaction 4. DM 5. CKD 6, COPD RECOMMENDATIONS: -linezolid (day3)--total abx day 9 d/w nursing staff Pt was seen via video telehealth consultation with the assistance of staff. Chart, data and patient info reviewed. Patient was located at [facility] while I was in my [place] office. Pt gave consent. Subjective Date/time seen: 10/25/25 16:45 Interval history: no fever no leukocytosis Exam Narrative: up in chair, non-toxic LLE with less edema and less angry erythema Objective Data Vital Signs Vital Signs: Vital Signs - 24 hr 10/24/25 20:00 10/24/25 21:44 10/25/25 06:42 Temperature 98.5 F 98.3 F Pulse Rate 88 50 L Respiratory Rate 16 12 Blood Pressure 115/47 L 98/52 L Pulse Oximetry 93 Oxygen Delivery Room Air 10/25/25 08:00 10/25/25 08:00 10/25/25 16:00 Temperature 97.7 F 97.0 F L Pulse Rate 71 64 Respiratory Rate 18 17 Blood Pressure 94/48 L 98/32 L Pulse Oximetry 97 100 Oxygen Delivery Room Air Intake/Output Intake/Output: Intake & Output 10/22/25 10/23/25 10/24/25 10/25/25 23:59 23:59 23:59 23:59 Intake Total 1370 2304 1790 588 Output Total 300 Balance 1370 2304 1490 588 Meds/Results Medications: Active Medications Generic Name Dose Route Start Last Admin Trade Name Freq PRN Reason Stop Dose Admin Acetaminophen 650 mg 10/17/25 04:38 10/25/25 11:45 Acetaminophen 325 Mg Tablet PO 650 mg Q4H PRN Administration Mild Pain (1-3) or Fever Albuterol/Ipratropium 3 ml 10/23/25 15:45 Ipratropium 0.5 Mg/Albuterol Sulfate 2.5 Mg (Base) Ampul.Neb 3 Ml INHALATION Q6HRT PRN Shortness Of Breath Or Wheezing Allopurinol 200 mg 10/21/25 09:00 10/25/25 09:00 Allopurinol 100 Mg Tablet PO 200 mg DAILY SANDRA Administration Amiodarone HCl 200 mg 10/18/25 13:00 10/25/25 09:00 Amiodarone Hcl 200 Mg Tablet PO 200 mg DAILY SANDRA Administration Apixaban 5 mg 10/17/25 09:00 10/25/25 09:00 Apixaban 5 Mg Tablet PO 5 mg Q12HR SANDRA Administration Calcitriol 0.25 mcg 10/17/25 09:00 10/25/25 09:00 Calcitriol 0.25 Mcg Capsule PO 0.25 mcg DAILY SANDRA Administration Dextrose 12.5 gm 10/19/25 21:17 Dextrose 50% 25 Gm/50 Ml Syringe IV PUSH PRN PRN Hypoglycemia Protocol Docosanol 1 applic 10/23/25 18:00 10/25/25 15:14 Docosanol 10% Cream 2 Gm TOPICAL Not Given 5 TIMES DAILY SANDRA Empagliflozin 10 mg 10/25/25 09:00 10/25/25 09:00 Empagliflozin 10 Mg Tablet PO 10 mg DAILY SANDRA Administration Folic Acid 1 mg 10/21/25 09:00 10/25/25 09:00 Folic Acid 1 Mg Tablet PO 1 mg DAILY SANDRA Administration Furosemide 80 mg 10/19/25 17:00 10/25/25 09:00 Furosemide 80 Mg Tablet PO 80 mg BID SANDRA Administration Gabapentin 300 mg 10/17/25 09:00 10/25/25 12:51 Gabapentin 300 Mg Capsule PO 300 mg TID SANDRA Administration Glucagon 1 mg 10/19/25 21:17 Glucagon For Inj 1 Mg Vial IM PRN PRN Hypoglycemia Protocol Glucose 15 gm 10/19/25 21:17 Glucose Oral Gel 15 Gm Of Glucse In 37.5 Gm Tube PO PRN PRN Hypoglycemia Protocol Dextrose 1,000 mls @ 100 mls/hr 10/19/25 21:17 Dextrose 5% 1,000 Ml IVPB PRN PRN Hypoglycemia Protocol Linezolid 600 mg in 300 mls @ 300 mls/hr 10/23/25 21:00 10/25/25 09:01 Zyvox IVPB 300 mls/hr Q12HR SANDRA Administration Insulin Aspart 3 - 6 units 10/20/25 08:00 10/25/25 12:52 Insulin Aspart (*Bkc) 100 Units/Ml SUB-Q 5 units TIDWM SANDRA Administration Protocol Insulin Aspart 5 units 10/21/25 08:00 10/25/25 12:52 Insulin Aspart (*Bkc) 100 Units/Ml SUB-Q 5 units TIDWM SANDRA Administration Insulin Glargine 22 units 10/24/25 21:00 10/24/25 21:10 Insulin Glargine (*Bkc) 100 Units/Ml SUB-Q 22 units HS SANDRA Administration Levothyroxine Sodium 100 mcg 10/17/25 06:30 10/25/25 06:21 Levothyroxine Sodium 100 Mcg Tablet PO 100 mcg DAILY@0630 SANDRA Administration Metoprolol Succinate 12.5 mg 10/22/25 13:40 10/25/25 09:00 Metoprolol Succinate Ext Rel 12.5 Mg Tabcr PO 12.5 mg DAILY SANDRA Administration Multi-Ingred Cream/Lotion/Oil/Oint 1 applic 10/20/25 09:00 10/25/25 09:01 Eucerin Cream 120 Gm Jar TOPICAL 1 applic DAILY SANDRA Administration Ondansetron HCl 4 mg 10/17/25 04:38 10/21/25 22:43 Ondansetron Inj 4 Mg/2 Ml Vial IV PUSH 4 mg Q4H PRN Administration Nausea Pantoprazole Sodium 40 mg 10/22/25 21:00 10/25/25 09:00 Pantoprazole 40 Mg Tablet PO 40 mg Q12HR SANDRA Administration Sacubitril/Valsartan 1 tab 10/19/25 21:00 10/25/25 09:00 Sacubitril/Valsartan 24-26 Mg Tablet PO 1 tab Q12HR SANDRA Administration Radiology Results: ITS Impressions Chest X-Ray 10/17/25 07:59 IMPRESSION: 1. Portable chest x-ray with no focal acute process; heart shadow is borderline enlarged and mild vascular congestion may be present. Chest/Abdomen/Pelvis CT 10/17/25 08:08 IMPRESSION: Directed noncontrast exam demonstratin. No gross acute intrathoracic process. Borderline cardiomegaly and coronary artery calcifications. 2. Cholelithiasis with no gross CT evidence of acute cholecystitis. Possible mild urinary bladder wall thickening which could be associated with developing cystitis or UTI. NOTE: Preliminary radiologist report provided by [facility] radiologist/physician. Lower Extremity CT 10/17/25 09:31 IMPRESSION: 1. Extensive edematous/infiltrative changes in the subcutaneous soft tissues throughout the field of view of the left lower extremity with no clearly defined abscess or gross evidence of necrotizing fasciitis, or osteomyelitis. If osteomyelitis is a clinical concern, correlation with MRI suggested; if there concern for abscess, repeat examination with CT or MRI with contrast suggested. 2. Other findings as above. Venous Doppler Study 10/17/25 12:32 IMPRESSION: 1. No deep venous thrombosis in either lower limb. Ankle Brachial Index 10/18/25 08:55 IMPRESSION: 1. Mild arterial occlusive disease to the right lower limb with minimally decreased right TBI. 2. No significant arterial occlusive disease in the left lower limb with normal left TBI. Labs Labs: Laboratory Results - last 24 hr 10/24/25 10/24/25 10/25/25 16:51 20:41 05:05 Sodium 133 L Potassium 3.6 Chloride 99 Carbon Dioxide 31 H Anion Gap 3 L BUN 36 H Creatinine 1.35 H Estim Creat Clear Calc 55 Estimated GFR 52 L Glucose 203 H POC Capillary Glucose 172 H 195 H Calcium 8.1 L 10/25/25 10/25/25 10/25/25 07:44 11:17 15:58 Sodium Potassium Chloride Carbon Dioxide Anion Gap BUN Creatinine Estim Creat Clear Calc Estimated GFR Glucose POC Capillary Glucose 189 H 262 H 182 H Calcium
[2025-10-25 20:28] VITALS: BP 91/43; PULSE 61; RESP 18; TEMP 36.4; O2SAT 100
[2025-10-25] MEDS: INSULIN GLARGINE (*BKC) 100 UNITS/ML 22 UNITS SUB-Q (20:34)
[2025-10-26 04:31] VITALS: BP 100/75; PULSE 92; RESP 16; TEMP 36.2; O2SAT 97
[2025-10-26 05:25] LABS: Hematocrit 36.3 % (42.0-52.0); Hemoglobin 11.3 g/dL (14.0-18.0); Mean Corpuscular HGB Conc 31.1 g/dl (32-36); Mean Corpuscular Hemoglobin 30.4 pg (26-34); Mean Corpuscular Volume 97.6 fl (80-100); Platelet Count Result 355 k/mm3 (150-375); Red Blood Count 3.72 M/mm3 (4.6-6.20); White Blood Count 8.4 K/mm3 (4.5-10.0)
[2025-10-26 05:53] LABS: Anion Gap 5 mmol/L (4-12); Blood Urea Nitrogen 36 mg/dL (9-20); Calcium 8.7 mg/dL (8.4-10.2); Carbon Dioxide 36 mmol/L (22-30); Chloride 95 mmol/L (98-107); Estimated CRCL calculation 47 ml/min; Estimated Glomerular Filt Rate 43; Glucose 214 mg/dL (65-110); Potassium 3.6 mmol/L (3.4-5.0); Sodium 136 mmol/L (137-145)
[2025-10-26] MEDS: LEVOTHYROXINE SODIUM 100 MCG TABLET PO (06:25)
[2025-10-26] MEDS: ACETAMINOPHEN 325 MG TABLET 650 MG PO ×2 (06:25→22:28)
--- NOTE | 2025-10-26 08:06 | P.PNIM_ITS ---
Progress Note: A&P Assessment and Plan (1) Septic shock: Code(s): A41.9 - Sepsis, unspecified organism; R65.21 - Severe sepsis with septic shock Status: Acute Assessment and Plan: Patient presented with generalized weakness and was found to be hypoglycemic and hypotensive. He was given 1 L IV fluid bolus in the ER and a femoral central line was inserted. Source of septic shock is cellulitis of the left lower extremity with bacteremia. Levophed started on admission, discontinued on 10/18. Central line removed. MRSA nasal PCR negative. UCx negative. BCx (10/16) positive for Group G Strept in both sets. BCx (10/18) negative. CXR was clear. CT LLE showing extensive edematous/infiltrative changes in the subcutaneous soft tissues throughout the field of view of the left lower extremity with no clearly defined abscess or gross evidence of necrotizing fasciitis, or osteomyelitis. Started on cefepime and vancomycin (10/17 - 10/20). Rocephin 10/21-10/23. Linezolid started 10/23, continue. ID consulted and appreciate their input (2) Cellulitis: Code(s): L03.90 - Cellulitis, unspecified Status: Acute Assessment and Plan: No signs of necrotizing fasciitis on CT scan of the lower extremities Exam continues to improve. Continue antibiotics as above (3) UTI (urinary tract infection): Code(s): N39.0 - Urinary tract infection, site not specified Status: Acute Assessment and Plan: CT scan of the abdomen and pelvis reflective of possible cystitis, UCx negative Denies any UTI like symptoms, UTI ruled out (4) Elevated troponin: Code(s): R79.89 - Other specified abnormal findings of blood chemistry Status: Acute Assessment and Plan: Elevated Troponins 0.064, 0.085, and 0.238. Remained asymptomatic. Elevated Trop could be related to type 2 infarct due to septic shock EKG showing AFib with anterolateral NH of indeterminate age. No old EKGs to compare Echo with EF 30-35%, diastolic dysfxn, severely enlarged RV with reduced fxn, mild MR, mod-severe TR and severe pulm HTN Cardiology consulted: Continue conservative management. Plan for outpatient ischemic workup. Continues to deny chest pain and palpitations. (5) DM2 (diabetes mellitus, type 2): Code(s): E11.9 - Type 2 diabetes mellitus without complications Status: Acute Assessment and Plan: Patient has history of diabetes and was found to be hypoglycemic when EMS arrived A1c 6.0%. The patient's blood glucose was reviewed on 10/24 Continue AccuCheks covering with sliding scale. Hypoglycemia protocol available as needed. Advance Lantus again. Continue to follow (6) Chronic kidney disease: Code(s): N18.9 - Chronic kidney disease, unspecified Status: Acute Assessment and Plan: Patient has a history of CKD with baseline Cr 2.4 - 2.9 Creatinine of 1.97 on admission He received 1 L IV fluid bolus in the ER, given additional 500 mL IV LR bolus in the ICU proBNP [place] [id number] He remained on maintenance IV fluid and Cr improved to 1.16 Adequaely fluid resuscitated and IV fluids stopped. Lasix resumed (10/19). Cr has climbed to 1.4-1.6 range Continue to monitor urine output, electrolytes, renal function (7) Congestive heart failure: Code(s): I50.9 - Heart failure, unspecified Status: Acute Assessment [place]: [place] [address]. Hx of chronic s/d CHF and Cor Pulmonale. Echo with EF 30-35%, diastolic dysfxn, severely enlarged RV with reduced fxn, mild MR, mod-severe TR and severe pulm HTN. Lasix resumed. Lisinopril changed to Entresto. Low dose Metoprolol XL added back Started on Empagliflozin per cardiology Cardiology following (8) Atrial fibrillation: Code(s): I48.91 - Unspecified atrial fibrillation Status: Acute Assessment and Plan: History of atrial fibrillation. EKG showing AFib TSH 5.4 with normal FT4. Continue apixaban, amiodarone, and metoprolol XL Remains in sinus rhythm with rate well controlled. (9) Discoloration of skin of foot: Code(s): L81.9 - Disorder of pigmentation, unspecified Status: Acute Assessment and Plan: Discoloration of feet bilaterally which are cold. Pulses are intact LE ARNALDO showed mild arterial occlusive disease of the right lower limb, no significant arterial occlusive disease in the left leg Follow (10) SAROJ (obstructive sleep apnea): Code(s): G47.33 - Obstructive sleep apnea (adult) (pediatric) Status: Acute Assessment and Plan: Patient has a hx of SAROJ. Not on O2 or CPAP/BiPAP at home. He is intolerant to CPAP/BiPAP. Echo as above. Patient with Cor Pulmonale. ABG on admission: 7.32/38/137 on 6L. Patient with hypoxemia without respiratory failure Apnea link to evaluate for nocturnal hypoxia showing only 11 min with SpO2<88% Feeling better and refusing CPAP/BiPAP now. Follow. (11) Chronic back pain: Code(s): M54.9 - Dorsalgia, unspecified; G89.29 - Other chronic pain Status: Acute Assessment and Plan: Continue gabapentin. Increase activity PT/OT Plan Morbid Obesity - BMI 53. Encourage healthy lifestyle choices. DVT prophylaxis: Apixaban Code Status: Full code Time Spent With Patient Time with patient: 25 - 35 minutes Subjective Date/time seen: 10/26/25 08:06 Interval history: Patient is pleasant sitting up in his chair. He states that the lower extremities swelling and redness has continued to improve since admission. He has no complaints denying chest pain, shortness a breath, palpitations, nausea/vomiting, abdominal pain. He states that he continues ambulate well and denies any associated dizziness and lightheadedness. Review of Systems Review of Systems: All systems reviewed & are unremarkable except as noted in HPI and below Exam Narrative: AF HR 64 RR 16 Spo2 97 BP 100/75 General: male in no acute respiratory distress who is nontoxic appearing, sitting up in chair HEENT: Normocephalic. Atraumatic. Extraocular movement intact. Sclera clear and anicteric. No facial asymmetry. Chest: Lungs are clear to auscultation bilaterally. No wheezes or crackles. CV: Heart was regular rate and rhythm. Abd: Abdomen was soft. Nontender. Nondistended. Positive bowel sounds. Ext: No clubbing, cyanosis. Trivial pedal edema with LLE erythema with no noted wounds or warmth. DP pulses bilaterally. Neuro: Patient is alert and oriented x4. Speech is clear. Objective Data Vital Signs Vital Signs: Vital Signs - 24 hr 10/25/25 16:00 10/25/25 20:00 10/25/25 20:28 Temperature 97.0 F L 97.5 F L Pulse Rate 64 61 Respiratory Rate 17 18 Blood Pressure 98/32 L 91/43 L Pulse Oximetry 100 100 Oxygen Delivery Room Air 10/26/25 04:31 Temperature 97.2 F L Pulse Rate 92 Respiratory Rate 16 Blood Pressure 100/75 Pulse Oximetry 97 Oxygen Delivery Intake/Output Intake/Output: Intake & Output 10/23/25 10/24/25 10/25/25 10/26/25 23:59 23:59 23:59 23:59 Intake Total 2304 1790 1128 Output Total 300 200 Balance 2304 1490 928 Meds/Results Medications: Active Medications Generic Name Dose Route Start Last Admin Trade Name Freq PRN Reason Stop Dose Admin Acetaminophen 650 mg 10/17/25 04:38 10/26/25 06:25 Acetaminophen 325 Mg Tablet PO 650 mg Q4H PRN Administration Mild Pain (1-3) or Fever Albuterol/Ipratropium 3 ml 10/23/25 15:45 Ipratropium 0.5 Mg/Albuterol Sulfate 2.5 Mg (Base) Ampul.Neb 3 Ml INHALATION Q6HRT PRN Shortness Of Breath Or Wheezing Allopurinol 200 mg 10/21/25 09:00 10/25/25 09:00 Allopurinol 100 Mg Tablet PO 200 mg DAILY SANDRA Administration Amiodarone HCl 200 mg 10/18/25 13:00 10/25/25 09:00 Amiodarone Hcl 200 Mg Tablet PO 200 mg DAILY SANDRA Administration Apixaban 5 mg 10/17/25 09:00 10/25/25 20:33 Apixaban 5 Mg Tablet PO 5 mg Q12HR SANDRA Administration Calcitriol 0.25 mcg 10/17/25 09:00 10/25/25 09:00 Calcitriol 0.25 Mcg Capsule PO 0.25 mcg DAILY SANDRA Administration Dextrose 12.5 gm 10/19/25 21:17 Dextrose 50% 25 Gm/50 Ml Syringe IV PUSH PRN PRN Hypoglycemia Protocol Docosanol 1 applic 10/23/25 18:00 10/25/25 20:34 Docosanol 10% Cream 2 Gm TOPICAL 1 applic 5 TIMES DAILY SANDRA Administration Empagliflozin 10 mg 10/25/25 09:00 10/25/25 09:00 Empagliflozin 10 Mg Tablet PO 10 mg DAILY SANDRA Administration Folic Acid 1 mg 10/21/25 09:00 10/25/25 09:00 Folic Acid 1 Mg Tablet PO 1 mg DAILY SANDRA Administration Furosemide 80 mg 10/19/25 17:00 10/25/25 17:23 Furosemide 80 Mg Tablet PO 80 mg BID SANDRA Administration Gabapentin 300 mg 10/17/25 09:00 10/25/25 17:23 Gabapentin 300 Mg Capsule PO 300 mg TID SANDRA Administration Glucagon 1 mg 10/19/25 21:17 Glucagon For Inj 1 Mg Vial IM PRN PRN Hypoglycemia Protocol Glucose 15 gm 10/19/25 21:17 Glucose Oral Gel 15 Gm Of Glucse In 37.5 Gm Tube PO PRN PRN Hypoglycemia Protocol Dextrose 1,000 mls @ 100 mls/hr 10/19/25 21:17 Dextrose 5% 1,000 Ml IVPB PRN PRN Hypoglycemia Protocol Linezolid 600 mg in 300 mls @ 300 mls/hr 10/23/25 21:00 10/25/25 20:32 Zyvox IVPB 300 mls/hr Q12HR SANDRA Administration Insulin Aspart 3 - 6 units 10/20/25 08:00 10/25/25 16:58 Insulin Aspart (*Bkc) 100 Units/Ml SUB-Q Not Given TIDWM [facility] Protocol Insulin Aspart 5 units 10/21/25 08:00 10/25/25 17:23 Insulin Aspart (*Bkc) 100 Units/Ml SUB-Q 5 units TIDWM SANDRA Administration Insulin Glargine 22 units 10/24/25 21:00 10/25/25 20:34 Insulin Glargine (*Bkc) 100 Units/Ml SUB-Q 22 units HS SANDRA Administration Levothyroxine Sodium 100 mcg 10/17/25 06:30 10/26/25 06:25 Levothyroxine Sodium 100 Mcg Tablet PO 100 mcg DAILY@0630 SANDRA Administration Metoprolol Succinate 12.5 mg 10/22/25 13:40 10/25/25 09:00 Metoprolol Succinate Ext Rel 12.5 Mg Tabcr PO 12.5 mg DAILY SANDRA Administration Multi-Ingred Cream/Lotion/Oil/Oint 1 applic 10/20/25 09:00 10/25/25 09:01 Eucerin Cream 120 Gm Jar TOPICAL 1 applic DAILY SANDRA Administration Ondansetron HCl 4 mg 10/17/25 04:38 10/21/25 22:43 Ondansetron Inj 4 Mg/2 Ml Vial IV PUSH 4 mg Q4H PRN Administration Nausea Pantoprazole Sodium 40 mg 10/22/25 21:00 10/25/25 20:33 Pantoprazole 40 Mg Tablet PO 40 mg Q12HR SANDRA Administration Sacubitril/Valsartan 1 tab 10/19/25 21:00 10/25/25 20:33 Sacubitril/Valsartan 24-26 Mg Tablet PO 1 tab Q12HR SANDRA Administration Radiology Results: ITS Impressions Chest X-Ray 10/17/25 07:59 IMPRESSION: 1. Portable chest x-ray with no focal acute process; heart shadow is borderline enlarged and mild vascular congestion may be present. Chest/Abdomen/Pelvis CT 10/17/25 08:08 IMPRESSION: Directed noncontrast exam demonstratin. No gross acute intrathoracic process. Borderline cardiomegaly and coronary artery calcifications. 2. Cholelithiasis with no gross CT evidence of acute cholecystitis. Possible mild urinary bladder wall thickening which could be associated with developing cystitis or UTI. NOTE: Preliminary radiologist report provided by [facility] radiologist/physician. Lower Extremity CT 10/17/25 09:31 IMPRESSION: 1. Extensive edematous/infiltrative changes in the subcutaneous soft tissues throughout the field of view of the left lower extremity with no clearly defined abscess or gross evidence of necrotizing fasciitis, or osteomyelitis. If osteomyelitis is a clinical concern, correlation with MRI suggested; if there concern for abscess, repeat examination with CT or MRI with contrast suggested. 2. Other findings as above. Venous Doppler Study 10/17/25 12:32 IMPRESSION: 1. No deep venous thrombosis in either lower limb. Ankle Brachial Index 10/18/25 08:55 IMPRESSION: 1. Mild arterial occlusive disease to the right lower limb with minimally decreased right TBI. 2. No significant arterial occlusive disease in the left lower limb with normal left TBI. Labs Labs: Laboratory Results - last 24 hr 10/25/25 10/25/25 10/25/25 11:17 15:58 19:49 WBC RBC Hgb Hct MCV MCH MCHC RDW Plt Count MPV Sodium Potassium Chloride Carbon Dioxide Anion Gap BUN Creatinine Estim Creat Clear Calc Estimated GFR Glucose POC Capillary Glucose 262 H 182 H 183 H Calcium 10/26/25 10/26/25 04:35 07:51 WBC 8.4 RBC 3.72 L Hgb 11.3 L Hct 36.3 L MCV 97.6 MCH 30.4 MCHC 31.1 L RDW 14.4 Plt Count 355 D MPV 9.9 Sodium 136 L Potassium 3.6 Chloride 95 L Carbon Dioxide 36 H Anion Gap 5 BUN 36 H Creatinine 1.60 H Estim Creat Clear Calc 47 Estimated GFR 43 L Glucose 214 H POC Capillary Glucose 187 H Calcium 8.7 Quality VTE Prophylaxis VTE prophylaxis: pharmacologic ordered
[2025-10-26] MEDS: INSULIN ASPART (*BKC) 100 UNITS/ML SUB-Q ×4 (09:41→17:17)
[2025-10-26] MEDS: FUROSEMIDE 80 MG TABLET PO ×2 (09:42→17:16)
[2025-10-26] MEDS: SACUBITRIL/VALSARTAN 24-26 MG TABLET 1 TAB PO ×2 (09:42→21:48)
[2025-10-26] MEDS: GABAPENTIN 300 MG CAPSULE PO ×3 (09:42→17:16)
[2025-10-26 09:43] VITALS: PULSE 64
[2025-10-26] MEDS: AMIODARONE HCL 200 MG TABLET PO (09:43)
[2025-10-26] MEDS: APIXABAN 5 MG TABLET PO ×2 (09:43→21:45)
[2025-10-26] MEDS: EMPAGLIFLOZIN 10 MG TABLET PO (09:43)
[2025-10-26] MEDS: FOLIC ACID 1 MG TABLET PO (09:43)
[2025-10-26] MEDS: PANTOPRAZOLE 40 MG TABLET PO ×2 (09:43→21:48)
[2025-10-26 09:44] VITALS: PULSE 64
[2025-10-26] MEDS: METOPROLOL SUCCINATE EXT REL 12.5 MG TABCR PO (09:44)
[2025-10-26] MEDS: EUCERIN CREAM 120 GM JAR 1 APPLIC TOPICAL (09:47)
[2025-10-26] MEDS: LINEZOLID 600 MG/300 ML 600 MG/300 ML SOLN 300 MG IVPB ×2 (09:53→21:46)
[2025-10-26 14:00] VITALS: BP 97/75; PULSE 68; RESP 20; TEMP 36.6; O2SAT 100
[2025-10-26] MEDS: INSULIN GLARGINE (*BKC) 100 UNITS/ML 22 UNITS SUB-Q (21:48)
[2025-10-26 22:00] VITALS: BP 85/42; PULSE 80; RESP 20; TEMP 36.3; O2SAT 98
[2025-10-27 06:00] VITALS: BP 101/42; PULSE 79; RESP 16; TEMP 36; O2SAT 98
[2025-10-27] MEDS: LEVOTHYROXINE SODIUM 100 MCG TABLET PO (06:05)
--- NOTE | 2025-10-27 08:02 | PM.IMPN ---
Progress Note: A&P Assessment and Plan (1) Septic shock: Code(s): A41.9 - Sepsis, unspecified organism; R65.21 - Severe sepsis with septic shock Status: Acute Assessment and Plan: Patient presented with generalized weakness and was found to be hypoglycemic and hypotensive. He was given 1 L IV fluid bolus in the ER and a femoral central line was inserted. Source of septic shock is cellulitis of the left lower extremity with bacteremia. Levophed started on admission, discontinued on 10/18. Central line removed. MRSA nasal PCR negative. UCx negative. BCx (10/16) positive for Group G Strept in both sets. BCx (10/18) negative. CXR was clear. CT LLE showing extensive edematous/infiltrative changes in the subcutaneous soft tissues throughout the field of view of the left lower extremity with no clearly defined abscess or gross evidence of necrotizing fasciitis, or osteomyelitis. Started on cefepime and vancomycin (10/17 - 10/20). Rocephin 10/21-10/23. Linezolid started 10/23, transitioned to PO on 10/27. ID consulted and appreciate their input Discussed patient abx with ID and will transition to PO today to complete the course. Resolved. WBC WNL with stable vitals. (2) Cellulitis: Code(s): L03.90 - Cellulitis, unspecified Status: Acute Assessment and Plan: No signs of necrotizing fasciitis on CT scan of the lower extremities Exam continues to improve. Continue antibiotics as above (3) UTI (urinary tract infection): Code(s): N39.0 - Urinary tract infection, site not specified Status: Acute Assessment and Plan: CT scan of the abdomen and pelvis reflective of possible cystitis, UCx negative Denies any UTI like symptoms, UTI ruled out (4) Elevated troponin: Code(s): R79.89 - Other specified abnormal findings of blood chemistry Status: Acute Assessment and Plan: Elevated Troponins 0.064, 0.085, and 0.238. Remained asymptomatic. Elevated Trop could be related to type 2 infarct due to septic shock EKG showing AFib with anterolateral NV of indeterminate age. No old EKGs to compare Echo with EF 30-35%, diastolic dysfxn, severely enlarged RV with reduced fxn, mild MR, mod-severe TR and severe pulm HTN Cardiology consulted: Continue conservative management. Plan for outpatient ischemic workup. Continues to deny chest pain and palpitations. (5) DM2 (diabetes mellitus, type 2): Code(s): E11.9 - Type 2 diabetes mellitus without complications Status: Acute Assessment and Plan: Patient has history of diabetes and was found to be hypoglycemic when EMS arrived A1c 6.0%. Continue AccuCheks covering with sliding scale. Hypoglycemia protocol available as needed. Continue lantus 22 units HS, novolog 5 units TIDWM, and SSI Glucose reviewed, remains stable. (6) Chronic kidney disease: Code(s): N18.9 - Chronic kidney disease, unspecified Status: Acute Assessment and Plan: Patient has a history of CKD with baseline Cr 2.4 - 2.9 Creatinine of 1.97 on admission He received 1 L IV fluid bolus in the ER, given additional 500 mL IV LR bolus in the ICU proBNP [place] 69507 He remained on maintenance IV fluid and Cr improved to 1.16 Adequaely fluid resuscitated and IV fluids stopped. Lasix resumed (10/19). Cr has climbed to 1.4-1.6 range Continue to monitor urine output, electrolytes, renal function (7) Congestive heart failure: Code(s): I50.9 - Heart failure, unspecified Status: Acute Assessment [place]: [place] [address]. Hx of chronic s/d CHF and Cor Pulmonale. Echo with EF 30-35%, diastolic dysfxn, severely enlarged RV with reduced fxn, mild MR, mod-severe TR and severe pulm HTN. Lasix resumed. Lisinopril changed to Entresto. Low dose Metoprolol XL continued. Started on Empagliflozin per cardiology Cardiology following Patient had a soft BP this am. Entresto and lasix held. Continue to closely monitor. (8) Atrial fibrillation: Code(s): I48.91 - Unspecified atrial fibrillation Status: Acute Assessment and Plan: History of atrial fibrillation. EKG showing AFib TSH 5.4 with normal FT4. Continue apixaban, amiodarone, and metoprolol XL Remains in sinus rhythm with rate well controlled. (9) Discoloration of skin of foot: Code(s): L81.9 - Disorder of pigmentation, unspecified Status: Acute Assessment and Plan: Discoloration of feet bilaterally which are cold. Pulses are intact LE ARNALDO showed mild arterial occlusive disease of the right lower limb, no significant arterial occlusive disease in the left leg Follow (10) SAROJ (obstructive sleep apnea): Code(s): G47.33 - Obstructive sleep apnea (adult) (pediatric) Status: Acute Assessment and Plan: Patient has a hx of SAROJ. Not on O2 or CPAP/BiPAP at home. He is intolerant to CPAP/BiPAP. Echo as above. Patient with Cor Pulmonale. ABG on admission: 7.32/38/137 on 6L. Patient with hypoxemia without respiratory failure Apnea link to evaluate for nocturnal hypoxia showing only 11 min with SpO2<88% Feeling better and refusing CPAP/BiPAP now. Follow. (11) Chronic back pain: Code(s): M54.9 - Dorsalgia, unspecified; G89.29 - Other chronic pain Status: Acute Assessment and Plan: Continue gabapentin. Increase activity PT/OT Plan Morbid Obesity - BMI 53. Encourage healthy lifestyle choices. DVT prophylaxis: Apixaban Code Status: Full code Time Spent With Patient Time with patient: 25 - 35 minutes Subjective Date/time seen: 10/27/25 08:02 Interval history: Patient is sitting up comfortably in his chair with family at bedside. No acute events overnight. Has no complaints stating his lower extremities feel much better since admission. He states he is ambulating well when working with therapy and denies any dizziness/lighteadedness. He is denying chest pain, palpitations, shortness of breath, nausea/vomiting, abdominal pain. Review of Systems Review of Systems: All systems reviewed & are unremarkable except as noted in HPI and below Exam Narrative: AF HR 80 RR 16 Spo2 98 BP 101/42 General: male in no acute respiratory distress who is nontoxic appearing, sitting up in chair HEENT: Normocephalic. Atraumatic. Extraocular movement intact. Sclera clear and anicteric. No facial asymmetry. Chest: Lungs are clear to auscultation bilaterally. No wheezes or crackles. CV: Heart was regular rate and rhythm. Abd: Abdomen was soft. Nontender. Nondistended. Positive bowel sounds. Ext: No clubbing, cyanosis. Trivial pedal edema with LLE erythema with no noted wounds or warmth. Neuro: Patient is alert and oriented x3. Speech is clear. Objective Data Vital Signs Vital Signs: Vital Signs - 24 hr 10/26/25 09:43 10/26/25 09:44 10/26/25 14:00 Temperature 97.9 F Pulse Rate 64 64 68 Respiratory Rate 20 Blood Pressure 97/75 L Pulse Oximetry 100 10/26/25 22:00 10/27/25 06:00 Temperature 97.3 F L 96.8 F L Pulse Rate 80 79 Respiratory Rate 20 16 Blood Pressure 85/42 L 101/42 L Pulse Oximetry 98 98 Intake/Output Intake/Output: Intake & Output 10/24/25 10/25/25 10/26/25 10/27/25 23:59 23:59 23:59 23:59 Intake Total 1790 1428 640 600 Output Total 300 200 Balance 1490 1228 640 600 Meds/Results Medications: Active Medications Generic Name Dose Route Start Last Admin Trade Name Freq PRN Reason Stop Dose Admin Acetaminophen 650 mg 10/17/25 04:38 10/26/25 22:28 Acetaminophen 325 Mg Tablet PO 650 mg Q4H PRN Administration Mild Pain (1-3) or Fever Albuterol/Ipratropium 3 ml 10/23/25 15:45 Ipratropium 0.5 Mg/Albuterol Sulfate 2.5 Mg (Base) Ampul.Neb 3 Ml INHALATION Q6HRT PRN Shortness Of Breath Or Wheezing Allopurinol 200 mg 10/21/25 09:00 10/26/25 09:42 Allopurinol 100 Mg Tablet PO 200 mg DAILY SANDRA Administration Amiodarone HCl 200 mg 10/18/25 13:00 10/26/25 09:43 Amiodarone Hcl 200 Mg Tablet PO 200 mg DAILY SANDRA Administration Apixaban 5 mg 10/17/25 09:00 10/26/25 21:45 Apixaban 5 Mg Tablet PO 5 mg Q12HR SANDRA Administration Calcitriol 0.25 mcg 10/17/25 09:00 10/26/25 09:43 Calcitriol 0.25 Mcg Capsule PO 0.25 mcg DAILY SANDRA Administration Dextrose 12.5 gm 10/19/25 21:17 Dextrose 50% 25 Gm/50 Ml Syringe IV PUSH PRN PRN Hypoglycemia Protocol Docosanol 1 applic 10/23/25 18:00 10/26/25 21:46 Docosanol 10% Cream 2 Gm TOPICAL Not Given 5 TIMES DAILY SANDRA Empagliflozin 10 mg 10/25/25 09:00 10/26/25 09:43 Empagliflozin 10 Mg Tablet PO 10 mg DAILY SANDRA Administration Folic Acid 1 mg 10/21/25 09:00 10/26/25 09:43 Folic Acid 1 Mg Tablet PO 1 mg DAILY SANDRA Administration Furosemide 80 mg 10/19/25 17:00 10/26/25 17:16 Furosemide 80 Mg Tablet PO 80 mg BID SANDRA Administration Gabapentin 300 mg 10/17/25 09:00 10/26/25 17:16 Gabapentin 300 Mg Capsule PO 300 mg TID SANDRA Administration Glucagon 1 mg 10/19/25 21:17 Glucagon For Inj 1 Mg Vial IM PRN PRN Hypoglycemia Protocol Glucose 15 gm 10/19/25 21:17 Glucose Oral Gel 15 Gm Of Glucse In 37.5 Gm Tube PO PRN PRN Hypoglycemia Protocol Dextrose 1,000 mls @ 100 mls/hr 10/19/25 21:17 Dextrose 5% 1,000 Ml IVPB PRN PRN Hypoglycemia Protocol Linezolid 600 mg in 300 mls @ 300 mls/hr 10/23/25 21:00 10/26/25 21:46 Zyvox IVPB 300 mls/hr Q12HR SANDRA Administration Insulin Aspart 3 - 6 units 10/20/25 08:00 10/26/25 17:17 Insulin Aspart (*Bkc) 100 Units/Ml SUB-Q Not Given TIDWM SANDRA Protocol Insulin Aspart 5 units 10/21/25 08:00 10/26/25 17:17 Insulin Aspart (*Bkc) 100 Units/Ml SUB-Q 5 units TIDWM SANDRA Administration Insulin Glargine 22 units 10/24/25 21:00 10/26/25 21:48 Insulin Glargine (*Bkc) 100 Units/Ml SUB-Q 22 units HS SANDRA Administration Levothyroxine Sodium 100 mcg 10/17/25 06:30 10/27/25 06:05 Levothyroxine Sodium 100 Mcg Tablet PO 100 mcg DAILY@0630 SANDRA Administration Metoprolol Succinate 12.5 mg 10/22/25 13:40 10/26/25 09:44 Metoprolol Succinate Ext Rel 12.5 Mg Tabcr PO 12.5 mg DAILY SANDRA Administration Multi-Ingred Cream/Lotion/Oil/Oint 1 applic 10/20/25 09:00 10/26/25 09:47 Eucerin Cream 120 Gm Jar TOPICAL 1 applic DAILY SANDRA Administration Ondansetron HCl 4 mg 10/17/25 04:38 10/21/25 22:43 Ondansetron Inj 4 Mg/2 Ml Vial IV PUSH 4 mg Q4H PRN Administration Nausea Pantoprazole Sodium 40 mg 10/22/25 21:00 10/26/25 21:48 Pantoprazole 40 Mg Tablet PO 40 mg Q12HR SANDRA Administration Sacubitril/Valsartan 1 tab 10/19/25 21:00 10/26/25 21:48 Sacubitril/Valsartan 24-26 Mg Tablet PO 1 tab Q12HR SANDRA Administration Radiology Results: ITS Impressions Chest X-Ray 10/17/25 07:59 IMPRESSION: 1. Portable chest x-ray with no focal acute process; heart shadow is borderline enlarged and mild vascular congestion may be present. Chest/Abdomen/Pelvis CT 10/17/25 08:08 IMPRESSION: Directed noncontrast exam demonstratin. No gross acute intrathoracic process. Borderline cardiomegaly and coronary artery calcifications. 2. Cholelithiasis with no gross CT evidence of acute cholecystitis. Possible mild urinary bladder wall thickening which could be associated with developing cystitis or UTI. NOTE: Preliminary radiologist report provided by [facility] radiologist/physician. Lower Extremity CT 10/17/25 09:31 IMPRESSION: 1. Extensive edematous/infiltrative changes in the subcutaneous soft tissues throughout the field of view of the left lower extremity with no clearly defined abscess or gross evidence of necrotizing fasciitis, or osteomyelitis. If osteomyelitis is a clinical concern, correlation with MRI suggested; if there concern for abscess, repeat examination with CT or MRI with contrast suggested. 2. Other findings as above. Venous Doppler Study 10/17/25 12:32 IMPRESSION: 1. No deep venous thrombosis in either lower limb. Ankle Brachial Index 10/18/25 08:55 IMPRESSION: 1. Mild arterial occlusive disease to the right lower limb with minimally decreased right TBI. 2. No significant arterial occlusive disease in the left lower limb with normal left TBI. Labs Labs: Laboratory Results - last 24 hr 10/26/25 10/26/25 10/26/25 11:08 16:36 21:15 POC Capillary Glucose 247 H 180 H 201 H 10/27/25 07:39 POC Capillary Glucose 171 H Quality VTE Prophylaxis VTE prophylaxis: pharmacologic ordered
[2025-10-27 08:23] LABS: Hematocrit 36.8 % (42.0-52.0); Hemoglobin 11.7 g/dL (14.0-18.0); Mean Corpuscular HGB Conc 31.8 g/dl (32-36); Mean Corpuscular Hemoglobin 30.2 pg (26-34); Mean Corpuscular Volume 95.1 fl (80-100); Platelet Count Result 381 k/mm3 (150-375); Red Blood Count 3.87 M/mm3 (4.6-6.20); White Blood Count 7.6 K/mm3 (4.5-10.0)
[2025-10-27 08:59] LABS: Alanine Aminotransferase 20 U/L (6-50); Albumin Level 3.5 g/dL (3.5-5.1); Alkaline Phosphatase 156 U/L (38-126); Anion Gap 5 mmol/L (4-12); Aspartate Amino Transferase 31 U/L (17-59); Bilirubin,Total 0.8 mg/dL (0.2-1.3); Blood Urea Nitrogen 35 mg/dL (9-20); Calcium 8.9 mg/dL (8.4-10.2); Carbon Dioxide 36 mmol/L (22-30); Chloride 95 mmol/L (98-107); Estimated CRCL calculation 50 ml/min; Estimated Glomerular Filt Rate 46; Glucose 183 mg/dL (65-110); Potassium 3.8 mmol/L (3.4-5.0); Sodium 136 mmol/L (137-145); Total Protein 7.6 g/dL (6.3-8.2)
[2025-10-27 09:00] VITALS: PULSE 80
[2025-10-27] MEDS: FOLIC ACID 1 MG TABLET PO (09:00)
[2025-10-27] MEDS: GABAPENTIN 300 MG CAPSULE PO ×3 (09:00→16:42)
[2025-10-27] MEDS: METOPROLOL SUCCINATE EXT REL 12.5 MG TABCR PO (09:00)
[2025-10-27] MEDS: PANTOPRAZOLE 40 MG TABLET PO ×2 (09:01→20:42)
[2025-10-27] MEDS: APIXABAN 5 MG TABLET PO ×2 (09:01→20:42)
[2025-10-27] MEDS: EUCERIN CREAM 120 GM JAR 1 APPLIC TOPICAL (09:01)
[2025-10-27] MEDS: INSULIN ASPART (*BKC) 100 UNITS/ML SUB-Q ×4 (09:02→16:42)
[2025-10-27] MEDS: ACETAMINOPHEN 325 MG TABLET 650 MG PO ×2 (09:15→16:48)
[2025-10-27 09:30] VITALS: PULSE 80
[2025-10-27] MEDS: AMIODARONE HCL 200 MG TABLET PO (09:30)
[2025-10-27] MEDS: LINEZOLID 600 MG/300 ML 600 MG/300 ML SOLN 300 MG IVPB (11:59)
[2025-10-27 14:00] VITALS: BP 110/56; PULSE 68; RESP 17; TEMP 36.3; O2SAT 95
[2025-10-27] MEDS: FUROSEMIDE 80 MG TABLET PO (16:42)
[2025-10-27 20:30] VITALS: BP 101/53; PULSE 78; RESP 17; TEMP 36.3; O2SAT 96
[2025-10-27] MEDS: LINEZOLID 600 MG TABLET PO (20:42)
[2025-10-27] MEDS: SACUBITRIL/VALSARTAN 24-26 MG TABLET 1 TAB PO (20:42)
[2025-10-27] MEDS: INSULIN GLARGINE (*BKC) 100 UNITS/ML 22 UNITS SUB-Q (20:46)
[2025-10-28] MEDS: ACETAMINOPHEN 325 MG TABLET 650 MG PO (01:59)
[2025-10-28 06:00] VITALS: BP 93/45; PULSE 72; RESP 17; TEMP 36.3; O2SAT 95
[2025-10-28 06:31] LABS: Hematocrit 35.0 % (42.0-52.0); Hemoglobin 10.9 g/dL (14.0-18.0); Mean Corpuscular HGB Conc 31.1 g/dl (32-36); Mean Corpuscular Hemoglobin 29.9 pg (26-34); Mean Corpuscular Volume 95.9 fl (80-100); Platelet Count Result 361 k/mm3 (150-375); Red Blood Count 3.65 M/mm3 (4.6-6.20); White Blood Count 6.6 K/mm3 (4.5-10.0)
[2025-10-28 06:49] LABS: Alanine Aminotransferase 18 U/L (6-50); Albumin Level 3.4 g/dL (3.5-5.1); Alkaline Phosphatase 142 U/L (38-126); Anion Gap 6 mmol/L (4-12); Aspartate Amino Transferase 30 U/L (17-59); Bilirubin,Total 0.6 mg/dL (0.2-1.3); Blood Urea Nitrogen 36 mg/dL (9-20); Calcium 8.6 mg/dL (8.4-10.2); Carbon Dioxide 34 mmol/L (22-30); Chloride 95 mmol/L (98-107); Estimated CRCL calculation 48 ml/min; Estimated Glomerular Filt Rate 44; Glucose 194 mg/dL (65-110); Potassium 3.6 mmol/L (3.4-5.0); Sodium 135 mmol/L (137-145); Total Protein 7.3 g/dL (6.3-8.2)
[2025-10-28] MEDS: GABAPENTIN 300 MG CAPSULE PO ×2 (08:34→12:26)
[2025-10-28] MEDS: EMPAGLIFLOZIN 10 MG TABLET PO (08:34)
[2025-10-28] MEDS: APIXABAN 5 MG TABLET PO (08:34)
[2025-10-28] MEDS: SACUBITRIL/VALSARTAN 24-26 MG TABLET 1 TAB PO (08:34)
[2025-10-28] MEDS: PANTOPRAZOLE 40 MG TABLET PO (08:34)
[2025-10-28] MEDS: FUROSEMIDE 80 MG TABLET PO (08:34)
[2025-10-28] MEDS: FOLIC ACID 1 MG TABLET PO (08:34)
[2025-10-28] MEDS: LINEZOLID 600 MG TABLET PO (08:34)
[2025-10-28] MEDS: EUCERIN CREAM 120 GM JAR 1 APPLIC TOPICAL (08:35)
[2025-10-28 08:36] VITALS: PULSE 63
[2025-10-28] MEDS: METOPROLOL SUCCINATE EXT REL 12.5 MG TABCR PO (08:36)
[2025-10-28] MEDS: AMIODARONE HCL 200 MG TABLET PO (08:36)
[2025-10-28] MEDS: INSULIN ASPART (*BKC) 100 UNITS/ML SUB-Q ×2 (08:38→12:27)
[2025-10-28 08:40] VITALS: BP 130/72
[2025-10-28 12:10] VITALS: BP 122/66
[2025-10-28] MEDS: LIDOCAINE 5% PATCH 1 PATCH TRANSDERM (12:32)
[2025-10-28] MEDS: [UNRECOGNIZED DRUG - REMARK] 1 EACH XX (12:33)
--- NOTE | 2025-10-28 13:22 | P.DS_ITS ---
DS: Admitting Diagnosis Discharge Date 10/28/ Admitting Diagnosis septic shock cellulitis uti elevated troponin dm2 ckd chf afib saroj chronic back pain DS: Discharge Diagnosis Discharge Diagnosis (1) Septic shock: Code(s): A41.9 - Sepsis, unspecified organism; R65.21 - Severe sepsis with septic shock Status: Acute (2) Cellulitis: Code(s): L03.90 - Cellulitis, unspecified Status: Acute (3) UTI (urinary tract infection): Code(s): N39.0 - Urinary tract infection, site not specified Status: Acute (4) Elevated troponin: Code(s): R79.89 - Other specified abnormal findings of blood chemistry Status: Acute (5) DM2 (diabetes mellitus, type 2): Code(s): E11.9 - Type 2 diabetes mellitus without complications Status: Acute (6) Chronic kidney disease: Code(s): N18.9 - Chronic kidney disease, unspecified Status: Acute (7) Congestive heart failure: Code(s): I50.9 - Heart failure, unspecified Status: Acute (8) Atrial fibrillation: Code(s): I48.91 - Unspecified atrial fibrillation Status: Acute (9) Discoloration of skin of foot: Code(s): L81.9 - Disorder of pigmentation, unspecified Status: Acute (10) SAROJ (obstructive sleep apnea): Code(s): G47.33 - Obstructive sleep apnea (adult) (pediatric) Status: Acute (11) Chronic back pain: Code(s): M54.9 - Dorsalgia, unspecified; G89.29 - Other chronic pain Status: Acute DS: Summary Hospital Course Reason for hospitalization: septic shock cellulitis uti elevated troponin dm2 ckd chf afib saroj chronic back pain Hospital Course: 75-year-old male with a past medical history of type 2 diabetes mellitus, chroni c kidney disease, congestive heart failure, atrial fibrillation on anticoagulation, COPD, asbestosis, and morbid obesity, who presented with generalized weakness. On arrival, he was found to be hypoglycemic and hypotensive, requiring immediate resuscitation with IV dextrose, glucagon, and fluid boluses. Despite initial management, he remained hypotensive and was started on vasopressor support (Levophed) via a femoral central line and admitted to the ICU for septic shock. Initial workup revealed leukocytosis, elevated lactic acid, acute kidney injury, and elevated troponin. Imaging and physical exam identified extensive left lower extremity erythema and swelling, and CT confirmed diffuse subcutaneous edema without abscess or necrotizing fasciitis. Lower extremity arterial studies showed only mild right-sided disease, and there was no evidence of DVT.Blood cultures grew Group G Streptococcus, confirming the diagnosis of septic shock secondary to left lower extremity cellulitis with bacteremia. He was started on broad-spectrum antibiotics (cefepime and vancomycin), later narrowed to ceftriaxone and then transitioned to linezolid per infectious disease recommendations. Vasopressors were weaned off by hospital day 2, and the central line was removed. During his ICU stay, the patient?s renal function initially worsened but improved with careful fluid management and avoidance of nephrotoxic agents. His chronic heart failure was managed with temporary cessation of home diuretics and KENY inhibitor due to hypotension, later resumed as his hemodynamics stabilized. Cardiology was consulted for elevated troponin and new severe left ventricular systolic dysfunction (EF 30-35%) on echocardiogram, which was attributed to demand ischemia in the setting of sepsis and hypotension. Per cardiology patient was started on GDMT, continued metoprolol (dose decreased from 50 to 12.5 mg daily), started on entresto 24-26, and Jardiance 10 mg. Lisinopril and spironolactone was discontinued. He remained asymptomatic from a cardiac standpoint and was managed conservatively with plans for outpatient ischemic evaluation. His atrial fibrillation was rate controlled with amiodarone and metoprolol, and anticoagulation with apixaban was continued. The patient?s diabetes regimen was adjusted during his acute illness, with insulin held during hypoglycemia and later resumed with close monitoring. Discussed patients home regimen with his primary pharmacy who states he was previously on 52 units lantus BID. Has since been changes to lantus 22 units HS and Lispro 5 units TIDWM. His blood glucose stabilized, and A1c was 6.0%. Had a lengthy discussion with patient about insulin changes and he states understanding. Patient also notes that he has glucagon at home if needed for hypoglycemia. Over the course of his hospitalization, the patient?s cellulitis improved significantly with antibiotics, and repeat blood cultures were negative. He remained afebrile, with normalization of his WBC and improvement in renal function. He was successfully weaned off supplemental oxygen, remained hemodynamically stable, and was able to participate in physical therapy. At the time of discharge, he was ambulating well, tolerating a diabetic diet, and had no acute complaints. He was transitioned to oral antibiotics to complete his course for cellulitis and bacteremia, and his home medications for heart failure, atrial fibrillation, diabetes, and other chronic conditions were resumed or adjusted as appropriate. At time of discharge patient states he feels back to baseline and denies any chest pain, palpitations, shortness of breath, nausea/vomiting, abdominal pain, and dizziness/lightheadedness with ambulation. He was discharged home with home health in stable condition with close outpatient follow-up arranged for cardiology, infectious disease, and primary care. Status at Discharge Functional status at discharge: uses cane/walker Time Spent with Patient Time attestation: Total time spent providing and/or coordinating discharge services: Time spent: Greater than 30 minutes Exam Narrative: AF HR 72 RR 17 Spo2 95 BP 130/72 General: male in no acute respiratory distress who is nontoxic appearing, sitting up in chair HEENT: Normocephalic. Atraumatic. Extraocular movement intact. Sclera clear and anicteric. No facial asymmetry. Chest: Lungs are clear to auscultation bilaterally. No wheezes or crackles. CV: Heart was regular rate and rhythm. Abd: Abdomen was soft. Nontender. Nondistended. Positive bowel sounds. Ext: No clubbing, cyanosis. Trivial pedal edema with LLE very mild erythema with no noted wounds or warmth. Neuro: Patient is alert and oriented x3. Speech is clear. DS: Data Data Completed and Pending Completed studies during hospitalization: ARNALDO venous doppler lower extremity ct chest xr Labs on day of discharge: Labs from last 24 hours 10/28/25 10/28/25 10/28/25 11:23 07:38 06:05 WBC 6.6 RBC 3.65 L Hgb 10.9 L Hct 35.0 L MCV 95.9 MCH 29.9 MCHC 31.1 L RDW 14.4 Plt Count 361 MPV 9.7 Sodium 135 L Potassium 3.6 Chloride 95 L Carbon Dioxide 34 H Anion Gap 6 BUN 36 H Creatinine 1.57 H Estim Creat Clear Calc 48 Estimated GFR 44 L Glucose 194 H POC Capillary Glucose 181 H 192 H Calcium 8.6 Total Bilirubin 0.6 AST 30 ALT 18 Alkaline Phosphatase 142 H Total Protein 7.3 Albumin 3.4 L 10/27/25 10/27/25 19:34 16:16 WBC RBC Hgb Hct MCV MCH MCHC RDW Plt Count MPV Sodium Potassium Chloride Carbon Dioxide Anion Gap BUN Creatinine Estim Creat Clear Calc Estimated GFR Glucose POC Capillary Glucose 158 H 253 H Calcium Total Bilirubin AST ALT Alkaline Phosphatase Total Protein Albumin Discharge Plan Discharge Attending physician on discharge: Cuong Islas Oca Consulting providers: Jimi Hoover; Marisol Urbina; Lavon Young; Joceline Altman; Sandra Solitario Discharging Clinician: Sandra Solitario Anticipated Discharge Date/Time: 10/28/25 12:15 Patient Disposition: Home with Home Health Service Activity: as tolerated Diet: as tolerated, heart healthy and diabetic Discharge Instructions: Discharge disposition: Admitted for cellulitis (skin infection) Medication Instructions * Take linezolid exactly as prescribed, course to be completed on 11/01. * Do not skip doses or stop early, even if you feel better. * Attached is information on this medication 3.?Wound Care * Keep the affected area clean and dry. * Wash hands before and after touching the area. * Watch for increased redness, swelling, pain, or pus. 4.?Activity * Elevate the affected limb as much as possible to reduce swelling. * Avoid strenuous activity until cleared by your provider. During admission you had a heart failure exacerbation Cardiology evaluated ? Medications:? Metoprolol dose changed from 50 mg to 12.5 mg daily Started on Entresto 24-26 mg daily and Jardiance 10 mg daily Stop the lisinopril 5 mg daily and spironolactone 12.5 mg daily Take all prescribed medications exactly as directed. Do not stop or change doses without consulting your healthcare provider. ? Diuretics and Fluid Management:? Continue lasix 80 mg twice a day Take diuretics as prescribed to help remove excess fluid. Monitor for signs of dehydration or low potassium (muscle cramps, weakness). Unless otherwise instructed, limit fluid intake to about 2 liters (64 ounces) per day, especially if you have been told you are at risk for fluid overload ? Daily Weight Monitoring:?Weigh yourself every morning after urinating and before eating, using the same scale. Record your weight daily. Notify your healthcare provider if you gain more than 2-3 pounds in one day or 5 pounds in a week, as this may indicate fluid retention. ? Diet:?Follow a low-sodium diet (generally less than 2,000 mg per day) to help control fluid buildup. Avoid processed foods, canned soups, and salty snacks. Read food labels for sodium content. ? Activity:?Stay as active as possible within your limits. Light walking and daily activities are encouraged unless otherwise instructed. ? Symptom Monitoring:?Watch for symptoms such as increased shortness of breath, swelling in your legs or abdomen, rapid weight gain, chest pain, dizziness, or confusion. If these occur, contact your healthcare provider promptly or seek emergency care if severe. ? Follow up with cardiology in the office, call for appointment Strict bleeding precautions since you remain on eliquis including shaving with an electric razor, holding pressure for greater than 20 minutes for injury, protection of had with any falls, etc. Monitor blood pressures, document results and bring to PCP and cardiology follow up If systolic number (upper number) less than 110 hold entresto Take caution while standing, rising, or moving Change positions slowly taking a break between each position change If you standing feel dizzy sit back down and take a break Diabetes instructions: Medications: * Lantus (insulin glargine):?22 units subcutaneously at bedtime (HS) * Lispro (rapid-acting insulin):?5 units subcutaneously three times daily with meals (TIDWM) 1.?How to Take Your Insulin * Lantus:?Inject 22 units under the skin every night at the same time, prefera yogi before bedtime. * Lispro:?Inject 5 units under the skin right before each main meal (breakfast, lunch, and dinner). * Always use a new needle and syringe or pen needle for each injection. * Rotate injection sites (abdomen, thigh, upper arm) to prevent skin problems. 2.?Blood Sugar Monitoring * Check your blood sugar as instructed, typically before meals and at bedtime. * Keep a log of your readings to share with your healthcare provider. * Notify your provider if your blood sugars are consistently above or below your target range. 3.?Recognizing and Treating Low Blood Sugar (Hypoglycemia) * Symptoms:?Shakiness, sweating, confusion, rapid heartbeat, irritability, dizziness. * If blood sugar <70 mg/dL or you have symptoms: * Take 15 grams of fast-acting carbohydrate (e.g., 4 oz juice, 3-4 glucose tablets, 6 oz regular soda). * Recheck blood sugar in 15 minutes. If still low, repeat. * Once normal, eat a small snack if your next meal is more than 1 hour away. 4.?Recognizing and Treating High Blood Sugar (Hyperglycemia) * Symptoms:?Increased thirst, frequent urination, fatigue, blurred vision. * If blood sugar is consistently high, review your insulin technique and timing. * Contact your provider if you have persistent high readings or symptoms of illness. 5.?Diet and Lifestyle * Eat regular, balanced meals and snacks * Do not skip meals, especially when taking insulin. * Stay active as advised, but monitor for low blood sugar during and after exercise. 7.?When to Seek Immediate Medical Attention * Signs of severe low blood sugar (unconsciousness, seizures). * Signs of diabetic ketoacidosis: nausea, vomiting, abdominal pain, rapid breathing, fruity breath, confusion. * Persistent high blood sugars (>300 mg/dL) despite insulin. Encouraged to continue with yearly vaccinations Return to the emergency department if he developed sudden shortness of breath, chest pain, nausea, vomiting, upset stomach or intractable diarrhea Return to the emergency department if you develop fever greater than 100.5 Follow-up with the primary care physician within 1-2 weeks Thank you for choosing [facility] for your healthcare needs Per Care Coordination. Patient to have [facility] for RN/PT/OT eval and treat [phone]. They will contact you to schedule your first visit. Patient Instructions: Antibiotic Form, Linezolid (By mouth), Insulin Glargine (By injection), Apixaban (By mouth), Heart Failure (GEN), Cellulitis (GEN), Low- Sodium Diet (DC) Patient Language: [place] Stand Alone Forms: General Discharge Information Follow-up/Referrals: Nolberto,MD Roberson ([place]) [Primary Care Provider] - 1 Week Marisol Urbina APN-C [Advanced Practice Nurse, Cardiology] - Call for Appointment Lavon Young MD [Physician, Infectious Disease] - Call for Appointment Discharge Medications: New Jardiance 10 mg Tablet 10 mg PO DAILY 30 Days Qty: 30 0RF linezolid 600 mg Tablet 600 mg PO Q12HR Qty: 9 0RF sacubitril-valsartan [Entresto] 24-26 mg Tablet 1 tablet PO Q12HR 30 Days Qty: 60 0RF (DME) blood-glucose meter [OneTouch Verio Flex meter] [facility] Qty: 1 0RF Rx Instructions: Starter Kit. May substitute to in-stock and/or covered by insurance meter. Use As Directed (DME) OneTouch Verio test strips Strip Qty: 1 0RF Rx Instructions: May substitute to in-stock and/or covered by insurance strips. Use As Directed (DME) pen needle, diabetic 32 gauge x 5/32 Needle Qty: 1 0RF Rx Instructions: As Directed (DME) lancets [OneTouch Delica Plus Lancet] [facility] Qty: 1 0RF Rx Instructions: May substitute to in-stock and/or covered by insurance lancets. Use As Directed insulin glargine [Lantus Solostar U-100 Insulin] 100 unit/mL (3 mL) insulin pen 22 unit subcut QHS Qty: 3 0RF metoprolol succinate [Toprol XL] 25 mg tablet extended release 24 hr 12.5 mg PO DAILY 30 Days Qty: 15 0RF Continued amiodarone 200 mg tablet 200 mg PO DAILY hydrocodone-acetaminophen 5-325 mg tablet 1 tablet PO TID PRN (Reason: Pain) allopurinol 100 mg tablet 200 mg PO DAILY levothyroxine 100 mcg tablet 100 mcg PO QAM furosemide [Lasix] 80 mg tablet 80 mg PO BID ropinirole 0.25 mg tablet 0.75 mg PO HS baclofen 10 mg tablet 10 mg PO TID PRN (Reason: other) Patient Comments: mg pantoprazole 40 mg tablet,delayed release (DR/EC) 40 mg PO TID gabapentin 300 mg capsule 300 mg PO TID folic acid 1 mg tablet 1 mg PO DAILY ergocalciferol (vitamin D2) 1,250 mcg (50,000 unit) capsule 50,000 unit PO WEEKLY calcitriol 0.25 mcg capsule 0.25 mcg PO DAILY Eliquis 5 mg tablet 5 mg PO BID Changed insulin lispro [Humalog KwikPen Insulin] 100 unit/mL insulin pen 5 unit SUBCUT TID Qty: 15 0RF Rx Instructions: before meals Discontinued metoprolol succinate 50 mg tablet extended release 24 hr 50 mg PO DAILY spironolactone 25 mg tablet 12.5 mg PO DAILY lisinopril 5 mg tablet 5 mg PO DAILY Levemir FlexTouch U100 Insulin 100 unit/mL (3 mL) insulin pen 22 unit SUBCUT HS Date of admission: 10/17/25 09:17 Primary Care Provider: Nolberto,Da ([facility]) Admitting Provider: Salma Bowling Attending physician on admission: Salma Bowling Condition: Stable Hospitalist MIPS Heart Failure (Exclusion) Patient has history of Heart Transplant or Left Ventricular Assistive Device?: No IF YES, STOP HERE Heart Failure (Qualifier) Patient has current or prior documentation of LVEF less than or equal to 40%, or mod/servere depressed LVSF?: Yes IF NO, STOP HERE If Yes, Heart Failure (Qualifier) Patient was prescribed or already taking an Angiotensin-Converting Enzyme (KENY) Inhibitor, or Antiotensin Receptor Paul (ARB): Yes Patient was prescribed or already taking bisoprolol, carvedilol, or sustained release metoprolol succinate: Yes
[2025-10-28 14:00] VITALS: BP 121/72; PULSE 69; RESP 18; TEMP 36.3; O2SAT 95
== END 2025-10-28 14:30 | disposition home health service (06) | DRG 871 ==
LOC: ANHED 10-17 04:28 → ANHICU 10-17 05:09 → ANH3MEDSUR 10-18 21:19
PROVIDERS: Internal Medicine; Nurse Practitioner; Nurse Practitioner Family; Admitting Provider Student in an Organized Health Care Education/Training Program; Emergency Provider Emergency Medicine; PCP Internal Medicine; Visit Provider Student in an Organized Health Care Education/Training Program
DX: A40.8 Other streptococcal sepsis (principal); R65.21 Severe sepsis with septic shock; N17.9 Acute kidney failure, unspecified; I13.0 Hypertensive heart and chronic kidney disease with heart failure and stage 1 through stage 4 chronic kidney disease, or unspecified chronic kidney disease; N39.0 Urinary tract infection, site not specified; L03.116 Cellulitis of left lower limb; I43 Cardiomyopathy in diseases classified elsewhere; I50.42 Chronic combined systolic (congestive) and diastolic (congestive) heart failure; Z68.43 Body mass index [BMI] 50.0-59.9, adult; E66.01 Morbid (severe) obesity due to excess calories; B95.4 Other streptococcus as the cause of diseases classified elsewhere; D63.1 Anemia in chronic kidney disease; E11.22 Type 2 diabetes mellitus with diabetic chronic kidney disease; E11.649 Type 2 diabetes mellitus with hypoglycemia without coma; G89.29 Other chronic pain; G47.33 Obstructive sleep apnea (adult) (pediatric); H53.8 Other visual disturbances; I48.91 Unspecified atrial fibrillation; J44.9 Chronic obstructive pulmonary disease, unspecified; M54.9 Dorsalgia, unspecified; N18.9 Chronic kidney disease, unspecified; R09.02 Hypoxemia; Z20.822 Contact with and (suspected) exposure to COVID-19; Z79.01 Long term (current) use of anticoagulants; Z79.84 Long term (current) use of oral hypoglycemic drugs; Z79.4 Long term (current) use of insulin; Z77.090 Contact with and (suspected) exposure to asbestos; Z91.81 History of falling
CPT/HCPCS: 36415; 36600; 71045; 71250; 73700; 74176; 80048; 80053; 80069; 80202; 81001; 82805; 82948; 83036; 83605; 83690; 83735; 83880; 84100; 84145; 84439; 84443; 84480; 84484; 85018; 85025; 85027; 85055; 85610; 85730; 86140; 87040; 87086; 87186; 87637; 87641; 93005; 93922; 93970; 94640; 94762; 96361; 96365; 96366; 96367; 97110; 97116; 97161; 97166; 97530; 97535; 99285; A9270; C1751; C8929; G0378; J0692; J0696; J1610; J1815; J2020; J2405; J2470; J3373; J3475; J7030; J7042; J7120; Q9957

== ENCOUNTER 2025-11-15 17:34 | Emergency (ER) | payer MEDICARE, MEDICAID, SELFPAY ==
--- NOTE | ~2025-11-15 | US_ITS ---
US venous doppler LE LT INDICATION: Left lower extremity pain and swelling. COMPARISON: None. TECHNIQUE: The deep veins of the left lower extremity were evaluated with Duplex Doppler, color Doppler, and high-resolution B-mode sonography. Evaluated veins include the common femoral, femoral, and popliteal veins. The calf veins were also evaluated. Compression and augmentation maneuvers were performed. FINDINGS: The deep veins of the left lower extremity were compressible and demonstrated spontaneous phasic waveforms with an appropriate response to augmentation maneuvers. The visualized calf veins were patent. IMPRESSION: There was no sonographic evidence of deep vein thrombosis in the left lower extremity. Reviewed, dictated and finalized at location S. [employer]ICAL EQUIPMENT [employer]SEMBLER IMPRESSION: There was no sonographic evidence of deep vein thrombosis in the left lower ext remity.
[2025-11-15 17:49] VITALS: BP 102/45; PULSE 82; RESP 16; TEMP 36.2; O2SAT 95
--- OUTSIDE RECORDS SUMMARY | 2025-11-15 18:48 | XMS_ITS | Data Portability ---
Author Organization [facility], [employer] Address [address] [address] Care Team Providers Care Compliance Investigator Name Role Phone JUSTIN HERNANDEZ Crtt REMY STARK MD Sinker Puller JACK WELSH Sinker Puller [phone] AUSTIN PRECIADO Special Librarian Assessment Encounter Date Assessment Date Assessment LastModified by Organization Details LastModified Time 10/03/2024 10/03/2024 Recommends healt hy nutrition, including a diet rich in fruits and vegetables, minimizing simple carbohydrates, salt, and saturated fats. Encouraged regular cardiovascular exercise such as walking at least 30 minutes daily, 5 times per week. Not available 10/03/2024 14:42:09 11/18/2024 11/18/2024 Patient presente d for follow up. Studies ordered as below. Discussed plan with patient/caregiver, who expressed understanding. Follow up as noted below. [email or web address] Not available 11/18/2024 13:49:34 01/03/2025 01/03/2025 Recommends healt hy nutrition, including a diet rich in fruits and vegetables, minimizing simple carbohydrates, salt, and saturated fats. Encouraged regular cardiovascular exercise such as walking at least 30 minutes daily, 5 times per week. Emphasized preventive health measures and educated pt on fall prevention and community-based lifestyle interventions to help reduce health risks and promote healthy living. Not available 01/03/2025 12:52:36 05/03/2025 05/03/2025 Patient presente d to office today for their Medicare Annual Wellness Visit. Recommends healthy nutrition, including a diet rich in fruits and vegetables, minimizing simple carbohydrates, salt, and saturated fats. Encouraged regular cardiovascular exercise such as walking at least 30 minutes daily, 5 times per week. Emphasized preventive health measures and educated pt on fall prevention and community-based lifestyle interventions to help reduce health risks and promote healthy living. [email or web address] Not available 05/03/2025 13:55:27 11/02/2025 11/02/2025 My staff Norma communicated w/ pt and appt was made on 10/30/25. Patient presented to office today for follow-up of previous hospital visit that occurred on 10/17/25 & discharged on 10/28/25. Patient was dx'd with: (see below). Patient's condition has improved (toe looked better, and LLE also less swollen, & pain improved a lot); patient denies any new or worsening/increasi ng symptoms. Medlist, discharge summary were reviewed and pt is compliant with meds. Pt is currently able to to perform all his ADL's Home Health came to see pt on Thursday/Thursday(10/30 or 10/31/25 -- pt not sure), PT also started today 11/02/25. Counseling was done on care goals and ways to prevent future hospitalizations were discussed. Pt advised to have pt go Emergency Room if any weakness, increasing or worsening sx, or any new symptoms. Advised patient on preventive health measures and educated patient to help reduce health risks and promote healthy living. If patient has any further questions, she can call my office at [phone]. [email or web address] Not available 11/02/2025 20:54:59 Plan of Treatment Reminders Order Date Submit Date Provider Last Modified By Organization Details Last Modified Time Details Appointments None recorded. Lab lipid panel, serum 2024 025 sophia Banks, [address], [address], [place], [address], 5 08:14:49 folate, RBC 2024 025 sophia Banks, 2022 [address], [address], [place], [address], 5 08:14:49 HbA1c (hemoglobi n A1c), blood 2024 025 sophia Banks, 2022 [address], [address], [place], [address], 5 08:14:48 CMP, serum or plasma 2024 [facility], [address], [address], [place], [address], 5 08:14:48 microalbum in/creatin ine, mass ratio, urine 2024 [facility], [address], [address], [place], [address], 5 08:14:48 CBC w/ auto diff 2024 [facility], [address], [address], [place], [address], 5 08:14:48 TSH + free T4, serum 2024 [facility], [address], [address], [place], [address], 5 08:14:48 T3, free, serum or plasma 2024 025 [facility], [address], [address], [place], [address], 5 08:14:48 retic count, blood 2024 [facility], [address], [address], [place], [address], 5 08:14:49 iron panel, serum or plasma 2024 [facility], [address], [address], [place], [address], 5 08:14:49 lipid panel, serum 2024 025 DEVIN [facility], [address], [address], [place], [address], 14:37:09 folate, RBC 2024 025 [facility], [address], [address], [place], [address], 14:37:10 HbA1c (hemoglobi n A1c), blood 2024 025 [facility], [address], [address], [place], [address], 14:37:11 CMP, serum or plasma 2024 025 [facility], [address], [address], [place], [address], 14:37:08 microalbum in/creatin ine, mass ratio, urine 2024 025 [facility], [address], [address], [place], [address], 14:37:10 CBC w/ auto diff 2024 025 [facility], [address], [address], [place], [address], 14:37:07 TSH + free T4, serum 2024 025 [facility], [address], [address], [place], [address], 14:37:06 T3, free, serum or plasma 2024 025 [facility], [address], [address], [place], [address], 14:37:12 retic count, blood 2024 025 DEVIN [facility], [address], [address], [place], [address], 5 14:37:12 iron panel, serum or plasma 2024 025 [email or web address] [facility], [address], [address], [place], [address], 5 08:14:29 CBC w/ auto diff 2023 024 sophia [facility], [address], [address], [place], [address], 4 08:07:20 vitamin D, 25-hydroxy , total, serum 2023 024 sophia [facility], [address], [address], [place], [address], 4 08:07:21 hemoglobin A1C/hemogl obin total, QN, blood 2023 024 DEVIN [facility], [address], [address], [place], [address], 4 14:58:45 CMP, serum or plasma 2023 024 sophia [facility], 20[address], [address], [place], [address], 4 08:07:21 folate, RBC 2023 024 sophia [facility], [address], [address], [place], [address], 4 08:07:21 CMP, serum or plasma 2023 024 sophia [facility], 2022 [address], [address], [place], [address], 4 08:07:21 iron panel, serum or plasma 2023 024 sophia Banks, 2022 [address], [address], [place], [address], 4 08:07:21 vitamin B12, serum 2023 024 sophia Banks, 2022 [address], [address], [place], [address], 4 08:07:21 lipid panel, serum 2023 025 sophia Banks, 2022 [address], [address], [place], [address], 5 08:33:59 microalbum in/creatin ine, mass ratio, urine 2023 025 sophia Banks, 2022 Angela [address], [address], [place], [address], 5 08:33:58 HbA1c (hemoglobi n A1c), blood 2023 025 sophia Banks, 2022 Angela [address], [address], [place], [address], 5 08:33:58 CMP, serum or plasma 2023 025 sophia Banks, 2022 [address], [address], [place], [address], 5 08:33:59 CBC w/ auto diff 2023 025 sophia Banks, 2022 Angela [address], [address], [place], [address], 5 08:33:59 iron panel, serum or plasma 2023 025 sophia Banks, 2022 [address], [address], [place], [address], 5 08:33:[address] referral 2024 025 LA NENA Hernandez MD (Nephrology, [address], [address], [place], [address], 5 21:10:32 diabetic ophthalmol ogy referral 2024 025 [facility], [address] [place] [address], [address], 5 08:40:55 machine clothing man referral - -- need nail care and diabetic foot care 2024 025 sophia Preciado DP, [address] [facility], [address], [place], [address], 5 08:40:56 diabetic ophthalmol ogy referral 2024 025 [facility], [facility] [place], [address], 5 08:15:51 machine clothing man referral - -- need nail care and diabetic foot care 2024 025 sophia Preciado DP, [address] [facility], [address], [place], [address], 5 08:15:52 diabetic ophthalmol ogy referral 2023 024 [facility], [address] [place] [address], [address], 4 09:01:06 gastroente rologist referral 2023 024 sophia Garzon MD, [address] [facility], [address], [address], 5 08:00:03 Procedures None recorded. Surgeries None recorded. Imaging US, echocardio gram 2023 024 DALE [employer], [facility], [address] [facility] [address], [place], [address], 4 23:00:38 XR, chest, [address] [facility] (Radiology), [address] [place], [address], 4 08:11:17 electrocar diogram 2023 DALE [employer], [facility], [address] [facility] [address], [place], [address], 4 15:23:03 Medication Orders atorvastat in 10 mg tablet 2024 025 DALE [employer] #46817, [address] [place], [place], [id number], 5 14:00:15 metoprolol succinate ER 25 mg tablet,ext ended release 24 hr 2024 [address] [facility], [address] [place], [place], [id number], 17:53:18 metoprolol succinate ER 50 mg tablet,ext ended release 24 hr 2024 [address] [facility] [facility], [address] [place], [place], [id number], 5 17:52:49 Eliquis 5 mg tablet 2024 025 DALE [facility] #45983, [address] [place], [place], [id number], 5 14:00:16 gabapentin 300 mg capsule 2024 025 [facility] #68948, [address] [place], [place], [id number], 14:00:13 atorvastat in 10 mg tablet 2024 025 [facility] #26358, [address] [place], [place], [id number], 12:58:08 metoprolol succinate ER 25 mg tablet,ext ended release 24 hr [address]79261, [address] [place], [place], [id number], 23:50:28 metoprolol succinate ER 50 mg tablet,ext ended release 24 hr [address]77991, [address] [place], [place], [id number], 17:52:49 Eliquis 5 mg tablet 2024 025 [facility] #40575, [address] [place], [place], [id number], 12:58:07 levothyrox ine 100 mcg tablet 2024 025 [facility] #25956, [address] [place], [place], [id number], 23:56:03 gabapentin 300 mg capsule 2024 025 [facility] #02559, [address] [place], [place], [id number], 5 12:58:23 clotrimazo le-betamet hasone 1 %-0.05 % topical cream 2023 [facility] #44953, [address] [place], [place], [id number], 4 14:51:46 albuterol sulfate HFA 90 mcg/actuat ion aerosol inhaler 2023 [facility] #12178, [address] [place], [place], [id number], 4 14:51:47 Easy Touch Alcohol Prep Pads 2023 [facility] #92770, [address] [place], [place], [id number], 4 14:51:48 OneTouch Ultra Test strips 2023 [facility] #35994, [address] [place], [place], [id number], 4 14:51:45 folic acid 400 mcg tablet 2023 [facility] #15548, [address], [place], [id number], 4 14:51:46 tramadol 50 mg tablet [address] [facility] #02904, [address] [place], [place], [id number], 5 23:50:35 duloxetine 60 mg capsule,de layed release 2023 [facility] #10742, [address] [place], [place], [id number], 4 14:48:36 atorvastat in 10 mg tablet 2023 [facility] #95775, [address] [place], [place], [id number], 4 14:48:35 ergocalcif mj (vitamin D2) 1,250 mcg (50,000 unit) capsule 2023 [facility] #52512, [address] [place], [place], [id number], 4 15:51:56 pantoprazo le 40 mg tablet,del ayed release 2023 [facility] #19679, [address], [place], [id number], 4 14:52:53 Eliquis 5 mg tablet 2023 [facility] #54135, [address], [place], [id number], 14:51:58 metoprolol succinate ER 50 mg tablet,ext ended release 24 hr [address] [facility] #01398, [address], [place], [id number], 5 17:52:49 Levemir FlexTouch U-100 Insulin 100 unit/mL (3 mL) subcsierra tucsono pen [address] [facility] #76253, [address] [place], [place], [id number], 5 12:41:58 metformin ER 500 mg tablet,ext ended release 24 hr 2023 [facility] #49628, [address] [place], [place], [id number], 14:52:50 levothyrox ine 100 mcg tablet 2023 024 [facility]69526, [address] [place], [place], [id number], 23:55:53 gabapentin 300 mg capsule 2023 024 [facility]888, [address], [place], [id number], 14:52:41 Patient TargetsNo targets recorded. Patient Instructions Encounter Date Encounter Id Patient Instructions Last Modified By Organization Details Last Modified Time 10/03/2024 [id number] advised to lose weight Not available 10/03/2024 14:39:43 11/18/2024 [id number] spirometry testing* DEVIN Not available 11/18/2024 15:24:03 01/03/2025 [id number] advance care planning: care instructions Not available 01/03/2025 12:57:58 (ARNALDO) ankle brachial index* DEVIN Not available 01/03/2025 19:18:20 advised to lose weight Not available 01/03/2025 12:57:58 05/03/2025 [id number] medicare preventive services guide Not available 05/03/2025 14:00:05 advance care planning: care instructions Not available 05/03/2025 14:00:06 advised to lose weight Not available 05/03/2025 14:00:05 Discussed and explained advance directives such as standard forms to the . Face to face discussion lasted for a duration of ___ minutes. Not available 05/03/2025 13:52:55 Reason for Referral Diabetic Ophthalmology Refer ral for Type 2 diabetes mellitus without complication Referring Physician: Dean Arvizu, Internal Medicine, Encounter Date: 10/03/2024 Tug Boat Engineer Referral for Iron deficiency anemia Referring Physician: Dean Arvizu, Internal Medicine, Encounter Date: 10/03/2024 Diabetic Ophthalmology Refer ral for Type 2 diabetes mellitus without complication Referring Physician: Dean Arvizu, Internal Medicine, Encounter Date: 01/03/2025 Special Librarian Referral for Type 2 diabetes mellitus without complication -- need nail care and diabetic foot care Referring Physician: Dean Arvizu, Internal Medicine, Encounter Date: 01/03/2025 Diabetic Ophthalmology Refer ral for Type 2 diabetes mellitus without complication Referring Physician: Dean Arvizu, Internal Medicine, Encounter Date: 05/03/2025 Special Librarian Referral for Type 2 diabetes mellitus without complication -- need nail care and diabetic foot care Referring Physician: Dean Arvizu, Internal Medicine, Encounter Date: 05/03/2025 [facility] Referring Physician: Dean Arvizu, Internal Medicine, Encounter Date: 11/02/2025 Results Created Date Observation Date Name Description Value Unit Range Abnormal Flag Note LastModifiedBy Organization Detail LastModifiedTime 09/15/20 24 09/16/2024 COMP. METAB OLIC PANEL (14) glucose 128 mg/dL 70-99 above high normal Not Available [facility] ([facility]) [address] [place], [address], 09/16/2024 09:39:13 09/15/2009/16/2024 COMP. METAB OLIC PANEL (14) BUN 23 mg/dL 8-27 normal Not Available [facility] ([facility]) [address] [place], [address], 09/16/2024 09:39:13 09/15/20 24 09/16/2024 COMP. METAB OLIC PANEL (14) creatinine 1.24 mg/dL 0.76-1 .27 normal Not Available [facility] ([facility]) [address] [place], [address], 09/16/2024 09:39:13 09/15/20 24 09/16/2024 COMP. METAB OLIC PANEL (14) eGFR 62 mL/mi n/1.7 3 >59 normal Not Available [facility] ([facility]) [address] [place], [address], 09/16/2024 09:39:13 09/15/20 24 09/16/2024 COMP. METAB OLIC PANEL (14) BUN/creatini ne ratio 19 10-24 normal Not Available [facility] ([facility]) [address] [facility], [place], [address], 09/16/2024 09:39:13 09/15/2009/16/2024 COMP. METAB OLIC PANEL (14) sodium 142 mmol/ L 134-14 4 normal Not Available [facility] ([facility]) [address] [facility], [place], [address], 09/16/2024 09:39:13 09/15/2009/16/2024 COMP. METAB OLIC PANEL (14) potassium 5.5 mmol/ L 3.5-5. 2 above high normal Not Available [facility] ([facility]) [address] [facility], [place], [address], 09/16/2024 09:39:13 09/15/2009/16/2024 COMP. METAB OLIC PANEL (14) chloride 100 mmol/ L 96-106 normal Not Available [facility] ([facility]) [address] [facility], [place], [address], 09/16/2024 09:39:13 09/15/2009/16/2024 COMP. METAB OLIC PANEL (14) carbon dioxide, total 25 mmol/ L 20-29 normal Not Available [facility] ([facility]) [address] [place], [address], 09/16/2024 09:39:13 09/15/2009/16/2024 COMP. METAB OLIC PANEL (14) calcium 9.6 mg/dL 8.6-10 .2 normal Not Available [facility] ([facility]) [address] [facility], [place], [address], 09/16/2024 09:39:13 09/15/20 24 09/16/2024 COMP. METAB OLIC PANEL (14) protein, total 7.3 g/dL 6.0-8. 5 normal Not Available [facility] ([facility]) [address] [facility], [place], [address], 09/16/2024 09:39:13 09/15/20 24 09/16/2024 COMP. METAB OLIC PANEL (14) albumin 4.0 g/dL 3.8-4. 8 normal Not Available [facility] ([facility]) [address] [facility], [place], [address], 09/16/2024 09:39:13 09/15/2009/16/2024 COMP. METAB OLIC PANEL (14) globulin, total 3.3 g/dL 1.5-4. 5 Not Available [facility] ([facility]) [address] [facility], [place], [address], 09/16/2024 09:39:13 09/15/20 24 09/16/2024 COMP. METAB OLIC PANEL (14) bilirubin, total 0.5 mg/dL 0.0-1. 2 normal Not Available [facility] ([facility]) [address] [facility], [place], [address], 09/16/2024 09:39:13 09/15/20 24 09/16/2024 COMP. METAB OLIC PANEL (14) alkaline phosphatase 116 IU/L 44-121 normal Not Available [facility] ([facility]) [address] [facility], [place], [address], 09/16/2024 09:39:13 09/15/20 24 09/16/2024 COMP. METAB OLIC PANEL (14) AST (SGOT) 16 IU/L 0-40 normal Not Available [facility] ([facility]) [address] [facility], [place], [address], 09/16/2024 09:39:13 09/15/20 24 09/16/2024 COMP. METAB OLIC PANEL (14) ALT (SGPT) 11 IU/L 0-44 normal Not Available [facility] ([facility]) [address] [facility], [place], [address], 09/16/2024 09:39:13 09/15/2009/16/2024 LIPID PANEL cholesterol, total 137 mg/dL 100-19 9 normal Not Available [facility] ([facility]) [address] [facility], [place], [address], 09/16/2024 09:39:14 09/15/20 24 09/16/2024 LIPID PANEL triglyceride s 80 mg/dL 0-149 normal Not Available [facility] ([facility]) [address] [place], [address], 09/16/2024 09:39:14 09/15/2009/16/2024 LIPID PANEL HDL cholesterol 53 mg/dL >39 normal Not Available [facility] ([facility]) [address] [facility], [place], [address], 09/16/2024 09:39:14 09/15/2009/16/2024 LIPID PANEL VLDL cholesterol ángel 16 mg/dL 5-40 Not Available [facility] ([facility]) [address] [facility], [place], [address], 09/16/2024 09:39:14 09/15/2009/16/2024 LIPID PANEL LDL chol calc ([facility]) 68 mg/dL 0-99 Not Available [facility] ([facility]) [address] [place], [address], 09/16/2024 09:39:14 09/15/2009/16/2024 LIPID PANEL LDL calc comment: PERINATAL NURSE Not Available [facility] ([facility]) [address] [place], [address], 09/16/2024 09:39:14 09/15/2009/16/2024 ALBUM IN/CR EAT RATIO , RADHAO Stevenson UR creatinine, urine 107.7 mg/dL not estab. normal Not Available [facility] ([facility]) [address] [place], [address], 09/16/2024 09:39:15 09/15/20 24 09/16/2024 ALBUM IN/CR EAT RATIO , RADHAO Stevenson UR albumin, urine 8.8 ug/mL not estab. Not Available [facility] ([facility]) [address] [place], [address], 09/16/2024 09:39:15 09/15/2009/16/2024 ALBUM IN/CR EAT RATIO , RANDO M UR alb/creat ratio 8 mg/g_ creat 0-29 Leyda l: 0 - 29 Moder ately incre ased: 30 - 300 Sever carlos a incre ased: >300 Not Available [facility] ([facility]) [address] [facility], [place], [address], 09/16/2024 09:39:15 09/15/2009/16/2024 HEMOG LOBIN A1C hemoglobin A1C 6.6 % 4.8-5. 6 above high normal Predi abete s: 5.7 - 6.4 Diabe castillo: >6.4 Glyce rick contr ol for adult s with diabe castillo: <7.0 Not Available [facility] ([facility]) [address] [facility], [place], [address], 09/16/2024 09:39:16 09/15/20 24 09/16/2024 VITAM IN B12 vitamin B12 406 pg/mL 232-12 45 normal Not Available [facility] ([facility]) [address] [place], [address], 09/16/2024 09:39:17 11/21/20 24 11/21/2024 bonny metry testi ng* Spirometry Not Available [employer], [address], [place], [address], 11/18/2024 14:43:40 12/26/19 25 12/26/2024 CBC WITH DIFFE RENTI AL/PL ATELE T WBC 7.6 x10e3 /uL 3.4-10 .8 normal Not Available [facility] ([facility]) [address] [facility], [place], [address], 12/27/2024 10:36:45 12/26/19 25 12/26/2024 CBC WITH DIFFE RENTI AL/PL ATELE T RBC 3.95 x10e6 /uL 4.14-5 .80 below low normal Not Available [facility] ([facility]) [address] [place], [address], 12/27/2024 10:36:45 12/26/19 25 12/26/2024 CBC WITH DIFFE RENTI AL/PL ATELE T hemoglobin 11.7 g/dL 13.0-1 7.7 below low normal Not Available [facility] ([facility]) [address] [place], [address], 12/27/2024 10:36:45 12/26/19 25 12/26/2024 CBC WITH DIFFE RENTI AL/PL ATELE T hematocrit 37.1 % 37.5-5 1.0 below low normal Not Available [facility] ([facility]) [address] [place], [address], 12/27/2024 10:36:45 12/26/19 25 12/26/2024 CBC WITH DIFFE RENTI AL/PL ATELE T MCV 94 fL 79-97 normal Not Available [facility] ([facility]) [address] [place], [address], 12/27/2024 10:36:45 12/26/19 25 12/26/2024 CBC WITH DIFFE RENTI AL/PL ATELE T MCH 29.6 pg 26.6-3 3.0 normal Not Available [facility] ([facility]) [address] [facility], [place], [address], 12/27/2024 10:36:45 12/26/19 25 12/26/2024 CBC WITH DIFFE RENTI AL/PL ATELE T MCHC 31.5 g/dL 31.5-3 5.7 normal Not Available [facility] ([facility]) [address] [facility], [place], [address], 12/27/2024 10:36:45 12/26/19 25 12/26/2024 CBC WITH DIFFE RENTI AL/PL ATELE T RDW 13.2 % 11.6-1 5.4 Not Available [facility] ([facility]) [address] [facility], [place], [address], 12/27/2024 10:36:45 12/26/19 25 12/26/2024 CBC WITH DIFFE RENTI AL/PL ATELE T platelets 271 x10e3 /uL 150-45 0 normal Not Available [facility] ([facility]) [address] [facility], [place], [address], 12/27/2024 10:36:45 12/26/19 25 12/26/2024 CBC WITH DIFFE RENTI AL/PL ATELE T neutrophils 68 % not estab. normal Not Available [facility] ([facility]) [address] [facility], [place], [address], 12/27/2024 10:36:45 12/26/19 25 12/26/2024 CBC WITH DIFFE RENTI AL/PL ATELE T lymphs 19 % not estab. normal Not Available [facility] ([facility]) [address] [facility], [place], [address], 12/27/2024 10:36:45 12/26/19 25 12/26/2024 CBC WITH DIFFE RENTI AL/PL ATELE T monocytes 8 % not estab. normal Not Available [facility] ([facility]) [address] [place], [address], 12/27/2024 10:36:45 12/26/19 25 12/26/2024 CBC WITH DIFFE RENTI AL/PL ATELE T eos 4 % not estab. normal Not Available [facility] ([facility]) [address] [place], [address], 12/27/2024 10:36:45 12/26/19 25 12/26/2024 CBC WITH DIFFE RENTI AL/PL ATELE T basos 1 % not estab. normal Not Available [facility] ([facility]) [address] [place], [address], 12/27/2024 10:36:45 12/26/19 25 12/26/2024 CBC WITH DIFFE RENTI AL/PL ATELE T immature cells PERINATAL NURSE Not Available [facility] ([facility]) [address] [place], [address], 12/27/2024 10:36:45 12/26/19 25 12/26/2024 CBC WITH DIFFE RENTI AL/PL ATELE T neutrophils (absolute) 5.3 x10e3 /uL 1.4-7. 0 normal Not Available [facility] ([facility]) [address] [place], [address], 12/27/2024 10:36:45 12/26/19 25 12/26/2024 CBC WITH DIFFE RENTI AL/PL ATELE T lymphs (absolute) 1.4 x10e3 /uL 0.7-3. 1 normal Not Available [facility] ([facility]) [address] [place], [address], 12/27/2024 10:36:45 12/26/19 25 12/26/2024 CBC WITH DIFFE RENTI AL/PL ATELE T monocytes(ab solute) 0.6 x10e3 /uL 0.1-0. 9 normal Not Available [facility] ([facility]) [address] [place], [address], 12/27/2024 10:36:45 12/26/19 25 12/26/2024 CBC WITH DIFFE RENTI AL/PL ATELE T eos (absolute) 0.3 x10e3 /uL 0.0-0. 4 normal Not Available [facility] ([facility]) [address] [facility], [place], [address], 12/27/2024 10:36:45 12/26/19 25 12/26/2024 CBC WITH DIFFE RENTI AL/PL ATELE T baso (absolute) 0.1 x10e3 /uL 0.0-0. 2 normal Not Available [facility] ([facility]) [address] [facility], [place], [address], 12/27/2024 10:36:45 12/26/19 25 12/26/2024 CBC WITH DIFFE RENTI AL/PL ATELE T immature granulocytes 0 % not estab. Not Available [facility] ([facility]) [address] [facility], [place], [address], 12/27/2024 10:36:45 12/26/19 25 12/26/2024 CBC WITH DIFFE RENTI AL/PL ATELE T immature grans (abs) 0.0 x10e3 /uL 0.0-0. 1 Not Available [facility] ([facility]) [address] [facility], [place], [address], 12/27/2024 10:36:45 12/26/19 25 12/26/2024 CBC WITH DIFFE RENTI AL/PL ATELE T NRBC PERINATAL NURSE Not Available [facility] ([facility]) [address] [facility], [place], [address], 12/27/2024 10:36:45 12/26/19 25 12/26/2024 CBC WITH DIFFE RENTI AL/PL ATELE T hematology comments: PERINATAL NURSE Not Available [facility] ([facility]) [address] [facility], [place], [address], 12/27/2024 10:36:45 12/26/19 25 12/27/2024 COMP. METAB OLIC PANEL (14) glucose 95 mg/dL 70-99 normal Not Available [facility] ([facility]) [address] [place], [address], 12/27/2024 10:36:47 12/26/19 25 12/27/2024 COMP. METAB OLIC PANEL (14) BUN 21 mg/dL 8-27 normal Not Available [facility] ([facility]) [address] [place], [address], 12/27/2024 10:36:47 12/26/19 25 12/27/2024 COMP. METAB OLIC PANEL (14) creatinine 1.28 mg/dL 0.76-1 .27 above high normal Not Available [facility] ([facility]) [address] [place], [address], 12/27/2024 10:36:47 12/26/19 25 12/27/2024 COMP. METAB OLIC PANEL (14) eGFR 59 mL/mi n/1.7 3 >59 below low normal Not Available [facility] ([facility]) [address] [place], [address], 12/27/2024 10:36:47 12/26/19 25 12/27/2024 COMP. METAB OLIC PANEL (14) BUN/creatini ne ratio 16 10-24 normal Not Available [facility] ([facility]) [address] [place], [address], 12/27/2024 10:36:47 12/26/19 25 12/27/2024 COMP. METAB OLIC PANEL (14) sodium 142 mmol/ L 134-14 4 normal Not Available [facility] ([facility]) [address] [place], [address], 12/27/2024 10:36:47 12/26/19 25 12/27/2024 COMP. METAB OLIC PANEL (14) potassium 5.0 mmol/ L 3.5-5. 2 normal Not Available [facility] ([facility]) [address] [place], [address], 12/27/2024 10:36:47 12/26/19 25 12/27/2024 COMP. METAB OLIC PANEL (14) chloride 104 mmol/ L 96-106 normal Not Available [facility] ([facility]) [address] [place], [address], 12/27/2024 10:36:47 12/26/19 25 12/27/2024 COMP. METAB OLIC PANEL (14) carbon dioxide, total 23 mmol/ L 20-29 normal Not Available [facility] ([facility]) [address] [place], [address], 12/27/2024 10:36:47 12/26/19 25 12/27/2024 COMP. METAB OLIC PANEL (14) calcium 9.2 mg/dL 8.6-10 .2 normal Not Available [facility] ([facility]) [address] [place], [address], 12/27/2024 10:36:47 12/26/19 25 12/27/2024 COMP. METAB OLIC PANEL (14) protein, total 6.7 g/dL 6.0-8. 5 normal Not Available [facility] ([facility]) [address] [place], [address], 12/27/2024 10:36:47 12/26/19 25 12/27/2024 COMP. METAB OLIC PANEL (14) albumin 3.8 g/dL 3.8-4. 8 normal Not Available [facility] ([facility]) [address] [place], [address], 12/27/2024 10:36:47 12/26/19 25 12/27/2024 COMP. METAB OLIC PANEL (14) globulin, total 2.9 g/dL 1.5-4. 5 Not Available [facility] ([facility]) [address] [facility] [place], [address], 12/27/2024 10:36:47 12/26/19 25 12/27/2024 COMP. METAB OLIC PANEL (14) bilirubin, total 0.6 mg/dL 0.0-1. 2 normal Not Available [facility] ([facility]) [address] [place], [address], 12/27/2024 10:36:47 12/26/19 25 12/27/2024 COMP. METAB OLIC PANEL (14) alkaline phosphatase 129 IU/L 44-121 above high normal Not Available [facility] ([facility]) [address] [facility] [place], [address], 12/27/2024 10:36:47 12/26/19 25 12/27/2024 COMP. METAB OLIC PANEL (14) AST (SGOT) 20 IU/L 0-40 normal Not Available [facility] ([facility]) [address] [facility] [place], [address], 12/27/2024 10:36:47 12/26/19 25 12/27/2024 COMP. METAB OLIC PANEL (14) ALT (SGPT) 9 IU/L 0-44 normal Not Available [facility] ([facility]) [address] [facility] [place], [address], 12/27/2024 10:36:47 12/26/19 25 12/27/2024 LIPID PANEL cholesterol, total 102 mg/dL 100-19 9 normal Not Available [facility] ([facility]) [address] [facility] [place], [address], 12/27/2024 10:36:48 12/26/19 25 12/27/2024 LIPID PANEL triglyceride s 58 mg/dL 0-149 normal Not Available [facility] ([facility]) [address] [facility], [place], [address], 12/27/2024 10:36:48 12/26/19 25 12/27/2024 LIPID PANEL HDL cholesterol 44 mg/dL >39 normal Not Available [facility] ([facility]) [address] [facility], [place], [address], 12/27/2024 10:36:48 12/26/19 25 12/27/2024 LIPID PANEL VLDL cholesterol ángel 13 mg/dL 5-40 Not Available [facility] ([facility]) [address] [facility], [place], [address], 12/27/2024 10:36:48 12/26/19 25 12/27/2024 LIPID PANEL LDL chol calc ([facility]) 45 mg/dL 0-99 Not Available [facility] ([facility]) [address] [facility], [place], [address], 12/27/2024 10:36:48 12/26/19 25 12/27/2024 LIPID PANEL LDL calc comment: PERINATAL NURSE Not Available [facility] ([facility]) [address] [facility], [place], [address], 12/27/2024 10:36:48 12/26/19 25 12/27/2024 ALBUM IN/CR EAT RATIO , RANDO M UR creatinine, urine 176.0 mg/dL not estab. normal Not Available [facility] ([facility]) [address] [facility], [place], [address], 12/27/2024 10:36:49 12/26/19 25 12/27/2024 ALBUM IN/CR EAT RATIO , RANDO M UR albumin, urine 6.1 ug/mL not estab. Not Available [facility] ([facility]) [address] [place], [address], 12/27/2024 10:36:49 12/26/19 25 12/27/2024 ALBUM IN/CR EAT RATIO , RANDO M UR alb/creat ratio 3 mg/g_ creat 0-29 Leyda l: 0 - 29 Moder ately incre ased: 30 - 300 Sever carlos a incre ased: >300 Not Available [facility] ([facility]) [address] [place], [address], 12/27/2024 10:36:49 12/26/19 25 12/27/2024 HEMOG LOBIN A1C hemoglobin A1C 5.9 % 4.8-5. 6 above high normal Predi abete s: 5.7 - 6.4 Diabe castillo: >6.4 Glyce rick contr ol for adult s with diabe castillo: <7.0 Not Available [facility] ([facility]) [address] [place], [address], 12/27/2024 10:36:50 12/26/19 25 12/27/2024 IRON iron 59 ug/dL 38-169 normal Not Available [facility] ([facility]) [address] [place], [address], 12/27/2024 10:36:51 12/26/19 25 12/26/2024 CBC WITH DIFFE RENTI AL/PL ATELE T WBC 7.5 x10e3 /uL 3.4-10 .8 normal Not Available [facility] ([facility]) [address] [place], [address], 12/27/2024 16:36:08 12/26/19 25 12/26/2024 CBC WITH DIFFE RENTI AL/PL ATELE T RBC 3.90 x10e6 /uL 4.14-5 .80 below low normal Not Available [facility] ([facility]) [address] [place], [address], 12/27/2024 16:36:08 12/26/19 25 12/26/2024 CBC WITH DIFFE RENTI AL/PL ATELE T hemoglobin 11.6 g/dL 13.0-1 7.7 below low normal Not Available [facility] ([facility]) [address] [facility], [place], [address], 12/27/2024 16:36:08 12/26/19 25 12/26/2024 CBC WITH DIFFE RENTI AL/PL ATELE T hematocrit 36.7 % 37.5-5 1.0 below low normal Not Available [facility] ([facility]) [address] [facility], [place], [address], 12/27/2024 16:36:08 12/26/19 25 12/26/2024 CBC WITH DIFFE RENTI AL/PL ATELE T MCV 94 fL 79-97 normal Not Available [facility] ([facility]) [address] [facility], [place], [address], 12/27/2024 16:36:08 12/26/19 25 12/26/2024 CBC WITH DIFFE RENTI AL/PL ATELE T MCH 29.7 pg 26.6-3 3.0 normal Not Available [facility] ([facility]) [address] [facility], [place], [address], 12/27/2024 16:36:08 12/26/19 25 12/26/2024 CBC WITH DIFFE RENTI AL/PL ATELE T MCHC 31.6 g/dL 31.5-3 5.7 normal Not Available [facility] ([facility]) [address] [facility], [place], [address], 12/27/2024 16:36:08 12/26/19 25 12/26/2024 CBC WITH DIFFE RENTI AL/PL ATELE T RDW 13.5 % 11.6-1 5.4 Not Available [facility] ([facility]) [address] [place], [address], 12/27/2024 16:36:08 12/26/19 25 12/26/2024 CBC WITH DIFFE RENTI AL/PL ATELE T platelets 258 x10e3 /uL 150-45 0 normal Not Available [facility] ([facility]) [address] [facility], [place], [address], 12/27/2024 16:36:08 12/26/19 25 12/26/2024 CBC WITH DIFFE RENTI AL/PL ATELE T neutrophils 69 % not estab. normal Not Available [facility] ([facility]) [address] [facility], [place], [address], 12/27/2024 16:36:08 12/26/19 25 12/26/2024 CBC WITH DIFFE RENTI AL/PL ATELE T lymphs 19 % not estab. normal Not Available [facility] ([facility]) [address] [facility], [place], [address], 12/27/2024 16:36:08 12/26/19 25 12/26/2024 CBC WITH DIFFE RENTI AL/PL ATELE T monocytes 7 % not estab. normal Not Available [facility] ([facility]) [address] [facility], [place], [address], 12/27/2024 16:36:08 12/26/19 25 12/26/2024 CBC WITH DIFFE RENTI AL/PL ATELE T eos 4 % not estab. normal Not Available [facility] ([facility]) [address] [facility], [place], [address], 12/27/2024 16:36:08 12/26/19 25 12/26/2024 CBC WITH DIFFE RENTI AL/PL ATELE T basos 1 % not estab. normal Not Available [facility] ([facility]) [address] [facility], [place], [address], 12/27/2024 16:36:08 12/26/19 25 12/26/2024 CBC WITH DIFFE RENTI AL/PL ATELE T immature cells PERINATAL NURSE Not Available [facility] ([facility]) [address] [facility], [place], [address], 12/27/2024 16:36:08 12/26/19 25 12/26/2024 CBC WITH DIFFE RENTI AL/PL ATELE T neutrophils (absolute) 5.1 x10e3 /uL 1.4-7. 0 normal Not Available [facility] ([facility]) [address] [place], [address], 12/27/2024 16:36:08 12/26/19 25 12/26/2024 CBC WITH DIFFE RENTI AL/PL ATELE T lymphs (absolute) 1.5 x10e3 /uL 0.7-3. 1 normal Not Available [facility] ([facility]) [address] [place], [address], 12/27/2024 16:36:08 12/26/19 25 12/26/2024 CBC WITH DIFFE RENTI AL/PL ATELE T monocytes(ab solute) 0.5 x10e3 /uL 0.1-0. 9 normal Not Available [facility] ([facility]) [address] [place], [address], 12/27/2024 16:36:08 12/26/19 25 12/26/2024 CBC WITH DIFFE RENTI AL/PL ATELE T eos (absolute) 0.3 x10e3 /uL 0.0-0. 4 normal Not Available [facility] ([facility]) [address] [place], [address], 12/27/2024 16:36:08 12/26/19 25 12/26/2024 CBC WITH DIFFE RENTI AL/PL ATELE T baso (absolute) 0.1 x10e3 /uL 0.0-0. 2 normal Not Available [facility] ([facility]) [address] [place], [address], 12/27/2024 16:36:08 12/26/19 25 12/26/2024 CBC WITH DIFFE RENTI AL/PL ATELE T immature granulocytes 0 % not estab. Not Available [facility] ([facility]) [address] [place], [address], 12/27/2024 16:36:08 12/26/19 25 12/26/2024 CBC WITH DIFFE RENTI AL/PL ATELE T immature grans (abs) 0.0 x10e3 /uL 0.0-0. 1 Not Available [facility] ([facility]) [address], [place], [address], 12/27/2024 16:36:08 12/26/19 25 12/26/2024 CBC WITH DIFFE RENTI AL/PL ATELE T NRBC PERINATAL NURSE Not Available [facility] ([facility]) [address], [place], [address], 12/27/2024 16:36:08 12/26/19 25 12/26/2024 CBC WITH DIFFE RENTI AL/PL ATELE T hematology comments: PERINATAL NURSE Not Available [facility] ([facility]) [address], [place], [address], 12/27/2024 16:36:08 12/26/19 25 12/27/2024 COMP. METAB OLIC PANEL (14) glucose 97 mg/dL 70-99 normal Not Available [facility] ([facility]) [address], [place], [address], 12/27/2024 16:36:09 12/26/19 25 12/27/2024 COMP. METAB OLIC PANEL (14) BUN 21 mg/dL 8-27 normal Not Available [facility] ([facility]) [address], [place], [address], 12/27/2024 16:36:09 12/26/19 25 12/27/2024 COMP. METAB OLIC PANEL (14) creatinine 1.29 mg/dL 0.76-1 .27 above high normal Not Available [facility] ([facility]) [address], [place], [address], 12/27/2024 16:36:09 12/26/19 25 12/27/2024 COMP. METAB OLIC PANEL (14) eGFR 59 mL/mi n/1.7 3 >59 below low normal Not Available [facility] ([facility]) [address] [place], [address], 12/27/2024 16:36:09 12/26/19 25 12/27/2024 COMP. METAB OLIC PANEL (14) BUN/creatini ne ratio 16 10-24 normal Not Available [facility] ([facility]) [address] [facility], [place], [address], 12/27/2024 16:36:09 12/26/19 25 12/27/2024 COMP. METAB OLIC PANEL (14) sodium 143 mmol/ L 134-14 4 normal Not Available [facility] ([facility]) [address] [place], [address], 12/27/2024 16:36:09 12/26/19 25 12/27/2024 COMP. METAB OLIC PANEL (14) potassium 5.5 mmol/ L 3.5-5. 2 above high normal Not Available [facility] ([facility]) [address] [place], [address], 12/27/2024 16:36:09 12/26/19 25 12/27/2024 COMP. METAB OLIC PANEL (14) chloride 105 mmol/ L 96-106 normal Not Available [facility] ([facility]) [address] [place], [address], 12/27/2024 16:36:09 12/26/19 25 12/27/2024 COMP. METAB OLIC PANEL (14) carbon dioxide, total 26 mmol/ L 20-29 normal Not Available [facility] ([facility]) [address] [place], [address], 12/27/2024 16:36:09 12/26/19 25 12/27/2024 COMP. METAB OLIC PANEL (14) calcium 9.2 mg/dL 8.6-10 .2 normal Not Available [facility] ([facility]) [address] [facility] [place], [address], 12/27/2024 16:36:09 12/26/19 25 12/27/2024 COMP. METAB OLIC PANEL (14) protein, total 6.6 g/dL 6.0-8. 5 normal Not Available [facility] ([facility]) [address] [facility] [place], [address], 12/27/2024 16:36:09 12/26/19 25 12/27/2024 COMP. METAB OLIC PANEL (14) albumin 3.7 g/dL 3.8-4. 8 below low normal Not Available [facility] ([facility]) [address] [facility] [place], [address], 12/27/2024 16:36:09 12/26/19 25 12/27/2024 COMP. METAB OLIC PANEL (14) globulin, total 2.9 g/dL 1.5-4. 5 Not Available [facility] ([facility]) [address] [facility] [place], [address], 12/27/2024 16:36:09 12/26/19 25 12/27/2024 COMP. METAB OLIC PANEL (14) bilirubin, total 0.6 mg/dL 0.0-1. 2 normal Not Available [facility] ([facility]) [address] [facility] [place], [address], 12/27/2024 16:36:09 12/26/19 25 12/27/2024 COMP. METAB OLIC PANEL (14) alkaline phosphatase 128 IU/L 44-121 above high normal Not Available [facility] ([facility]) [address] [facility] [place], [address], 12/27/2024 16:36:09 12/26/19 25 12/27/2024 COMP. METAB OLIC PANEL (14) AST (SGOT) 17 IU/L 0-40 normal Not Available [facility] ([facility]) [address] [facility] [place], [address], 12/27/2024 16:36:09 12/26/19 25 12/27/2024 COMP. METAB OLIC PANEL (14) ALT (SGPT) 8 IU/L 0-44 normal Not Available [facility] ([facility]) [address] [facility] [place], [address], 12/27/2024 16:36:09 12/26/19 25 12/27/2024 FOLAT E, RBC folate, hemolysate 407.0 NG/mL not estab. Not Available [facility] ([facility]) [address] [facility], [place], [address], 12/27/2024 16:36:10 12/26/19 25 12/27/2024 FOLAT E, RBC folate, RBC 1109 NG/mL >498 Not Available [facility] ([facility]) [address] [facility] [place], [address], 12/27/2024 16:36:10 12/26/1912/27/2024 HEMOG LOBIN A1C hemoglobin A1C 5.9 % 4.8-5. 6 above high normal Predi abete s: 5.7 - 6.4 Diabe castillo: >6.4 Glyce rick contr ol for adult s with diabe castillo: <7.0 Not Available [facility] ([facility]) [address] [place], [address], 12/27/2024 16:36:11 12/26/1912/27/2024 VITAM IN D, 25-HY DROXY vitamin D, 25-hydroxy 87.2 NG/mL 30.0-1 00.0 Vitam in D defic iency has been defin ed by the Insti tute of Medic ine and an Endoc rine Socie ty pract ice guide line as a level of serum 25-OH vitam in D less than 20 ng/mL (1,2) . The Endoc rine Socie ty went on to furth er defin e vitam in D insuf ficie ncy as a level betwe en 21 and 29 ng/mL (2). 1. IOM (Inst itute of Medic ine). 2010. Dieta ry refer ence intak es for calci um and D. Mirella knight [place]: The [facility] . 2. Marisa brothers [place], Alivia heaton [place], Prasanth off-F errar i BLOOM, et al. Evalu ation , treat ment, and preve ntion of vitam in D defic iency : an Endoc rine Socie ty clini ángel pract ice guide line. JCEM. 2010; 96(7) :1911 -30. Not Available [facility] ([facility]) [address] [place], [address], 12/27/2024 16:36:12 12/26/19 25 12/27/2024 VITAM IN B12 vitamin B12 372 pg/mL 232-12 45 normal Not Available [facility] ([facility]) [address] [place], [address], 12/27/2024 16:36:13 04/25/20 25 04/26/2025 TSH+F REE T4 TSH 2.900 uIU/m L 0.450- 4.500 normal Not Available [facility] ([facility]) [address] [place], [address], 04/26/2025 14:37:06 04/25/20 25 04/26/2025 TSH+F REE T4 T4,free(dire ct) 1.32 NG/dL 0.82-1 .77 normal Not Available [facility] ([facility]) [address] [place], [address], 04/26/2025 14:37:06 04/25/20 25 04/25/2025 CBC WITH DIFFE RENTI AL/PL ATELE T WBC 6.6 x10e3 /uL 3.4-10 .8 normal Not Available [facility] ([facility]) [address] [place], [address], 04/26/2025 14:37:07 04/25/2004/25/2025 CBC WITH DIFFE RENTI AL/PL ATELE T RBC 4.30 x10e6 /uL 4.14-5 .80 normal Not Available [facility] ([facility]) [address] [place], [address], 04/26/2025 14:37:07 04/25/20 25 04/25/2025 CBC WITH DIFFE RENTI AL/PL ATELE T hemoglobin 12.7 g/dL 13.0-1 7.7 below low normal Not Available [facility] ([facility]) [address] [place], [address], 04/26/2025 14:37:07 04/25/20 25 04/25/2025 CBC WITH DIFFE RENTI AL/PL ATELE T hematocrit 41.2 % 37.5-5 1.0 normal Not Available [facility] ([facility]) [address] [place], [address], 04/26/2025 14:37:07 04/25/20 25 04/25/2025 CBC WITH DIFFE RENTI AL/PL ATELE T MCV 96 fL 79-97 normal Not Available [facility] ([facility]) [address] [place], [address], 04/26/2025 14:37:07 04/25/20 25 04/25/2025 CBC WITH DIFFE RENTI AL/PL ATELE T MCH 29.5 pg 26.6-3 3.0 normal Not Available [facility] ([facility]) [address] [place], [address], 04/26/2025 14:37:07 04/25/20 25 04/25/2025 CBC WITH DIFFE RENTI AL/PL ATELE T MCHC 30.8 g/dL 31.5-3 5.7 below low normal Not Available [facility] ([facility]) [address] [facility], [place], [address], 04/26/2025 14:37:07 04/25/20 25 04/25/2025 CBC WITH DIFFE RENTI AL/PL ATELE T RDW 14.0 % 11.6-1 5.4 Not Available [facility] ([facility]) [address] [facility], [place], [address], 04/26/2025 14:37:07 04/25/20 25 04/25/2025 CBC WITH DIFFE RENTI AL/PL ATELE T platelets 251 x10e3 /uL 150-45 0 normal Not Available [facility] ([facility]) [address] [facility], [place], [address], 04/26/2025 14:37:07 04/25/20 25 04/25/2025 CBC WITH DIFFE RENTI AL/PL ATELE T neutrophils 65 % not estab. normal Not Available [facility] ([facility]) [address] [facility], [place], [address], 04/26/2025 14:37:07 04/25/20 25 04/25/2025 CBC WITH DIFFE RENTI AL/PL ATELE T lymphs 23 % not estab. normal Not Available [facility] ([facility]) [address] [place], [address], 04/26/2025 14:37:07 04/25/20 25 04/25/2025 CBC WITH DIFFE RENTI AL/PL ATELE T monocytes 6 % not estab. normal Not Available [facility] ([facility]) [address] [place], [address], 04/26/2025 14:37:07 04/25/20 25 04/25/2025 CBC WITH DIFFE RENTI AL/PL ATELE T eos 4 % not estab. normal Not Available [facility] ([facility]) [address] [place], [address], 04/26/2025 14:37:07 04/25/20 25 04/25/2025 CBC WITH DIFFE RENTI AL/PL ATELE T basos 1 % not estab. normal Not Available [facility] ([facility]) [address] [facility], [place], [address], 04/26/2025 14:37:07 04/25/20 25 04/25/2025 CBC WITH DIFFE RENTI AL/PL ATELE T immature cells PERINATAL NURSE Not Available [facility] ([facility]) [address] [facility], [place], [address], 04/26/2025 14:37:07 04/25/20 25 04/25/2025 CBC WITH DIFFE RENTI AL/PL ATELE T neutrophils (absolute) 4.3 x10e3 /uL 1.4-7. 0 normal Not Available [facility] ([facility]) [address] [place], [address], 04/26/2025 14:37:07 04/25/20 25 04/25/2025 CBC WITH DIFFE RENTI AL/PL ATELE T lymphs (absolute) 1.5 x10e3 /uL 0.7-3. 1 normal Not Available [facility] ([facility]) [address] [facility], [place], [address], 04/26/2025 14:37:07 04/25/20 25 04/25/2025 CBC WITH DIFFE RENTI AL/PL ATELE T monocytes(ab solute) 0.4 x10e3 /uL 0.1-0. 9 normal Not Available [facility] ([facility]) [address] [place], [address], 04/26/2025 14:37:07 04/25/20 25 04/25/2025 CBC WITH DIFFE RENTI AL/PL ATELE T eos (absolute) 0.3 x10e3 /uL 0.0-0. 4 normal Not Available [facility] ([facility]) [address] [facility], [place], [address], 04/26/2025 14:37:07 04/25/20 25 04/25/2025 CBC WITH DIFFE RENTI AL/PL ATELE T baso (absolute) 0.1 x10e3 /uL 0.0-0. 2 normal Not Available [facility] ([facility]) [address] [facility], [place], [address], 04/26/2025 14:37:07 04/25/20 25 04/25/2025 CBC WITH DIFFE RENTI AL/PL ATELE T immature granulocytes 1 % not estab. Not Available [facility] ([facility]) [address] [facility], [place], [address], 04/26/2025 14:37:07 04/25/20 25 04/25/2025 CBC WITH DIFFE RENTI AL/PL ATELE T immature grans (abs) 0.0 x10e3 /uL 0.0-0. 1 Not Available [facility] ([facility]) [address] [facility], [place], [address], 04/26/2025 14:37:07 04/25/20 25 04/25/2025 CBC WITH DIFFE RENTI AL/PL ATELE T NRBC PERINATAL NURSE Not Available [facility] ([facility]) [address] [place], [address], 04/26/2025 14:37:07 04/25/20 25 04/25/2025 CBC WITH DIFFE RENTI AL/PL ATELE T hematology comments: PERINATAL NURSE Not Available [facility] ([facility]) [address] [place], [address], 04/26/2025 14:37:07 04/25/20 25 04/26/2025 COMP. METAB OLIC PANEL (14) glucose 111 mg/dL 70-99 above high normal Not Available [facility] ([facility]) [address] [place], [address], 04/26/2025 14:37:08 04/25/20 25 04/26/2025 COMP. METAB OLIC PANEL (14) BUN 25 mg/dL 8-27 normal Not Available [facility] ([facility]) [address] [facility] [place], [address], 04/26/2025 14:37:08 04/25/20 25 04/26/2025 COMP. METAB OLIC PANEL (14) creatinine 1.30 mg/dL 0.76-1 .27 above high normal Not Available [facility] ([facility]) [address] [facility] [place], [address], 04/26/2025 14:37:08 04/25/20 25 04/26/2025 COMP. METAB OLIC PANEL (14) eGFR 58 mL/mi n/1.7 3 >59 below low normal Not Available [facility] ([facility]) [address] [facility], [place], [address], 04/26/2025 14:37:08 04/25/20 25 04/26/2025 COMP. METAB OLIC PANEL (14) BUN/creatini ne ratio 19 10-24 normal Not Available [facility] ([facility]) [address] [facility] [place], [address], 04/26/2025 14:37:08 04/25/20 25 04/26/2025 COMP. METAB OLIC PANEL (14) sodium 140 mmol/ L 134-14 4 normal Not Available [facility] ([facility]) [address] [facility] [place], [address], 04/26/2025 14:37:08 04/25/20 25 04/26/2025 COMP. METAB OLIC PANEL (14) potassium 5.8 mmol/ L 3.5-5. 2 above high normal Not Available [facility] ([facility]) [address] [facility] [place], [address], 04/26/2025 14:37:08 04/25/20 25 04/26/2025 COMP. METAB OLIC PANEL (14) chloride 103 mmol/ L 96-106 normal Not Available [facility] ([facility]) [address] [place], [address], 04/26/2025 14:37:08 04/25/20 25 04/26/2025 COMP. METAB OLIC PANEL (14) carbon dioxide, total 24 mmol/ L 20-29 normal Not Available [facility] ([facility]) [address], [place], [address], 04/26/2025 14:37:08 04/25/20 25 04/26/2025 COMP. METAB OLIC PANEL (14) calcium 9.4 mg/dL 8.6-10 .2 normal Not Available [facility] ([facility]) [address] [place], [address], 04/26/2025 14:37:08 04/25/20 25 04/26/2025 COMP. METAB OLIC PANEL (14) protein, total 7.0 g/dL 6.0-8. 5 normal Not Available [facility] ([facility]) [address] [place], [address], 04/26/2025 14:37:08 04/25/20 25 04/26/2025 COMP. METAB OLIC PANEL (14) albumin 3.9 g/dL 3.8-4. 8 normal Not Available [facility] ([facility]) [address] [place], [address], 04/26/2025 14:37:08 04/25/20 25 04/26/2025 COMP. METAB OLIC PANEL (14) globulin, total 3.1 g/dL 1.5-4. 5 Not Available [facility] ([facility]) [address] [facility] [place], [address], 04/26/2025 14:37:08 04/25/20 25 04/26/2025 COMP. METAB OLIC PANEL (14) bilirubin, total 0.6 mg/dL 0.0-1. 2 normal Not Available [facility] ([facility]) [address] [place], [address], 04/26/2025 14:37:08 04/25/20 25 04/26/2025 COMP. METAB OLIC PANEL (14) alkaline phosphatase 165 IU/L 44-121 above high normal Not Available [facility] ([facility]) [address] [place], [address], 04/26/2025 14:37:08 04/25/20 25 04/26/2025 COMP. METAB OLIC PANEL (14) AST (SGOT) 21 IU/L 0-40 normal Not Available [facility] ([facility]) [address] [place], [address], 04/26/2025 14:37:08 04/25/20 25 04/26/2025 COMP. METAB OLIC PANEL (14) ALT (SGPT) 13 IU/L 0-44 normal Not Available [facility] ([facility]) [address] [place], [address], 04/26/2025 14:37:08 04/25/20 25 04/26/2025 LIPID PANEL cholesterol, total 109 mg/dL 100-19 9 normal Not Available [facility] ([facility]) [address] [place], [address], 04/26/2025 14:37:09 04/25/20 25 04/26/2025 LIPID PANEL triglyceride s 62 mg/dL 0-149 normal Not Available [facility] ([facility]) [address] [place], [address], 04/26/2025 14:37:09 04/25/20 25 04/26/2025 LIPID PANEL HDL cholesterol 47 mg/dL >39 normal Not Available [facility] ([facility]) [address] [place], [address], 04/26/2025 14:37:09 04/25/20 25 04/26/2025 LIPID PANEL VLDL cholesterol ángel 14 mg/dL 5-40 Not Available [facility] ([facility]) [address] [place], [address], 04/26/2025 14:37:09 04/25/20 25 04/26/2025 LIPID PANEL LDL chol calc ([facility]) 48 mg/dL 0-99 Not Available [facility] ([facility]) [address] [place], [address], 04/26/2025 14:37:09 04/25/20 25 04/26/2025 LIPID PANEL LDL calc comment: PERINATAL NURSE Not Available [facility] ([facility]) [address] [place], [address], 04/26/2025 14:37:09 04/25/20 25 04/26/2025 ALBUM IN/CR EAT RATIO , RANDO M UR creatinine, urine 106.0 mg/dL not estab. normal Not Available [facility] ([facility]) [address] [place], [address], 04/26/2025 14:37:10 04/25/20 25 04/26/2025 ALBUM IN/CR EAT RATIO , RANDO M UR albumin, urine 8.9 ug/mL not estab. Not Available [facility] ([facility]) [address] [place], [address], 04/26/2025 14:37:10 04/25/20 25 04/26/2025 ALBUM IN/CR EAT RATIO , RANDO M UR alb/creat ratio 8 mg/g_ creat 0-29 Leyda l: 0 - 29 Moder ately incre ased: 30 - 300 Sever carlos a incre ased: >300 Not Available [facility] ([facility]) [address] [place], [address], 04/26/2025 14:37:10 04/25/20 25 04/26/2025 FOLAT E, RBC folate, hemolysate 463.0 NG/mL not estab. Not Available [facility] ([facility]) [address] [place], [address], 04/26/2025 14:37:10 04/25/20 25 04/26/2025 FOLAT E, RBC folate, RBC 1124 NG/mL >498 Not Available [facility] ([facility]) [address] [place], [address], 04/26/2025 14:37:10 04/25/2004/26/2025 HEMOG LOBIN A1C hemoglobin A1C 6.1 % 4.8-5. 6 above high normal Predi abete s: 5.7 - 6.4 Diabe castillo: >6.4 Glyce rick contr ol for adult s with diabe castillo: <7.0 Not Available [facility] ([facility]) [address] [place], [address], 04/26/2025 14:37:11 04/25/2004/26/2025 IRON iron 54 ug/dL 38-169 normal Not Available [facility] ([facility]) [address] [place], [address], 04/26/2025 14:37:11 04/25/2004/25/2025 RETIC ULOCY TE COUNT reticulocyte count 1.5 % 0.6-2. 6 Not Available [facility] ([facility]) [address] [place], [address], 04/26/2025 14:37:12 04/25/2004/26/2025 TRIIO DOTHY YENI E (T3), FREE triiodothyro nine (T3), free 2.7 pg/mL 2.0-4. 4 normal Not Available [facility] ([facility]) [address] [place], [address], 04/26/2025 14:37:12 09/11/2009/12/2025 BMP7+ EGFR glucose 137 mg/dL 70-99 above high normal Not Available [facility] ([facility]) [address] [place], [address], 09/12/2025 08:38:45 09/11/2009/12/2025 BMP7+ EGFR BUN 22 mg/dL 8-27 normal Not Available [facility] ([facility]) [address] [place], [address], 09/12/2025 08:38:45 09/11/2009/12/2025 BMP7+ EGFR creatinine 1.06 mg/dL 0.76-1 .27 normal Not Available [facility] ([facility]) [address] [place], [address], 09/12/2025 08:38:45 09/11/2009/12/2025 BMP7+ EGFR eGFR 74 mL/mi n/1.7 3 >59 normal Not Available [facility] ([facility]) [address] [place], [address], 09/12/2025 08:38:45 09/11/2009/12/2025 BMP7+ EGFR sodium 140 mmol/ L 134-14 4 normal Not Available [facility] ([facility]) [address] [place], [address], 09/12/2025 08:38:45 09/11/2009/12/2025 BMP7+ EGFR potassium 4.6 mmol/ L 3.5-5. 2 normal Not Available [facility] ([facility]) [address] [place], [address], 09/12/2025 08:38:45 09/11/2009/12/2025 BMP7+ EGFR chloride 101 mmol/ L 96-106 normal Not Available [facility] ([facility]) [address] [place], [address], 09/12/2025 08:38:45 09/11/2009/12/2025 BMP7+ EGFR carbon dioxide, total 24 mmol/ L 20-29 normal Not Available [facility] ([facility]) [address] [place], [address], 09/12/2025 08:38:45 09/11/2009/12/2025 TSH+F REE T4 TSH 3.090 uIU/m L 0.450- 4.500 normal Not Available [facility] ([facility]) [address] [place], [address], 09/12/2025 16:37:11 09/11/2009/12/2025 TSH+F REE T4 T4,free(dire ct) 1.29 NG/dL 0.82-1 .77 normal Not Available [facility] ([facility]) [address] [place], [address], 09/12/2025 16:37:11 09/11/20 25 09/12/2025 CBC WITH DIFFE RENTI AL/PL ATELE T WBC 7.2 x10e3 /uL 3.4-10 .8 normal Not Available [facility] ([facility]) [address] [place], [address], 09/12/2025 16:37:11 09/11/2009/12/2025 CBC WITH DIFFE RENTI AL/PL ATELE T RBC 3.89 x10e6 /uL 4.14-5 .80 below low normal Not Available [facility] ([facility]) [address] [place], [address], 09/12/2025 16:37:11 09/11/20 25 09/12/2025 CBC WITH DIFFE RENTI AL/PL ATELE T hemoglobin 11.9 g/dL 13.0-1 7.7 below low normal Not Available [facility] ([facility]) [address] [facility], [place], [address], 09/12/2025 16:37:11 09/11/2009/12/2025 CBC WITH DIFFE RENTI AL/PL ATELE T hematocrit 37.3 % 37.5-5 1.0 below low normal Not Available [facility] ([facility]) [address] [facility], [place], [address], 09/12/2025 16:37:11 09/11/2009/12/2025 CBC WITH DIFFE RENTI AL/PL ATELE T MCV 96 fL 79-97 normal Not Available [facility] ([facility]) [address] [facility], [place], [address], 09/12/2025 16:37:11 09/11/20 25 09/12/2025 CBC WITH DIFFE RENTI AL/PL ATELE T MCH 30.6 pg 26.6-3 3.0 normal Not Available [facility] ([facility]) [address] [place], [address], 09/12/2025 16:37:11 09/11/20 25 09/12/2025 CBC WITH DIFFE RENTI AL/PL ATELE T MCHC 31.9 g/dL 31.5-3 5.7 normal Not Available [facility] ([facility]) [address] [place], [address], 09/12/2025 16:37:11 09/11/20 25 09/12/2025 CBC WITH DIFFE RENTI AL/PL ATELE T RDW 13.4 % 11.6-1 5.4 Not Available [facility] ([facility]) [address] [place], [address], 09/12/2025 16:37:11 09/11/20 25 09/12/2025 CBC WITH DIFFE RENTI AL/PL ATELE T platelets 226 x10e3 /uL 150-45 0 normal Not Available [facility] ([facility]) [address] [facility], [place], [address], 09/12/2025 16:37:11 09/11/2009/12/2025 CBC WITH DIFFE RENTI AL/PL ATELE T neutrophils 67 % not estab. normal Not Available [facility] ([facility]) [address] [facility], [place], [address], 09/12/2025 16:37:11 09/11/2009/12/2025 CBC WITH DIFFE RENTI AL/PL ATELE T lymphs 24 % not estab. normal Not Available [facility] ([facility]) [address] [facility], [place], [address], 09/12/2025 16:37:11 09/11/2009/12/2025 CBC WITH DIFFE RENTI AL/PL ATELE T monocytes 5 % not estab. normal Not Available [facility] ([facility]) [address] [facility], [place], [address], 09/12/2025 16:37:11 09/11/2009/12/2025 CBC WITH DIFFE RENTI AL/PL ATELE T eos 3 % not estab. normal Not Available [facility] ([facility]) [address] [facility], [place], [address], 09/12/2025 16:37:11 09/11/2009/12/2025 CBC WITH DIFFE RENTI AL/PL ATELE T basos 1 % not estab. normal Not Available [facility] ([facility]) [address] [facility], [place], [address], 09/12/2025 16:37:11 09/11/20 25 09/12/2025 CBC WITH DIFFE RENTI AL/PL ATELE T immature cells PERINATAL NURSE Not Available [facility] ([facility]) [address] [facility], [place], [address], 09/12/2025 16:37:11 09/11/20 25 09/12/2025 CBC WITH DIFFE RENTI AL/PL ATELE T neutrophils (absolute) 4.8 x10e3 /uL 1.4-7. 0 normal Not Available [facility] ([place] [facility]) [address] [facility], [place], [address], 09/12/2025 16:37:11 09/11/20 25 09/12/2025 CBC WITH DIFFE RENTI AL/PL ATELE T lymphs (absolute) 1.7 x10e3 /uL 0.7-3. 1 normal Not Available [facility] ([facility]) [address] [place], [address], 09/12/2025 16:37:11 09/11/20 25 09/12/2025 CBC WITH DIFFE RENTI AL/PL ATELE T monocytes(ab solute) 0.4 x10e3 /uL 0.1-0. 9 normal Not Available [facility] ([facility]) [address] [place], [address], 09/12/2025 16:37:11 09/11/20 25 09/12/2025 CBC WITH DIFFE RENTI AL/PL ATELE T eos (absolute) 0.2 x10e3 /uL 0.0-0. 4 normal Not Available [facility] ([facility]) [address] [place], [address], 09/12/2025 16:37:11 09/11/20 25 09/12/2025 CBC WITH DIFFE RENTI AL/PL ATELE T baso (absolute) 0.1 x10e3 /uL 0.0-0. 2 normal Not Available [facility] ([facility]) [address] [place], [address], 09/12/2025 16:37:11 09/11/20 25 09/12/2025 CBC WITH DIFFE RENTI AL/PL ATELE T immature granulocytes 0 % not estab. Not Available [facility] ([facility]) [address] [facility], [place], [address], 09/12/2025 16:37:11 09/11/20 25 09/12/2025 CBC WITH DIFFE RENTI AL/PL ATELE T immature grans (abs) 0.0 x10e3 /uL 0.0-0. 1 Not Available [facility] ([facility]) [address] [facility], [place], [address], 09/12/2025 16:37:11 09/11/2009/12/2025 CBC WITH DIFFE RENTI AL/PL ATELE T NRBC PERINATAL NURSE Not Available [facility] ([facility]) [address] [facility], [place], [address], 09/12/2025 16:37:11 09/11/20 25 09/12/2025 CBC WITH DIFFE RENTI AL/PL ATELE T hematology comments: PERINATAL NURSE Not Available [facility] ([facility]) [address] [facility], [place], [address], 09/12/2025 16:37:11 09/11/2009/12/2025 COMP. METAB OLIC PANEL (14) glucose 137 mg/dL 70-99 above high normal Not Available [facility] ([facility]) [address] [facility], [place], [address], 09/12/2025 16:37:12 09/11/20 25 09/12/2025 COMP. METAB OLIC PANEL (14) BUN 23 mg/dL 8-27 normal Not Available [facility] ([facility]) [address] [facility], [place], [address], 09/12/2025 16:37:12 09/11/20 25 09/12/2025 COMP. METAB OLIC PANEL (14) creatinine 1.05 mg/dL 0.76-1 .27 normal Not Available [facility] ([facility]) [address] [facility], [place], [address], 09/12/2025 16:37:12 09/11/20 25 09/12/2025 COMP. METAB OLIC PANEL (14) eGFR 75 mL/mi n/1.7 3 >59 normal Not Available [facility] ([facility]) [address] [facility], [place], [address], 09/12/2025 16:37:12 09/11/20 25 09/12/2025 COMP. METAB OLIC PANEL (14) BUN/creatini ne ratio 22 10-24 normal Not Available [facility] ([facility]) [address] [facility], [place], [address], 09/12/2025 16:37:12 09/11/20 25 09/12/2025 COMP. METAB OLIC PANEL (14) sodium 141 mmol/ L 134-14 4 normal Not Available [facility] ([facility]) [address] [facility], [place], [address], 09/12/2025 16:37:12 09/11/20 25 09/12/2025 COMP. METAB OLIC PANEL (14) potassium 4.6 mmol/ L 3.5-5. 2 normal Not Available [facility] ([facility]) [address] [place], [address], 09/12/2025 16:37:12 09/11/20 25 09/12/2025 COMP. METAB OLIC PANEL (14) chloride 101 mmol/ L 96-106 normal Not Available [facility] ([facility]) [address] [place], [address], 09/12/2025 16:37:12 09/11/20 25 09/12/2025 COMP. METAB OLIC PANEL (14) carbon dioxide, total 25 mmol/ L 20-29 normal Not Available [facility] ([facility]) [address] [place], [address], 09/12/2025 16:37:12 09/11/20 25 09/12/2025 COMP. METAB OLIC PANEL (14) calcium 9.2 mg/dL 8.6-10 .2 normal Not Available [facility] ([facility]) [address] [place], [address], 09/12/2025 16:37:12 09/11/20 25 09/12/2025 COMP. METAB OLIC PANEL (14) protein, total 6.9 g/dL 6.0-8. 5 normal Not Available [facility] ([facility]) [address] [place], [address], 09/12/2025 16:37:12 09/11/20 25 09/12/2025 COMP. METAB OLIC PANEL (14) albumin 3.7 g/dL 3.8-4. 8 below low normal Not Available [facility] ([facility]) [address] [place], [address], 09/12/2025 16:37:12 09/11/20 25 09/12/2025 COMP. METAB OLIC PANEL (14) globulin, total 3.2 g/dL 1.5-4. 5 Not Available [facility] ([facility]) [address] [place], [address], 09/12/2025 16:37:12 09/11/20 25 09/12/2025 COMP. METAB OLIC PANEL (14) bilirubin, total 0.8 mg/dL 0.0-1. 2 normal Not Available [facility] ([facility]) [address] [place], [address], 09/12/2025 16:37:12 09/11/20 25 09/12/2025 COMP. METAB OLIC PANEL (14) alkaline phosphatase 109 IU/L 47-123 normal Not Available [facility] ([facility]) [address] [place], [address], 09/12/2025 16:37:12 09/11/20 25 09/12/2025 COMP. METAB OLIC PANEL (14) AST (SGOT) 16 IU/L 0-40 normal Not Available [facility] ([facility]) [address] [facility], [place], [address], 09/12/2025 16:37:12 09/11/2009/12/2025 COMP. METAB OLIC PANEL (14) ALT (SGPT) 11 IU/L 0-44 normal Not Available [facility] ([facility]) [address] [facility], [place], [address], 09/12/2025 16:37:12 09/11/20 25 09/12/2025 LIPID PANEL cholesterol, total 119 mg/dL 100-19 9 normal Not Available [facility] ([facility]) [address] [place], [address], 09/12/2025 16:37:13 09/11/2009/12/2025 LIPID PANEL triglyceride s 55 mg/dL 0-149 normal Not Available [facility] ([facility]) [address] [place], [address], 09/12/2025 16:37:13 09/11/2009/12/2025 LIPID PANEL HDL cholesterol 53 mg/dL >39 normal Not Available [facility] ([facility]) [address] [place], [address], 09/12/2025 16:37:13 09/11/2009/12/2025 LIPID PANEL VLDL cholesterol ángel 12 mg/dL 5-40 Not Available [facility] ([facility]) [address] [place], [address], 09/12/2025 16:37:13 09/11/2009/12/2025 LIPID PANEL LDL chol calc ([facility]) 54 mg/dL 0-99 Not Available [facility] ([facility]) [address] [place], [address], 09/12/2025 16:37:13 09/11/2009/12/2025 LIPID PANEL LDL calc comment: PERINATAL NURSE Not Available [facility] ([facility]) [address] [facility], [place], [address], 09/12/2025 16:37:13 09/11/20 25 09/12/2025 ALBUM IN/CR EAT RATIO , RANDO M UR creatinine, urine 74.7 mg/dL not estab. normal Not Available [facility] ([facility]) [address] [facility], [place], [address], 09/12/2025 16:37:14 09/11/2009/12/2025 ALBUM IN/CR EAT RATIO , RANDO M UR albumin, urine 4.9 ug/mL not estab. Not Available [facility] ([facility]) [address] [facility], [place], [address], 09/12/2025 16:37:14 09/11/2009/12/2025 ALBUM IN/CR EAT RATIO , RANDO M UR alb/creat ratio 7 mg/g_ creat 0-29 Leyda l: 0 - 29 Moder ately incre ased: 30 - 300 Sever carlos a incre ased: >300 Not Available [facility] ([facility]) [address] [facility], [place], [address], 09/12/2025 16:37:14 09/11/2009/12/2025 FOLAT E, RBC folate, hemolysate 433.0 NG/mL not estab. Not Available [facility] ([facility]) [address] [place], [address], 09/12/2025 16:37:14 09/11/20 25 09/12/2025 FOLAT E, RBC folate, RBC 1161 NG/mL >498 Not Available [facility] ([facility]) [address] [place], [address], 09/12/2025 16:37:14 09/11/2009/12/2025 HEMOG LOBIN A1C hemoglobin A1C 6.4 % 4.8-5. 6 above high normal Predi abete s: 5.7 - 6.4 Diabe castillo: >6.4 Glyce rick contr ol for adult s with diabe castillo: <7.0 Not Available [facility] ([facility]) [address] [place], [address], 09/12/2025 16:37:15 09/11/2009/12/2025 IRON iron 67 ug/dL 38-169 normal Not Available [facility] ([facility]) [address] [place], [address], 09/12/2025 16:37:16 09/11/2009/12/2025 RETIC ULOCY TE COUNT reticulocyte count 1.7 % 0.6-2. 6 Not Available [facility] ([facility]) [address] [place], [address], 09/12/2025 16:37:16 09/11/2009/12/2025 TRIIO DOTHY YENI E (T3), FREE triiodothyro nine (T3), free 2.1 pg/mL 2.0-4. 4 normal Not Available [facility] ([facility]) [address] [place], [address], 09/12/2025 16:37:17 11/18/20 24 11/20/2024 , echo ardio gram No observ ation record ed. [address], [place] [address], [place], [address], 01/03/2025 12:40:43 11/18/20 24 11/21/2024 yosef ashley am No observ ation record ed. [address], [place] [id number] [facility] [address], [place], [address], 01/03/2025 12:40:42 11/18/20 24 11/18/2024 yosef ashley am No observ ation record ed. [address], [place], [address], 01/03/2025 12:40:43 11/18/20 24 11/18/2024 bonny metry testi ng* No observ ation record ed. [address], [place], [address], 01/03/2025 12:40:43 01/03/20 25 01/03/2025 bonny metry testi ng* No observ ation record ed. [address], [place], [address], 05/03/2025 14:05:23 03/15/20 25 02/23/2025 (ARNALDO) ankle brach ial index * No observ ation record ed. [address], [place], [address], 05/03/2025 14:05:23 Result Notes None recorded. Problems Name Problem SNOMED Code Status Onset Date Resolution Date Notes Provider Name and Address Organization Details Recorded Time Obstructi ve sleep apnea of adult 39383183179 03 Active -- noted on Cardiolog ist note from 07/19/20 Not Available [facility] 4 19:19:46 Type 2 diabetes mellitus without complicat ion 062858761 Active 2019 -- Podiatris t Dr Vladimir Guajardo -- referred to [facility] in [place] [facility] Available [facility] 4 19:19:46 Congestiv e heart failure 97394234 Active 2019 -- sees Dr Jack Welsh at [facility] Not Available [facility] 4 19:19:46 Chronic kidney disease 113302367 Active 2019 -- Nephrolog ist Dr Justin Hernandez Not Available [facility] 4 19:19:46 Essential hypertens ion 97935472 Active 2019 Not Available [facility] 4 19:19:46 Hyperlipi demia 29708904 Active 2019 Not Available [facility] 4 19:19:46 Hypothyro idism 79188076 Active 2019 Not Available [facility] 4 19:19:46 Atrial fibrillat ion 04818089 Active 2019 -- on Eliquis; -- sees Dr Jack Welsh at [facility] Not Available [facility] 4 19:19:46 Unsteady gait Active 2019 Not Available [facility] 4 19:19:46 Asbestosi s 12667570 Active 2019 -- Pulmonolo gist Dr Marcia Valencia Not Available [facility] 4 19:19:46 Anemia 593074971 Active 2021 Not Available [facility] 4 19:19:46 Tinea corporis 98959469 Active 2022 Not Available [facility] 4 19:19:47 Bronchosp asm 0993152 Active 2022 Not Available [facility] 4 19:19:46 Hypoglyce maria guadalupe 152192320 Active 2022 Not Available [facility] 4 19:19:46 Leukocyto sis 046081038 Active 2022 Not Available [facility] 4 19:19:46 Hyperkale maria guadalupe 54766029 Active 2022 Not Available [facility] 4 19:19:46 Bilateral osteoarth ritis of knees 15779144264 9107 Active 2022 Not Available [facility] 4 19:19:46 Diabetic periphera l neuropath y 959891949 Active 2022 Not Available [facility] 4 19:19:46 Type 2 diabetes mellitus 58737650 Active 2022 Not Available [facility] 4 19:19:46 Expirator y wheezing 0342625 Active 2022 Not Available [facility] 4 19:19:47 Notes:Some problems listed i n Documents: #[id number], #[id number], #[id number], #[id number], #[id number], #[id number], #[id number], #[id number], #[id number] could not be added to this patient's chart. Please review these documents and add these problems to the patient's chart manually as needed. Problem Notes None recorded. Procedures Surgical History Date Name Laterality Status Provider Name and Address Organization Details Recorded Time 5 Diabetic Foot Exam completed MD Didi Iniguez [facility] [address], [place], [address], [facility] 01/03/2025 12:44:58 Unlisted px hands/fingers completed Mary Kay [facility] 07/09/2020 14:38:13 Imaging Results None recorded. Procedure Notes None recorded. Medical Equipment None Reported. Allergies Allergen ID Allergen Name Allergen Category Reaction Reaction Severity Criticality Documentation Date Start Date Code Code System Note Provider Name and Address Organization Details Recorded Time 54169 clindamyc in Not available Not available Not available Not available 10/06/20222021 2582 RxNorm -- Rash on bilat eral forea ciarra 5 days after start ing Clind amyci n MD Didi Iniguez [facility] [address], [place], [address], [facility] 2 13:50:29 9209 pioglitaz one medicatio n Not available Not available Not available 07/21/2020 80969 RxNorm -- cauti on about presc ribin g Actos due to CHF MD Didi Iniguez [facility] [address], [place], [address], [facility] 0 15:21:43 9210 Product containin g sulfonylu tita (product) medicatio n Not available Not available Not available 07/21/2020 [id number] SNOMED -- cauti on due to age >65 and has CKD MD Didi Iniguez [facility] [address], [place], [address], [facility] 0 15:22:13 Medications Name Sig Start Date Stop Date Status Note LastModified by Organization Details LastModified Time allopurin ol 100 mg tabs 07/09 completed Not Available Not Available Not Available baclofen 10 mg tabs 07/09 completed Not Available Not Available Not Available levothyro xine sodium 100 mcg tabs 07/09 completed Not Available Not Available Not Available metolazon e 2.5 mg tabs 07/09 completed Not Available Not Available Not Available levothyro xine sodium 50 mcg tabs 07/09 completed Not Available Not Available Not Available glipizide er 2.5 mg tb24 07/09 completed Not Available Not Available Not Available levemir flextouch 100 unit/ml sopn 07/09 completed Not Available Not Available Not Available alcohol swabs 70 % pads 04/12 completed Not Available Not Available Not Available lisinopri l 5 mg tabs 07/09 completed Not Available Not Available Not Available pantopraz ole sodium 40 mg tbec 07/09 completed Not Available Not Available Not Available metoprolo l succinate er 50 mg tb24 07/09 completed Not Available Not Available Not Available ropinirol e hydrochlo ride 0.25 mg tabs 07/09 completed Not Available Not Available Not Available onetouch kit ultra 2 07/09 completed Not Available Not Available Not Available calcitrio l 0.25 mcg caps 07/09 completed Not Available Not Available Not Available gabapenti n 300 mg caps 07/09 completed Not Available Not Available Not Available atorvasta tin calcium 20 mg tabs 07/09 completed Not Available Not Available Not Available hydroco/a pap tab 5-325mg 07/09 completed Not Available Not Available Not Available humalog kwikpen 100 unit/ml sopn 07/09 completed Not Available Not Available Not Available pioglitaz one hcl 45 mg tabs 07/09 completed Not Available Not Available Not Available furosemid e 40 mg tabs 07/09 completed Not Available Not Available Not Available amiodaron e hcl 200 mg tabs 07/09 completed Not Available Not Available Not Available furosemid e 80 mg tabs 07/09 completed Not Available Not Available Not Available spironola ctone 25 mg tabs 07/09 completed Not Available Not Available Not Available eliquis 5 mg tabs 07/09 completed Not Available Not Available Not Available onetouch del mis plus 33g 07/09 completed Not Available Not Available Not Available onetouch castillo ultra 07/09 completed Not Available Not Available Not Available celecoxib 200 mg capsule TAKE 1 CAPSULE BY MOUTH EVERY DAY NEEDED 05/03 completed -- d/c'd due to pt being on Eliquis Not Available Not Available Not Available amoxicill in 500 mg capsule TAKE 1 CAPSULE BY MOUTH FOUR TIMES DAILY UNTIL ALL TAKEN 05/03 completed -- from dentist Not Available Not Available Not Available furosemid e 40 mg tablet TK 1 T PO BID UTD 07/09 completed Not Available Not Available Not Available metolazon e 2.5 mg tablet TK 1 T PO QD 07/09 completed Not Available Not Available Not Available doxycycli ne hyclate 100 mg capsule TAKE 1 CAPSULE BY MOUTH TWICE DAILY FOR 10 DAYS 03/01 completed Not Available Not Available Not Available atorvasta tin 20 mg tablet TK 1 T PO QAM 07/09 completed Not Available Not Available Not Available clindamyc in HCl 300 mg capsule TAKE 1 CAPSULE BY MOUTH EVERY 8 HOURS FOR 10 DAYS 10/28 completed Not Available Not Available Not Available ammonium lactate 12 % lotion MOHAN EXT TO FEET BID PRN 07/09 completed Not Available Not Available Not Available atorvasta tin 10 mg tablet TAKE 1 TABLET BY MOUTH EVERY DAY IN THE EVENING active Not Available Not Available No t Available azithromy kash 250 mg tablet TAKE 2 TABLETS (500 MG) BY ORAL ROUTE ONCE DAILY FOR 1 DAY THEN 1 TABLET (250 MG) BY ORAL ROUTE ONCE DAILY FOR 4 DAYS 06/11 completed Not Available Not Available Not Available tramadol 37.5 mg-acetam inophen 325 mg tablet TAKE 1 TABLET BY MOUTH EVERY 4 HOURS FOR UP TO 7 DAYS NEEDED FOR MODERATE TO SEVERE PAIN 12/01 completed Not Available Not Available Not Available ofloxacin 0.3 % eye drops 07/01 completed Not Available Not Available Not Available amiodaron e 200 mg tablet TK 1 T PO QD 01/24 completed Not Available Not Available Not Available benzonata te 200 mg capsule Take 1 capsule 3 times a day by oral route. 07/01 completed Not Available Not Available Not Available metoprolo l succinate ER 50 mg tablet,ex tended release 24 hr TAKE 1 TABLET BY MOUTH EVERY DAY IN THE EVENING 10/31 completed cardiolo gist changed it to 12.5 during hosp Not Available Not Available Not Available hydrocodo ne 5 mg-acetam inophen 325 mg tablet TK 1 T PO TID PRN FOR 30 DAYS. MUST LAST 30 DAYS 07/09 completed Not Available Not Available Not Available prednison e 20 mg tablet TAKE 3 TABLETS BY MOUTH ONCE DAILY FOR 5 DAYS 03/26 completed Not Available Not Available Not Available pioglitaz one 45 mg tablet TK 1 T PO QD 07/09 completed -- do not take due to CHF Not Available Not Available Not Available acetamino phen 300 mg-codein e 30 mg tablet TAKE 1 TABLET BY MOUTH FOUR TIMES DAILY NEEDED 09/17 completed Not Available Not Available Not Available allopurin ol 100 mg tablet TK 2 TS PO QD 01/21 completed -- by Nephrolo gist Dr Justin Hernandez Not Available Not Available Not Available folic acid 400 mcg tablet TAKE 1 TABLET BY MOUTH EVERY MORNING 2024 active Not Available Not Available Not Avai lable hydrocodo ne 10 mg-acetam inophen 325 mg tablet TAKE 1 TABLET BY MOUTH EVERY DAY NEEDED 01/21 completed Not Available Not Available Not Available tramadol 50 mg tablet 1 tab taken (togethe r w/ 1 tab of Tylenol 500 mg) once, up to twice a day as needed 09/17 completed Not Available Not Available Not Available spironola ctone 25 mg tablet TAKE 1 TABLET BY MOUTH EVERY DAY 01/06 completed -- pt has not taken for a long time Not Available Not Available Not Available ketorolac 0.5 % eye drops 01/03 completed Not Available Not Available Not Available levothyro xine 100 mcg tablet TAKE 1 TABLET BY MOUTH EVERY DAY IN THE MORNING 09/17 completed -- dose increase d to 112 mcg qAM Not Available Not Available Not Available prednisol one acetate 1 % eye drops,xi pension 07/01 completed Not Available Not Available Not Available linezolid 600 mg tablet TAKE 1 TABLET BY MOUTH EVERY 12 HOURS FOR 5 DAYS active Not Available Not Available No t Available furosemid e 80 mg tablet Take 1 tablet twice a day by oral route. active managed by card Not Available Not Available Not Available ropinirol e 0.25 mg tablet 07/21 completed -- likely causing Augmenta tion w/ leg/feet pain Not Available Not Available Not Available baclofen 10 mg tablet TAKE 1 TABLET BY MOUTH THREE TIMES DAILY NEEDED 01/21 completed Not Available Not Available Not Available benzonata te 100 mg capsule TAKE ONE CAPSULE BY MOUTH EVERY 8 HOURS NEEDED FOR COUGH AND CONGESTI ON 10/06 completed Not Available Not Available Not Available glipizide ER 2.5 mg tablet, extended release 24 hr TK 1 T PO QD BEFORE A MEAL 07/09 completed Not Available Not Available Not Available levothyro xine 50 mcg tablet TK 1 T PO QD 07/09 completed Not Available Not Available Not Available cephalexi n 500 mg capsule TK 1 C PO Q 6 H FOR 7 DAYS 07/09 completed Not Available Not Available Not Available pantopraz ole 40 mg tablet,de layed release TAKE 1 TABLET BY MOUTH DAILY AT 4 PM active Not Available Not Available No t Available nortripty line 10 mg capsule TK 2 CS PO QD HS 07/09 completed Not Available Not Available Not Available clotrimaz ole-betam ethasone 1 %-0.05 % topical cream APPLY TOPICALL Y TO THE AFFECTED AND SURROUND ING AREAS TWICE DAILY IN THE MORNING AND IN THE EVENING FOR 2 WEEKS active Not Available Not Available No t Available lidocaine 5 % topical patch UNWRAP AND APPLY 1 PATCH TOPICALL Y ONCE DAILY MAY WEAR UP TO 12 HOURS active Not Available Not Available No t Available ibuprofen 400 mg tablet TK 1 TO 2 TABLETS PO 1 TO 3 TIMES DAILY PRN P FOR 30 DAYS 07/09 completed Not Available Not Available Not Available gabapenti n 300 mg capsule TAKE 1 CAPSULE BY MOUTH EVERY 8 HOURS. CAN CAUSE DROWSINE SS active Not Available Not Available No t Available folic acid 1 mg tablet TAKE 1 TABLET BY MOUTH DAILY 03/21 completed -- decrease d to 400 mcg daily Not Available Not Available Not Available cyanocoba mik (vit B-12) 1,000 mcg sublingua l tablet DISSOLVE 1 TABLET UNDER THE TONGUE ONCE EVERY MORNING 11/02 completed Not Available Not Available Not Available lisinopri l 5 mg tablet TK 1 T PO D 01/24 completed Not Available Not Available Not Available metoprolo l succinate ER 25 mg tablet,ex tended release 24 hr Take 0.5 tablets every day by oral route in the evening. active started by card during hosp Not Available Not Available Not Available ergocalci ferol (vitamin D2) 1,250 mcg (50,000 unit) capsule TAKE 1 CAPSULE BY MOUTH EVERY WEEK WITH MEALS active Not Available Not Available No t Available methylpre dnisolone 4 mg tablets in a dose pack FOLLOW PACKAGE DIRECTIO NS 06/11 completed Not Available Not Available Not Available albuterol sulfate HFA 90 mcg/actua tion aerosol inhaler INHALE 2 PUFFS BY MOUTH FOUR TIMES DAILY NEEDED active Not Available Not Available No t Available SSD 1 % topical cream APPLY A 1/16 INCH THICK LATER TO THE ENTIRE WOUND TWICE DAILY 04/12 completed Not Available Not Available Not Available sodium polystyre ne sulfonate 15 gram oral powder MIX 15 GRAMS IN LIQUID AND TAKE BY MOUTH EVERY DAY active Not Available Not Available No t Available cefdinir 300 mg capsule 07/31 completed Not Available Not Available Not Available metformin ER 500 mg tablet,ex tended release 24 hr TAKE 2 TABLETS BY MOUTH EVERY 12 HOURS active Not Available Not Available No t Available calcitrio l 0.25 mcg capsule TK 1 C PO QD 01/24 completed Not Available Not Available Not Available levothyro xine 112 mcg tablet TAKE 1 TABLET BY MOUTH EVERY DAY IN THE MORNING active Not Available Not Available No t Available amoxicill in 875 mg-potass ium clavulana te 125 mg tablet TAKE 1 TABLET BY MOUTH EVERY 12 HOURS 04/12 completed Not Available Not Available Not Available oxycodone 5 mg tablet TK 1 T PO Q 8 H PRN P 07/09 completed Not Available Not Available Not Available Antifunga l (miconazo le) 2 % topical cream APPLY 1 APPLICAT ION EXTERNAL LY AA OF THE SKIN BID 07/09 completed Not Available Not Available Not Available duloxetin e 30 mg capsule,d elayed release TAKE 1 CAPSULE BY MOUTH EVERY DAY active Not Available Not Available No t Available duloxetin e 60 mg capsule,d elayed release TAKE 1 CAPSULE BY MOUTH EVERY DAY 2024 active Not Available Not Available Not Avai lable Levemir FlexPen 100 unit/mL (3 mL) solution subcutane ous insulin pen ADMINIST ER 52 UNITS UNDER THE SKIN TWICE DAILY 01/03 completed -- no lantus now Not Available Not Available Not Available Lantus Solostar U-100 Insulin 100 unit/mL (3 mL) subcutane ous pen INJECT 22 UNITS UNDER THE SKIN EVERY NIGHT AT BEDTIME active Not Available Not Available No t Available Humalog KwikPen (U-100) Insulin 100 unit/mL subcutane ous ADMINIST ER 5 UNITS UNDER THE SKIN THREE TIMES DAILY BEFORE MEALS active Not Available Not Available No t Available Easy Touch Alcohol Prep Pads USE TWICE DAILY active Not Available Not Available No t Available Linzess 145 mcg capsule TK 1 C PO QD 07/09 completed Not Available Not Available Not Available Eliquis 5 mg tablet TAKE 1 TABLET BY MOUTH EVERY 12 HOURS active Not Available Not Available No t Available Farxiga 10 mg tablet Take 1 tablet every day by oral route. 08/16 completed -- cost $130/- Not Available Not Available Not Available Jardiance 10 mg tablet Take 1 tablet every day by oral route. active Not Available Not Available No t Available Jardiance 25 mg tablet TAKE 1 TABLET BY MOUTH EVERY DAY IN THE MORNING 03/21 completed -- changed to Farxiga due to cost Not Available Not Available Not Available Spiriva Respimat 2.5 mcg/actua tion solution for inhalatio n INHALE 2 PUFFS BY MOUTH EVERY DAY 12/01 completed Not Available Not Available Not Available Entresto 24 mg-26 mg tablet Take 1 tablet twice a day by oral route. active started by cardiolo gist during hosp Not Available Not Available Not Available cyanocoba mik (vitamin B-12) 2,500 mcg tablet 1 tab every Morning (under tongue for 5 min then swallow) . 01/21 completed Not Available Not Available Not Available Droplet Pen Needle 31 gauge x 5/16 USE WITH INSULIN FOUR TIMES DAILY active Not Available Not Available No t Available Droplet Pen Needle 32 gauge x 5/32 USE WITH INSULIN INJECTIO NS FIVE TIMES DAILY active Not Available Not Available No t Available Accu-Chek Guide test strips TEST ONCE DAILY active Not Available Not Available No t Available OneTouch Ultra Blue Test Strip USE TO TEST BLOOD SUGAR BID 01/09 completed --duplic ate Not Available Not Available Not Available Lokelma 5 gram oral powder packet MIX AND DRINK 1 PACKET BY MOUTH EVERY DAY 11/02 completed Not Available Not Available Not Available Accu-Chek Guide Me Glucose Meter TEST ONCE DAILY active Not Available Not Available No t Available OneTouch Delica Plus Lancet 33 gauge USE TO TEST BLOOD SUGAR ONCE DAILY active Not Available Not Available No t Available OneTouch Delica Plus Lancet 30 gauge USE TO TEST TWICE DAILY 01/03 completed -- duplicat e Not Available Not Available Not Available Vitals Date Recorded Body height Heart rate Respiratory rate Body temperature Body mass index (BMI) Body weight Systolic And Diastolic Provider Name and Address Organization Details Last Updated DateTime 5 160.02 cm 81 /min 16 /min 97.4 [degF] 56 kg/m2 268605. 19 g 115/72 mm[Hg] Corrie Causey [facility] 5 10:36:52 Date Recorded Body height Heart rate Respiratory rate Body temperature Body mass index (BMI) Body weight Systolic And Diastolic Provider Name and Address Organization Details Last Updated DateTime 5 160.02 cm 74 /min 16 /min 97.4 [degF] 53.5 kg/m2 089364. 9 g 103/71 mm[Hg] [facility] 13:30[facility]49 Date Recorded Body height Heart rate Respiratory rate Body temperature Body mass index (BMI) Body weight Systolic And Diastolic Provider Name and Address Organization Details Last Updated DateTime 4 160.02 cm 86 /min 16 /min 97.3 [degF] 53.3 kg/m2 917699. 3 g 141/84 mm[Hg] [facility] 4 12:10:47 Date Recorded Body height Heart rate Respiratory rate Body temperature Body mass index (BMI) Body weight Systolic And Diastolic Provider Name and Address Organization Details Last Updated DateTime 4 160.02 cm 74 /min 16 /min 97.4 [degF] 53.7 kg/m2 748244. 49 g 129/79 mm[Hg] Corrie Causey [facility] 4 13:55:40 Social History Question Answer Notes LastModified by Organizat ion Details LastModified Time Tobacco Smoking Status Never Smoker Mary Kay Rhodes td [facility] 07/09/2020 14:14:37 What Is Your Level Of Caffeine Consumption? Moderate 1 Cup Of Coffee In The Morning, Soda Ocassionally & Tea [email or web address] Information not available 05/16/2021 How Much Tobacco Do You Chew? None Information not available 07/09/2020 In The 14 Days Before Symptom Onset, Have You Had Close Contact With A Laboratory-confi rmed COVID-19 While That Case Was Ill? No Information not available 07/09/2020 In The 14 Days Before Symptom Onset, Have You Had Close Contact With A Person Who Is Under Investigation For COVID-19 While That Person Was Ill? No Information not available 07/09/2020 Have You Been To An Area Known To Be High Risk For COVID-19? No Information not available 07/09/2020 What Type Of Diet Are You Following? CARDIAC 2 Gram Sodium A Day Diet Information not available 07/21/2020 Marital Status Single Informatio n not available 07/09/2020 What Was The Date Of Your Most Recent Tobacco Screening? 05/03/2025 Information not available 05/03/2025 Seat Belts Used Routinely Yes Information not available 07/21/2020 How Much Tobacco Do You Smoke? No Information not available 07/09/2020 How Many Years Have You Smoked Tobacco? 0 Information not available 07/21/2020 Sex: Unknown Functional Status Question Answer Note LastModified by Organizat ion Details LastModified Time Do you use any illicit or recreational drugs? No [email or web address] Information not available 11/15/2021 Do you or have you ever used any other forms of tobacco or nicotine? No [email or web address] Information not available 11/15/2021 What is your level of alcohol consumption? Moderate 2 beers a week Information not available 03/01/2024 Do you or have you ever used smokeless tobacco? Never used smokeless tobacco Information not available 07/09/2020 What is your occupation? retired Information not available 07/09/2020 Do you or have you ever used e-cigarettes or vape? Never used electronic cigarettes Information not available 07/09/2020 Mental Status None recorded. Family History Relationship Description Onset Age of this Age Resolved Age Notes LastModified by Organization Details LastModified Time Father Congestive heart failure Dx'd @ 55 y/o [email or web address] Not available 07/09/2020 14:35:23 Father Malignant neoplasm of colon Dx'd @ 55 y/o [email or web address] Not available 07/09/2020 14:35:50 Father Heart disease RI--- @ 55 y/o [email or web address] Not available 07/09/2020 14:36:37 Mother Family history of malignant neoplasm Unsure of type of cancer ---@ 60 y/o [email or web address] Not available 07/09/2020 14:36:09 Medical History No medical history recorded. Immunizations Vaccine Type Date Status Note Provider Name and Address Organization Details Recorded Time Pneumococcal conjugate PCV 13 05/16/20 21 cancelled patient objection [facility] [address], [place], [address], [facility] 05/16/2021 15:27:55 Tdap 05/16/20 21 cancelled patient objection MD Didi Iniguez [facility] [address], [place], [address], [facility] 05/16/2021 15:27:55 zoster recombinant 05/16/20 21 cancelled patient objection MD Didi Iniguez [facility] [address], [place], [address], [facility] 05/16/2021 15:27:55 Past Encounters Encounter ID Performer Location Encounter Start Date Encounter Closed Date Diagnosis/Indication Diagnosis SNOMED-CT Code Diagnosis ICD10 Code Diagnosis IMO Codes Diagnosis Note [id number] Dean Arvizu MD [facility]i [facility] [place] [address] 07/09/2020 13:40:17 07/09/2020 15:45:47 Type 2 diabetes mellitus without complication 735513041 E11.9 (dx'd around 57 y/o) Congestive heart failure 75725552 I50.9 Chronic ki dney disease 980534672 N18.9 Essential hypertension 80160364 I10 Hyperlipidemia 42331193 E78.5 Hypothyroidism 35987330 E03.9 Advance di rective discussed with patient 050515428 Z71.89 Hepatitis C screening 41 8391663 Z11.59 Active or passive immunization 448563793 Z23 Screening for malignant neoplasm of colon 745521024 Z12.11 (dad w/ colon cancer at 55 y/o) -- need colonoscop y every 5 years Screening for malignant neoplasm of prostate 897463656 Z12.5 Atrial fibrillation 4943 6004 I48.91 Multiple o pen wounds of lower leg 315937671 S81.801D (bilateral lower legs) -- currrently following w/ Dr Austin Preciado (podiatris t) for wound care of his legs at [place]. Asbestosis 43680028 J61 Unsteady gait 525988508 R26.81 (due to proximal weakness in hips & legs) -- uses a wheeled walker since around Dec 2018-- last fall was around Apr 2019-- still has PT coming out twice a week to his home. Body mass index 40+ - severely obese 410473336 Z68.43 -- will advise 4 # weight loss a month.-- pt's BMI today is 57 (ideal is between 20-25) [id number] Dean Arvizu MD [facility] [employer] [facility], [place] [id number] [facility] [address] ,[address] [address] 07/31/2020 12:01:17 07/31/2020 14:47:49 Ulcer of lower extremity 19413718 L97.909 bilateral leg ulcers secondary to lymphedema .--> following machine clothing man Dr Austin Preciado; next appt will be tomorrow 08/01/20Pati ent has continued chronic compressio n to his legs which his lower leg ulcer is almost healed on the right lateral leg pain continues have weeping to the left lateral leg. Patient has been undergoing home health which is not applying the same type of dressings and continues to macerate causing continued skin breakdown. Dr Preciado d/c that home health and order a new home health-- pt reported that Dr Austin Preciado will be sening a new Home Health wound care nurse for his legs. Sepsis 21115266 A41.9 w/ tachycardi a, leukocytos is and lactic acidosus, secondary to cellulitis of LE. Pt was treated w/ vanc and Zosyn-- pt feeling much better w/o f/c, n/v, or increasing weakness. Cultures were neg on oral abxWill recheck CBC and CMP Chronic ki dney disease 187673886 N18.9 secondary to CHF exacsignif icantly improved w/ diuresisWi ll repeat CMP w/ copy to Dr Hernandez, Dr Preciado and Dr Welsh-- follows Nephrologi Dr Justin Hernandez Congestive heart failure 40716397 I50.9 -- follows at [facility] Dr Jack Welsh Type 2 gela betes mellitus without complication 766492804 E11.9 (dx'd around 57 y/o)A1C of 9.1 Uncontroll ed DM -- check daily fasting AM glucose every morning and call back in 1 weeks with both his/her 7 day readings and also bedtime insulin dosing. I will adjust his/her Insulin dosing based on those readings. Essential hypertension 31086778 I10 -- BP controlled Hyperlipidemia 64565742 E78.5 -- need to be on statin; will start Atorvastat independ on lipid panel Hypothyroidism 01915277 E03.9 Unsteady gait 516728681 R26.81 (due to proximal weakness in hips & legs) -- uses a wheeled walker since around Dec 2018-- last fall was around Apr 2019-- still has PT coming out twice a week to his home. Asbestosis 06424785 J61 -- saw Pulmonolog ist Marcia Valencia Body mass index 40+ - severely obese 936074061 Z68.43 -- will advise 4 # weight loss a month; pt lost 1 # since his last visit-- pt's BMI today is 56.9 (ideal is between 20-25) Active or passive immunization 500236156 Z23 Screening for malignant neoplasm of colon 234036442 Z12.11 (dad w/ colon cancer at 55 y/o) -- need colonoscop y every 5 years Hepatitis C screening 41 1174379 Z11.59 -- tested negative on 07/17/20 Screening for malignant neoplasm of prostate 756990846 Z12.5 -- last PSA level of 0.2 on 07/17/20 Long-term drug therapy 265628026 Z79.899 (Amiodaron e) [id number] Dean Arvizu MD [facility] [employer] [address] [facility] ,[facility] [address] [place] [address] 09/11/2020 11:20:59 09/11/2020 13:46:51 Anemia 370388022 D64.9 check Iron Panel & B12/folate leve Ulcer of l ower extremity 31722470 L97.909 bilateral leg ulcers secondary to lymphedema .--> following machine clothing man Dr Austin Preciado; next appt will be tomorrow 08/01/20Pati ent has continued chronic compressio n to his legs which his lower leg ulcer is almost healed on the right lateral leg pain continues have weeping to the left lateral leg. Patient has been undergoing home health which is not applying the same type of dressings and continues to macerate causing continued skin breakdown. Dr Preciado d/c that home health and order a new home health-- pt reported that Dr Austin Preciado will be sening a new Home Health wound care nurse for his legs. Chronic ki dney disease 391070725 N18.9 secondary to CHF exacsignif icantly improved w/ diuresisWi ll repeat CMP w/ copy to Dr Hernandez, Dr Preciado and Dr Welsh-- [facility] Hernandez Congestive heart failure 19397640 I50.9 -- follows at [facility] Dr Jack Welsh Type 2 gela betes mellitus without complication 403599145 E11.9 (dx'd around 57 y/o)A1C of 9.1on Farxiga, Levemir and Humalog Uncontroll ed DM -- check daily fasting AM glucose every morning and call back in 1 weeks with both his/her 7 day readings and also bedtime insulin dosing. I will adjust his/her Insulin dosing based on those readings. --> not done.-- will issue Jardiance to see if it is cheaper than Farxiga-- recheck lab 10/18/20 Essential hypertension 25045897 I10 -- BP controlled Hyperlipidemia 66149233 E78.5 -- recheck lab 10/18/20 Hypothyroidism 76335145 E03.9 -- recheck lab 10/18/20 Unsteady gait 633028623 R26.81 (due to proximal weakness in hips & legs) -- uses a wheeled walker since around Dec 2018-- last fall was around Apr 2019-- still has PT coming out twice a week to his home. Long-term drug therapy 045053877 Z79.899 (Amiodaron e) Asbestosis 02278483 J61 -- following Pulmonolog ist Marcia Valencia Body mass index 40+ - severely obese 205355685 Z68.43 -- will advise 4 # weight loss a month; pt lost 1 # since his last visit-- pt's BMI today is 56.9 (ideal is between 20-25) Hepatitis C screening 41 6290099 Z11.59 -- tested negative on 07/17/20 Active or passive immunization 024619666 Z23 Screening for malignant neoplasm of colon 929833000 Z12.11 (dad w/ colon cancer at 55 y/o) -- need colonoscop y every [facility] years[facility] ed [facility] ---> not done yet Screening for malignant neoplasm of prostate 233009093 Z12.5 -- last PSA level of 0.2 on 07/17/20 Leukocytosis 124635954 D 72.829 stable Paroxysmal atrial fibrillation 448712007 I48.[address] 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 Patient has been undergoing home health which is not applying the same type of dressings and continues to macerate causing continued skin breakdown. Dr Preciado d/c that home health and order a new home health-- pt reported that Dr Austin Preciado will be sening a new Home Health wound care nurse for his legs.-- pt report his ulcers has completely resolved and not recurred Chronic ki dney disease 849744857 N18.9 secondary to CHF exacsignif icantly improved w/ diuresisWi ll repeat CMP w/ copy to Dr Hernandez, Dr Preciado and Dr Welsh-- follows Nephrologi Dr Justin Hernandez Congestive heart failure 77278237 I50.9 -- follows at [facility] Dr Jack Welsh Paroxysmal atrial fibrillation 879589573 I48.0 managed by cardiologi Elisabeth [facility] 2on Eliquis Type 2 gela betes mellitus without complication 376884892 E11.9 (dx'd around 57 y/o)A1C of 9.1-- pt reported that his lowest glucose reading is 180; will increase his Levemir from 14 untis every 12 hours.-- advised to check daily fasting AM glucose every AM and call back in 1 week with both pt's 7 day readings and also pt's daily insulin dosage (# of insulin units & # of times a day pt takes insulin) --> not done.-- pt advised to bring in all his medicine bottles at next visit Essential hypertension 16695533 I10 -- BP controlled Hyperlipidemia 62081004 E78.5 -- recheck lab 10/18/20 Hypothyroidism 28807305 E03.9 -- recheck lab o 02/06/21 Unsteady gait 388545351 R26.81 (due to proximal weakness in hips & legs) -- uses a wheeled walker since around Dec 2018-- last fall was around Apr 2019-- still has PT coming out twice a week to his home. Long-term drug therapy 708458631 Z79.899 (Amiodaron e) Asbestosis 76256633 J61 -- following Pulmonolog ist Marcia Valencia Diabetic p eripheral neuropathy 872238635 E11.40 (feet feeling numb) Body mass index 40+ - severely obese 848569927 Z68.43 -- advise weight loss; pt gained 4 # since his last visit-- pt's BMI today is 54.6 (ideal is between 20-25) Hepatitis C screening 41 7287551 Z11.59 -- tested negative on 07/17/20 Active or passive immunization 144296405 Z23 Screening for malignant neoplasm of colon 510425543 Z12.11 (dad w/ colon cancer at 55 y/o) -- need colonoscop y every 5 yearsOrder ed Cologuard ---> not done yet Screening for malignant neoplasm of prostate 972984820 Z12.5 -- last PSA level of 0.2 on 07/17/20 [id number] Dean Arvizu MD [facility]2 [facility] ,[address] [place] [address] 01/24/2021 11:41:58 01/24/2021 13:53:01 Uncontrolled type 2 diabetes mellitus 109603455 E11.65 (dx'd around 57 y/o) -- A1c was 14.1 (glucose of 512); pt went to go to the Emergency Room [facility] but no reports available from [place]-- will increase his Levemir from 18 untis every 12 hours. -- advised to check daily fasting AM glucose every AM and call back in 1 week with both pt's 7 day readings and also pt's daily insulin dosage (# of insulin units & # of times a day pt takes insulin) --> not done. -- pt advised to bring in all his medicine bottles at next visit Congestive heart failure 99145747 I50.9 -- follows at [facility] Dr Jack Welsh Low blood pressure 76928 003 I95.9 (85/49) -- Hold the Furosemide Essential hypertension 03612774 I10 -- low (85/49) -- Hold the Furosemide -- F/u in 10 days [id number] Dean Arvizu MD [facility] [address] [facility] ,[address] [place] [address] 02/07/2021 15:16:16 02/07/2021 17:31:14 Cirrhosis of liver 84050964 K74.60 (evident on liver us done on ) -- pt reports he cannot stop drinking beer-- advised pt to cut down his 2 beers a week to --> 1 regular size beer every 2 weeks.-- will need to limit Carbohydra castillo intake to between 40- 50 gram per meal & also between 120 - 150 grams a day. -- Examples of Carbohydra castillo are: ice-cream, sweet sugar treats, rice, potatoes, sweet potatoes (yams), bananas, corn products (popcorn, corn muffin, corn bread, cornflakes , corn ), oats, flour products (pasta, bread, bagel, muffins, donuts, biscuits, cookies, crackers, pancakes, waffle, cakes, pies &/or Alcohol. Adult heal th examination 306429692 Z00.00 Chronic ki dney disease stage 3 311498704 N18.30 -- refer pt back to Nephrologi st dr Justin Hernandez. Body mass index 40+ - severely obese 784474254 Z68.43 -- advise weight loss; pt gained 18 # since his last visit-- pt's BMI today is 56.9 (ideal is between 20-25) Essential hypertension 02214915 I10 -- low (85/49) -- restart Furosemide to 1 tab qMWF.-- F/u in 10 days Hyperlipidemia 27328584 E78.5 -- recheck lab 10/18/20 Hypothyroidism 65432208 E03.9 -- recheck lab o 02/06/21 Type 2 gela betes mellitus without complication 746152355 E11.9 (dx'd around 57 y/o)A1C of 9.1-- pt reported that his lowest glucose reading is 180; will increase his Levemir from 14 untis every 12 hours.-- advised to check daily fasting AM glucose every AM and call back in 1 week with both pt's 7 day readings and also pt's daily insulin dosage (# of insulin units & # of times a day pt takes insulin) --> not done-- home glucose readings of low of 196 & high of 3:15; pt advised to increase his Levemir from 20 bid ---> 23 units twice a day-- f/u in 6 weeks for better glucose control Gastroesop hageal reflux disease without esophagitis 164562361 K21.9 Atrial fibrillation 4943 6004 I48.91 [id number] Dean Arvizu MD [employer] [employer] [address] [facility] ,[address] [place] [address] 03/21/2021 14:22:33 03/21/2021 15:34:21 Cirrhosis of liver 99676381 K74.60 (evident on liver us done on ) -- pt reports he cannot stop drinking beer -- advised pt to cut down his 2 beers a week to --> 1 regular size beer every 2 weeks. -- will need to limit Carbohydra castillo intake to 40 gram per meal & also a maximum of 120 grams a day. -- Examples of Carbohydra castillo are: ice-cream, sweet sugar treats, rice, potatoes, sweet potatoes (yams), bananas, corn products (popcorn, corn muffin, corn bread, cornflakes , corn ), oats, flour products (pasta, bread, bagel, muffins, donuts, biscuits, cookies, crackers, pancakes, waffle, cakes, pies &/or Alcohol. Chronic ki dney disease stage 3 348793375 N18.30 -- refer pt back to Nephrologi st dr Justin Hernandez. -- check lab(s) on 05/13/21 Type 2 gela betes mellitus without complication 113758358 E11.9 (dx'd around 57 y/o) -- pt reported that his lowest glucose reading is 180; will increase his Levemir from 14 untis every 12 hours. -- advised to check daily fasting AM glucose every AM and call back in 1 week with both pt's 7 day readings and also pt's daily insulin dosage (# of insulin units & # of times a day pt takes insulin) --> not done --> re-advised but still not done; however pt did bring in a list of readings w/ him (lowest was one reading of 198, the highest was 310; all the rest of the readings ranges from 224 to 280 in the last 7 days) -- pt today was advised to increase his Levemir from 23 bid ---> 27 units twice a day -- pt has been following very closely w/ his Special Librarian Dr Austin Preciado (just saw Dr Preciado 03/20/21). -- check lab(s) on 05/13/21 -- f/u in 6 weeks for better glucose control Essential hypertension 90806383 I10 -- low (85/49) -- restart Furosemide to 1 tab qMWF. -- check lab(s) on 05/13/21 Atrial fibrillation 4943 6004 I48.91 -- check lab(s) on 05/13/21 Hypothyroidism 34911039 E03.9 -- check lab(s) on 05/13/21 Hyperlipidemia 73872703 E78.5 -- check lab(s) on 05/13/21 Body mass index 40+ - severely obese 917516886 Z68.43 -- advise weight loss; pt lost 12 # since his last visit -- pt's BMI today is 54.7 (ideal is between 20-25) Gastroesop hageal reflux disease without esophagitis 816092562 K21.9 Hepatitis C screening 41 5927176 Z11.59 -- tested negative on 07/17/20 Active or passive immunization 295822272 Z23 Screening for malignant neoplasm of colon 442848058 Z12.11 (dad w/ colon cancer at 55 y/o) -- need colonoscop y every 5 years Ordered Cologuard ---> not done yet -- Gastroente rologist Dr Keller's office reported today (03/21/21) that pt had refused colonoscop y when they called pt on 12/18/20. Screening for malignant neoplasm of prostate 422447880 Z12.5 -- last PSA level of 0.2 on 07/17/20 Folic acid deficiency 19 0793240 E53.8 [id number] Dean Arvizu MD [facility]2 [facility] [place] ,[address] [address] 05/16/2021 14:25:36 05/16/2021 15:42:54 Type 2 diabetes mellitus without complication 959678303 E11.9 (dx'd around 57 y/o) -- pt reported that his lowest glucose reading is 180; will increase his Levemir from 14 untis every 12 hours. -- advised to check daily fasting AM glucose every AM and call back in 1 week with both pt's 7 day readings and also pt's daily insulin dosage (# of insulin units & # of times a day pt takes insulin) --> not done --> re-advised but still not done; however pt did bring in a list of readings w/ him (lowest was one reading of 198, the highest was 310; all the rest of the readings ranges from 224 to 280 in the last 7 days) -- pt today was advised to increase his Levemir from 23 bid ---> 27 units twice a day -- pt has been following very closely w/ his Special Librarian Dr Austin Preciado (just saw Dr Preciado 03/20/21). -- check lab(s) on 05/13/21 -- f/u in 6 weeks for better glucose control-- pt will check w/ his pharm for cheaper alternativ e to Jardiance. -- recheck labs on 07/06/21 (since pt just had lab(s) done on 05/15/21) Essential hypertension 02484079 I10 -- low (85/49) -- restart Furosemide to 1 tab qMWF.-- recheck labs on 07/06/21 (since pt just had lab(s) done on 05/15/21) Cirrhosis of liver 36423 007 K74.60 (evident on liver us done on ) -- pt reports he cannot stop drinking beer -- advised pt to cut down his 2 beers a week to --> 1 regular size beer every 2 weeks. -- will need to limit Carbohydra castillo intake to 40 gram per meal & also a maximum of 120 grams a day. -- Examples of Carbohydra castillo are: ice-cream, sweet sugar treats, rice, potatoes, sweet potatoes (yams), bananas, corn products (popcorn, corn muffin, corn bread, cornflakes , corn ), oats, flour products (pasta, bread, bagel, muffins, donuts, biscuits, cookies, crackers, pancakes, waffle, cakes, pies &/or Alcohol. Chronic ki dney disease stage 3 335207422 N18.30 -- refer pt back to Nephrologi st dr Justin Hernandez.-- recheck labs on 07/06/21 (since pt just had lab(s) done on 05/15/21) Hypothyroidism 15466929 E03.9 -- recheck labs on 07/06/21 (since pt just had lab(s) done on 05/15/21) Atrial fibrillation 4943 6004 I48.91 -- recheck labs on 07/06/21 (since pt just had lab(s) done on 05/15/21)-- pt will check w his pharm on Xarelto & Pradaxa for more affordable alternativ es. Hyperlipidemia 07510319 E78.5 -- recheck labs on 07/06/21 (since pt just had lab(s) done on 05/15/21) Body mass index 40+ - severely obese 038706767 Z68.43 -- advise weight loss; pt lost 12 # since his last visit -- pt's BMI today is 54.7 (ideal is between 20-25) Gastroesop hageal reflux disease without esophagitis 368860628 K21.9 Folic acid deficiency 19 3145174 E53.8 Hepatitis C screening 41 3702564 Z11.59 -- tested negative on 07/17/20 Active or passive immunization 267670730 Z23 Screening for malignant neoplasm of colon 420321729 Z12.11 (dad w/ colon cancer at 55 y/o) -- need colonoscop y every 5 years Ordered Cologuard ---> not done yet -- Gastroente rologist Dr Keller's office reported today (03/21/21) that pt had refused colonoscop y when they called pt on 12/18/20. Screening for malignant neoplasm of prostate 545502234 Z12.5 -- last PSA level of 0.2 on 07/17/20-- recheck labs on 07/06/21 (since pt just had lab(s) done on 05/15/21) Advance di rective discussed with patient 625501613 Z71.89 [id number] Dean Arvizu MD [employer] [employer] [address] [facility] ,[address] [address] 08/16/2021 12:18:01 08/16/2021 14:08:33 Atrial fibrillation 67164295 I48.91 -- pt will check w his pharm on Xarelto & Pradaxa for more affordable alternativ es. Essential hypertension 98593182 I10 -- EKG done 12/12/20 Type 2 gela betes mellitus without complication 933935968 E11.9 (dx'd around 57 y/o) -- advised to check daily fasting AM glucose every AM and call back in 1 week with both pt's 7 day readings and also pt's daily insulin dosage (# of insulin units & # of times a day pt takes insulin) --> not done --> re-advised but still not done; however pt did bring in a list of readings w/ him (lowest was one reading of 198, the highest was 310; all the rest of the readings ranges from 224 to 280 in the last 7 days) -- pt has been following very closely w/ his Special Librarian Dr Austin Preciado (just saw Dr Preciado 03/20/21).- - both Jardiance and Farxiga cost over $130/- and pt cannot afford them; will start Metformin- - recheck labs on 10/30/21 Cirrhosis of liver 00149 007 K74.60 (evident on liver us done on ) -- pt reports he cannot stop drinking beer -- advised pt to cut down his 2 beers a week to --> 1 regular size beer every 2 weeks. -- will need to limit Carbohydra castillo intake to 40 gram per meal & also a maximum of 120 grams a day. -- Examples of Carbohydra castillo are: ice-cream, sweet sugar treats, rice, potatoes, sweet potatoes (yams), bananas, corn products (popcorn, corn muffin, corn bread, cornflakes , corn ), oats, flour products (pasta, bread, bagel, muffins, donuts, biscuits, cookies, crackers, pancakes, waffle, cakes, pies &/or Alcohol. Hypothyroidism 48553903 E03.9 -- recheck labs on 10/30/21 Hyperlipidemia 13953496 E78.5 -- recheck labs on 07/06/21 (since pt just had lab(s) done on 05/15/21) Body mass index 40+ - severely obese 747850447 Z68.43 -- advise weight loss; pt gained 8 # since his last visit -- pt's BMI today is 57.6 (ideal is between 20-25) Osteoarthritis 449082779 M19.90 Asthma 968509411 J45.90 9 Acute puru lent bronchitis 154294248 J20.9 [id number] Dean Arvizu MD [facility]2 [facility] [place] [address] [place] [address] 11/15/2021 11:13:52 11/15/2021 12:55:17 Type 2 diabetes mellitus without complication 989500683 E11.9 (dx'd around 57 y/o) -- advised to check daily fasting AM glucose every AM and call back in 1 week with both pt's 7 day readings and also pt's daily insulin dosage (# of insulin units & # of times a day pt takes insulin) --> not done --> re-advised but still not done; however pt did bring in a list of readings w/ him (lowest was one reading of 198, the highest was 310; all the rest of the readings ranges from 224 to 280 in the last 7 days) -- pt has been following very closely w/ his Special Librarian Dr Austin Preciado (just saw Dr Preciado 03/20/21).- - both Jardiance and Farxiga cost over $130/- and pt cannot afford them; will increase Metformin- - recheck labs on 02/04/22 Diabetic p eripheral neuropathy 813273994 E11.40 (feet feeling numb) Essential hypertension 59431349 I10 -- EKG done 12/12/20-- controlled -- recheck labs on 02/04/22 Hyperlipidemia 50392811 E78.5 -- recheck labs on 07/06/21 (since pt just had lab(s) done on 05/15/21) Body mass index 40+ - severely obese 850535995 Z68.43 -- advise weight loss; pt lost 10 # since his last visit -- pt's BMI today is 55.8 (ideal is between 20-25) [id number] Dean Arvizu MD [facility] [address] [facility] [place] [address] [place] [address] 01/21/2022 11:47:05 01/21/2022 13:40:56 Type 2 diabetes mellitus without complication 020365775 E11.9 (dx'd around 57 y/o) -- pt has been following very closely w/ his Special Librarian Dr Austin Preciado (just saw Dr Preciado 03/20/21).- - both Jardiance and Farxiga cost over $130/- and pt cannot afford them; will increase Metformin- - On 01/21/22, pt corrected himself that he is taking Levemir 50 units BID and not 14 u bid.-- He is also on Humalog 16 unit tid w/ meals-- his last 7 days fasting glucose were: 01/15/22 136 -- recheck labs on 04/09/22 Essential hypertension 09301715 I10 -- EKG done 12/12/20-- controlled -- recheck labs on 02/04/22 Hyperlipidemia 59877462 E78.5 -- recheck labs on 07/06/21 (since pt just had lab(s) done on 05/15/21) Body mass index 40+ - severely obese 614028064 Z68.43 -- advise weight loss; pt lost 6 # since his last visit -- pt's BMI today is 54.7 (ideal is between 20-25) Osteoarthr itis of knee 446080369 M17.9 [id number] Dean Arvizu MD [facility] [employer], [place] [id number] [facility] [place] ,[address] [address] 04/21/2022 12:24:55 04/21/2022 15:42:10 Adult health examination 493760057 Z00.00 -- recheck lab(s) within 2 days from 04/21/22 Gastroesop hageal reflux disease without esophagitis 193133608 K21.9 Hyperlipidemia 80270729 E78.5 -- recheck lab(s) within 2 days from 04/21/22 Essential hypertension 60655823 I10 -- EKG done 12/12/20-- controlled -- recheck lab(s) within 2 days from 04/21/22 Hypothyroidism 64331073 E03.9 -- clinically Euthyroid Type 2 gela betes mellitus without complication 071063907 E11.9 (dx'd around 57 y/o) -- pt has been following very closely w/ his Special Librarian Dr Austin Preciado (just saw Dr Preciado 03/20/21).- - recheck lab(s) within 2 days from 04/21/22 Osteoarthr itis of knee 868927861 M17.9 Chronic ki dney disease stage 3 815090883 N18.30 -- refer pt back to Nephrologi st dr Justin Hernandez.-- recheck lab(s) within 2 days from 04/21/22 Body mass index 40+ - severely obese 132443944 Z68.43 -- advise weight loss; pt gained 2 # since his last visit -- pt's BMI today is 55.1 (ideal is between 20-25) Asthma 542802431 J45.90 9 -- no flares Atrial fibrillation 4943 6004 I48.91 (rate controlled ) -- on Eliquis Cirrhosis of liver 007 K74.60 (evident on liver us done on ) -- pt reports he cannot stop drinking beer -- advised pt to cut down his 2 beers a week to --> 1 regular size beer every 2 weeks. -- will need to limit Carbohydra castillo intake to 40 gram per meal & also a maximum of 120 grams a day. -- Examples of Carbohydra castillo are: ice-cream, sweet sugar treats, rice, potatoes, sweet potatoes (yams), bananas, corn products (popcorn, corn muffin, corn bread, cornflakes , corn ), oats, flour products (pasta, bread, bagel, muffins, donuts, biscuits, cookies, crackers, pancakes, waffle, cakes, pies &/or Alcohol. At moderat e risk for fall 8438769932 88000668 Z91.89 -- due to arthritis; uses wheeled walker occaionall y -- have not fallen for over 2-3 years -- no fear of falling or falling tendency Hepatitis C screening 41 1933766 Z11.59 -- tested negative on 07/17/20 Vaccine de clined by patient 6044691092 02 Z28.21 -- ordered vaccines and pt does not want vaccinatio ns; pt counseled. Screening for malignant neoplasm of prostate 150757853 Z12.5 -- last PSA level of 0.2 on 07/17/20 -- recheck lab(s) within 2 days from 04/21/22 Colonoscopy declined 727 8306391 85634 Z53.20 (dad w/ colon cancer at 55 y/o) -- need colonoscop y every 5 years Ordered Cologuard ---> not done yet -- Gastroente rologist Dr Keller's office reported today (03/21/21) that pt had refused colonoscop y when they called pt on 12/18/20. Diabetic p eripheral neuropathy 350175456 E11.40 (feet feeling numb) -- improved w/ improved diabetic control and on Duloxetine . Congestive heart failure 77924067 I50.9 -- pt felt much better and does not follow w/ any cardiologi st now (previousl y seen at [facility] Dr Jack Welsh) Asbestosis 18362941 J61 -- following Pulmonolog ist Marcia Valencia [id number] Dean Arvizu MD [facility] [employer] [facility] [address] [place] [address] 07/22/2022 11:48:04 07/22/2022 13:52:23 Essential hypertension 88083735 I10 -- EKG done 07/22/22-- controlled -- recheck lab(s) 08/13/22 Hyperlipidemia 29342642 E78.5 -- recheck lab(s) 08/13/22 Gastroesop hageal reflux disease without esophagitis 662832804 K21.9 Hypothyroidism 79070085 E03.9 -- clinically Euthyroid- - recheck lab(s) 08/13/22 Type 2 gela betes mellitus without complication 546891479 E11.9 (dx'd around 57 y/o) -- pt has been following very closely w/ his Special Librarian Dr Austin Preciado (just saw Dr Preciado 03/20/21).- - recheck lab(s) 08/13/22 Chronic ki dney disease stage 3 951190207 N18.30 -- refer pt back to Nephrologi st dr Justin Hernandez.-- recheck lab(s) 08/13/22 Atrial fibrillation 4943 6004 I48.91 (rate controlled ) -- on Eliquis Congestive heart failure 10573993 I50.9 -- pt felt much better and does not follow w/ any cardiologi st now (previousl y seen at [facility] Dr Jack Welsh) Asthma 218930099 J45.90 9 -- no flares-- spirometry done 08/16/21 Asbestosis 60915430 J61 -- following Pulmonolog ist Marcia Valencia Body mass index 40+ - severely obese 847721908 Z68.43 -- advise weight loss; pt gained 2 # since his last visit -- pt's BMI today is 55.4 (ideal is between 20-25) Cirrhosis of liver 007 K74.60 (evident on liver us done on ) -- pt reports he cannot stop drinking beer -- advised pt to cut down his 2 beers a week to --> 1 regular size beer every 2 weeks. -- will need to limit Carbohydra castillo intake to 40 gram per meal & also a maximum of 120 grams a day. -- Examples of Carbohydra castillo are: ice-cream, sweet sugar treats, rice, potatoes, sweet potatoes (yams), bananas, corn products (popcorn, corn muffin, corn bread, cornflakes , corn ), oats, flour products (pasta, bread, bagel, muffins, donuts, biscuits, cookies, crackers, pancakes, waffle, cakes, pies &/or Alcohol.-- liver u/s done on 05/01/22 Diabetic p eripheral neuropathy 847355411 E11.40 (feet feeling numb) -- improved w/ improved diabetic control and on Duloxetine . At moderat e risk for fall 8883256209 11828950 Z91.89 -- due to arthritis; uses wheeled walker occaionall y -- have not fallen for over 2-3 years -- no fear of falling or falling tendency Hepatitis C screening 41 0366443 Z11.59 -- tested negative for Hepatitis C on 07/17/20 Vaccine de clined by patient [id number] 02 Z28.21 -- ordered vaccines and pt does not want vaccinatio ns; pt counseled. Colonoscopy declined 753 1986409 14472 Z53.20 (dad w/ colon cancer at 55 y/o) -- need colonoscop y every 5 years Ordered Cologuard ---> not done yet -- Gastroente rologist Dr Keller's office reported today (03/21/21) that pt had refused colonoscop y when they called pt on 12/18/20. Screening for malignant neoplasm of prostate 607738351 Z12.5 -- last PSA level of 0.2 (07/17/20) --> 0.2 (05/12/22) Folic acid deficiency 19 9247038 E53.8 Bilateral osteoarthritis of knees 5690413246 41145 M17.0 Lumbar radiculopathy 128 504914 M54.16 [id number] Dean Arvizu MD [facility] [address] [place] [address] ,[address] [place] [address] 10/06/2022 12:09:34 10/06/2022 14:09:26 Low back pain 297907333 M54.50 (radiates to Rt buttock) -- pain worse w/ back extension and prolonged standing Localized eruption of skin 489209315 R21 (bilateal forearms) -- since on Clindamyci n ABx from the Emergency Room Hyperlipidemia 32367336 E78.5 -- recheck lab(s) 11/07/22 Bilateral osteoarthritis of knees 9315317389 32343 M17.0 Folic acid deficiency 19 9895804 E53.8 -- recheck lab(s) 11/07/22 Essential hypertension 36528823 I10 -- EKG done 07/22/22-- uncontroll ed; will increase Metoprolol from 25 mg --> to 50 mg daily-- recheck lab(s) 11/07/22 Type 2 gela betes mellitus without complication 605218900 E11.9 (dx'd around 57 y/o) -- pt has been following very closely w/ his Special Librarian Dr Austin Preciado (just saw Dr Preciado 03/20/21).- - recheck lab(s) 11/07/22 [id number] Dean Arivzu MD [facility] [address] [place] [address] ,[address] [place] [address] 01/06/2023 10:04:02 01/06/2023 12:33:23 Type 2 diabetes mellitus without complication 686476921 E11.9 (dx'd around 57 y/o) -- pt has been following very closely w/ his Special Librarian Dr Austin Preciado (just saw Dr Preciado 03/20/21).- - recheck lab(s) 02/04/23 Bilateral osteoarthritis of knees 9280346244 31455 M17.0 Essential hypertension 63163448 I10 -- EKG done 07/22/22-- uncontroll ed; will increase Metoprolol from 25 mg --> to 50 mg daily-- recheck lab(s) 11/07/22 Hyperlipidemia 13840529 E78.5 -- recheck lab(s) 11/07/22 Tinea corporis 71223261 B35.4 Atrial fibrillation 4943 6004 I48.91 (rate controlled ) -- on Eliquis-- recheck lab(s) 02/04/23 Bronchospasm 1328859 J98 .01 -- per pt, he has not used rescue inhaler since 2018 Hypoglycemia 689667100 E 16.2 -- glucose of 41-- given wafer bar and cup of orange juice 8 fl oz [id number] Dean Arvizu MD [facility], [address] ,[address] [address] 04/07/2023 10:57:15 04/07/2023 13:30:48 Type 2 diabetes mellitus without complication 119325431 E11.9 (dx'd around 57 y/o) -- pt has been following very closely w/ his Special Librarian Dr Austin Preciado (just saw Dr Preciado 03/20/21).- - recheck lab(s) around 06/25/23 Bilateral osteoarthritis of knees 0139863373 46381 M17.0 Essential hypertension 70264880 I10 -- EKG done 07/22/22-- uncontroll ed; will increase Metoprolol from 25 mg --> to 50 mg daily-- recheck lab(s) around 06/25/23 Hyperlipidemia 71936470 E78.5 -- recheck lab(s) around 06/25/23 Tinea corporis 05305179 B35.4 Atrial fibrillation 4943 6004 I48.91 (rate controlled ) -- on Eliquis-- recheck lab(s) around 06/25/23 Bronchospasm 9059127 J98 .01 -- per pt, he has not used rescue inhaler since 2018 Hypoglycemia 910012397 E 16.2 -- glucose of 41-- given wafer bar and cup of orange juice 8 fl oz Diabetic p eripheral neuropathy 556978415 E11.40 (feet feeling numb) -- improved w/ improved diabetic control and on Duloxetine . Gastroesop hageal reflux disease without esophagitis 847714639 K21.9 Hypothyroidism 28469194 E03.9 -- clinically Euthyroid- - recheck lab(s) around 06/25/23 Hyperkalemia 16053625 E8 7.5 Folic acid deficiency 19 6791539 E53.8 -- recheck lab(s) 11/07/22 [id number] Dean Arvizu MD [facility] [employer], [address] [address] 08/10/2023 11:53:21 08/10/2023 15:36:54 Bilateral osteoarthritis of knees 2603399399 48260 M17.0 Type 2 gela betes mellitus without complication 223059561 E11.9 (dx'd around 57 y/o) -- pt has been following very closely w/ his Special Librarian Dr Austin Preciado (just saw Dr Preciado 03/20/21).- - had optometry diabetic eye exam by Dr Esthela Pepe on 04/14/24 ([facility] on [address] [phone]) and no diabetic Retinopath y found-- recheck lab(s) around 10/27/23 Tinea corporis 90720467 B35.4 Essential hypertension 09376782 I10 -- EKG done 07/22/22-- uncontroll ed; will increase Metoprolol from 25 mg --> to 50 mg daily-- recheck lab(s) around 10/27/23 Hyperlipidemia 42974175 E78.5 -- recheck lab(s) around 10/27/23 Diabetic p eripheral neuropathy 488878262 E11.40 (feet feeling numb) -- improved w/ improved diabetic control and on Duloxetine . Body mass index 40+ - severely obese 255128102 Z68.43 -- advise weight loss; pt gained 17 # since his last visit -- pt's BMI today is 55.1 (ideal is between 20-25) Anemia 949180312 D64.9 -- recheck lab(s) around 10/27/23 Expiratory wheezing 9763 007 R06.2 [id number] Dean Arvizu MD [employer], [address] [address] 12/01/2023 10:38:21 12/01/2023 12:57:50 Lumbar radiculopathy 190424721 M54.16 Pain of ri ght hip joint 3698622751 86191 M25.551 Adult heal th examination 925820260 Z00.00 -- recheck lab(s) within 2 days from 04/21/22 Type 2 gela betes mellitus without complication 398844703 E11.9 (dx'd around 57 y/o) -- pt has been following very closely w/ his Special Librarian Dr Austin Preciado (just saw Dr Preciado 03/20/21).- - had optometry diabetic eye exam by Dr Esthela Pepe on 04/14/24 ([facility] on [address] ) and no diabetic Retinopath y found-- recheck lab(s) around 02/02/24 Bilateral osteoarthritis of knees 7717506221 05684 M17.0 Essential hypertension 10287888 I10 -- EKG done 07/22/22-- uncontroll ed; will increase Metoprolol from 25 mg --> to 50 mg daily-- recheck lab(s) around 02/02/24 Hyperlipidemia 07693751 E78.5 -- recheck lab(s) around 02/02/24 Diabetic p eripheral neuropathy 111498635 E11.40 (feet feeling numb) -- improved w/ improved diabetic control and on Duloxetine . Anemia 493017248 D64.9 -- recheck lab(s) around 02/02/24 Body mass index 40+ - severely obese 768063498 Z68.43 -- advise weight loss; pt gained 17 # since his last visit -- pt's BMI today is 55.1 (ideal is between 20-25) [id number] Dean Arvizu MD [facility] [employer] [facility], [facility] [address] [facility] [address] [address] 03/01/2024 11:29:34 03/01/2024 14:03:07 Lumbar radiculopathy 570151872 M54.16 -- Lumbar Xrays on 12/07/23 were unrevealin g-- will refer pt to PT for eval Pain of ri ght hip joint 7870669768 20151 M25.551 -- resolved Type 2 gela betes mellitus without complication 359557783 E11.9 (dx'd around 57 y/o) -- pt has been following very closely w/ his Special Librarian Dr Austin Preciado (just saw Dr Preciado 03/20/21).- - had optometry diabetic eye exam by Dr Esthela Pepe on 04/14/24 ([facility] on [address] ) and no diabetic Retinopath y found-- recheck lab(s) around 05/10/24 Bilateral osteoarthritis of knees 8074448017 16207 M17.0 Essential hypertension 11135701 I10 -- EKG done 07/22/22-- recheck lab(s) around 05/10/24 Hyperlipidemia 99650775 E78.5 -- recheck lab(s) around 05/10/24 Diabetic p eripheral neuropathy 401893574 E11.40 (feet feeling numb) -- improved w/ improved diabetic control and on Duloxetine . Body mass index 40+ - severely obese 403681491 Z68.43 -- advise weight loss; pt lost 26 # since his last visit -- pt's BMI today is 53.5 (ideal is between 20-25) Iron defic iency anemia 03407636 D50.9 -- inform pt that he will need to see Gastroente rologist for further evaluation . Hepatitis C screening 41 3465771 Z11.59 -- tested negative for Hepatitis C on 07/17/20 Active or passive immunization 786847446 Z23 -- pt does not want any vaccinatio ns Screening for malignant neoplasm of colon 069308520 Z12.11 (dad w/ colon cancer at 55 y/o) -- need colonoscop y every 5 years Ordered Cologuard ---> not done yet -- Gastroente rologist Dr Keller's office reported today (03/21/21) that pt had refused colonoscop y when they called pt on 12/18/20. Screening for malignant neoplasm of prostate 533685314 Z12.5 -- last PSA level of 0.2 (07/17/20) --> 0.2 (05/12/22) [id number] Dean Arvizu MD [facility] [employer] [address] ,[address] [place] [address] 04/12/2024 11:16:40 04/12/2024 14:32:04 Acute purulent bronchitis 589072366 J20.9 Bilateral cataracts 9572 2004 H26.9 -- cleared for Rt eye extraction on 05/12/24, Lt eye extraction on 05/26/24-- pt advised to hold Eliquis 48 hours prior to procedure and resume the evening after procedure. Electrocar diogram abnormal 164922940 R94.31 [id number] Dean Arvizu MD [facility] [employer] [address] ,[address] [place] [address] 07/01/2024 10:26:33 07/01/2024 12:31:46 Lumbar radiculopathy 208571891 M54.16 -- Lumbar Xrays on 12/07/23 were unrevealin g Type 2 gela betes mellitus without complication 204136303 E11.9 (dx'd around 57 y/o) -- pt has been following very closely w/ his Special Librarian Dr Austin Preciado (just saw Dr Preciado 03/20/21).- - had optometry diabetic eye exam by Dr Esthela Pepe on 04/14/24 ([facility] on [address] ) and no diabetic Retinopath y found-- recheck lab(s) around 09/13/24 Bilateral osteoarthritis of knees 6090044204 21637 M17.0 Essential hypertension 82731778 I10 -- EKG done 07/22/22-- recheck lab(s) around 09/13/24 Hyperlipidemia 61673457 E78.5 -- recheck lab(s) around 09/13/24 Diabetic p eripheral neuropathy 619231185 E11.40 (feet feeling numb) -- improved w/ improved diabetic control and on Duloxetine . Iron defic iency anemia 28929704 D50.9 -- inform pt that he will need to see Gastroente rologist for further evaluation . Body mass index 40+ - severely obese 204068813 Z68.43 -- advise weight loss; no weight change since his last visit -- pt's BMI today is 53.5 (ideal is between 20-25) Hepatitis C screening 41 7127606 Z11.59 -- tested negative for Hepatitis C on 07/17/20 Active or passive immunization 355238745 Z23 -- pt does not want any vaccinatio ns Screening for malignant neoplasm of colon 472379994 Z12.11 (dad w/ colon cancer at 55 y/o) -- need colonoscop y every 5 years Ordered Cologuard ---> not done yet -- Gastroente rologist Dr Keller's office reported today (03/21/21) that pt had refused colonoscop y when they called pt on 12/18/20. Screening for malignant neoplasm of prostate 244739691 Z12.5 -- last PSA level of 0.2 (07/17/20) --> 0.2 (05/12/22) --> 0.3 (06/09/24) [id number] Dean Arvizu MD [facility] [employer], [employer] [address] [facility] [address] [address] 10/03/2024 11:36:08 10/03/2024 13:31:10 Type 2 diabetes mellitus without complication 396680689 E11.9 (dx'd around 57 y/o) -- pt has been following very closely w/ his Special Librarian Dr Austin Preciado ( saw Dr Preciado 03/20/21).- - had optometry diabetic eye exam by Dr Esthela Pepe on 04/14/24 ([facility] on [address] ) and no diabetic Retinopath y found-- A1c of 6.6 (09/15/24) -- recheck lab(s) around 12/17/24 Essential hypertension 46459381 I10 -- EKG done 04/12/24-- recheck lab(s) around 12/17/24 Hyperlipidemia 84126824 E78.5 -- recheck lab(s) around 12/17/24 Diabetic p eripheral neuropathy 382746724 E11.40 (feet feeling numb) -- improved w/ improved diabetic control and on Duloxetine . Iron defic iency anemia 82577217 D50.9 -- informed pt that he will need to see Gastroente rologist for further evaluation .-- recheck lab(s) around 12/17/24 Lumbar radiculopathy 128 673689 M54.16 -- Lumbar Xrays on 12/07/23 were unrevealin g Bilateral osteoarthritis of knees 4974752847 96304 M17.0 Body mass index 40+ - severely obese 130277315 Z68.43 -- advise weight loss; pt lost 1 # since his last visit -- pt's BMI today is 53. (ideal is between 20-25) Hepatitis C screening 41 1336313 Z11.59 -- tested negative for Hepatitis C on 07/17/20 Active or passive immunization 591094199 Z23 -- pt does not want any vaccinatio ns Screening for malignant neoplasm of colon 309508454 Z12.11 (dad w/ colon cancer at 55 y/o) -- need colonoscop y every 5 years Ordered Cologuard ---> not done yet -- Gastroente rologist Dr Keller's office reported today (03/21/21) that pt had refused colonoscop y when they called pt on 12/18/20. Screening for malignant neoplasm of prostate 640970147 Z12.5 -- last PSA level of 0.2 (07/17/20) --> 0.2 (05/12/22) --> 0.3 (06/09/24) Atrial fibrillation 4943 6004 I48.91 (rate controlled ) -- on Eliquis-- recheck lab(s) around 06/25/23 Vitamin D deficiency 347 95995 E55.9 Hypothyroidism 39545466 E03.9 -- clinically Euthyroid- - recheck lab(s) around 06/25/23 Gastroesop hageal reflux disease without esophagitis 134041148 K21.9 [id number] Dean Arvizu MD [facility], [facility] [address] [facility] ,[address] [place] [address] 11/18/2024 12:40:23 11/18/2024 15:19:39 Dyspnea on exertion 45468759 R06.09 -- recheck lab(s) around 12/17/24 Iron defic iency anemia 48061110 D50.9 -- informed pt that he will need to see Gastroente rologist for further evaluation .-- recheck lab(s) around 12/17/24 Vitamin D deficiency 347 08169 E55.9 -- recheck lab(s) around 12/17/24 Folic acid deficiency 19 6789873 E53.8 -- recheck lab(s) around 12/17/24 Asthma 689670641 J45.90 9 -- no flares-- spirometry done 11/18/24 Tinea corporis 85568207 B35.4 Type 2 gela betes mellitus without complication 156403564 E11.9 (dx'd around 57 y/o) -- pt has been following very closely w/ his Special Librarian Dr Austin Preciado ( saw Dr Preciado 03/20/21).- - had optometry diabetic eye exam by Dr Esthela Pepe on 04/14/24 ([facility] on [address] ) and no diabetic Retinopath y found-- A1c of 6.6 (09/15/24) -- recheck lab(s) around 12/17/24 Essential hypertension 31972665 I10 -- EKG done 11/18/24 [id number] [facility] [address] [facility] [address] [place] [address] 01/03/2025 10:03:28 01/03/2025 13:07:12 Type 2 diabetes mellitus without complication 563252920 E11.9 (dx'd around 57 y/o) -- pt has been following very closely w/ his Special Librarian Dr Austin Preciado ( saw Dr Preciado 03/20/21).- - had optometry diabetic eye exam by Dr Esthela Pepe on 04/14/24 ([facility] [address] ) and no diabetic Retinopath y found-- A1c of 6.6 (09/15/24) -- recheck lab(s) around 04/25/25 Atrial fibrillation 4943 6004 I48.91 (rate controlled ) -- on Eliquis-- informed pt to avoid any otc pain meds: like Ibuprofen (Motrin /Advil), & Naproxen (Aleve) or other pain meds by other physician/ health providers. -- informed patient to increase and maintain fluids to over 64 fluid ounces daily. -- recheck lab(s) around 04/25/25 Hypothyroidism 05553471 E03.9 -- clinically Euthyroid- - recheck lab(s) around 04/25/25 Essential hypertension 85188107 I10 -- EKG done 11/18/24-- recheck lab(s) around 04/25/25 Hyperlipidemia 48691594 E78.5 -- recheck lab(s) around 04/25/25 Asthma 673841072 J45.90 9 -- no flares-- spirometry done 11/18/24 Iron defic iency anemia 83273940 D50.9 -- informed pt that he will need to see Gastroente rologist for further evaluation .-- recheck lab(s) around 04/25/25 Folic acid deficiency 19 0341308 E53.8 -- recheck lab(s) around 04/25/25 Tinea corporis 00780123 B35.4 -- improved Lumbar radiculopathy 128 941999 M54.16 -- Lumbar Xrays on 12/07/23 were unrevealin g Bilateral osteoarthritis of knees 1352658355 12147 M17.0 Body mass index 40+ - severely obese 310609639 Z68.43 -- advise weight loss; pt gained 13 # since his last visit -- pt's BMI today is 56 (ideal is between 20-25) Hepatitis C screening 41 0042364 Z11.59 -- tested negative for Hepatitis C on 07/17/20 Active or passive immunization 140998150 Z23 -- pt does not want any vaccinatio ns Screening for malignant neoplasm of colon 729450524 Z12.11 (dad w/ colon cancer at 55 y/o) -- need colonoscop y every 5 years Ordered Cologuard ---> not done yet -- Gastroente rologist Dr Keller's office reported today (03/21/21) that pt had refused colonoscop y when they called pt on 12/18/20. Screening for malignant neoplasm of prostate 458990551 Z12.5 -- last PSA level of 0.2 (07/17/20) --> 0.2 (05/12/22) --> 0.3 (06/09/24)- - no need for PSA Screening due to age At low risk for fall 439 866489 Z91.81 -- uses cane Advance di rective discussed with patient 625338453 Z71.89 Dorsalis pulse absent 30 6282134 R09.89 [id number] Dean Arvizu MD [employer], [place] [address] [facility] ,[address] [address] 05/03/2025 12:11:10 05/03/2025 14:10:46 General examination of patient 406971102 Z00.00 66933761 Type 2 gela betes mellitus without complication 982225866 E11.9 (dx'd around 57 y/o) -- pt has been following very closely w/ his Special Librarian Dr Austin Preciado ( saw Dr Preciado 03/20/21).- - had optometry diabetic eye exam by Dr Esthela Pepe on 04/14/24 ([facility] [address] ) and no diabetic Retinopath y found-- A1c of 6.6 (09/15/24) -- recheck lab(s) around 04/25/25 Atrial fibrillation 4943 6004 I48.91 (rate controlled ) -- on Eliquis-- informed pt to avoid any otc pain meds: like Ibuprofen (Motrin /Advil), & Naproxen (Aleve) or other pain meds by other physician/ health providers. -- informed patient to increase and maintain fluids to over 64 fluid ounces daily. -- recheck lab(s) around 04/25/25 Hypothyroidism 02000563 E03.9 -- clinically Euthyroid- - recheck lab(s) around 04/25/25 Essential hypertension 19118969 I10 -- EKG done 11/18/24-- recheck lab(s) 08/30/25 Hyperlipidemia 85289849 E78.5 -- recheck lab(s) 08/30/25 Asthma 564166944 J45.90 9 -- no flares-- spirometry done 11/18/24 Lumbar radiculopathy 128 909336 M54.16 -- Lumbar Xrays on 12/07/23 were unrevealin g Bilateral osteoarthritis of knees 7324196063 72044 M17.0 Iron defic iency anemia 84956956 D50.9 -- informed pt that he will need to see Gastroente rologist for further evaluation .-- recheck lab(s) 08/30/25 Folic acid deficiency 19 7775473 E53.8 -- recheck lab(s) 08/30/25 Tinea corporis 75259195 B35.4 -- improved Dorsalis pulse absent 30 6906429 R09.89 Body mass index 40+ - severely obese 922720041 Z68.43 -- advise weight loss; pt lost 14 # since his last visit -- pt's BMI today is 53.5 (ideal is between 20-25) At low risk for fall 439 445619 Z91.81 -- uses cane Hepatitis C screening 41 7451315 Z11.59 -- tested negative for Hepatitis C on 07/17/20 Active or passive immunization 036733839 Z23 -- pt does not want any vaccinatio ns Screening for malignant neoplasm of colon 130332604 Z12.11 (dad w/ colon cancer at 55 y/o) -- need colonoscop y every 5 years Ordered Cologuard ---> not done yet -- Gastroente rologist Dr Keller's office reported today (03/21/21) that pt had refused colonoscop y when they called pt on 12/18/20. Screening for malignant neoplasm of prostate 438434216 Z12.5 -- last PSA level of 0.2 (07/17/20) --> 0.2 (05/12/22) --> 0.3 (06/09/24)- - no need for PSA Screening due to age Advance di rective discussed with patient 267411421 Z71.89 [id number] Dean Arvizu MD [facility], [facility] [address] [facility] ,[address] [address] 11/02/2025 15:44:27 11/07/2025 13:14:55 Cellulitis of left lower limb 8017770203 0346483 L03.[address] showed diffuse subcutaneo us edema without abscess or nectorizin g fasciitis. Acute urin ashvin tract infection 542626569 N39.0 604839 Sepsis cau sed by Streptococcus 652332102 A40.8 R65.21 3562563401 blood cylture showed Group G Streptococ cus.Was treated w/ cefepime and vanco, narrowed to ceftriaxon e and per ID, pt was discharge with linezolid Chronic sy stolic heart failure 431216630 I50.22 758497 new severe left ventricula r systolic dysfunctio n ( EF 30-35%) on echocardio gramPt was started on GDMT, entresto 24-26 and Jardiance 10 mg. Pt's toprol was decreased from 50 to 12.5 Atrial fibrillation 4943 6004 I48.91 88519936 (rate controlled ) - on eliquis. amiodarone ane metoprolol Type 2 gela betes mellitus 75831322 E11.9 Z79.4 90701787 A1C was 6.0Due to severe hypoglycem ic episode at ER, pt's Lantis was decreased from 52 unit BID to Lantus 22 unit QHS and Lispro 5 unit TIDWM. Chronic ki dney disease stage 3 923190064 N18.30 8710810443 -- refer pt back to Nephrologi st dr Justin Hernandez. Anemia 406025781 D64.9 36812381 Hb was 11.9 on 09/11/2025 and 10.9 on 10/28/2025 Health Concerns Section Related Observation LastModified by Organization Detai ls LastModified Time None Recorded Concern Status LastModified by Organization Details LastModified Time None Recorded Advance Directives Directive None Recorded Payers Insurance Date Sequence Insurance Name Policy Number Policy Garcia Covered Member ID Garcia Member ID Guarantor Name 11/02/2025 2 [place] [employer] Chaz Caballero [id number] Chaz Caballero 11/02/2025 1 [place] Chaz Caballero [id number] Chaz Caballero 11/07/2025 1 [facility] (MEDICARE REPLACEMENT/A DVANTAGE - PPO) [id number] Chaz Caballero [id number] Chaz Caballero 11/02/2025 3 [place] Chaz Caballero [id number] Chaz Caballero 11/02/2025 1 [facility] (MEDICARE REPLACEMENT/A DVANTAGE - PPO) [id number] Chaz Daysi Caballero [id number] Chaz Caballero Notes Date Note Type Note Provider Name and Address Organization Details Recorded Time 4 text/html Pt comes in for f/u of DM, HTN, HLD, LEIGH, and weight. Pt feels well and has no c/o. Pt has no new sx and no increasing sx. Patient denies any jaw or neck discomfort, left arm pain/left arm discomfort, chest discomfort/pain, diaphoresis, breathing symptoms/chest tightness, indigestion sx, n/v, any angina equivalent symptoms, etc. Dean Arvizu MD [facility] [facility] [address] [place], [address], [facility] 10/03/2024 14:45:51 4 text/html Pt comes in for f/u of MEZA(x 8 years) -- no worsening. No cough or chest discomfort/chest pain, indigestion, n/v, ankle swelling, or PND. Pt does have Orthopnea (sleeps in a reclinner). Pt feels well and has no c/o. Pt has no new sx and no increasing sx. Patient denies any jaw or neck discomfort, left arm pain/left arm discomfort, chest discomfort/pain, diaphoresis, breathing symptoms/chest tightness, indigestion sx, n/v, any angina equivalent symptoms, etc. Dean Arvizu MD [address] [facility] [address], [place], [address], [facility] 11/18/2024 15:01:32 5 text/html Pt comes in for f/u of DM, Afib, Hypothyroidism, HTN, HDL Asthma (no flares), and weight monitoring. Pt feels well and has no c/o. Pt has no new sx and no increasing sx. Patient denies any jaw or neck discomfort, left arm pain/left arm discomfort, chest discomfort/pain, diaphoresis, breathing symptoms/chest tightness, indigestion sx, n/v, any angina equivalent symptoms, etc. Dean Arvizu MD [address] [facility] [address], [place], [address], [facility] 01/03/2025 13:01:16 5 text/html Medicare Annual Wellness VisitReported by PatientSocial/Behavioral HistoryFor fracture risk, patient reportshistory of fractures (nose fracture in high school)but reportsno recent explained fracture,no sudden unexplained fractures, andno previous musculoskeletal injuries. For diet and nutrition, patient reportshealthy dietanddiscussed portion control. For physical activity, patient reportsdiscussed weightbearing activitiesanddiscussed exercise habits.Mental Status:For depression risk, patient reportsnever feels sad, empty, or tearful,no loss of interest in activities,no significant changes in weight,no sleep disturbances or insomnia,no agitation,no loss of energy,no feelings of worthlessness or guilt,no thoughts of suicide,no history of depression, andno history of mood disorders. For orientation, patient reportsno disorientation to time,no disorientation to date, andno disorientation to place. For concentration and memory, patient reportsno decreased concentrating ability,no memory lapses or loss, anddoes not forget words. For speech/motor difficulties, patient reportsno speech difficulties,no difficulty expressing formulated concepts,no difficulty with fine manipulative tasks,no difficulty writing/copying,no slowed reaction time, anddoes not knock things over when trying to pick them up.Functional AbilityFor hearing, patient reportsno loss of hearing. For vision, patient reportsno vision problems. For activities of daily living, patient reportsable to bathe with limited or no assistance,able to contol urination and bowels,able to dress with limited or no assistance,able to feed self with limited or no assistance,able to get out of chair or bed with limited or no assistance,able to groom with limited or no assistance, andable to toilet with limited or no assistance. For instrumental activities of daily living, patient reportsable to do house work with limited or no assistance,able to grocery shop with limited or no assistance,able to manage medications with limited or no assistance,able to manage money with limited or no assistance,able to prepare meals with limited or no assistance, andable to use the phone with limited or no assistance. For falls risk assessment, patient reportsno frequent falls while walking,no fall in the past year,no fall since last visit, andno dizziness/vertigo. For home safety, patient reportsno unsafe bre hazzards,no unsafe stairs,no unsafe gas appliances,working smoke/co detectors,no vision or hearing loss while driving,no fire arms,has hand bars in the bathroom/shower, andgood lighting in the home. Pt comes in for DM, HTN, HLD, GERD, Hypothyroidism, and weight monitoring. Pt is also due for his annual Wellness visit. Pt feels well and has no c/o. Pt has no new sx and no increasing sx. Patient denies any jaw or neck discomfort, left arm pain/left arm discomfort, chest discomfort/pain, diaphoresis, breathing symptoms/chest tightness, indigestion sx, n/v, any angina equivalent symptoms, etc. Dean Arvizu MD [address] [facility] [address], [place], [address], [facility] 05/03/2025 14:06:47 5 text/html Pt on telephone [phone] for 'telehealth' visit for hospital f/u for LLE cellulitis and sepsis. Patient denies any f/c, n//v, cough/cold/flu sx, or diarrhea, or rash, urinary sx, jaw or neck discomfort, left arm pain/left arm discomfort, chest discomfort/pain, diaphoresis, breathing symptoms/chest tightness, indigestion sx, or any bleeding sx. His Energy has improve a lot and has good appetite. He ambulates well w/ either walker or cane and has no unsteadiness or falling tendencies; pt stated he had not fallen in the last 2-3 weeks. He has normal BMs almost everyday. MD Didi Iniguez [facility] [address], [place], [address], [facility] 11/02/2025 20:55:45
--- OUTSIDE RECORDS SUMMARY | 2025-11-15 18:48 | XMS_ITS | Clinical Summary ---
Author Organization [facility] Address [address] [place] [address] Phone Care Team Providers Care Nursing Educator Name Role Phone Duc Seo Primary Care Provider [phone] Allergies Active Allergy Reactions Criticality Noted Date Comments Clindamycin Unknown 09/25/2022 Pioglitazone Unknown 12/21/2022 Sulfonylureas Unknown 12/21/2022 Medications rOPINIRole (REQUIP) 0.25 MG Tablet Take 0.25 mg by mouth nightly. Active atorvastatin (LIPITOR) 20 MG Tablet Take 20 mg by mouth daily. Active baclofen (LIORESAL) 10 MG Tablet Take 10 mg by mouth 3 times daily. Active ergocalciferol (VITAMIN D) 25463 UNIT CapsuleIndications: takes on fridays Take 50,000 Units by mouth once a week. Indications: takes on fridays Active HYDROcodone-acetami nophen (NORCO) 5-325 MG Tablet Take 1-2 Tabs by mouth every 6 hours as needed for Moderate or more severe pain. 30 Tab 019 Active pantoprazole (PROTONIX) 40 MG Tablet Delayed ResponseIndications :Symptomatic Gastroesophageal Reflux Disease (Inactive) Take 1 Tab by mouth daily. Indications: Gastroesophageal Reflux Disease with Current Symptoms 30 Tab 019 Active amiodarone (CORDARONE) 200 MG Tablet Take 200 mg by mouth daily. Active apixaban (ELIQUIS) 5 MG Tablet Take 1 Tab by mouth 2 times daily. 60 Tab 019 Active furosemide (LASIX) 40 MG Tablet Take 1 Tab by mouth 2 times daily (with meals). 60 Tab 019 Active insulin lispro (HUMALOG) 100 UNIT/ML Solution 10 Units by Subcutaneous route 3 times daily (before meals). Use as directed Active insulin detemir (LEVEMIR) 100 UNIT/ML Solution 22 Units by Subcutaneous route nightly. Active polyethylene glycol (MIRALAX) 17 g PackIndications:Con stipation,prophylax is Take 1 Packet by mouth daily. Dissolve in 4-8 oz of liquid. Indications: Constipation, prophylaxis 90 Packet 020 Active lisinopril (PRINIVIL, ZESTRIL) 5 MG Tablet Take 1 Tab by mouth daily. 90 Tab 020 Active metoprolol Succinate (TOPROL-XL) 50 MG TABLET SR 24 HR Take 1 Tab by mouth daily. 90 Tab 020 Active levothyroxine (SYNTHROID) 100 MCG Tablet Take 1 Tab by mouth every morning (before breakfast). 30 Tab 3 020 Active miconazole 2 % Powder Apply 1 Each 2 times daily. 85 g 1 020 Active spironolactone (ALDACTONE) 25 MG Tablet Take 0.5 Tabs by mouth daily. 90 Tab 020 Active naloxone HCl (Narcan) 4 MG/0.1ML Liquid 1 [place] by Nasal route as needed (opioid overdose). administer for symptoms of overdose (severe sleepiness, breathing problems, not responsive). Call 911. May use additional dose to repeat 1 spray intranasally in 2-3 minutes if needed. 2 Each 023 Active clotrimazole-betame thasone (LOTRISONE) 1-0.05 % Cream Apply 2 times daily. Application Site: reddened skin areas and folds (Description and Location) 45 g 023 Active Active Problems Problem Noted Date Diagnosed Date Stasis dermatitis of both legs 05/06/2020 Acute kidney injury 05/05/2020 Pulmonary hypertension 05/05/2020 BPH with obstruction/lower urinary tract symptom s 05/04/2019 [id number] kidney injury 05/02/2019 Knee pain 05/02/2019 Hip pain 05/02/2019 Anemia of chronic kidney failure 05/02/2019 Acute deep vein thrombosis ( DVT) of popliteal vein of left lower extremity 05/01/2019 Acute kidney injury superimposed on chronic kidn ey disease 03/11/2019 Acute on chronic combined sy stolic and diastolic congestive heart failure 03/11/2019 Elevated blood pressure read ing in office without diagnosis of hypertension 03/11/2019 Colitis 03/11/2019 Type 2 diabetes mellitus treated with insulin GERD (gastroesophageal reflux disease) 9 Macrocytic anemia 03/11/2019 Morbid obesity with BMI of 50.0-59.9, adult 02/28 Fall 03/11/2019 Generalized weakness 03/11/2019 Hyperlipidemia Chronic atrial fibrillation Hypothyroidism COPD (chronic obstructive pulmonary disease) Congestive heart failure (CHF) Immunizations Immunization Administration Dates Next Due Pneumococcal Vaccine - 13 Valent 03/14/2019() Family History Medical History Relation Name Comments Colon Cancer Father Cancer Mother unsure Heart Disease Mother Cancer Paternal Uncle colon Relation Name Status Comments Father Mother Paternal Uncle Social History Tobacco Use Types Packs/Day Years Used Date Smoking Tobacco: Never Smokeless Tobacco: Never Alcohol Use Standard Drinks/Week Comments Not Currently 0 (1 standard drink = 0.6 oz pur e alcohol) Sex and Gender Information Value Date Recorded Sex Assigned at Not on file Legal Sex Male 11:19 PM CDT Gender Identity Not on file Sexual Orientation Not on file Last Filed Vital Signs Vital Sign Reading Time Taken Comments Blood Pressure 115/61 12/21/2022 10:54 AM BILLBOARD POSTER HELPER Pulse 77 12/21/2022 10:54 AM BILLBOARD POSTER HELPER Temperature 36.1 C (97 F) 12/21/2022 10:54 AM BILLBOARD POSTER HELPER Respiratory Rate 17 12/21/2022 10:54 AM BILLBOARD POSTER HELPER Oxygen Saturation 96% 12/21/2022 10:54 AM BILLBOARD POSTER HELPER Inhaled Oxygen Concentration - - Weight 136.1 kg (300 lb) 12/21/2022 10:54 AM BILLBOARD POSTER HELPER Height 160 cm (5' 3) 12/21/2022 10:54 AM BILLBOARD POSTER HELPER Body Mass Index 53.14 12/21/2022 10:54 AM BILLBOARD POSTER HELPER Plan of Treatment Health Maintenance Due Date Last Done Comments Diabetes: Eye Exam 1952 Diabetes: Foot Exam 1950 Hepatitis C Virus (HCV) Screening 1950 TdaP Immunization 1950 Pneumococcal Immunization (50+ years) (1 of 2 - PCV) 1971 Cologuard 1997 Colonoscopy 1997 Colorectal Cancer Screening 1997 Immunochemical Fecal Occult Blood 1997 Respiratory Syncytial Virus (RSV) Immunization (Adult) (1 - Risk 50-74 years 1-dose series) 2002 Zoster Immunization (1 of 2) 2002 Medicare Initial AWV [id number] 11/30/2019 Diabetes: Hemoglobin A1c 11/05/2020 05/06/2020, 02/28 Diabetes: Nephropathy Screening 05/05/2021 05/05/2020, 05/04/2019, 05/03/2019, Additional history exists Influenza Immunization (#1) 07/31/202511/01, 09/27/2018, 09/28/2017, Additional history exists SARS-COV-2 Immunization (2024- season) 2025 Hepatitis B Immunization Aged Out No longer eligible based on patient's age to complete this topic Human Papillomavirus (HPV) Immunization (No Doses Required) Completed Meningococcal Immunization (ACWY) Aged Out No longer eligible based on patient's age to complete this topic Rotavirus Immunization Aged Out No lo nger eligible based on patient's age to complete this topic Procedures Procedure Name Priority Date/Time Associated Diagnosis Comments HEMOGLOBIN A1C W/ ESTIMATED GLUCOSE Routine 05/06/2020 5:19 AM CDT CMP (COMPREHENSIVE METABOLIC PANEL) STAT 05/05/2020 9:42 AM CDT from Last 3 Months or Most Recently Relevant to Health Maintenance Results * (ABNORMAL) Hemoglobin A1C w/ Estimated Glucose (05/06/2020 5:19 AM CDT) HGB-A1C 7.9(H) 4.0 - 6.0 % 05/06/2020 7:06 AM CDT [facility] Est Average Glucose 180.0 mg/dL 05/06/2020 7:06 AM CDT [facility] Blood Venipuncture / Unknown 05/06/2020 5:19 AM CDT 05/06/2020 6:24 AM CDT Narrative [facility] - 05/06/2020 7:06 AM CDT HEMOGLOBIN A1C: DIABETIC PATIENTS: WELL-CONTROLLED: 6.2 - 7.0 INTERMEDIATE WELL-CONTROLLED: 7.0 - 9.0 POORLY-CONTROLLED: >9.0 Vinh Hewitt APRN, CNP CHEMISTRY ORDERABL ES Final Result [facility] [address] [place] [address] * (ABNORMAL) CMP (Comprehensive Metabolic Panel) (05/05/2020 9:42 AM CDT) SODIUM 138 136 - 144 mmol/L 05/05/2020 10:20 AM CDT [facility] POTASSIUM 3.9 3.5 - 5.1 mmol/L 05/05/2020 10:20 AM CDT [facility] CHLORIDE 98(L) 100 - 110 mmol/L 05/05/2020 10:20 AM CDT [facility] CO2, VENOUS 29 22 - 32 mmol/L 05/05/2020 10:20 AM CDT [facility] ANION GAP 14.9 8.0 - 20.0 mmol/L 05/05/2020 10:20 AM CDT [facility] GLUCOSE 196(H) 70 - 99 mg/dL 05/05/2020 10:20 AM CDT [facility] BUN 38(H) 8 - 23 mg/dL 05/05/2020 10:20 AM CDT [facility] CREATININE, BLOOD 1.78(H) 0.80 - 1.30 mg/dL 05/05/2020 10:20 AM CDT [facility] BUN/CREATININE RATIO 21(H) 12 - 20 ratio 05/05/2020 10:20 AM CDT [facility] TOTAL PROTEIN 7.4 6.0 - 8.3 g/dL 05/05/2020 10:20 AM CDT [facility] ALBUMIN 3.7 3.5 - 5.2 g/dL 05/05/2020 10:20 AM CDT [facility] Comment: The colormetric methods used for the determination of Albumin may lead to falsely elevated test results in patients suffering from renal failure or insufficiency due to interference with other proteins. A/G RATIO 1.0 1.0 - 2.0 05/05/2020 10:20 AM CDT [facility] CALCIUM 9.0 8.9 - 10.3 mg/dL 05/05/2020 10:20 AM CDT [facility] T BILI 0.4 <=1.2 mg/dL 05/05/2020 10:20 AM CDT [facility] SGOT (AST) 19 <=40 U/L 05/05/2020 10:20 AM CDT [facility] SGPT (ALT) 22 <=41 U/L 05/05/2020 10:20 AM CDT [facility] ALKALINE PHOSPHATASE 115 40 - 130 U/L 05/05/2020 10:20 AM CDT [facility] GFR, EST. NONAFRICAN 38(L) >=60 05/05/2020 10:20 AM CDT [facility] GFR, EST. 46(L) >=60 020 10:20 AM CDT [facility] Comment: Creatinine Clearance is the preferred criteria for selecting drug dose adjustments in renally impaired patients. The GFR is provided as additional pertinent clinical information. GFR is reported in mL/min/1.73 sq m. Blood Venipuncture / Unknown 05/05/2020 9:42 AM CDT 05/05/2020 9:49 AM CDT us Anil Caceres MD CHEMISTRY ORDERABLES Final Result [facility] [address] [place] [address] from Last 3 Months or Most Recently Relevant to Health Maintenance Insurance [id number] MEDICARE C [facility] Advance Directives * Full Code (Latest Code Status on File) Date Activated Date Inactivated Comments 05/05/2020 3:03 PM 05/09/2020 4:40 PM CPR-Full Allyn tment: FULL ARREST: Attempt Resuscitation/CPR wit intubation and mechanical ventilation. PRE-ARREST: Use entire range of life support measures to stabilize the patient. * Full Code Date Activated Date Inactivated Comments 05/01/2019 4:17 PM 05/09/2019 6:00 PM CPR-Full Allyn tment: FULL ARREST: Attempt Resuscitation/CPR wit intubation and mechanical ventilation. PRE-ARREST: Use entire range of life support measures to stabilize the patient. * Full Code Date Activated Date Inactivated Comments 03/11/2019 5:00 AM 03/14/2019 9:23 PM CPR-Full Mario atment: FULL ARREST: Attempt Resuscitation/CPR wit intubation and mechanical ventilation. PRE-ARREST: Use entire range of life support measures to stabilize the patient. Care Teams Nursing Educator Relationship Specialty [place] [address] [place] [id number] PCP - General Physician Political Research Scientist 03/11/19
--- OUTSIDE RECORDS SUMMARY | 2025-11-15 18:49 | XMS_ITS | Continuity of Care Document ---
Author Organization [place] - [employer] [facility] [place] Address [address] [place] [address] Care Team Providers Care Eviction Specialist Name Role Phone JUSTIN HERNANDEZ Radiator Tester REMY STARK MD Generator Operator Straight Bevel Gear JCAK WELSH Generator Operator Straight Bevel Gear [phone] BREEZY PRECIADO Benefits Representative Assessment Encounter Date Assessment Date Assessment LastModified by Organization Details LastModified Time 11/02/2025 11/02/2025 My staff Norma communicated w/ [...] questions, she can call my office at [phone]. [facility] Not available 11/02/2025 20:54:59 Plan of Treatment Reminders Order Date Submit Date Provider Last Modified By Organization Details Last Modified Time Details Appointments None recorded. Lab None recorded. Referral nephrologi st referral 2024 025 [place] NENA Hernandez MD (Nephrology, [address], [address], [place], [address], 5 21:10:32 Procedures None recorded. Surgeries None recorded. Imaging None recorded. Medication Orders None recorded. Patient TargetsNo targets recorded. Patient InstructionsNo instructions recorded. Reason for Referral Radiator Tester Referral for Ch ronic kidney disease stage 3 Referring Physician: Dean Arvizu, Internal Medicine, Encounter Date: 11/02/2025 Problems Name Problem SNOMED Code Status Onset Date Resolution Date Notes Provider Name and Address Organization Details Recorded Time Obstructi ve sleep apnea of adult 56256557196 03 Active -- noted on Cardiolog ist note from 07/19/20 Not Available [facility] 4 19:19:46 Type 2 diabetes mellitus without complicat ion 969211750 Active 2019 -- Podiatris t Dr Vladimir Guajardo -- referred to [facility] in [place] Not Available [facility] 4 19:19:46 Congestiv e heart failure 20887712 Active 2019 -- sees Dr Jack Welsh at [facility] Not Available [facility] 4 19:19:46 Chronic kidney disease 579794464 Active 2019 -- Nephrolog ist Dr Justin Hernandez Not Available [facility] 4 19:19:46 Essential hypertens ion 40338737 Active 2019 Not Available [facility] 4 19:19:46 Hyperlipi demia 49051006 Active 2019 Not Available [facility] 4 19:19:46 Hypothyro idism 09289205 Active 2019 Not Available [facility] 4 19:19:46 Atrial fibrillat ion 07485391 Active 2019 -- on Eliquis; -- sees Dr Jack Welsh at [facility] Not Available [facility] 4 19:19:46 Unsteady gait Active 2019 Not Available [facility] 4 19:19:46 Asbestosi s 21289476 Active 2019 -- Pulmonolo gist Dr Marcia Valencia Not Available [facility] 4 19:19:46 Anemia 253595318 Active 2021 Not Available [facility] 4 19:19:46 Tinea corporis 01644806 Active 2022 Not Available [facility] 4 19:19:47 Bronchosp asm 1774555 Active 2022 Not Available [facility] 4 19:19:46 Hypoglyce maria guadalupe 453819138 Active 2022 Not Available [facility] 4 19:19:46 Leukocyto sis 216421544 Active 2022 Not Available [facility] 4 19:19:46 Hyperkale maria guadalupe 92036670 Active 2022 Not Available [facility] 4 19:19:46 Bilateral osteoarth ritis of knees 71177508131 9107 Active 2022 Not Available [facility] 4 19:19:46 Diabetic periphera l neuropath y 675311277 Active 2022 Not Available [facility] 4 19:19:46 Type 2 diabetes mellitus 03596285 Active 2022 Not Available [facility] 4 19:19:46 Expirator y wheezing 7106805 Active 2022 Not Available [facility] 4 19:19:47 Notes:Some problems listed i n Documents: #[id number], #[id number], #[id number], #[id number], #[id number], #[id number], #[id number], #[id number], #[id number] could not be added to this patient's chart. Please review these documents and add these problems to the patient's chart manually as needed. Problem Notes None recorded. Procedures Surgical History Date Name Laterality Status Provider Name and Address Organization Details Recorded Time 5 Diabetic Foot Exam completed MD Didi Iniguez [facility] [address], [place], [address], [facility] 01/03/2025 12:44:58 Unlisted px hands/fingers completed Mary Kay Rhodes [facility] 07/09/2020 14:38:13 Imaging Results None recorded. Procedure Notes None recorded. Medical Equipment None Reported. Allergies Allergen ID Allergen Name Allergen Category Reaction Reaction Severity Criticality Documentation Date Start Date Code Code System Note Provider Name and Address Organization Details Recorded Time 01155 clindamyc in Not available Not available Not available Not available 10/06/20222021 2582 RxNorm -- Rash on bilat eral forea ciarra 5 days after start ing Clind amyci n MD Didi Iniguez [facility] [address], [place], [address], [facility] 2 13:50:29 9209 pioglitaz one medicatio n Not available Not available Not available 07/21/2020 55745 RxNorm -- cauti on about presc ribin g Actos due to CHF MD Didi Iniguez [facility] [address], [place], [address], [facility] 0 15:21:43 9210 Product containin g sulfonylu tita (product) medicatio n Not available Not available Not available 07/21/2020 91008 005 SNOMED -- cauti on due to age >65 and has CKD MD iDdi Iniguez [facility] [address], [place], [address], [facility] 0 15:22:13 Medications Name Sig Start Date [...] Not Available Not Available Not Available Vitals None Recorded Social History Question Answer Notes LastModified by Organizat ion Details LastModified Time Tobacco Smoking Status Never Smoker Mary Kay Rhodes [facility] 07/09/2020 14:14:37 What Is Your Level Of [...] use any illicit or recreational drugs? No [email or web address] Information not available 11/15/2021 Do you or have you ever used any other forms of tobacco or nicotine? No [email or web address] Information not available 11/15/2021 What is your [...] Not available 07/09/2020 14:35:50 Father Heart disease OK--- @ 55 y/o [email or web address] Not available 07/09/2020 14:36:37 Mother Family history of malignant neoplasm Unsure of type of cancer ---@ 60 y/o [email or web address] Not available 07/09/2020 14:36:09 Medical History No medical history recorded. Immunizations Vaccine Type Date Status Note Provider Name and Address Organization Details Recorded Time Pneumococcal conjugate PCV 13 05/16/20 21 cancelled patient objection MD Didi Iniguez Dr, [place], [address], [facility] 05/16/2021 15:27:55 Tdap 05/16/20 21 cancelled patient objection MD Didi Iniguez [facility] [address], [place], [address], [facility] 05/16/2021 15:27:55 zoster recombinant 05/16/20 21 cancelled patient objection MD Didi Iniguez [facility] [address], [place], [address], [facility] 05/16/2021 15:27:55 Past Encounters Encounter ID Performer Location Encounter Start Date Encounter Closed Date Diagnosis/Indication Diagnosis SNOMED-CT Code Diagnosis ICD10 Code Diagnosis IMO Codes Diagnosis Note [id number] Dean Arvizu MD [facility] [address] [place] [phone] 11/02/2025 15:44:27 11/07/2025 13:14:55 Cellulitis of left lower limb 1616867160 9824192 L03.[address] showed diffuse subcutaneo us edema without abscess or nectorizin g fasciitis. Acute urin ashvin tract infection 927208291 N39.0 590568 Sepsis cau sed by Streptococcus 270687070 A40.8 R65.21 3801289977 blood cylture showed Group G Streptococ cus.Was treated w/ cefepime and vanco, narrowed to ceftriaxon e and per ID, pt was discharge with linezolid Chronic sy stolic heart failure 285613877 I50.22 527741 new severe left ventricula r systolic dysfunctio n ( EF 30-35%) on echocardio gramPt was started on GDMT, entresto 24-26 and Jardiance 10 mg. Pt's toprol was decreased from 50 to 12.5 Atrial fibrillation 4943 6004 I48.91 58714379 (rate controlled ) - on eliquis. amiodarone ane metoprolol Type 2 gela betes mellitus 70102629 E11.9 Z79.4 52440638 A1C was 6.0Due to severe hypoglycem ic episode at ER, pt's Lantis was decreased from 52 unit BID to Lantus 22 unit QHS and Lispro 5 unit TIDWM. Chronic ki dney disease stage 3 093030652 N18.30 6014325922 -- refer pt back to Nephrologi st dr Justin Hernandez. Anemia 861474369 D64.9 76887313 Hb was 11.9 on 09/11/2025 and 10.9 on 10/28/2025 Health Concerns Section Related Observation LastModified by Organization Detai ls LastModified Time None Recorded Concern Status LastModified by Organization Details LastModified Time None Recorded Payers Encounter Date Sequence Insurance Name Policy Number Policy Garcia Covered Member ID Garcia Member ID Guarantor Name 11/02/2025 1 [facility] (MEDICARE REPLACEMENT/A DVANTAGE - PPO) [id number] Chaz Caballero [id number] Chaz Caballero Notes Date Note Type Note Provider Name and Address Organization Details Recorded Time 11/02/2025 text/html Pt on telephone [phone] for 'telehealth' visit for hospital f/u for [...] weeks. He has normal BMs almost everyday. Dean Arvizu MD [address], [place], [address], [facility] 11/02/2025 20:55:45
--- OUTSIDE RECORDS SUMMARY | 2025-11-15 18:49 | XMS_ITS | Clinical Summary ---
Author Organization [facility] Address [address] [place] [address] Care Team Providers Care Site Administrator Name Role Phone Dean Arvizu MD Primary Care Provider [phone] Allergies Active Allergy Reactions Criticality Noted Date Comments Clindamycin Unknown 09/25/2022 Pioglitazone Unknown 12/21/2022 Sulfonylureas Unknown 12/21/2022 Medications ELIQUIS 5 MG tablet 4 Active amiodarone (PACERONE) 200 MG tablet Take 1 tablet (200 mg total) by mouth daily. Active atorvastatin (LIPITOR) 20 MG tablet Take 1 tablet (20 mg total) by mouth daily. Active clotrimazole-be tamethasone (LOTRISONE) cream APPLY TOPICALLY TO THE AFFECTED AND SURROUNDING AREAS TWICE DAILY IN THE MORNING AND IN THE EVENING FOR 2 WEEKS 4 Active gabapentin (NEURONTIN) 300 MG capsule TAKE 1 CAPSULE BY MOUTH EVERY 8 HOURS. CAN CAUSE DROWSINESS 4 Active Alcohol Swabs 70 % Pads 2 (two) times daily. 4 Active DULoxetine (CYMBALTA) 60 MG capsule Take 1 capsule (60 mg total) by mouth daily. 4 Active folic acid (FOLVITE) 400 MCG tablet Take 1 tablet (400 mcg total) by mouth every morning. 4 Active ONETOUCH ULTRA test strip USE TO TEST BLOOD SUGAR LEVELS TWICE DAILY 3 Active insulin detemir (LEVEMIR) 100 UNIT/ML injection Inject 22 Units into the skin. Active HUMALOG KWIKPEN 100 UNIT/ML injection (PEN) INJECT 16 UNITS UNDER THE SKIN THREE TIMES DAILY WITH MEALS 4 Active levothyroxine (SYNTHROID) 100 MCG tablet Take 1 tablet (100 mcg total) by mouth every morning. 4 Active metFORMIN ER (GLUCOPHAGE-XR) 500 MG 24 hr tablet Take 2 tablets (1,000 mg total) by mouth every 12 (twelve) hours. 4 Active pantoprazole EC (PROTONIX) 40 MG tablet TAKE 1 TABLET BY MOUTH DAILY AT 4 PM 3 Active metoprolol succinate ER (TOPROL-XL) 50 MG 24 hr tablet Take 1 tablet (50 mg total) by mouth every evening. Active traMADol (ULTRAM) 50 MG tablet TAKE 1 TABLET BY MOUTH EVERY 6 HOURS NEEDED FOR WOUND PAIN Active TRUEPLUS 5-BEVEL PEN NEEDLES 32G X 4 MM Misc USE TO INJECT 5 TIMES A DAY 3 Active Family History Medical History Relation Comments Colon Cancer Father Relation Status Comments Father Social History Tobacco Use Types Packs/Day Years Used Date Smoking Tobacco: Never Smokeless Tobacco: Never Tobacco Cessation:Counseling Given: No Alcohol Use Standard Drinks/Week Comments Never 0 (1 standard drink = 0.6 oz pur e alcohol) PHQ-2 Answer Date Recorded Patient Health Questionnaire-2 Score 0 04/27/2024 Sex and Gender Information Value Date Recorded Sex Assigned at Not on file Legal Sex Male 1:30 PM [employer]GR[employer] Gender Identity Not on file Sexual Orientation Not on file Last Filed Vital Signs Vital Sign Reading Time Taken Comments Blood Pressure 120/61 04/27/2024 3:13 PM CDT Pulse 61 04/27/2024 3:13 PM CDT Temperature 36.6 C (97.8 F) 04/27/2024 3:13 PM CDT Respiratory Rate 18 04/27/2024 3:13 PM CDT Oxygen Saturation 99% 04/27/2024 3:13 PM CDT Inhaled Oxygen Concentration - - Weight - - Height 160 cm (5' 3) 04/27/2024 3:13 PM CDT Body Mass Index - - Plan of Treatment Health Maintenance Due Date Last Done Comments Colorectal Cancer Screening Colonoscopy (10 Years) 1952 Hepatitis C 1970 DTaP, Tdap and Td Vaccines (1 - Tdap) 1971 Pneumococcal Vaccine: 50+ Years (1 of 1 - PCV) 2002 Zoster Vaccines (1 of 2) 2002 Annual Medicare Wellness Visit 2017 PHQ-2 (Physician [place]) 11/30/2024 04/27/2024 COVID-19 Vaccine ( season) 2025 Influenza Adult (#1) 2025 11/29/2019, 09/27/2018, 09/28/2017, Additional history exists RSV Immunization or 60+ Years (1 - 1-dose 75+ series) 2027 Hepatitis A Vaccines Aged Out No long er eligible based on patient's age to complete this topic Meningococcal B Vaccine Aged Out No l onger eligible based on patient's age to complete this topic Meningococcal Vaccine Aged Out No ashanti fran eligible based on patient's age to complete this topic RSV Immunizations Under 20 Months Aged Out No longer eligible based on patient's age to complete this topic Insurance [facility] MEDICARE MEDICAID Care Teams Site Administrator Relationship Specialty Start Date End Date Dean Arvizu MD [address] [place], [place] [address] PCP - General INTERNAL MEDICINE 11/19/23
[2025-11-15 22:12] VITALS: BP 93/58; PULSE 60; RESP 17; TEMP 36.5; O2SAT 98
[2025-11-15] MEDS: CEPHALEXIN 500 MG CAPSULE PO (23:10)
--- NOTE | 2025-11-16 02:14 | ED.GENADULT ---
HPI - General Adult General Chief complaint: Skin/Abscess/Foreign Body Stated complaint: L leg swelling Time Seen by Provider: 11/15/25 22:38 History of Present Illness HPI narrative: 75-year-old male presenting with new onset swelling and redness to his left lower leg that he noticed this morning. Patient denies any history of trauma. States he was hospitalized recently for complications with his diabetes. He is on Eliquis for AFib. Denies fevers/chills or nausea/vomiting. Left leg neurovascular intact. Of note, patient has consistent low blood pressures and pulses which patient states is normal for him. Related Data Home Medications ?Medication ?Instructions ?Recorded ?Confirmed ?Last Taken ?Type allopurinol 100 mg tablet 200 mg PO DAILY 05/24/20 10/17/25 10/16/25 History amiodarone 200 mg tablet 200 mg PO DAILY 05/24/20 10/17/25 10/16/25 History apixaban 5 mg tablet (Eliquis) 5 mg PO BID 05/24/20 10/17/25 10/16/25 History baclofen 10 mg tablet 10 mg PO TID PRN other 05/24/20 10/17/25 10/16/25 History calcitriol 0.25 mcg capsule 0.25 mcg PO DAILY 05/24/20 10/17/25 10/16/25 History ergocalciferol (vitamin D2) 1,250 50,000 unit PO WEEKLY 05/24/20 10/17/25 10/16/25 History mcg (50,000 unit) capsule folic acid 1 mg tablet 1 mg PO DAILY 05/24/20 10/17/25 10/16/25 History furosemide 80 mg tablet (Lasix) 80 mg PO BID 05/24/20 10/17/25 10/16/25 History gabapentin 300 mg capsule 300 mg PO TID 05/24/20 10/17/25 10/16/25 History hydrocodone 5 mg-acetaminophen 325 1 tablet PO TID PRN Pain 05/24/20 10/17/25 10/16/25 History mg tablet levothyroxine 100 mcg tablet 100 mcg PO QAM 05/24/20 10/17/25 10/16/25 History pantoprazole 40 mg tablet,delayed 40 mg PO TID 05/24/20 10/17/25 10/16/25 History release ropinirole 0.25 mg tablet 0.75 mg PO HS 05/24/20 10/17/25 10/16/25 History Allergies Allergy/AdvReac Type Severity Reaction Status Date / Time No Known Allergies Allergy Verified 10/17/25 06:05 Review of Systems Review of Systems: All systems reviewed & are unremarkable except as noted in HPI and below PMFSH Past Medical History Medical History Anemia, chronic disease Chronic pain Osteoarthritis Congestive heart failure Chronic back pain Gout DM2 (diabetes mellitus, type 2) Carpal tunnel syndrome Chronic kidney disease Asbestosis COPD (chronic obstructive pulmonary disease) Atrial fibrillation Surgical History Surgical History History of carpal tunnel release Family History Family History Father Colon cancer Mother Lung cancer Other Acute myocardial infarction History of blood clots Social History Social History Social History: The patient stated that he lives home alone. He stated that he had 2 sons and 2 daughters but 1 daughter has . He is . He is retired. We discussed code status in the patient stated that he does not want to be resuscitated. However at this time he is a poor historian and is difficult for me to determine if he is mentally at his baseline to make that decision. Code status: Full code Smoking status: Never smoker Alcohol intake: former Substance use: never Lack of Transportation: No Lack of Food: Never True Current Housing: I Have Housing Concerned About Future Housing: No Difficulty Paying Gas/Electric Bills: No Difficulty Paying for Meds: No Currently Unemployed: No Education: Grade School Difficulty w/ Childcare or Family Care: No Gender identity (if verbalized by the patient): Male Spiritual care concerns: No Exam Narrative: GENERAL: Well-appearing, well-nourished, and in no acute distress. HEAD: Normocephalic, atraumatic. EYES: PERRLA and EOMI. ENT: Nares clear, no rhinorrhea or epistaxis. Mucous membranes moist. Oropharynx without tonsillar hypertrophy exudate or other lesions. Bilateral TMs pearly blair non-bulging NECK: Supple. No adenopathy or masses. No carotid bruits or JVD CHEST: Clear to auscultation. No respiratory distress. No wheezes rales or rhonchi HEART: Regular rate and rhythm. No murmur heard. Normal peripheral pulses. ABDOMEN: Soft, nontender, nondistended, normal active bowel sounds. EXTREMITIES: Bilateral lower extremities with chronic hyperpigmentation and skin changes consistent with stasis dermatitis. LLE increased erythema and mild edema compared to the right. SKIN: Warm, dry, no rash. NEURO: No focal deficits. Alert and oriented x3. PSYCH: Normal mood and affect Course Vital Signs Vital signs: Vital Signs Temperature 97.2 F L 11/15/25 17:49 Pulse Rate 82 11/15/25 17:49 Respiratory Rate 16 11/15/25 17:49 Blood Pressure 102/45 L 11/15/25 17:49 Pulse Oximetry 95 11/15/25 17:49 Temperature 97.7 F 11/15/25 22:12 Pulse Rate 60 11/15/25 22:12 Respiratory Rate 17 11/15/25 22:12 Blood Pressure 93/58 L 11/15/25 22:12 Pulse Oximetry 98 11/15/25 22:12 MDM MDM Narrative Medical decision making narrative: 75-year-old male presenting with new onset swelling and redness to his left lower leg that he noticed this morning. Patient denies any history of trauma. States he was hospitalized recently for complications with his diabetes. He is on Eliquis for AFib. Denies fevers/chills or nausea/vomiting. Left leg neurovascular intact. Of note, patient has consistent low blood pressures and pulses which patient states is normal for him. Patient's symptoms and exam are consistent with uncomplicated cellulitis. Area is warm, erythematous, and tender without fluctuance, crepitus, or necrotic changes to suggest abscess, necrotizing soft tissue infection, or deeper space involvement. No streaking lymphangitis. No signs of systemic toxicity: Patient is afebrile, hemodynamically stable, and appears nontoxic. Neurovascular exam of the affected limb is normal. No history of immunocompromise, diabetes complications, or significant risk factors for MRSA P on routine community exposure. No concern for septic joint or osteomyelitis based on the localization of symptoms, range of motion, and absence of bony tenderness. DVT ruled out with US. Based on overall presentation, patient is a reasonable candidate for outpatient management with appropriate antibiotics, limb elevation, and strict return precautions. Patient demonstrates understanding of signs that warrant re-evaluation, including worsening redness, fever, spreading fashion, or failure to improve. Differential Diagnosis Differential Diagnosis: Differential diagnostic considerations for skin/abscess/foreign body issues include abscess of skin or subcutaneous tissue, viral exanthem, dermatophytosis, urticaria, herpes zoster, allergic reaction to drug, cellulitis, eczema, insect bites, impetigo, contact dermatitis, vasculitis. Medical Records I have reviewed the following patient records and this information was taken into consideration when formulating the assessment and plan.: previous labs, previous ER visits, previous hospitalizations and previous clinic visits Imaging Data Attestation: I personally reviewed and interpreted this imaging study as follows: Radiologist's impression: ITS Impressions Venous Doppler Study 11/15/25 22:46 IMPRESSION: There was no sonographic evidence of deep vein thrombosis in the left lower extremity. Discharge Plan Discharge Clinical Impression: Cellulitis Patient Disposition: Home Condition: Stable Instructions: Antibiotic Form, Cellulitis (ED) Additional Instructions: Return if symptoms worsen or concerns: any increase in redness, swelling, pain or fever over 101. Elevate the extremity. Take antibiotics as directed. Follow-up with primary care provider. Patient Language: Japanese Prescriptions: New cephalexin 500 mg capsule 500 mg PO Q6H Qty: 28 0RF No Action amiodarone 200 mg tablet 200 mg PO DAILY hydrocodone-acetaminophen 5-325 mg tablet 1 tablet PO TID PRN (Reason: Pain) allopurinol 100 mg tablet 200 mg PO DAILY levothyroxine 100 mcg tablet 100 mcg PO QAM furosemide [Lasix] 80 mg tablet 80 mg PO BID ropinirole 0.25 mg tablet 0.75 mg PO HS baclofen 10 mg tablet 10 mg PO TID PRN (Reason: other) Patient Comments: mg pantoprazole 40 mg tablet,delayed release (DR/EC) 40 mg PO TID gabapentin 300 mg capsule 300 mg PO TID folic acid 1 mg tablet 1 mg PO DAILY ergocalciferol (vitamin D2) 1,250 mcg (50,000 unit) capsule 50,000 unit PO WEEKLY calcitriol 0.25 mcg capsule 0.25 mcg PO DAILY Eliquis 5 mg tablet 5 mg PO BID Jardiance 10 mg Tablet 10 mg PO DAILY 30 Days Qty: 30 0RF linezolid 600 mg Tablet 600 mg PO Q12HR Qty: 9 0RF metoprolol succinate [Toprol XL] 25 mg tablet extended release 24 hr 12.5 mg PO DAILY 30 Days Qty: 15 0RF sacubitril-valsartan [Entresto] 24-26 mg Tablet 1 tablet PO Q12HR 30 Days Qty: 60 0RF (DME) blood-glucose meter [place]OneTouch Verio Flex [place] [facility] [place] 1 0[place] Rx Instructions: Starter Kit. May substitute to in-stock and/or covered by insurance meter. Use As Directed (DME) OneTouch Verio test strips Strip Qty: 1 0RF Rx Instructions: May substitute to in-stock and/or covered by insurance strips. Use As Directed (DME) pen needle, diabetic 32 gauge x 5/32 Needle Qty: 1 0RF Rx Instructions: As Directed (DME) lancets [OneTouch Delica Plus Lancet] 30 gauge [facility] [place]: 1 0RF Rx Instructions: May substitute to in-stock and/or covered by insurance lancets. Use As Directed insulin glargine [Lantus Solostar U-100 Insulin] 100 unit/mL (3 mL) insulin pen 22 unit subcut QHS Qty: 3 0RF insulin lispro [Humalog KwikPen Insulin] 100 unit/mL insulin pen 5 unit SUBCUT TID Qty: 15 0RF Rx Instructions: before meals Follow-up/Referrals: Nolberto,MD Roberson ([place]) [Primary Care Provider]
== END 2025-11-15 23:17 | disposition home or self-care (01) ==
LOC: ANHED 23:09
PROVIDERS: PCP Internal Medicine
DX: L03.116 Cellulitis of left lower limb (principal); I48.91 Unspecified atrial fibrillation; I50.9 Heart failure, unspecified; E11.22 Type 2 diabetes mellitus with diabetic chronic kidney disease; N18.9 Chronic kidney disease, unspecified; J61 Pneumoconiosis due to asbestos and other mineral fibers; J44.9 Chronic obstructive pulmonary disease, unspecified; M19.90 Unspecified osteoarthritis, unspecified site; M10.9 Gout, unspecified; Z79.01 Long term (current) use of anticoagulants; Z79.899 Other long term (current) drug therapy; Z79.84 Long term (current) use of oral hypoglycemic drugs; Z79.4 Long term (current) use of insulin
CPT/HCPCS: 93971; 99284; A9270